=== PATIENT | male | born 1960 | race American Indian/Alaskan Native ===

== ENCOUNTER 2020-11-20 12:23 | Inpatient (IN) | payer MEDICARE ==
[2020-11-20] MEDS ORDERED: SODIUM CHLORIDE 0.9% 1000 ML 1,000 ML IV ONE (12:32)
[2020-11-20] MEDS ORDERED: ALBUTEROL 2.5 MG/3 ML NEBU IH ONE (12:32)
[2020-11-20] MEDS ORDERED: dexAMETHasone 20 MG/5 ML VIAL IV ONE (12:33)
--- NOTE | 2020-11-20 12:37 | Emergency Department Report ---
ED General Adult HPI - General Chief complaint: Dyspnea/Respdistress Stated complaint: DIFFICULTY BREATHING /COVID Time Seen by Provider: 11/20/20 12:31 Source: EMS Mode of arrival: Wheelchair Limitations: No Limitations - History of Present Illness Initial comments: Patient presents by missing her shortness of breath. He states that he was diagnosed with coronavirus approximately 2 weeks ago. He has had ongoing trouble breathing. The dyspnea got worse over the last day or 2. He has had a cough. He describes orthopnea. Patient states that he just cannot catch his breath. He still has a cough. It is not producing any colored phlegm. He is not on oxygen at home. Patient states that he just feels weak all over in addition. He has no chest pain. There has been no diarrhea. He has no dysuria. Patient states that when he was diagnosed with coronavirus, he was not treated with steroids or any other medication. - Related Data Home Medications Medication Instructions Recorded Confirmed Last Taken Ibuprofen [Motrin] 800 mg PO Q8HR PRN 04/13/15 06/14/15 Unknown Loratadine (Nf) [Claritin (Nf)] 10 mg PO DAILY PRN 04/13/15 06/14/15 Unknown Timolol 0.5% [Timoptic] 1 drops OP DAILY PRN 04/13/15 06/14/15 Unknown allopurinoL [Zyloprim] 300 mg PO QDAY PRN 04/13/15 06/14/15 Unknown methylPREDNISolone [Medrol Dose 4 mg PO DAILY PRN 04/13/15 06/14/15 Unknown Sergio] Previous Rx's Medication Instructions Recorded Last Taken Type Famotidine [Pepcid] 20 mg PO BID #60 tablet 04/14/15 Unknown Rx Aspirin [Aspirin BABY CHEW TAB] 81 mg PO QDAY #30 tab.chew 06/16/15 Unknown Rx AtorvaSTATin [Lipitor] 40 mg PO QHS #30 tablet 06/16/15 Unknown Rx Colchicine [Colcrys] 0.6 mg PO DAILY PRN #30 tablet 06/16/15 Unknown Rx Digoxin [Lanoxin] 0.125 mg PO DAILY #30 tablet 06/16/15 Unknown Rx Furosemide [Lasix TAB] 40 mg PO QDAY #30 tablet 06/16/15 Unknown Rx Niacin ER [Niaspan ER] 500 mg PO QHS #30 tablet 06/16/15 Unknown Rx [place]-3 Fatty Acids/Fish Oil [Fish 1,000 mg PO DAILY #30 capsule 06/16/15 Unknown Rx Oil] Potassium Chloride [K-Dur] 10 meq PO DAILY #30 tablet 06/16/15 Unknown Rx Ranolazine ER [Ranexa ER] 1,000 mg PO BID #60 tablet 06/16/15 Unknown Rx Spironolactone [Aldactone] 25 mg PO QDAY #30 tablet 06/16/15 Unknown Rx allopurinoL [Zyloprim] 300 mg PO QDAY PRN #30 tablet 06/16/15 Unknown Rx carvediloL [Coreg] 25 mg PO DAILY #30 tablet 06/16/15 Unknown Rx lisinopriL [Zestril TAB] 40 mg PO QDAY #30 tablet 06/16/15 Unknown Rx oxyCODONE /ACETAMINOPHEN [Percocet 1 tab PO Q6H PRN #30 tablet 06/16/15 Unknown Rx 5/325 mg] predniSONE [Deltasone] 20 mg PO QDAY #30 tablet 06/16/15 Unknown Rx Allergies Allergy/AdvReac Type Severity Reaction Status Date / Time No Known Allergies Allergy Verified 04/13/15 20:17 ED Review of Systems ROS: Stated complaint: DIFFICULTY BREATHING /COVID Other details as noted in HPI Comment: All other systems reviewed and negative Constitutional: see HPI, weakness ( Generalized) Eyes: denies: vision change ENT: denies: ear pain Respiratory: see HPI Cardiovascular: denies: chest pain Endocrine: denies: unexplained weight loss Gastrointestinal: denies: abdominal pain Genitourinary: denies: dysuria Musculoskeletal: denies: back pain Skin: denies: rash Neurological: denies: headache Hematological/Lymphatic: denies: easy bruising ED Past Medical Hx - Past Medical History Previous Medical History?: Yes Hx Hypertension: Yes Hx Congestive Heart Failure: Yes Additional medical history: AICD, Gout - Surgical History Hx Internal Defibrillator: Yes Additional Surgical History: Stent, AIDC - Family History Family history: hypertension - Social History Smoking Status: Never Smoker Substance Use Type: None - Medications Home Medications: Home Medications Medication Instructions Recorded Confirmed Last Taken Type Ibuprofen [Motrin] 800 mg PO Q8HR PRN 04/13/15 06/14/15 Unknown History Loratadine (Nf) [Claritin (Nf)] 10 mg PO DAILY PRN 04/13/15 06/14/15 Unknown History Timolol 0.5% [Timoptic] 1 drops OP DAILY PRN 04/13/15 06/14/15 Unknown History allopurinoL [Zyloprim] 300 mg PO QDAY PRN 04/13/15 06/14/15 Unknown History methylPREDNISolone [Medrol Dose 4 mg PO DAILY PRN 04/13/15 06/14/15 Unknown History Sergio] Famotidine [Pepcid] 20 mg PO BID #60 tablet 04/14/15 06/14/15 Unknown Rx Aspirin [Aspirin BABY CHEW TAB] 81 mg PO QDAY #30 tab.chew 06/16/15 Unknown Rx AtorvaSTATin [Lipitor] 40 mg PO QHS #30 tablet 06/16/15 Unknown Rx Colchicine [Colcrys] 0.6 mg PO DAILY PRN #30 tablet 06/16/15 Unknown Rx Digoxin [Lanoxin] 0.125 mg PO DAILY #30 tablet 06/16/15 Unknown Rx Furosemide [Lasix TAB] 40 mg PO QDAY #30 tablet 06/16/15 Unknown Rx Niacin ER [Niaspan ER] 500 mg PO QHS #30 tablet 06/16/15 Unknown Rx [place]-3 Fatty Acids/Fish Oil [Fish 1,000 mg PO DAILY #30 capsule 06/16/15 Unknown Rx Oil] Potassium Chloride [K-Dur] 10 meq PO DAILY #30 tablet 06/16/15 Unknown Rx Ranolazine ER [Ranexa ER] 1,000 mg PO BID #60 tablet 06/16/15 Unknown Rx Spironolactone [Aldactone] 25 mg PO QDAY #30 tablet 06/16/15 Unknown Rx allopurinoL [Zyloprim] 300 mg PO QDAY PRN #30 tablet 06/16/15 Unknown Rx carvediloL [Coreg] 25 mg PO DAILY #30 tablet 06/16/15 Unknown Rx lisinopriL [Zestril TAB] 40 mg PO QDAY #30 tablet 06/16/15 Unknown Rx oxyCODONE /ACETAMINOPHEN [Percocet 1 tab PO Q6H PRN #30 tablet 06/16/15 Unknown Rx 5/325 mg] predniSONE [Deltasone] 20 mg PO QDAY #30 tablet 06/16/15 Unknown Rx ED Physical Exam - General Limitations: No Limitations, Other ( pulse ox was noted. Patient is not hypoxic on oxygen. EMS reports that he was hypoxic on room air) General appearance: alert, in distress ( moderate), obese - Head Head exam: Present: atraumatic, normocephalic, normal inspection - Eye Eye exam: Present: EOMI. Absent: scleral icterus - ENT ENT exam: Present: normal exam, mucous membranes moist, normal external ear exam - Neck Neck exam: Present: normal inspection. Absent: meningismus - Respiratory Respiratory exam: Present: respiratory distress ( moderate), rales ( bilateral), accessory muscle use - Cardiovascular Cardiovascular Exam: Present: regular rate, normal rhythm - GI/Abdominal GI/Abdominal exam: Present: soft. Absent: tenderness - Extremities Exam Extremities exam: Present: normal capillary refill. Absent: pedal edema - Back Exam Back exam: Absent: CVA tenderness (R), CVA tenderness (L) - Neurological Exam Neurological exam: Present: alert, oriented X3, CN II-XII intact, reflexes normal. Absent: motor sensory deficit - Psychiatric Psychiatric exam: Present: normal affect, normal mood - Skin Skin exam: Present: warm, dry ED Course Vital Signs 11/20/20 12:31 Temperature 98.3 F Respiratory 19 Rate Blood Pressure 76/51 - Reevaluation(s) Reevaluation #1: 11/20/20 12:36 EMS was met upon arrival. Labs were ordered. Blood pressure was noted. We have asked for a manual blood pressure to verify. Reevaluation #2: 11/20/20 14:38 Patient is still hypotensive. Renal function was noted. Sepsis protocol has been started although there is no obvious source of infection. We will have to admit the patient. Reevaluation #3: 11/20/20 15:43 CBC is still pending. Regardless, the patient is hypotensive and will need to be admitted. Lab has been called. At this time, we will continue to resuscitat e with IV hydration. Chest x-ray does not demonstrate overt heart failure or overt pneumonia. Etiology for hypotension is likely secondary to an acute kidney injury. Lactate has been added on. Clinically, the patient does not have severe sepsis or septic shock at this point. However this could be sepsis that we just do not have a source for. We will not start empiric antibiotic therapy at this time without a source. This could be all Covid related. ED Medical Decision Making - Lab Data Result diagrams: 11/20/20 12:39 - Medical Decision Making Patient presented with shortness of breath and was found to ultimately have an acute kidney injury. He was hypotensive. He was being resuscitated with fluids aggressively in the sepsis protocol. There was no overt sign of pneumonia. He did not have dysuria or frequency suggestive of urinary tract infection. There was no rash suggestive of a cellulitis. He did not have clinical evidence to suggest congestive heart failure or cardiogenic shock. Critical Care Time: Yes Critical care attestation.: If time is entered above; I have spent that time in minutes in the direct care of this critically ill patient, excluding procedure time. Critical Care Time: Critical care time of 55 minutes is because of all procedures based on hypotension and acute kidney injury ED Disposition Clinical Impression: Shortness of breath, COVID-19 virus infection, Transient hypotension, CHERYL (acute kidney injury) Disposition: ADMITTED INPATIENT Is pt being admited?: Yes Condition: Stable
[2020-11-20 13:13] LABS: Calcium 8.5 mg/dL (8.4-10.2)
--- NOTE | 2020-11-20 13:26 | XRay Report ---
CHEST 1 VIEW 11/20/2020 12:16 PM INDICATION / CLINICAL INFORMATION: dyspnea. COMPARISON: 04/13/2015. FINDINGS: SUPPORT DEVICES: ICD in satisfactory position. HEART / MEDIASTINUM: No significant abnormality. LUNGS / PLEURA: Mild increased interstitial markings diffusely without localized infiltrate or pleura l fluid No pneumothorax. ADDITIONAL FINDINGS: No significant additional findings. IMPRESSION: Suspect chronic interstitial thickening with possible mild superimposed vascular congesti on. Signer Name: En Nice MD Signed: 11/20/2020 1:22 PM Workstation Name: [id number]
[2020-11-20] MEDS ORDERED: SODIUM CHLORIDE 0.9% 1000 ML IV SOLN IV ONE (14:37)
--- NOTE | 2020-11-20 15:42 | History and Physical Report ---
History of Present Illness Chief complaint: I am short of breath History of present illness: 60 YO Male with CAD S/P Stent Placement, HTN, Systolic CHF(EF 25) S/P AICD Placement, HLD, CO, OA, Coronavirus Infection diagnosed 2 weeks ago presents to ED for evaluation. Patient reports "I am short of breath". Patient states that he has experienced shortness of breath, dry cough, fatigue, malaise, body aches, subjective fever, decreased exercise tolerance over the past 1 week with persistent and worsening symptoms over the past 3 days. EMS was notified and upon arrival the patient was found to be in distress and subsequent transported to [facility] for further care and evaluation of the aforementioned symptoms. The gemini bass was seen and evaluated in the emergency department. All lab and imaging studies reviewed. Patient found to have a pulse oximetry of 86% with exertion which is consistent with acute hypoxemic respiratory failure. The patient is unable to speak in complete sentences due to shortness of breath. Patient placed on submental oxygen with mild improvement in symptoms. Patient admitted to medical floor and initiated on coronavirus protocol due to increased risk of worsening symptoms. VQ scan ordered and is pending at time of admission. Patient denies chest pain, palpitation, unilateral leg swelling, calf pain, prolonged travel/immobility, individual/family history of DVT/PE/bleeding/blood clotting disorders. Prior admission on 06/14/2015 reviewed. All medication listed at time of admission has been reconciled. Advanced care planning conducted in ED. Past History Past Medical History: acute CO, CAD, heart failure, hypertension, hyperlipidemi a, other (See HPI) Past Surgical History: Other (Cardiac stent, AICD) Social history: single. denies: smoking, alcohol abuse Family history: diabetes, hypertension Medications and Allergies Allergies Allergy/AdvReac Type Severity Reaction Status Date / Time No Known Allergies Allergy Verified 04/13/15 20:17 Home Medications Medication Instructions Recorded Confirmed Last Taken Type Ibuprofen [Motrin] 800 mg PO Q8HR PRN 04/13/15 06/14/15 Unknown History Loratadine (Nf) [Claritin (Nf)] 10 mg PO DAILY PRN 04/13/15 06/14/15 Unknown History Timolol 0.5% [Timoptic] 1 drops OP DAILY PRN 04/13/15 06/14/15 Unknown History allopurinoL [Zyloprim] 300 mg PO QDAY PRN 04/13/15 06/14/15 Unknown History methylPREDNISolone [Medrol Dose 4 mg PO DAILY PRN 04/13/15 06/14/15 Unknown History Sergio] Famotidine [Pepcid] 20 mg PO BID #60 tablet 04/14/15 06/14/15 Unknown Rx Aspirin [Aspirin BABY CHEW TAB] 81 mg PO QDAY #30 tab.chew 06/16/15 Unknown Rx AtorvaSTATin [Lipitor] 40 mg PO QHS #30 tablet 06/16/15 Unknown Rx Colchicine [Colcrys] 0.6 mg PO DAILY PRN #30 tablet 06/16/15 Unknown Rx Digoxin [Lanoxin] 0.125 mg PO DAILY #30 tablet 06/16/15 Unknown Rx Furosemide [Lasix TAB] 40 mg PO QDAY #30 tablet 06/16/15 Unknown Rx Niacin ER [Niaspan ER] 500 mg PO QHS #30 tablet 06/16/15 Unknown Rx [place]-3 Fatty Acids/Fish Oil [Fish 1,000 mg PO DAILY #30 capsule 06/16/15 Unknown Rx Oil] Potassium Chloride [K-Dur] 10 meq PO DAILY #30 tablet 06/16/15 Unknown Rx Ranolazine ER [Ranexa ER] 1,000 mg PO BID #60 tablet 06/16/15 Unknown Rx Spironolactone [Aldactone] 25 mg PO QDAY #30 tablet 06/16/15 Unknown Rx allopurinoL [Zyloprim] 300 mg PO QDAY PRN #30 tablet 06/16/15 Unknown Rx carvediloL [Coreg] 25 mg PO DAILY #30 tablet 06/16/15 Unknown Rx lisinopriL [Zestril TAB] 40 mg PO QDAY #30 tablet 06/16/15 Unknown Rx oxyCODONE /ACETAMINOPHEN [Percocet 1 tab PO Q6H PRN #30 tablet 06/16/15 Unknown Rx 5/325 mg] predniSONE [Deltasone] 20 mg PO QDAY #30 tablet 06/16/15 Unknown Rx Review of Systems Constitutional: fever, weakness, malaise, lethargy Ears, nose, mouth and throat: no ear pain, no ear discharge, no tinnitis, no decreased hearing, no nose pain, no nasal congestion Cardiovascular: no chest pain, no palpitations, no rapid/irregular heart beat, no edema, no syncope Respiratory: cough, cough with sputum, shortness of breath, no excessive sputum Gastrointestinal: no abdominal pain, no nausea, no vomiting, no constipation, no hematemesis Genitourinary Male: no hematuria, no flank pain, no urinary frequency, no urinary hesitancy, no nocturia, no incontinence Rectal: no pain, no incontinence Musculoskeletal: no neck stiffness, no neck pain, no arm numbness/tingling, no shooting leg pain Integumentary: no rash, no redness, no sores, no wounds Neurological: no head injury, no weakness, no parathesias, no tingling, no seizures, no syncope Psychiatric: no anxiety, no change in sleep habits, no insomnia, no hypersomnia, no change in libido Endocrine: no cold intolerance, no excessive thirst, no polydipsia, no nocturia, no flushing Hematologic/Lymphatic: no easy bruising, no easy bleeding, no lymphedema Allergic/Immunologic: no allergic rhinitis, no wheezing Exam - Constitutional Vitals: Temp Pulse Resp BP Pulse Ox 98.3 F 19 76/51 11/20/20 12:31 11/20/20 12:31 11/20/20 12:31 General appearance: Present: mild distress, obese - EENT Eyes: Present: PERRL ENT: hearing intact, clear oral mucosa - Neck Neck: Present: supple, normal ROM - Respiratory Respiratory effort: normal Respiratory: bilateral: CTA - Cardiovascular Heart Sounds: Present: S1 & S2. Absent: rub, click - Extremities Extremities: pulses symmetrical, No edema Peripheral Pulses: within normal limits - Abdominal General gastrointestinal: Present: soft, non-tender, non-distended, normal bowel sounds Male genitourinary: Present: normal - Integumentary Integumentary: Present: clear, warm, dry - Musculoskeletal Musculoskeletal: generalized weakness - Psychiatric Psychiatric: appropriate mood/affect, intact judgment & insight - Neurologic Neurologic: CNII-XII intact, moves all extremities HEART Score - HEART Score Troponin: Troponin T 0.019 ng/mL (0.00-0.029) 11/20/20 12:39 Results - Labs CBC & Chem 7: 11/20/20 12:39 11/20/20 12:39 Labs: Abnormal lab results 11/20/20 11/20/20 Range/Units 12:39 12:39 D-Dimer 836.61 H (0-234) ng/mlDDU Sodium 125 L (137-145) mmol/L Chloride 94.3 L (98-107) mmol/L Carbon Dioxide 16 L (22-30) mmol/L BUN 43 H (9-20) mg/dL Creatinine 2.3 H (0.8-1.3) mg/dL Assessment and Plan - Patient Problems (1) Acute hypoxemic respiratory failure Current Visit: Yes Status: Acute Plan to address problem: Chest x-ray, supplemental oxygen, pulse oximetry, nebulizer therapy, VQ scan ordered and is pending at time of admission. (2) Obesity hypoventilation syndrome Current Visit: Yes Status: Acute Plan to address problem: Balanced diet, increase physical activity discharge, outpatient pulmonary follow-up for sleep study. (3) COVID-19 virus infection Current Visit: No Status: Acute Plan to address problem: Coronavirus protocol: Contact precautions, isolation precautions, IV steroid therapy, IV antibiotic therapy, vitamin C therapy, vitamin D therapy, zinc therapy, prophylactic anticoagulation (4) Essential hypertension Current Visit: No Status: Chronic Plan to address problem: Monitor blood pressure every shift, continue medical management (5) Hyperlipidemia Current Visit: No Status: Chronic Plan to address problem: Statin therapy, low-cholesterol diet, supportive care. (6) DVT prophylaxis Current Visit: Yes Status: Acute Plan to address problem: SCD to bilateral lower extremities while in bed, prophylactic anticoagulation (7) Advance care planning Current Visit: Yes Status: Acute Plan to address problem: Disease education conducted, care plan discussed, diagnoses discussed, prognosis discussed, patient is full code, patient knowledges understanding and agreement with care plan. +30 minutes.
[2020-11-20] MEDS ORDERED: allopurinoL 300 MG TAB PO PRN (15:43)
[2020-11-20] MEDS ORDERED: TIMOLOL 0.5% OPHTH SOLN 5 ML OD PRN (15:43)
[2020-11-20] MEDS ORDERED: COLCHICINE 0.6 MG TAB PO PRN (15:43)
[2020-11-20] MEDS ORDERED: NON-FORMULARY EACH (Loratadine (Nf) 10 MG Tablet) PO PRN (15:43)
[2020-11-20 15:54] LABS: Basophils % (Auto) 0.5 % (0.0-1.8); Hemoglobin 16.1 gm/dl (11.8-15.2); Lymphocytes # (Auto) 0.6 K/mm3 (1.2-5.4); Lymphocytes % (Auto) 25.9 % (13.4-35.0); Mean Corpuscular HGB Conc 33 % (32-34); Mean Corpuscular Volume 99 fl (84-94); Monocytes # (Auto) 0.2 K/mm3 (0.0-0.8); Monocytes % (Auto) 8.4 % (0.0-7.3); Platelet Count 100 K/mm3 (140-440); Red Blood Count 4.87 M/mm3 (3.65-5.03); Red Cell Distribution Width 15.2 % (13.2-15.2)
[2020-11-20] MEDS ORDERED: ACETAMINOPHEN 325 MG TAB PO PRN (17:29)
[2020-11-20] MEDS ORDERED: HYDROmorphone 1 MG/1 ML INJ IV PRN (17:29)
[2020-11-20] MEDS ORDERED: ONDANSETRON 4 MG/2 ML INJ IV PRN (17:29)
[2020-11-20 20:38] LABS: Bilirubin,Urine Negative (Negative)
[2020-11-20 20:39] LABS: Blood,Urine 2+ (Negative); Color,Urine Straw (Yellow); Urobilinogen,Urine < 2.0 mg/dL (<2.0)
[2020-11-20] MEDS ORDERED: FAMOTIDINE 20 MG TAB PO SCH (22:00)
[2020-11-21] MEDS: HEPARIN 5,000 UNIT/1 ML VIAL SUB-Q SCH ×2 (00:35→10:21)
[2020-11-21] MEDS: RANOLAZINE ER 500 MG TAB 12HR PO SCH ×2 (00:36→10:22)
[2020-11-21] MEDS: methylPREDNISolone Sod Succinate 40 MG/1 ML INJ IV SCH ×3 (00:37→15:05)
[2020-11-21] MEDS: ZINC SULFATE 220 MG CAP PO SCH ×2 (00:38→10:22)
[2020-11-21] MEDS: ASCORBIC ACID 500 MG TAB PO SCH ×2 (00:38→10:23)
[2020-11-21] MEDS ORDERED: LISINOPRIL 40 MG TAB PO SCH (10:00)
[2020-11-21] MEDS ORDERED: FUROSEMIDE 40 MG TAB PO SCH (10:00)
[2020-11-21] MEDS ORDERED: DIGOXIN 0.125 MG TAB PO SCH (10:00)
[2020-11-21] MEDS ORDERED: SPIRONOLACTONE 25 MG TAB PO SCH (10:00)
[2020-11-21 10:05] LABS: Basophils % (Auto) 0.2 % (0.0-1.8); Hematocrit 49.5 % (35.5-45.6); Hemoglobin 17.1 gm/dl (11.8-15.2); Lymphocytes # (Auto) 0.5 K/mm3 (1.2-5.4); Lymphocytes % (Auto) 18.4 % (13.4-35.0); Mean Corpuscular HGB Conc 35 % (32-34); Mean Corpuscular Volume 98 fl (84-94); Monocytes # (Auto) 0.2 K/mm3 (0.0-0.8); Monocytes % (Auto) 6.1 % (0.0-7.3); Red Blood Count 5.04 M/mm3 (3.65-5.03); Red Cell Distribution Width 15.1 % (13.2-15.2)
[2020-11-21] MEDS: ASPIRIN 81 MG TAB CHEW PO SCH (10:21)
[2020-11-21] MEDS: CETIRIZINE 10 MG TAB PO SCH (10:21)
[2020-11-21] MEDS: FAMOTIDINE 10 MG TAB PO SCH (10:22)
[2020-11-21] MEDS: POTASSIUM CHLORIDE ER 10 MEQ TAB PO SCH (10:22)
[2020-11-21] MEDS: CHOLECALCIFEROL (VIT D3) 400 UNIT TAB PO SCH (10:23)
[2020-11-21 10:29] LABS: Alanine Aminotransferase 189 units/L (7-56); Albumin 3.2 g/dL (3.9-5); BUN/Creatinine Ratio 27; Blood Urea Nitrogen 38 mg/dL (9-20); Calcium 8.2 mg/dL (8.4-10.2); Hemolysis Index 20
[2020-11-21 11:15] LABS: Platelet Count 93 K/mm3 (140-440)
--- NOTE | 2020-11-21 11:21 | Nuclear Medicine Report ---
NUCLEAR MEDICINE PERFUSION SCAN INDICATION: covid 19 positive /sob CORRELATION: AP chest performed 11/20/2020 at 1253 hours RADIOPHARMACEUTICAL: Perfusion: 5.1 mCi Tc-99m MAA given IV FINDINGS: Perfusion images show symmetric and uniform radiotracer distribution throughout bilateral lung zones with no evidence of unmatched segmental perfusion defects. Normal cardiac silhouette. Photopenic defe ct from pacemaker device is noted. IMPRESSION: Low probability perfusion scan for pulmonary embolism. Signer Name: Todd Topete Jr, MD Signed: 11/21/2020 10:28 AM Workstation Name: [id number]
[2020-11-21 11:32] LABS: C-Reactive Protein 4.6 mg/dL (0.00-1.30)
--- NOTE | 2020-11-21 11:51 | Consultation ---
History of Present Illness - Reason for Consult Consult date: 11/21/20 COVID, hypoxia Requesting physician: CLIVE VILLALTA - History of Present Illness The patient is a 60-year-old male with coronary artery disease, CHF, hypertension, cardiomyopathy status post AICD placement who was recently diagnosed with COVID-19 infection 2 weeks prior. Came to the hospital with worsening shortness of breath, cough and fatigue with body aches. Upon evaluation, found to be hypoxic. Labs revealed leukopenia, D-dimer 859, LDH 682, transaminitis, CRP 4.6, NT proBNP 467 Review of Systems: reviewed in the chart, unable to obtain, minimize risk of transmission Past History Past Medical History: acute [place], CAD, heart failure, hypertension, hyperlipidemia, other (See HPI) Past Surgical History: Other (Cardiac stent, AICD) Social history: single. denies: smoking, alcohol abuse Family history: diabetes, hypertension Medications and Allergies Allergies Allergy/AdvReac Type Severity Reaction Status Date / Time No Known Allergies Allergy Verified 04/13/15 20:17 Home Medications Medication Instructions Recorded Confirmed Last Taken Type Ibuprofen [Motrin] 800 mg PO Q8HR PRN 04/13/15 06/14/15 Unknown History Loratadine (Nf) [Claritin (Nf)] 10 mg PO DAILY PRN 04/13/15 06/14/15 Unknown History Timolol 0.5% [Timoptic] 1 drops OP DAILY PRN 04/13/15 06/14/15 Unknown History allopurinoL [Zyloprim] 300 mg PO QDAY PRN 04/13/15 06/14/15 Unknown History methylPREDNISolone [Medrol Dose 4 mg PO DAILY PRN 04/13/15 06/14/15 Unknown History Sergio] Famotidine [Pepcid] 20 mg PO BID #60 tablet 04/14/15 06/14/15 Unknown Rx Aspirin [Aspirin BABY CHEW TAB] 81 mg PO QDAY #30 tab.chew 06/16/15 Unknown Rx AtorvaSTATin [Lipitor] 40 mg PO QHS #30 tablet 06/16/15 Unknown Rx Colchicine [Colcrys] 0.6 mg PO DAILY PRN #30 tablet 06/16/15 Unknown Rx Digoxin [Lanoxin] 0.125 mg PO DAILY #30 tablet 06/16/15 Unknown Rx Furosemide [Lasix TAB] 40 mg PO QDAY #30 tablet 06/16/15 Unknown Rx Niacin ER [Niaspan ER] 500 mg PO QHS #30 tablet 06/16/15 Unknown Rx [place]-3 Fatty Acids/Fish Oil [Fish 1,000 mg PO DAILY #30 capsule 06/16/15 Unknown Rx Oil] Potassium Chloride [K-Dur] 10 meq PO DAILY #30 tablet 06/16/15 Unknown Rx Ranolazine ER [Ranexa ER] 1,000 mg PO BID #60 tablet 06/16/15 Unknown Rx Spironolactone [Aldactone] 25 mg PO QDAY #30 tablet 06/16/15 Unknown Rx allopurinoL [Zyloprim] 300 mg PO QDAY PRN #30 tablet 06/16/15 Unknown Rx carvediloL [Coreg] 25 mg PO DAILY #30 tablet 06/16/15 Unknown Rx lisinopriL [Zestril TAB] 40 mg PO QDAY #30 tablet 06/16/15 Unknown Rx oxyCODONE /ACETAMINOPHEN [Percocet 1 tab PO Q6H PRN #30 tablet 06/16/15 Unknown Rx 5/325 mg] predniSONE [Deltasone] 20 mg PO QDAY #30 tablet 06/16/15 Unknown Rx Active Meds: Active Medications Acetaminophen (Acetaminophen 325 Mg Tab) 650 mg PO Q4H PRN PRN Reason: Pain MILD(1-3)/Fever >100.5/KIDD Allopurinol (Allopurinol 300 Mg Tab) 300 mg PO QDAY PRN PRN 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 Ascorbic Acid (Ascorbic Acid 500 Mg Tab) 500 mg PO BID [facility] Last Admin: 11/21/20 10:23 Dose: 500 mg Documented by: Aspirin (Aspirin 81 Mg Tab Chew) 81 mg PO QDAY [facility] Last Admin: 11/21/20 10:21 Dose: 81 mg Documented by: Cetirizine HCl (Cetirizine 10 Mg Tab) 10 mg PO DAILY [facility] Last Admin: 11/21/20 10:21 Dose: 10 mg Documented by: Cholecalciferol (Cholecalciferol (Vit D3) 400 Unit Tab) 1,000 unit PO QDAY [facility] Last Admin: 11/21/20 10:23 Dose: 1,000 unit Documented by: Colchicine (Colchicine 0.6 Mg Tab) 0.6 mg PO DAILY PRN PRN Reason: Gout Famotidine (Famotidine 10 Mg Tab) 10 mg PO BID [facility] Last Admin: 11/21/20 10:22 Dose: 10 mg Documented by: Furosemide (Furosemide 40 Mg Tab) 40 mg PO QDAY [facility] Last Admin: 11/21/20 10:22 Dose: 40 mg Documented by: Heparin Sodium (Porcine) (Heparin 5,000 Unit/1 Ml Vial) 5,000 unit SUB-Q Q12HR [facility] Last Admin: 11/21/20 10:21 Dose: 5,000 unit Documented by: Hydromorphone HCl (Hydromorphone 1 Mg/1 Ml Inj) 0.5 mg IV Q23H PRN PRN Reason: Pain , Severe (7-10) Methylprednisolone Sodium Succinate (Methylprednisolone Sod Succinate 40 Mg/1 Ml Inj) 40 mg IV Q8HR [facility] Last Admin: 11/21/20 05:52 Dose: 40 mg Documented by: Ondansetron HCl (Ondansetron 4 Mg/2 Ml Inj) 4 mg IV Q8H PRN PRN Reason: Nausea And Vomiting Oxycodone/Acetaminophen (Oxycodone /Acetaminophen 5-325mg Tab) 1 tab PO Q12H PRN PRN Reason: Pain, Moderate (4-6) Potassium Chloride (Potassium Chloride Er 10 Meq Tab) 10 meq PO DAILY [facility] Last Admin: 11/21/20 10:22 Dose: 10 meq Documented by: Ranolazine (Ranolazine Er 500 Mg Tab 12hr) 1,000 mg PO BID [facility] Last Admin: 11/21/20 10:22 Dose: 1,000 mg Documented by: Sodium Chloride (Sodium Chloride 0.9% 10 Ml Flush Syringe) 10 ml IV BID [facility] Last Admin: 11/21/20 10:23 Dose: 10 ml Documented by: Sodium Chloride (Sodium Chloride 0.9% 10 Ml Flush Syringe) 10 ml IV PRN PRN PRN Reason: LINE FLUSH Spironolactone (Spironolactone 25 Mg Tab) 25 mg PO QDAY [facility] Last Admin: 11/21/20 10:24 Dose: 25 mg Documented by: Timolol Maleate (Timolol 0.5% Ophth Soln 5 Ml) 1 drops OD DAILY PRN PRN Reason: Migraine Headache Zinc Sulfate (Zinc Sulfate 220 Mg Cap) 220 mg PO BID [facility] Last Admin: 11/21/20 00:38 Dose: 220 mg Documented by: Physical Examination - Physical Exam Narrative exam: Physical Exam (reviewed in chart to minimize risk of transmission) Constitutional: deferred Head, Ears, Nose: deferred Eyes: deferred Neck: deferred Oral: deferred Cardiovascular: deferred Respiratory: deferred GI: deferred Musculoskeletal: deferred Skin: deferred Hem/Lymphatic: deferred Psych: deferred Neurological: deferred - Constitutional Vitals: Vital Signs Temp Pulse Resp BP Pulse Ox 98.0 F 71 18 117/74 91 11/21/20 06:09 11/21/20 00:21 11/21/20 06:09 11/21/20 06:09 11/21/20 09:03 Temperature -Last 24 Hours Temperature 98.0 F Temperature 97.4 F Temperature 97.7 F Temperature 98.3 F Results - Labs CBC & Chem 7: 11/21/20 09:35 11/21/20 10:45 Labs: Abnormal lab results 11/20/20 11/20/20 11/20/20 Range/Units 12:39 12:39 12:39 WBC 2.4 L (4.5-11.0) K/mm3 RBC (3.65-5.03) M/mm3 Hgb 16.1 H (11.8-15.2) gm/dl Hct 48.0 H (35.5-45.6) % MCV 99 H (84-94) fl MCH 33 H (28-32) pg MCHC (32-34) % Plt Count 100 L (140-440) K/mm3 [place] % (Auto) 8.4 H (0.0-7.3) % Lymph # (Auto) 0.6 L (1.2-5.4) K/mm3 Seg Neutrophils % (40.0-70.0) % Seg Neutrophils # 1.6 L (1.8-7.7) K/mm3 D-Dimer 836.61 H (0-234) ng/mlDDU Sodium 125 L (137-145) mmol/L Chloride 94.3 L (98-107) mmol/L Carbon Dioxide 16 L (22-30) mmol/L BUN 43 H (9-20) mg/dL Creatinine 2.3 H (0.8-1.3) mg/dL Glucose (75-100) mg/dL Calcium (8.4-10.2) mg/dL AST (5-40) units/L ALT (7-56) units/L Lactate Dehydrogenase (91-180) units/L C-Reactive Protein (0.00-1.30) mg/dL Albumin (3.9-5) g/dL 11/21/20 11/21/20 11/21/20 Range/Units 09:35 09:35 10:45 WBC 2.7 L (4.5-11.0) K/mm3 RBC 5.04 H (3.65-5.03) M/mm3 Hgb 17.1 H (11.8-15.2) gm/dl Hct 49.5 H (35.5-45.6) % MCV 98 H (84-94) fl MCH 34 H (28-32) pg MCHC 35 H (32-34) % Plt Count 93 L (140-440) K/mm3 [place] % (Auto) (0.0-7.3) % Lymph # (Auto) 0.5 L (1.2-5.4) K/mm3 Seg Neutrophils % 75.3 H (40.0-70.0) % Seg Neutrophils # (1.8-7.7) K/mm3 D-Dimer 859.78 H (0-234) ng/mlDDU Sodium 134 L D (137-145) mmol/L Chloride (98-107) mmol/L Carbon Dioxide 16 L (22-30) mmol/L BUN 38 H (9-20) mg/dL Creatinine 1.4 H (0.8-1.3) mg/dL Glucose 141 H (75-100) mg/dL Calcium 8.2 L (8.4-10.2) mg/dL AST 202 H (5-40) units/L ALT 189 H (7-56) units/L Lactate Dehydrogenase (91-180) units/L C-Reactive Protein (0.00-1.30) mg/dL Albumin 3.2 L (3.9-5) g/dL 11/21/20 Range/Units 10:45 WBC (4.5-11.0) K/mm3 RBC (3.65-5.03) M/mm3 Hgb (11.8-15.2) gm/dl Hct (35.5-45.6) % MCV (84-94) fl MCH (28-32) pg MCHC (32-34) % Plt Count (140-440) K/mm3 [place] % (Auto) (0.0-7.3) % Lymph # (Auto) (1.2-5.4) K/mm3 Seg Neutrophils % (40.0-70.0) % Seg Neutrophils # (1.8-7.7) K/mm3 D-Dimer (0-234) ng/mlDDU Sodium (137-145) mmol/L Chloride (98-107) mmol/L Carbon Dioxide (22-30) mmol/L BUN (9-20) mg/dL Creatinine (0.8-1.3) mg/dL Glucose 154 H (75-100) mg/dL Calcium (8.4-10.2) mg/dL AST (5-40) units/L ALT (7-56) units/L Lactate Dehydrogenase 682 H (91-180) units/L C-Reactive Protein 4.60 H (0.00-1.30) mg/dL Albumin (3.9-5) g/dL - Imaging and Cardiology Chest x-ray: report reviewed, image reviewed (interstitial thickening) Assessment and Plan Cultures: SARS CoV2 PCR: Positive as outpatient, pending here 11/20/2020 blood culture: In process A/P: 60-year-old male with coronary artery disease, CHF, hypertension, cardiomyopathy status post AICD placement who was recently diagnosed with COVID-19 infection 2 weeks prior: #Bilateral pneumonia secondary to COVID-19: Labs revealed leukopenia, D-dimer 859, LDH 682, transaminitis, CRP 4.6, NT proBNP 467. CXR with interstitial thickening. V/Q with low probability for PE. #Acute hypoxic respiratory failure: Requiring [place] nasal cannula #CHF, cardiomyopathy, s/p AICD #CHERYL: Renally adjust antibiotics #Transaminitis: ?COVID related v/s congestion. #Leukopenia, thrombocytopenia: Likely related to viral illness Recs: -Continue steroids, on methylprednisolone -Out of the window for remdesivir benefit since diagnosis was 2 weeks ago -Not a candidate for Actemra based on CRP and oxygen requirements -prophylactic anticoagulation based on d-dimer per hospital protocol -trend d-dimer, CRP every 2-3 days -CHF management per primary Martine Anglin MD, FACP [facility] O: [phone] F: [phone]
--- NOTE | 2020-11-21 13:15 | Consultation ---
History of Present Illness - Reason for Consult Consult date: 11/21/20 acute renal failure Requesting physician: CLIVE VILLALTA - History of Present Illness Patient presents by missing her shortness of breath. He states that he was diagnosed with coronavirus approximately 2 weeks ago. He has had ongoing trouble breathing. The dyspnea got worse over the last day or 2. He has had a cough. He describes orthopnea. Patient states that he just cannot catch his breath. He still has a cough. It is not producing any colored phlegm. He is not on oxygen at home. Patient states that he just feels weak all over in addition. He has no chest pain. There has been no diarrhea. He has no dysuria. Patient states that when he was diagnosed with coronavirus, he was not treated with steroids or any other medication. ROS: Stated complaint: DIFFICULTY BREATHING /COVID Other details as noted in HPI Comment: All other systems reviewed and negative Constitutional: see HPI, weakness ( Generalized) Eyes: denies: vision change ENT: denies: ear pain Respiratory: see HPI Cardiovascular: denies: chest pain Endocrine: denies: unexplained weight loss Gastrointestinal: denies: abdominal pain Genitourinary: denies: dysuria Musculoskeletal: denies: back pain Skin: denies: rash Neurological: denies: headache Hematological/Lymphatic: denies: easy bruising - Past Medical History Previous Medical History?: Yes Hx Hypertension: Yes Hx Congestive Heart Failure: Yes Additional medical history: AICD, Gout - Surgical History Hx Internal Defibrillator: Yes Additional Surgical History: Stent, AIDC - Family History Family history: hypertension - Social History Smoking Status: Never Smoker Substance Use Type: None Past History Past Medical History: acute [place], CAD, heart failure, hypertension, hyperlipidemia, other (See HPI) Past Surgical History: Other (Cardiac stent, AICD) Social history: single. denies: smoking, alcohol abuse Family history: diabetes, hypertension Medications and Allergies Allergies Allergy/AdvReac Type Severity Reaction Status Date / Time No Known Allergies Allergy Verified 04/13/15 20:17 Home Medications Medication Instructions Recorded Confirmed Last Taken Type Ibuprofen [Motrin] 800 mg PO Q8HR PRN 04/13/15 06/14/15 Unknown History Loratadine (Nf) [Claritin (Nf)] 10 mg PO DAILY PRN 04/13/15 06/14/15 Unknown History Timolol 0.5% [Timoptic] 1 drops OP DAILY PRN 04/13/15 06/14/15 Unknown History allopurinoL [Zyloprim] 300 mg PO QDAY PRN 04/13/15 06/14/15 Unknown History methylPREDNISolone [Medrol Dose 4 mg PO DAILY PRN 04/13/15 06/14/15 Unknown History Sergio] Famotidine [Pepcid] 20 mg PO BID #60 tablet 04/14/15 06/14/15 Unknown Rx Aspirin [Aspirin BABY CHEW TAB] 81 mg PO QDAY #30 tab.chew 06/16/15 Unknown Rx AtorvaSTATin [Lipitor] 40 mg PO QHS #30 tablet 06/16/15 Unknown Rx Colchicine [Colcrys] 0.6 mg PO DAILY PRN #30 tablet 06/16/15 Unknown Rx Digoxin [Lanoxin] 0.125 mg PO DAILY #30 tablet 06/16/15 Unknown Rx Furosemide [Lasix TAB] 40 mg PO QDAY #30 tablet 06/16/15 Unknown Rx Niacin ER [Niaspan ER] 500 mg PO QHS #30 tablet 06/16/15 Unknown Rx [place]-3 Fatty Acids/Fish Oil [Fish 1,000 mg PO DAILY #30 capsule 06/16/15 Unknown Rx Oil] Potassium Chloride [K-Dur] 10 meq PO DAILY #30 tablet 06/16/15 Unknown Rx Ranolazine ER [Ranexa ER] 1,000 mg PO BID #60 tablet 06/16/15 Unknown Rx Spironolactone [Aldactone] 25 mg PO QDAY #30 tablet 06/16/15 Unknown Rx allopurinoL [Zyloprim] 300 mg PO QDAY PRN #30 tablet 06/16/15 Unknown Rx carvediloL [Coreg] 25 mg PO DAILY #30 tablet 06/16/15 Unknown Rx lisinopriL [Zestril TAB] 40 mg PO QDAY #30 tablet 06/16/15 Unknown Rx oxyCODONE /ACETAMINOPHEN [Percocet 1 tab PO Q6H PRN #30 tablet 06/16/15 Unknown Rx 5/325 mg] predniSONE [Deltasone] 20 mg PO QDAY #30 tablet 06/16/15 Unknown Rx Active Meds: Active Medications Acetaminophen (Acetaminophen 325 Mg Tab) 650 mg PO Q4H PRN PRN Reason: Pain MILD(1-3)/Fever >100.5/KIDD Allopurinol (Allopurinol 300 Mg Tab) 300 mg PO QDAY PRN 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 Ascorbic Acid (Ascorbic Acid 500 Mg Tab) 500 mg PO BID [facility] Last Admin: 11/21/20 10:23 Dose: 500 mg Documented by: Aspirin (Aspirin 81 Mg Tab Chew) 81 mg PO QDAY [facility] Last Admin: 11/21/20 10:21 Dose: 81 mg Documented by: Cetirizine HCl (Cetirizine 10 Mg Tab) 10 mg PO DAILY [facility] Last Admin: 11/21/20 10:21 Dose: 10 mg Documented by: Cholecalciferol (Cholecalciferol (Vit D3) 400 Unit Tab) 1,000 unit PO QDAY [facility] Last Admin: 11/21/20 10:23 Dose: 1,000 unit Documented by: Colchicine (Colchicine 0.6 Mg Tab) 0.6 mg PO DAILY PRN PRN Reason: Gout Famotidine (Famotidine 10 Mg Tab) 10 mg PO BID [facility] Last Admin: 11/21/20 10:22 Dose: 10 mg Documented by: Furosemide (Furosemide 40 Mg Tab) 40 mg PO QDAY [facility] Last Admin: 11/21/20 10:22 Dose: 40 mg Documented by: Heparin Sodium (Porcine) (Heparin 5,000 Unit/1 Ml Vial) 5,000 unit SUB-Q Q12HR [facility] Last Admin: 11/21/20 10:21 Dose: 5,000 unit Documented by: Hydromorphone HCl (Hydromorphone 1 Mg/1 Ml Inj) 0.5 mg IV Q23H PRN PRN Reason: Pain , Severe (7-10) Methylprednisolone Sodium Succinate (Methylprednisolone Sod Succinate 40 Mg/1 Ml Inj) 40 mg IV Q8HR [facility] Last Admin: 11/21/20 05:52 Dose: 40 mg Documented by: Ondansetron HCl (Ondansetron 4 Mg/2 Ml Inj) 4 mg IV Q8H PRN PRN Reason: Nausea And Vomiting Oxycodone/Acetaminophen (Oxycodone /Acetaminophen 5-325mg Tab) 1 tab PO Q12H PRN PRN Reason: Pain, Moderate (4-6) Potassium Chloride (Potassium Chloride Er 10 Meq Tab) 10 meq PO DAILY [facility] Last Admin: 11/21/20 10:22 Dose: 10 meq Documented by: Ranolazine (Ranolazine Er 500 Mg Tab 12hr) 1,000 mg PO BID [facility] Last Admin: 11/21/20 10:22 Dose: 1,000 mg Documented by: Sodium Chloride (Sodium Chloride 0.9% 10 Ml Flush Syringe) 10 ml IV BID [facility] Last Admin: 11/21/20 10:23 Dose: 10 ml Documented by: Sodium Chloride (Sodium Chloride 0.9% 10 Ml Flush Syringe) 10 ml IV PRN PRN PRN Reason: LINE FLUSH Spironolactone (Spironolactone 25 Mg Tab) 25 mg PO QDAY [facility] Last Admin: 11/21/20 10:24 Dose: 25 mg Documented by: Timolol Maleate (Timolol 0.5% Ophth Soln 5 Ml) 1 drops OD DAILY PRN PRN Reason: Migraine Headache Zinc Sulfate (Zinc Sulfate 220 Mg Cap) 220 mg PO BID [facility] Last Admin: 11/21/20 00:38 Dose: 220 mg Documented by: Exam - Vital Signs Vital signs: Vital Signs Temp Resp BP 98.3 F 19 76/51 11/20/20 12:31 11/20/20 12:31 11/20/20 12:31 - Physical Exam Narrative exam: - General Limitations: No Limitations, Other ( pulse ox was noted. Patient is not hypoxic on oxygen. EMS reports that he was hypoxic on room air) General appearance: alert, in distress ( moderate), obese - Head Head exam: Present: atraumatic, normocephalic, normal inspection - Eye Eye exam: Present: EOMI. Absent: scleral icterus - ENT ENT exam: Present: normal exam, mucous membranes moist, normal external ear exam - Neck Neck exam: Present: normal inspection. Absent: meningismus - Respiratory Respiratory exam: Present: respiratory distress ( moderate), rales ( bilateral), accessory muscle use - Cardiovascular Cardiovascular Exam: Present: regular rate, normal rhythm - GI/Abdominal GI/Abdominal exam: Present: soft. Absent: tenderness - Extremities Exam Extremities exam: Present: normal capillary refill. Absent: pedal edema - Back Exam Back exam: Absent: CVA tenderness (R), CVA tenderness (L) - Neurological Exam Neurological exam: Present: alert, oriented X3, CN II-XII intact, reflexes normal. Absent: motor sensory deficit - Psychiatric Psychiatric exam: Present: normal affect, normal mood - Skin Skin exam: Present: warm, dry Results - Lab Results 10/01/21 09:35 11/21/20 10:45 Most recent lab results Calcium 8.2 mg/dL (8.4-10.2) L 11/21/20 09:35 Assessment and Plan Impression: * CHERYL * Covid PNA * hyponatremia * metabolic acidosis * acute hypoxic resp failure Plan: * cr is better today * hold diuresis at this time * add bicarb gtt for correction of acidosis and improved volume statua * volume resuscitation as needed * daily lytes and strict i/os * avoid nephrotoxins * renal diet * covid care per primary team
--- NOTE | 2020-11-21 13:34 | Progress Note ---
Assessment and Plan Assessment and plan: 60 YO Male with CAD S/P Stent Placement, HTN, Systolic CHF(EF 25) S/P AICD Placement, HLD, SD, OA, Coronavirus Infection diagnosed 2 weeks ago presents to ED for evaluation. Patient reports "I am short of breath". Patient states that he has experienced shortness of breath, dry cough, fatigue, malaise, body aches, subjective fever, decreased exercise tolerance over the past 1 week with persistent and worsening symptoms over the past 3 days. EMS was notified and upon arrival the patient was found to be in distress and subsequent transported to [facility] for further care and evaluation of the aforementioned symptoms. The patient was seen and evaluated in the emergency department. All lab and imaging studies reviewed. Patient found to have a pulse oximetry of 86% with exertion which is consistent with acute hypoxemic respiratory failure. The patient is unable to speak in complete sentences due to shortness of breath. Patient placed on submental oxygen with mild improvement in symptoms. Patient admitted to medical floor and initiated on coronavirus protocol due to increased risk of worsening symptoms. VQ scan ordered and is pending at time of admission. Patient denies chest pain, palpitation, unilateral leg swelling, calf pain, prolonged travel/immobility, individual/family history of DVT/PE/bleeding/blood clotting disorders. Prior admission on 06/14/2015 reviewed. All medication l isted at time of admission has been reconciled. Advanced care planning conducted in ED. (1) Acute hypoxemic respiratory failure Current Visit: Yes Status: Acute Plan to address problem: Chest x-ray, supplemental oxygen, pulse oximetry, nebulizer therapy, VQ scan ordered and is pending at time of admission. (2) Obesity hypoventilation syndrome Current Visit: Yes Status: Acute Plan to address problem: Balanced diet, increase physical activity discharge, outpatient pulmonary follow-up for sleep study. (3) COVID-19 virus infection Current Visit: No Status: Acute Plan to address problem: Coronavirus protocol: Contact precautions, isolation precautions, IV steroid therapy, IV antibiotic therapy, vitamin C therapy, vitamin D therapy, zinc therapy, prophylactic anticoagulation (4) Essential hypertension Current Visit: No Status: Chronic Plan to address problem: Monitor blood pressure every shift, continue medical management (5) Hyperlipidemia Current Visit: No Status: Chronic Plan to address problem: Statin therapy, low-cholesterol diet, supportive care. (6) Acute kidney injury with vasomotor nephropathy unknown baseline (7) Hyponatremia (8) thrombocytopenia (9) DVT prophylaxis Current Visit: Yes Status: Acute Plan to address problem: SCD to bilateral lower extremities while in bed, prophylactic anticoagulation (10) Advance care planning Current Visit: Yes Status: Acute Plan to address problem: Disease education conducted, care plan discussed, diagnoses discussed, prognosis discussed, patient is full code, patient knowledges understanding and agreement with care plan. +30 minutes. 11/21: Patient seen and examined his on 12 L of oxygen. I have increasing steroids to 80 mg every 8 will defer to ID if he should be changed to Decadron. I have consulted pulmonary and cardiology in the meantime neonatal surgeon ordered an EKG which showed possible anterior wall infarct with some ST elevations very minimal. I reviewed the EKG from 2016 and it was similar. Patient denies any chest pain at this time. Nephrology has been consulted as patient has an acute kidney injury with a baseline of 1.1 Patient 2016 although I do not have any new baseline. I will defer initiation of IV Lasix to nephrology the patient was started on p.o. Lasix nevertheless on admission. Also hyponatremia is noted I will monitor this closely in addition to thrombocytopenia which will affect the use of anticoagulation. I will encourage the patient to prone as much as tolerated. History Interval history: Patient seen and examined this morning he is on 12 L of oxygen. However he is able to speak in complete sentences but does show evidence of shortness of breath. Tells me he was diagnosed about 2 weeks ago at home but did not seek any medical attention. Hospitalist Physical - Physical exam Narrative exam: VITAL SIGNS: Reviewed. GENERAL: The patient appears normally developed, Vital signs as documented. HEAD: No signs of head trauma. EYES: Pupils are equal. Extraocular motions intact. EARS: Hearing grossly intact. MOUTH: Oropharynx is normal. NECK: No adenopathy, no JVD. CHEST: Chest with diminished with mild bibasilar crackles breath sounds bilaterally. No wheezes CARDIAC: Regular rate and rhythm. S1 and S2, without murmurs, gallops, or rubs. VASCULAR: No Edema. Peripheral pulses normal and equal in all extremities. ABDOMEN: Soft, non tender and non distended. No rebound or guarding, and no masses palpated. Bowel Sounds normal. MUSCULOSKELETAL: Good range of motion of all major joints. Extremities without clubbing, cyanosis or edema. NEUROLOGIC EXAM: Alert and oriented x 3 No focal sensory or strength deficits. Speech normal. Follows commands. PSYCHIATRIC: Mood normal. SKIN: detail exam as documented in skin assessment - Constitutional Vitals: Temp Pulse Resp BP Pulse Ox 98.0 F 71 18 117/74 91 11/21/20 06:09 11/21/20 00:21 11/21/20 06:09 11/21/20 06:09 11/21/20 09:03 General appearance: Present: mild distress, obese HEART Score - HEART Score Troponin: Troponin T 0.019 ng/mL (0.00-0.029) 11/20/20 12:39 Results - Labs CBC & Chem 7: 11/21/20 09:35 11/21/20 10:45 Labs: Laboratory Last Values WBC 2.7 K/mm3 (4.5-11.0) L 11/21/20 09:35 RBC 5.04 M/mm3 (3.65-5.03) H 11/21/20 09:35 Hgb 17.1 gm/dl (11.8-15.2) H 11/21/20 09:35 Hct 49.5 % (35.5-45.6) H 11/21/20 09:35 MCV 98 fl (84-94) H 11/21/20 09:35 MCH 34 pg (28-32) H 11/21/20 09:35 MCHC 35 % (32-34) H 11/21/20 09:35 RDW 15.1 % (13.2-15.2) 11/21/20 09:35 Plt Count 93 K/mm3 (140-440) L 11/21/20 09:35 Lymph % (Auto) 18.4 % (13.4-35.0) 11/21/20 09:35 [place] % (Auto) 6.1 % (0.0-7.3) 11/21/20 09:35 Eos % (Auto) 0.0 % (0.0-4.3) 11/21/20 09:35 Baso % (Auto) 0.2 % (0.0-1.8) 11/21/20 09:35 Lymph # (Auto) 0.5 K/mm3 (1.2-5.4) L 11/21/20 09:35 [place] # (Auto) 0.2 K/mm3 (0.0-0.8) 11/21/20 09:35 Eos # (Auto) 0.0 K/mm3 (0.0-0.4) 11/21/20 09:35 Baso # (Auto) 0.0 K/mm3 (0.0-0.1) 11/21/20 09:35 Seg Neutrophils % 75.3 % (40.0-70.0) H 11/21/20 09:35 Seg Neutrophils # 2.0 K/mm3 (1.8-7.7) 11/21/20 09:35 D-Dimer 859.78 ng/mlDDU (0-234) H 11/21/20 10:45 Sodium 134 mmol/L (137-145) L D 11/21/20 09:35 Potassium 4.5 mmol/L (3.6-5.0) D 11/21/20 09:35 Chloride 105.5 mmol/L (98-107) 11/21/20 09:35 Carbon Dioxide 16 mmol/L (22-30) L 11/21/20 09:35 Anion Gap 17 mmol/L 11/21/20 09:35 BUN 38 mg/dL (9-20) H 11/21/20 09:35 Creatinine 1.4 mg/dL (0.8-1.3) H 11/21/20 09:35 Estimated GFR > 60 ml/min 11/21/20 09:35 BUN/Creatinine Ratio 27 % 11/21/20 09:35 Glucose 154 mg/dL (75-100) H 11/21/20 10:45 Lactic Acid 1.10 mmol/L (0.7-2.0) 11/20/20 17:23 Calcium 8.2 mg/dL (8.4-10.2) L 11/21/20 09:35 Ferritin 9449.0 ng/mL (30.0-300.0) H 11/21/20 10:45 Total Bilirubin 0.60 mg/dL (0.1-1.2) 11/21/20 09:35 AST 202 units/L (5-40) H 11/21/20 09:35 ALT 189 units/L (7-56) H 11/21/20 09:35 Alkaline Phosphatase 66 units/L (35-129) 11/21/20 09:35 Lactate Dehydrogenase 682 units/L (91-180) H 11/21/20 10:45 Troponin T 0.019 ng/mL (0.00-0.029) 11/20/20 12:39 C-Reactive Protein 4.60 mg/dL (0.00-1.30) H 11/21/20 10:45 NT-Pro-B Natriuret Pep 467.3 pg/mL (0-900) 11/20/20 12:39 Total Protein 7.1 g/dL (6.3-8.2) 11/21/20 09:35 Albumin 3.2 g/dL (3.9-5) L 11/21/20 09:35 Albumin/Globulin Ratio 0.8 % 11/21/20 09:35 Procalcitonin 0.86 ng/mL (<0.15) 11/21/20 10:45 Urine Color Straw (Yellow) 11/20/20 18:55 Urine Turbidity Slightly cloudy (Clear) 11/20/20 18:55 Urine pH 5.0 (5.0-7.0) 11/20/20 18:55 Ur Specific [place] 1.015 (1.003-1.030) 11/20/20 18:55 Urine Protein 100 mg/dl mg/dL (Negative) 11/20/20 18:55 Urine Glucose (UA) Negative mg/dL (Negative) 11/20/20 18:55 Urine Ketones Negative mg/dL (Negative) 11/20/20 18:55 Urine Blood 2+ (Negative) 11/20/20 18:55 Urine Nitrite Negative (Negative) 11/20/20 18:55 Urine Bilirubin Negative (Negative) 11/20/20 18:55 Urine Urobilinogen < 2.0 mg/dL (<2.0) 11/20/20 18:55 Ur Leukocyte Esterase Negative (Negative) 11/20/20 18:55 Urine WBC (Auto) 2.0 /HPF (0.0-6.0) 11/20/20 18:55 Urine RBC (Auto) 1.0 /HPF (0.0-6.0) 11/20/20 18:55 Microbiology: Microbiology 11/20/20 15:02 Peripheral/Venous Blood Culture - Preliminary Culture in Progress 11/20/20 15:08 Peripheral/Venous Blood Culture - Preliminary Culture in Progress Hall/IV: Voiding Method Urinal Active Medications - Current Medications Current Medications: Generic Name Dose Route Start Last Admin Trade Name Freq PRN Reason Stop Dose Admin Acetaminophen 650 mg 11/20/20 17:29 Acetaminophen 325 Mg Tab PO Q4H PRN Pain MILD(1-3)/Fever >100.5/KIDD Allopurinol 300 mg 11/20/20 15:43 Allopurinol 300 Mg Tab PO QDAY PRN Uric Acid Juvenile Officer Ascorbic Acid 500 mg 11/20/20 22:00 11/21/20 10:23 Ascorbic Acid 500 Mg Tab PO 500 mg BID CARLY Administration Aspirin 81 mg 11/21/20 10:00 11/21/20 10:21 Aspirin 81 Mg Tab Chew PO 81 mg QDAY CARLY Administration Cetirizine HCl 10 mg 11/20/20 16:00 11/21/20 10:21 Cetirizine 10 Mg Tab PO 10 mg DAILY CARLY Administration Cholecalciferol 1,000 unit 11/21/20 10:00 11/21/20 10:23 Cholecalciferol (Vit D3) 400 Unit Tab PO 1,000 unit QDAY CARLY Administration Colchicine 0.6 mg 11/20/20 15:43 Colchicine 0.6 Mg Tab PO DAILY PRN Gout Famotidine 10 mg 11/21/20 10:00 11/21/20 10:22 Famotidine 10 Mg Tab PO 10 mg BID CARLY Administration Heparin Sodium (Porcine) 5,000 unit 11/20/20 22:00 11/21/20 10:21 Heparin 5,000 Unit/1 Ml Vial SUB-Q 5,000 unit Q12HR CARLY Administration Hydromorphone HCl 0.5 mg 11/20/20 17:29 Hydromorphone 1 Mg/1 Ml Inj IV Q23H PRN Pain , Severe (7-10) Sodium Bicarbonate 150 meq/ 1,150 mls @ 75 mls/hr 11/21/20 14:00 Dextrose IV DIRECT CARLY Methylprednisolone Sodium Succinate 40 mg 11/20/20 22:00 11/21/20 05:52 Methylprednisolone Sod Succinate 40 Mg/1 Ml Inj IV 40 mg Q8HR CARLY Administration Ondansetron HCl 4 mg 11/20/20 17:29 Ondansetron 4 Mg/2 Ml Inj IV Q8H PRN Nausea And Vomiting Oxycodone/Acetaminophen 1 tab 11/20/20 17:29 Oxycodone /Acetaminophen 5-325mg Tab PO Q12H PRN Pain, Moderate (4-6) Potassium Chloride 10 meq 11/21/20 10:00 11/21/20 10:22 Potassium Chloride Er 10 Meq Tab PO 10 meq DAILY CARLY Administration Ranolazine 1,000 mg 11/20/20 22:00 11/21/20 10:22 Ranolazine Er 500 Mg Tab 12hr PO 1,000 mg BID CARLY Administration Sodium Chloride 10 ml 11/20/20 22:00 11/21/20 10:23 Sodium Chloride 0.9% 10 Ml Flush Syringe IV 10 ml BID CARLY Administration Sodium Chloride 10 ml 11/20/20 17:29 Sodium Chloride 0.9% 10 Ml Flush Syringe IV PRN PRN LINE FLUSH Timolol Maleate 1 drops 11/20/20 15:43 Timolol 0.5% Ophth Soln 5 Ml OD DAILY PRN Migraine Headache Zinc Sulfate 220 mg 11/20/20 22:00 11/21/20 00:38 Zinc Sulfate 220 Mg Cap PO 220 mg BID CARLY Administration Nutrition/Malnutrition Assess - Dietary Evaluation Nutrition/Malnutrition Findings: Nutrition Notes Start: 11/21/20 10:48 Freq: Status: Active Protocol: Document 11/21/20 10:48 NAVI (Rec: 11/21/20 11:24 NAVI [id number]) Nutrition Notes Need for Assessment generated from: MD Order Initial or Follow up Brief Note Other Pertinent Diagnosis Pt admitted with Shortness of Breath, associated with COVID. Current Diet Cardiac Diet Labs/Tests 11/21: Na 134, CO2 16, BUN 38, Cr 1.4, Glu 141. Pertinent Medications 11/21: Zn, Vit C, Vit D3. At Home: Pt supplements with Niacin, [place]-3. Height 5 ft 7 in Weight 93.894 kg [place] Body Weight (kg) 67.27 BMI 32.4 Intake Prior to Admission Good Weight Status Obese Subjective/Other Information Pt is independent. Burn Absent Trauma Absent GI Symptoms None Food Allergy No Skin Integrity/Comment Integumentary clear, warm, dry . Minimum of two criteria No physical signs of malnutrition #1 Nutrition Diagnosis No nutrition diagnosis at this time Comments: No reports on Food Intake, BBody Weight changes, Chewing/ Swallowing difficulties at the time. Is patient on ventilator? No Is Patient Ambulatory and/or Out of Bed Yes REE-([place]-St. Jeor-ambulatory/OOB) [ 2206.841 [id number]] Kcal/Kg value to use for calculation 25 Approximate Energy Requirements Using 2347 kcal/Kg Calculation Used for Recommendations Kcal/kg Additional Notes Protein: 0.8-1.0 g/Kg/day; 54- 67gr/day; 216-268 Kcal/day ( from IBW) Fluids: 1.0 ml/Kcal, or as per MD. Nutrition Intervention Goal #1 Maintain Body Weight within +/ -3% of actual BW during LOS Follow-Up By: 11/28/20 Additional Comments Observe Pt tolerance of food, BM, total intake, and chewing/ swallowing difficulties.
[2020-11-21] MEDS: SODIUM BICARBONATE 150 MEQ in DEXTROSE 5% IN WATER 1,000 ML IV SCH (15:02)
[2020-11-21 16:16] LABS: Creatine Kinase MB 16.3 ng/mL (0.0-4.0)
--- NOTE | 2020-11-21 16:36 | Consultation ---
History of Present Illness Consult date: 11/21/20 Requesting physician: CLIVE VILLALTA Consult reason: congestive heart failure History of present illness: Patient is 60 YO Male with a PMHx of CAD S/P PCI, HTN, HFrEF( EF <15%) S/P AICD Placement, and Coronavirus Infection diagnosed 2 weeks ago presented to ED with a complaint of progressively worsening dyspnea x1 week. Patient reports SOB, cough, fatigue, malaise, nausea, vomiting, diarrhea, and fevers which have worsened over the last week but worsened specifically in the last 3 days. Patient denies any relieving factors. Patients denies any chest pain, palpitation, orthopnea or BLE edema. In ED patient O2 was found to be 86% with exertion, have elevated d-dimer 836, and [id number]. Patient follows with Dr. Bolton of our group. Cardiology has been consulted for heart failure. Past History Past Medical History: acute AR, CAD, heart failure, hypertension, hyperlipidemia, other (See HPI) Past Surgical History: Other (Cardiac stent, AICD) Social history: single. denies: smoking, alcohol abuse Family history: diabetes, hypertension Medications and Allergies Allergies Allergy/AdvReac Type Severity Reaction Status Date / Time No Known Allergies Allergy Verified 04/13/15 20:17 Home Medications Medication Instructions Recorded Confirmed Last Taken Type Ibuprofen [Motrin] 800 mg PO Q8HR PRN 04/13/15 06/14/15 Unknown History Loratadine (Nf) [Claritin (Nf)] 10 mg PO DAILY PRN 04/13/15 06/14/15 Unknown History Timolol 0.5% [Timoptic] 1 drops OP DAILY PRN 04/13/15 06/14/15 Unknown History allopurinoL [Zyloprim] 300 mg PO QDAY PRN 04/13/15 06/14/15 Unknown History methylPREDNISolone [Medrol Dose 4 mg PO DAILY PRN 04/13/15 06/14/15 Unknown History Sergio] Famotidine [Pepcid] 20 mg PO BID #60 tablet 04/14/15 06/14/15 Unknown Rx Aspirin [Aspirin BABY CHEW TAB] 81 mg PO QDAY #30 tab.chew 06/16/15 Unknown Rx AtorvaSTATin [Lipitor] 40 mg PO QHS #30 tablet 06/16/15 Unknown Rx Colchicine [Colcrys] 0.6 mg PO DAILY PRN #30 tablet 06/16/15 Unknown Rx Digoxin [Lanoxin] 0.125 mg PO DAILY #30 tablet 06/16/15 Unknown Rx Furosemide [Lasix TAB] 40 mg PO QDAY #30 tablet 06/16/15 Unknown Rx Niacin ER [Niaspan ER] 500 mg PO QHS #30 tablet 06/16/15 Unknown Rx [place]-3 Fatty Acids/Fish Oil [Fish 1,000 mg PO DAILY #30 capsule 06/16/15 Unknown Rx Oil] Potassium Chloride [K-Dur] 10 meq PO DAILY #30 tablet 06/16/15 Unknown Rx Ranolazine ER [Ranexa ER] 1,000 mg PO BID #60 tablet 06/16/15 Unknown Rx Spironolactone [Aldactone] 25 mg PO QDAY #30 tablet 06/16/15 Unknown Rx allopurinoL [Zyloprim] 300 mg PO QDAY PRN #30 tablet 06/16/15 Unknown Rx carvediloL [Coreg] 25 mg PO DAILY #30 tablet 06/16/15 Unknown Rx lisinopriL [Zestril TAB] 40 mg PO QDAY #30 tablet 06/16/15 Unknown Rx oxyCODONE /ACETAMINOPHEN [Percocet 1 tab PO Q6H PRN #30 tablet 06/16/15 Unknown Rx 5/325 mg] predniSONE [Deltasone] 20 mg PO QDAY #30 tablet 06/16/15 Unknown Rx Active Meds: Active Medications Acetaminophen (Acetaminophen 325 Mg Tab) 650 mg PO Q4H PRN PRN Reason: Pain MILD(1-3)/Fever >100.5/KIDD Allopurinol (Allopurinol 300 Mg Tab) 300 mg PO QDAY PRN PRN Reason: Uric Acid District Engineer Ascorbic Acid (Ascorbic Acid 500 Mg Tab) 500 mg PO BID [facility] Last Admin: 11/21/20 10:23 Dose: 500 mg Documented by: Aspirin (Aspirin 81 Mg Tab Chew) 81 mg PO QDAY [facility] Last Admin: 11/21/20 10:21 Dose: 81 mg Documented by: Atorvastatin Calcium (Atorvastatin 40 Mg Tab) 80 mg PO QHS [facility] Carvedilol (Carvedilol 25 Mg Tab) 25 mg PO BID [facility] Cetirizine HCl (Cetirizine 10 Mg Tab) 10 mg PO DAILY [facility] Last Admin: 11/21/20 10:21 Dose: 10 mg Documented by: Cholecalciferol (Cholecalciferol (Vit D3) 400 Unit Tab) 1,000 unit PO QDAY [facility] Last Admin: 11/21/20 10:23 Dose: 1,000 unit Documented by: Colchicine (Colchicine 0.6 Mg Tab) 0.6 mg PO DAILY PRN PRN Reason: Gout Digoxin (Digoxin 0.125 Mg Tab) 0.125 mg PO Q48HR [facility] Famotidine (Famotidine 10 Mg Tab) 10 mg PO BID [facility] Last Admin: 11/21/20 10:22 Dose: 10 mg Documented by: Heparin Sodium (Porcine) (Heparin 5,000 Unit/1 Ml Vial) 5,000 unit SUB-Q Q12HR [facility] Last Admin: 11/21/20 10:21 Dose: 5,000 unit Documented by: Hydromorphone HCl (Hydromorphone 1 Mg/1 Ml Inj) 0.5 mg IV Q23H PRN PRN Reason: Pain , Severe (7-10) Sodium Bicarbonate 150 meq/ (Dextrose) 1,150 mls @ 75 mls/hr IV DIRECT [facility] Last Admin: 11/21/20 15:02 Dose: 75 mls/hr Documented by: Isosorbide Mononitrate (Isosorbide Mononitrate Er 30 Mg Tab) 30 mg PO QDAY [facility] Methylprednisolone Sodium Succinate (Methylprednisolone Sod Succinate 40 Mg/1 Ml Inj) 80 mg IV Q8HR [facility] Last Admin: 11/21/20 15:05 Dose: 80 mg Documented by: Ondansetron HCl (Ondansetron 4 Mg/2 Ml Inj) 4 mg IV Q8H PRN PRN Reason: Nausea And Vomiting Oxycodone/Acetaminophen (Oxycodone /Acetaminophen 5-325mg Tab) 1 tab PO Q12H PRN PRN Reason: Pain, Moderate (4-6) Potassium Chloride (Potassium Chloride Er 10 Meq Tab) 10 meq PO DAILY [facility] Last Admin: 11/21/20 10:22 Dose: 10 meq Documented by: Ranolazine (Ranolazine Er 500 Mg Tab 12hr) 1,000 mg PO BID [facility] Last Admin: 11/21/20 10:22 Dose: 1,000 mg Documented by: Sodium Chloride (Sodium Chloride 0.9% 10 Ml Flush Syringe) 10 ml IV BID [facility] Last Admin: 11/21/20 10:23 Dose: 10 ml Documented by: Sodium Chloride (Sodium Chloride 0.9% 10 Ml Flush Syringe) 10 ml IV PRN PRN PRN Reason: LINE FLUSH Timolol Maleate (Timolol 0.5% Ophth Soln 5 Ml) 1 drops OD DAILY PRN PRN Reason: Migraine Headache Zinc Sulfate (Zinc Sulfate 220 Mg Cap) 220 mg PO BID [facility] Last Admin: 11/21/20 10:22 Dose: 220 mg Documented by: Review of Systems All systems: negative Constitutional: fever, chills, fatigue, weakness, malaise, poor appetite, no weight loss, no weight gain Ears, nose, mouth and throat: no decreased hearing, no nose pain, no nasal congestion Cardiovascular: shortness of breath, dyspnea on exertion, no chest pain, no orthopnea, no palpitations, no edema Respiratory: cough, shortness of breath, dyspnea on exertion Gastrointestinal: nausea, vomiting, diarrhea Musculoskeletal: no neck stiffness, no neck pain, no shooting arm pain Integumentary: no rash, no pruritis, no redness Neurological: no head injury, no transient paralysis, no paralysis Psychiatric: no anxiety, no memory loss Endocrine: no cold intolerance, no heat intolerance, no nocturia Hematologic/Lymphatic: no easy bruising, no easy bleeding Physical Examination Vital Signs Temp Resp BP 98.3 F 19 76/51 11/20/20 12:31 11/20/20 12:31 11/20/20 12:31 General appearance: no acute distress HEENT: Positive: PERRL Neck: Positive: trachea midline Cardiac: Positive: Reg Rate and Rhythm Lungs: Positive: Normal Breath Sounds Neuro: Positive: Grossly Intact Abdomen: Positive: Soft Skin: Negative: Rash, Suspicious Lesions, Ulceration Extremities: Present: upper extr. pulses, lower extr. pulses. Absent: edema Results 11/21/20 09:35 11/21/20 10:45 Cardiac Enzymes 11/21/20 11/21/20 11/21/20 Range/Units 09:35 10:45 15:12 AST 202 H (5-40) units/L Lactate Dehydrogenase 682 H (91-180) units/L CK-MB (CK-2) 16.3 H (0.0-4.0) ng/mL CBC 11/21/20 Range/Units 09:35 WBC 2.7 L (4.5-11.0) K/mm3 RBC 5.04 H (3.65-5.03) M/mm3 Hgb 17.1 H (11.8-15.2) gm/dl Hct 49.5 H (35.5-45.6) % Plt Count 93 L (140-440) K/mm3 Lymph # (Auto) 0.5 L (1.2-5.4) K/mm3 [place] # (Auto) 0.2 (0.0-0.8) K/mm3 Eos # (Auto) 0.0 (0.0-0.4) K/mm3 Baso # (Auto) 0.0 (0.0-0.1) K/mm3 Comprehensive Metabolic Panel 11/21/20 11/21/20 Range/Units 09:35 10:45 Sodium 134 L D (137-145) mmol/L Potassium 4.5 D (3.6-5.0) mmol/L Chloride 105.5 (98-107) mmol/L Carbon Dioxide 16 L (22-30) mmol/L BUN 38 H (9-20) mg/dL Creatinine 1.4 H (0.8-1.3) mg/dL Glucose 141 H 154 H (75-100) mg/dL Calcium 8.2 L (8.4-10.2) mg/dL AST 202 H (5-40) units/L ALT 189 H (7-56) units/L Alkaline Phosphatase 66 (35-129) units/L Total Protein 7.1 (6.3-8.2) g/dL Albumin 3.2 L (3.9-5) g/dL - Imaging and Cardiology Echo: report reviewed Cardiac cath: report reviewed EKG: report reviewed, image reviewed EKG interpretations - Telemetry EKG Rhythm: Sinus Rhythm - EKG Sinus rhythms and dysrhythmias: sinus rhythm Assessment and Plan Patient is 60 YO Male with a PMHx of CAD S/P PCI, HTN, HFrEF( EF <15%) S/P AICD Placement, and Coronavirus Infection diagnosed 2 weeks ago HFrEF CAD s/p PCI S/p AICD placment HTN [facility] 03/24/2020- Patent LAD stent, other coronaries normal without significant plaque. Severely depressed LV systolic function. EF<20% * Echo 01/29/2020- LV cavity size is dilated (LVEDVI 98 ml/m2 with contrast) with eccentric hypertrophy. LV systolic function is severely reduced with an estimated LVEF <15%. There is severe global hypokinesis with minimal regional variation. No LV thrombus noted. [place] is fore-shortened. RV cavity size is not well seen but appears normal in Parasternal views. RV systolic function appears mildly reduced. Pacemaker or ICD lead seen in the RV. Normal biatrial size. No significant valvular dysfunction. Unable to assess RVSP due to insufficient TR signal. Small pericardial effusion. * Nuclear MPI 08/07/2019- Abnormal pharmacologic stress nuclear study but negative for ischemia. The left ventricle is moderately dilated. There are mild to moderately reduced perfusion defects of medium size in the inferior wall. The defect in the inferior segment is fixed. No significant ischemia d etected. Stress EKG Test Results Normal. Systolic function is severely reduced. The calculated rest EF is at 24%. Normal myocardial perfusion in anterior, apical, septal and lateral leads and fixed inferior defect * EKG shows sinus 78 with no acute ischemic changes. Trop neg x1. Repeat trop pending Echo pending * Will restart home medications: Coreg 25mg PO BID, Imdur 30mg Po Qd, digoxin .125mg PO Q48hrs, atorvastatin 80mg PO QHS. Will hold Lasix, spironolactone, a nd entresto in setting of CHERYL Acute Hypoxic respiratory failure Elevated D-dimer COVID PUI * Patient on NC * ID following * Pulmonology consulted * COVID PCR pending * VQ scan shows low probability of PE CHERYL * Nephrology consulted Hyponatremia * Na 125 initially. Has improved * Management per primary team Plan: Patient appears euvolemic on exam with clear lungs sounds and no BLE edema, BNP negative, and patient denies HF symptoms. Echo pending. Repeat Troponin pending. Restart home medications. Patient seen in conjunction with Dr. Schneider who agrees with this plan of care. Will continue to follow - Patient Problems (1) COVID-19 Current Visit: Yes Status: Acute (2) CHERYL (acute kidney injury) Current Visit: Yes Status: Acute (3) D-dimer, elevated Current Visit: Yes Status: Acute (4) Hyponatremia Current Visit: Yes Status: Acute (5) Acute hypoxemic respiratory failure Current Visit: Yes Status: Acute (6) Coronary artery disease Current Visit: No Status: Acute Qualifiers: Coronary Disease-Associated Artery/Lesion type: jam[place] artery [place] vs. transplanted heart: jamul heart Associated angina: angina presence unspecified Qualified Code(s): I25.10 - Atherosclerotic heart disease of jamul coronary artery without angina pectoris (7) GERD (gastroesophageal reflux disease) Current Visit: No Status: Acute (8) Chronic systolic heart failure Current Visit: No Status: Chronic (9) Essential hypertension Current Visit: No Status: Chronic (10) Hyperlipidemia Current Visit: No Status: Chronic
[2020-11-21 22:19] LABS: Creatine Kinase MB 13.6 ng/mL (0.0-4.0)
[2020-11-22] MEDS: carvediloL 25 MG TAB PO SCH ×3 (00:25→22:28)
[2020-11-22] MEDS: HEPARIN 5,000 UNIT/1 ML VIAL SUB-Q SCH ×3 (00:26→22:28)
[2020-11-22] MEDS: methylPREDNISolone Sod Succinate 40 MG/1 ML INJ IV SCH ×4 (00:27→22:28)
[2020-11-22] MEDS: RANOLAZINE ER 500 MG TAB 12HR PO SCH ×3 (00:28→22:28)
[2020-11-22] MEDS: ASCORBIC ACID 500 MG TAB PO SCH ×3 (00:29→22:27)
[2020-11-22] MEDS: ZINC SULFATE 220 MG CAP PO SCH ×3 (00:31→22:28)
[2020-11-22] MEDS: FAMOTIDINE 10 MG TAB PO SCH ×3 (01:34→22:27)
[2020-11-22 07:16] LABS: BUN/Creatinine Ratio 27; Blood Urea Nitrogen 38 mg/dL (9-20); Calcium 7.8 mg/dL (8.4-10.2); Hemolysis Index 11
[2020-11-22 07:18] LABS: Creatine Kinase MB 9.3 ng/mL (0.0-4.0)
--- NOTE | 2020-11-22 09:11 | Progress Note ---
Assessment and Plan Assessment and plan: 60 YO Male with CAD S/P Stent Placement, HTN, Systolic CHF(EF 25) S/P AICD Placement, HLD, MS, OA, Coronavirus Infection diagnosed 2 weeks ago presents to ED for evaluation. Patient reports "I am short of breath". Patient states that he has experienced shortness of breath, dry cough, fatigue, malaise, body aches, subjective fever, decreased exercise tolerance over the past 1 week with persistent and worsening symptoms over the past 3 days. EMS was notified and upon arrival the patient was found to be in distress and subsequent transported to [facility] for further care and evaluation of the aforementioned symptoms. The patient was seen and evaluated in the emergency department. All lab and imaging studies reviewed. Patient found to have a pulse oximetry of 86% with exertion which is consistent with acute hypoxemic respiratory failure. The patient is unable to speak in complete sentences due to shortness of breath. Patient placed on submental oxygen with mild improvement in symptoms. Patient admitted to medical floor and initiated on coronavirus protocol due to increased risk of worsening symptoms. VQ scan ordered and is pending at time of admission. Patient denies chest pain, palpitation, unilateral leg swelling, calf pain, prolonged travel/immobility, individual/family history of DVT/PE/bleeding/blood clotting disorders. Prior admission on 06/14/2015 reviewed. All medication l isted at time of admission has been reconciled. Advanced care planning conducted in ED. (1) Acute hypoxemic respiratory failure Current Visit: Yes Status: Acute Plan to address problem: Chest x-ray, supplemental oxygen, pulse oximetry, nebulizer therapy, VQ scan ordered and is pending at time of admission. (2) Obesity hypoventilation syndrome Current Visit: Yes Status: Acute Plan to address problem: Balanced diet, increase physical activity discharge, outpatient pulmonary follow-up for sleep study. (3) COVID-19 virus infection Current Visit: No Status: Acute Plan to address problem: Coronavirus protocol: Contact precautions, isolation precautions, IV steroid therapy, IV antibiotic therapy, vitamin C therapy, vitamin D therapy, zinc therapy, prophylactic anticoagulation (4) Essential hypertension Current Visit: No Status: Chronic Plan to address problem: Monitor blood pressure every shift, continue medical management (5) Hyperlipidemia Current Visit: No Status: Chronic Plan to address problem: Statin therapy, low-cholesterol diet, supportive care. (6) Acute kidney injury with vasomotor nephropathy unknown baseline (7) Hyponatremia (8) thrombocytopenia (9) DVT prophylaxis Current Visit: Yes Status: Acute Plan to address problem: SCD to bilateral lower extremities while in bed, prophylactic anticoagulation (10) HFrEF/CAD s/p PCI-S/p AICD placment/HTN/LHC 03/24/2020 (11) rhabdomyolysis (12) advance care planning Current Visit: Yes Status: Acute Plan to address problem: Disease education conducted, care plan discussed, diagnoses discussed, prognosis discussed, patient is full code, patient knowledges understanding and agreement with care plan. +30 minutes. 11/21: Patient seen and examined his on 12 L of oxygen. I have increasing steroids to 80 mg every 8 will defer to ID if he should be changed to Decadron. I have consulted pulmonary and cardiology in the meantime cook ice cream ordered an EKG which showed possible anterior wall infarct with some ST elevations very minimal. I reviewed the EKG from 2016 and it was similar. Patient denies any chest pain at this time. Nephrology has been consulted as patient has an acute kidney injury with a baseline of 1.1 Patient 2016 although I do not have any new baseline. I will defer initiation of IV Lasix to nephrology the patient was started on p.o. Lasix nevertheless on admission. Also hyponatremia is noted I will monitor this closely in addition to thrombocytopenia which will affect the use of anticoagulation. I will encourage the patient to prone as much as tolerated. 11/22: Patient on Bicarb drip per Insurance Claims Adjuster, will continue to monitor renal function and respiratory status considering clinical status of COVID 19. Lasix appears to have been discontinued, continue steroid therapy, monitor closely e specially thrombocytopenia. Encourage prone positioning if tolerable. History Interval history: Patient seen and examined this morning he is on 12 L of oxygen. Still short of breath. Advised to prone but he did not want to he said he had a lot of Patient is plugged into him. I did tell him that we can always assist once he is ready. Also discussed with nursing staff Hospitalist Physical - Physical exam Narrative exam: VITAL SIGNS: Reviewed. GENERAL: The patient appears normally developed, Vital signs as documented. HEAD: No signs of head trauma. EYES: Pupils are equal. Extraocular motions intact. EARS: Hearing grossly intact. MOUTH: Oropharynx is normal. NECK: No adenopathy, no JVD. CHEST: Chest with diminished with mild bibasilar crackles breath sounds jean carlos aterally. No wheezes CARDIAC: Regular rate and rhythm. S1 and S2, without murmurs, gallops, or r ubs. VASCULAR: No Edema. Peripheral pulses normal and equal in all extremities. ABDOMEN: Soft, non tender and non distended. No rebound or guarding, and no masses palpated. Bowel Sounds normal. MUSCULOSKELETAL: Good range of motion of all major joints. Extremities without clubbing, cyanosis or edema. NEUROLOGIC EXAM: Alert and oriented x 3 No focal sensory or strength deficits. Speech normal. Follows commands. PSYCHIATRIC: Mood normal. SKIN: detail exam as documented in skin assessment - Constitutional Vitals: Temp Pulse Resp BP Pulse Ox 98.2 F 77 20 105/69 92 11/21/20 22:39 11/22/20 00:25 11/21/20 22:39 11/22/20 00:25 11/21/20 22:39 General appearance: Present: no acute distress HEART Score - HEART Score Troponin: Troponin T < 0.010 ng/mL (0.00-0.029) 11/22/20 05:33 Results - Labs CBC & Chem 7: 11/21/20 09:35 11/22/20 05:33 Labs: Laboratory Last Values WBC 2.7 K/mm3 (4.5-11.0) L 11/21/20 09:35 RBC 5.04 M/mm3 (3.65-5.03) H 11/21/20 09:35 Hgb 17.1 gm/dl (11.8-15.2) H 11/21/20 09:35 Hct 49.5 % (35.5-45.6) H 11/21/20 09:35 MCV 98 fl (84-94) H 11/21/20 09:35 MCH 34 pg (28-32) H 11/21/20 09:35 MCHC 35 % (32-34) H 11/21/20 09:35 RDW 15.1 % (13.2-15.2) 11/21/20 09:35 Plt Count 93 K/mm3 (140-440) L 11/21/20 09:35 Lymph % (Auto) 18.4 % (13.4-35.0) 11/21/20 09:35 Hartley % (Auto) 6.1 % (0.0-7.3) 11/21/20 09:35 Eos % (Auto) 0.0 % (0.0-4.3) 11/21/20 09:35 Baso % (Auto) 0.2 % (0.0-1.8) 11/21/20 09:35 Lymph # (Auto) 0.5 K/mm3 (1.2-5.4) L 11/21/20 09:35 Hartley # (Auto) 0.2 K/mm3 (0.0-0.8) 11/21/20 09:35 Eos # (Auto) 0.0 K/mm3 (0.0-0.4) 11/21/20 09:35 Baso # (Auto) 0.0 K/mm3 (0.0-0.1) 11/21/20 09:35 Seg Neutrophils % 75.3 % (40.0-70.0) H 11/21/20 09:35 Seg Neutrophils # 2.0 K/mm3 (1.8-7.7) 11/21/20 09:35 D-Dimer 859.78 ng/mlDDU (0-234) H 11/21/20 10:45 Sodium 132 mmol/L (137-145) L 11/22/20 05:33 Potassium 4.6 mmol/L (3.6-5.0) 11/22/20 05:33 Chloride 102.1 mmol/L (98-107) 11/22/20 05:33 Carbon Dioxide 16 mmol/L (22-30) L 11/22/20 05:33 Anion Gap 19 mmol/L 11/22/20 05:33 BUN 38 mg/dL (9-20) H 11/22/20 05:33 Creatinine 1.4 mg/dL (0.8-1.3) H 11/22/20 05:33 Estimated GFR > 60 ml/min 11/22/20 05:33 BUN/Creatinine Ratio 27 % 11/22/20 05:33 Glucose 223 mg/dL (75-100) H 11/22/20 05:33 Lactic Acid 1.10 mmol/L (0.7-2.0) 11/20/20 17:23 Calcium 7.8 mg/dL (8.4-10.2) L 11/22/20 05:33 Ferritin 9449.0 ng/mL (30.0-300.0) H 11/21/20 10:45 Total Bilirubin 0.60 mg/dL (0.1-1.2) 11/21/20 09:35 AST 202 units/L (5-40) H 11/21/20 09:35 ALT 189 units/L (7-56) H 11/21/20 09:35 Alkaline Phosphatase 66 units/L (35-129) 11/21/20 09:35 Lactate Dehydrogenase 682 units/L (91-180) H 11/21/20 10:45 Total Creatine Kinase 847 units/L (55-170) H 11/22/20 05:33 CK-MB (CK-2) 9.3 ng/mL (0.0-4.0) H 11/22/20 05:33 CK-MB (CK-2) Rel Index 1.0 (0-4) 11/22/20 05:33 Troponin T < 0.010 ng/mL (0.00-0.029) 11/22/20 05:33 C-Reactive Protein 4.60 mg/dL (0.00-1.30) H 11/21/20 10:45 NT-Pro-B Natriuret Pep 467.3 pg/mL (0-900) 11/20/20 12:39 Total Protein 7.1 g/dL (6.3-8.2) 11/21/20 09:35 Albumin 3.2 g/dL (3.9-5) L 11/21/20 09:35 Albumin/Globulin Ratio 0.8 % 11/21/20 09:35 Procalcitonin 0.86 ng/mL (<0.15) 11/21/20 10:45 Urine Color Straw (Yellow) 11/20/20 18:55 Urine Turbidity Slightly cloudy (Clear) 11/20/20 18:55 Urine pH 5.0 (5.0-7.0) 11/20/20 18:55 Ur Specific Stout 1.015 (1.003-1.030) 11/20/20 18:55 Urine Protein 100 mg/dl mg/dL (Negative) 11/20/20 18:55 Urine Glucose (UA) Negative mg/dL (Negative) 11/20/20 18:55 Urine Ketones Negative mg/dL (Negative) 11/20/20 18:55 Urine Blood 2+ (Negative) 11/20/20 18:55 Urine Nitrite Negative (Negative) 11/20/20 18:55 Urine Bilirubin Negative (Negative) 11/20/20 18:55 Urine Urobilinogen < 2.0 mg/dL (<2.0) 11/20/20 18:55 Ur Leukocyte Esterase Negative (Negative) 11/20/20 18:55 Urine WBC (Auto) 2.0 /HPF (0.0-6.0) 11/20/20 18:55 Urine RBC (Auto) 1.0 /HPF (0.0-6.0) 11/20/20 18:55 Digoxin 0.3 ng/mL (0.9-2.0) L 11/21/20 21:08 Microbiology: Microbiology 11/20/20 15:02 Peripheral/Venous Blood Culture - Preliminary NO GROWTH AFTER 24 HOURS 11/20/20 15:08 Peripheral/Venous Blood Culture - Preliminary NO GROWTH AFTER 24 HOURS Hall/IV: Voiding Method Toilet Active Medications - Current Medications Current Medications: Generic Name Dose Route Start Last Admin Trade Name Freq PRN Reason Stop Dose Admin Acetaminophen 650 mg 11/20/20 17:29 Acetaminophen 325 Mg Tab PO Q4H PRN Pain MILD(1-3)/Fever >100.5/KIDD Allopurinol 300 mg 11/20/20 15:43 Allopurinol 300 Mg Tab PO QDAY PRN Uric Acid Customer Relations Specialist Ascorbic Acid 500 mg 11/20/20 22:00 11/22/20 00:29 Ascorbic Acid 500 Mg Tab PO 500 mg BID CARLY Administration Aspirin 81 mg 11/21/20 10:00 11/21/20 10:21 Aspirin 81 Mg Tab Chew PO 81 mg QDAY CARLY Administration Atorvastatin Calcium 80 mg 11/21/20 22:00 11/22/20 00:25 Atorvastatin 40 Mg Tab PO 80 mg QHS CARLY Administration Carvedilol 25 mg 11/21/20 22:00 11/22/20 00:25 Carvedilol 25 Mg Tab PO 25 mg BID CARLY Administration Cetirizine HCl 10 mg 11/20/20 16:00 11/21/20 10:21 Cetirizine 10 Mg Tab PO 10 mg DAILY CARLY Administration Cholecalciferol 1,000 unit 11/21/20 10:00 11/21/20 10:23 Cholecalciferol (Vit D3) 400 Unit Tab PO 1,000 unit QDAY CARLY Administration Colchicine 0.6 mg 11/20/20 15:43 Colchicine 0.6 Mg Tab PO DAILY PRN Gout Digoxin 0.125 mg 11/22/20 10:00 Digoxin 0.125 Mg Tab PO Q48HR CARLY Famotidine 10 mg 11/21/20 10:00 11/22/20 01:34 Famotidine 10 Mg Tab PO 10 mg BID CARLY Administration Heparin Sodium (Porcine) 5,000 unit 11/20/20 22:00 11/22/20 00:26 Heparin 5,000 Unit/1 Ml Vial SUB-Q 5,000 unit Q12HR CARLY Administration Hydromorphone HCl 0.5 mg 11/20/20 17:29 Hydromorphone 1 Mg/1 Ml Inj IV Q23H PRN Pain , Severe (7-10) Sodium Bicarbonate 150 meq/ 1,150 mls @ 75 mls/hr 11/21/20 15:00 11/21/20 15:02 Dextrose IV 75 mls/hr DIRECT CARLY Administration Isosorbide Mononitrate 30 mg 11/21/20 17:00 11/21/20 18:44 Isosorbide Mononitrate Er 30 Mg Tab PO 30 mg QDAY CARLY Administration Methylprednisolone Sodium Succinate 80 mg 11/21/20 14:30 11/22/20 05:29 Methylprednisolone Sod Succinate 40 Mg/1 Ml Inj IV 80 mg Q8HR CARLY Administration Ondansetron HCl 4 mg 11/20/20 17:29 Ondansetron 4 Mg/2 Ml Inj IV Q8H PRN Nausea And Vomiting Oxycodone/Acetaminophen 1 tab 11/20/20 17:29 Oxycodone /Acetaminophen 5-325mg Tab PO Q12H PRN Pain, Moderate (4-6) Potassium Chloride 10 meq 11/21/20 10:00 11/21/20 10:22 Potassium Chloride Er 10 Meq Tab PO 10 meq DAILY CARLY Administration Ranolazine 1,000 mg 11/20/20 22:00 11/22/20 00:28 Ranolazine Er 500 Mg Tab 12hr PO 1,000 mg BID CARLY Administration Sodium Chloride 10 ml 11/20/20 22:00 11/22/20 00:28 Sodium Chloride 0.9% 10 Ml Flush Syringe IV 10 ml BID CARLY Administration Sodium Chloride 10 ml 11/20/20 17:29 Sodium Chloride 0.9% 10 Ml Flush Syringe IV PRN PRN LINE FLUSH Timolol Maleate 1 drops 11/20/20 15:43 Timolol 0.5% Ophth Soln 5 Ml OD DAILY PRN Migraine Headache Zinc Sulfate 220 mg 11/20/20 22:00 11/22/20 00:31 Zinc Sulfate 220 Mg Cap PO 220 mg BID CARLY Administration Nutrition/Malnutrition Assess - Dietary Evaluation Nutrition/Malnutrition Findings: Nutrition Notes Start: 11/21/20 10:48 Freq: Status: Active Protocol: Document 11/21/20 10:48 NAVI (Rec: 11/21/20 11:24 NAVI [email or web address]) Nutrition Notes Need for Assessment generated from: MD Order Initial or Follow up Brief Note Other Pertinent Diagnosis Pt admitted with Shortness of Breath, associated with COVID. Current Diet Cardiac Diet Labs/Tests 11/21: Na 134, CO2 16, BUN 38, Cr 1.4, Glu 141. Pertinent Medications 11/21: Zn, Vit C, Vit D3. At Home: Pt supplements with Niacin, [place]-3. Height 5 ft 7 in Weight 93.894 kg [place] Body Weight (kg) 67.27 BMI 32.4 Intake Prior to Admission Good Weight Status Obese Subjective/Other Information Pt is independent. Burn Absent Trauma Absent GI Symptoms None Food Allergy No Skin Integrity/Comment Integumentary clear, warm, dry . Minimum of two criteria No physical signs of malnutrition #1 Nutrition Diagnosis No nutrition diagnosis at this time Comments: No reports on Food Intake, BBody Weight changes, Chewing/ Swallowing difficulties at the time. Is patient on ventilator? No Is Patient Ambulatory and/or Out of Bed Yes REE-([facility]-ambulatory/OOB) [ 2206.841 NUTR.MSJOOB] Kcal/Kg value to use for calculation 25 Approximate Energy Requirements Using 2347 kcal/Kg Calculation Used for Recommendations Kcal/kg Additional Notes Protein: 0.8-1.0 g/Kg/day; 54- 67gr/day; 216-268 Kcal/day ( from IBW) Fluids: 1.0 ml/Kcal, or as per MD. Nutrition Intervention Goal #1 Maintain Body Weight within +/ -3% of actual BW during LOS Follow-Up By: 11/28/20 Additional Comments Observe Pt tolerance of food, BM, total intake, and chewing/ swallowing difficulties.
[2020-11-22] MEDS: CETIRIZINE 10 MG TAB PO SCH (09:42)
[2020-11-22] MEDS: POTASSIUM CHLORIDE ER 10 MEQ TAB PO SCH (09:42)
[2020-11-22] MEDS: ASPIRIN 81 MG TAB CHEW PO SCH (09:43)
[2020-11-22] MEDS: DIGOXIN 0.125 MG TAB PO SCH (09:43)
[2020-11-22] MEDS: CHOLECALCIFEROL (VIT D3) 400 UNIT TAB PO SCH (09:44)
[2020-11-22] MEDS ORDERED: HYDROmorphone 1 MG/1 ML INJ IV PRN (10:00)
--- NOTE | 2020-11-22 10:56 | Progress Note ---
Assessment and Plan 60-year-old male with hypertension hyperlipidemia chronic ischemic cardiomyopathy chronic stable angina has a functioning AICD diagnosed with Covid 2 weeks ago with worsening shortness of breath was unvaccinated patient was found to have acute renal sufficiency mild improvement holding MAYLIN and ARB. Patient will continue Coreg statin. And Imdur. And Ranexa. Follow BMP and add CHF meds as blood pressure allows - Patient Problems (1) Ischemic cardiomyopathy Current Visit: Yes Status: Chronic (2) CHERYL (acute kidney injury) Current Visit: Yes Status: Acute (3) Acute hypoxemic respiratory failure Current Visit: Yes Status: Acute (4) COVID-19 Current Visit: Yes Status: Acute Plan to address problem: unvaccinated (5) Hyponatremia Current Visit: Yes Status: Acute (6) Coronary artery disease Current Visit: No Status: Chronic Qualifiers: Coronary Disease-Associated Artery/Lesion type: [place] artery [place] vs. transplanted heart: [place] heart Associated angina: with stable angina Qualified Code(s): I25.118 - Atherosclerotic heart disease of [place] coronary artery with other forms of angina pectoris (7) Mixed hyperlipidemia Current Visit: No Status: Acute (8) Chronic systolic heart failure Current Visit: No Status: Chronic (9) Essential hypertension Current Visit: No Status: Chronic Subjective Date of service: 11/22/20 Principal diagnosis: sob Interval history: sob is midly better lying in bed Objective Vital Signs Temp Pulse Resp BP Pulse Ox 11/22/20 10:40 93 11/22/20 09:43 77 11/22/20 09:42 77 11/22/20 09:41 77 11/22/20 00:25 77 105/69 11/21/20 22:39 98.2 F 77 20 105/69 92 11/21/20 20:40 90 11/21/20 16:21 81 95 11/21/20 11:53 76 92 - Physical Examination General: Other HEENT: Positive: PERRL Neck: Positive: trachea midline Cardiac: Positive: Reg Rate and Rhythm Lungs: Positive: Decreased Breath Sounds Neuro: Positive: Grossly Intact Abdomen: Positive: Soft Skin: Negative: Rash, Suspicious Lesions, Ulceration Extremities: Present: upper extr. pulses, lower extr. pulses. Absent: edema - Labs and Meds Cardiac Enzymes 11/21/20 11/21/20 11/21/20 Range/Units 10:45 15:12 21:08 Lactate Dehydrogenase 682 H (91-180) units/L CK-MB (CK-2) 16.3 H 13.6 H (0.0-4.0) ng/mL 11/22/20 Range/Units 05:33 Lactate Dehydrogenase (91-180) units/L CK-MB (CK-2) 9.3 H (0.0-4.0) ng/mL CBC 11/21/20 Range/Units 09:35 Plt Count 93 L (140-440) K/mm3 Comprehensive Metabolic Panel 11/21/20 11/22/20 Range/Units 10:45 05:33 Sodium 132 L (137-145) mmol/L Potassium 4.6 (3.6-5.0) mmol/L Chloride 102.1 (98-107) mmol/L Carbon Dioxide 16 L (22-30) mmol/L BUN 38 H (9-20) mg/dL Creatinine 1.4 H (0.8-1.3) mg/dL Glucose 154 H 223 H (75-100) mg/dL Calcium 7.8 L (8.4-10.2) mg/dL - Imaging and Cardiology EKG: report reviewed, image reviewed Echo: report reviewed Cardiac cath: report reviewed - Telemetry EKG Rhythm: Sinus Rhythm - EKG Sinus rhythms and dysrhythmias: sinus rhythm
--- NOTE | 2020-11-22 14:24 | Progress Note ---
Assessment and Plan Impression: * CHERYL * Covid PNA * hyponatremia * metabolic acidosis * acute hypoxic resp failure Plan: * cr is stable today * hold diuresis at this time * added bicarb gtt for correction of acidosis and improved volume status * volume resuscitation as needed * daily lytes and strict i/os * avoid nephrotoxins * renal diet * covid care per primary team Subjective Date of service: 11/22/20 Principal diagnosis: sob Interval history: labs and chart reviewed events noted Objective - Exam Narrative Exam: primary team exam noted, exam deferred for preservation of PPE - - Vital Signs Vital signs: Vital Signs - 12hr 11/22/20 11/22/20 11/22/20 09:41 09:42 09:43 Temperature Pulse Rate 77 77 77 Respiratory Rate Blood Pressure O2 Sat by Pulse Oximetry 11/22/20 11/22/20 10:40 12:47 Temperature 98.4 F Pulse Rate 70 Respiratory 24 Rate Blood Pressure 88/55 O2 Sat by Pulse 93 89 Oximetry - Lab 11/21/20 09:35 11/22/20 05:33 Most recent lab results Calcium 7.8 mg/dL (8.4-10.2) L 11/22/20 05:33 Medications & Allergies - Medications Allergies/Adverse Reactions: Allergies No Known Allergies Allergy (Verified 04/13/15 20:17) Home Medications: Home Medications Medication Instructions Recorded Confirmed Last Taken Type Ibuprofen [Motrin] 800 mg PO Q8HR PRN 04/13/15 06/14/15 Unknown History Loratadine (Nf) [Claritin (Nf)] 10 mg PO DAILY PRN 04/13/15 06/14/15 Unknown History Timolol 0.5% [Timoptic] 1 drops OP DAILY PRN 04/13/15 06/14/15 Unknown History allopurinoL [Zyloprim] 300 mg PO QDAY PRN 04/13/15 06/14/15 Unknown History methylPREDNISolone [Medrol Dose 4 mg PO DAILY PRN 04/13/15 06/14/15 Unknown History Sergio] Famotidine [Pepcid] 20 mg PO BID #60 tablet 04/14/15 06/14/15 Unknown Rx Aspirin [Aspirin BABY CHEW TAB] 81 mg PO QDAY #30 tab.chew 06/16/15 Unknown Rx AtorvaSTATin [Lipitor] 40 mg PO QHS #30 tablet 06/16/15 Unknown Rx Colchicine [Colcrys] 0.6 mg PO DAILY PRN #30 tablet 06/16/15 Unknown Rx Digoxin [Lanoxin] 0.125 mg PO DAILY #30 tablet 06/16/15 Unknown Rx Furosemide [Lasix TAB] 40 mg PO QDAY #30 tablet 06/16/15 Unknown Rx Niacin ER [Niaspan ER] 500 mg PO QHS #30 tablet 06/16/15 Unknown Rx [place]-3 Fatty Acids/Fish Oil [Fish 1,000 mg PO DAILY #30 capsule 06/16/15 Unknown Rx Oil] Potassium Chloride [K-Dur] 10 meq PO DAILY #30 tablet 06/16/15 Unknown Rx Ranolazine ER [Ranexa ER] 1,000 mg PO BID #60 tablet 06/16/15 Unknown Rx Spironolactone [Aldactone] 25 mg PO QDAY #30 tablet 06/16/15 Unknown Rx allopurinoL [Zyloprim] 300 mg PO QDAY PRN #30 tablet 06/16/15 Unknown Rx carvediloL [Coreg] 25 mg PO DAILY #30 tablet 06/16/15 Unknown Rx lisinopriL [Zestril TAB] 40 mg PO QDAY #30 tablet 06/16/15 Unknown Rx oxyCODONE /ACETAMINOPHEN [Percocet 1 tab PO Q6H PRN #30 tablet 06/16/15 Unknown Rx 5/325 mg] predniSONE [Deltasone] 20 mg PO QDAY #30 tablet 06/16/15 Unknown Rx Active Medications: Generic Name Dose Route Start Last Admin Trade Name Freq PRN Reason Stop Dose Admin Acetaminophen 650 mg 11/20/20 17:29 Acetaminophen 325 Mg Tab PO Q4H PRN Pain MILD(1-3)/Fever >100.5/KIDD Allopurinol 300 mg 11/20/20 15:43 Allopurinol 300 Mg Tab PO QDAY PRN Uric Acid Pecan Gatherer Ascorbic Acid 500 mg 11/20/20 22:00 11/22/20 09:42 Ascorbic Acid 500 Mg Tab PO 500 mg BID CARLY Administration Aspirin 81 mg 11/21/20 10:00 11/22/20 09:43 Aspirin 81 Mg Tab Chew PO 81 mg QDAY CARLY Administration Atorvastatin Calcium 80 mg 11/21/20 22:00 11/22/20 00:25 Atorvastatin 40 Mg Tab PO 80 mg QHS CARLY Administration Carvedilol 25 mg 11/21/20 22:00 11/22/20 09:41 Carvedilol 25 Mg Tab PO 25 mg BID CARLY Administration Cetirizine HCl 10 mg 11/20/20 16:00 11/22/20 09:42 Cetirizine 10 Mg Tab PO 10 mg DAILY CARLY Administration Cholecalciferol 1,000 unit 11/21/20 10:00 11/22/20 09:44 Cholecalciferol (Vit D3) 400 Unit Tab PO 1,000 unit QDAY CARLY Administration Colchicine 0.6 mg 11/20/20 15:43 Colchicine 0.6 Mg Tab PO DAILY PRN Gout Digoxin 0.125 mg 11/22/20 10:00 11/22/20 09:43 Digoxin 0.125 Mg Tab PO 0.125 mg Q48HR CARLY Administration Famotidine 10 mg 11/21/20 10:00 11/22/20 01:34 Famotidine 10 Mg Tab PO 10 mg BID CARLY Administration Heparin Sodium (Porcine) 5,000 unit 11/20/20 22:00 11/22/20 09:42 Heparin 5,000 Unit/1 Ml Vial SUB-Q 5,000 unit Q12HR CARLY Administration Hydromorphone HCl 0.5 mg 11/22/20 10:00 Hydromorphone 1 Mg/1 Ml Inj IV Q6H PRN Pain , Severe (7-10) Sodium Bicarbonate 150 meq/ 1,150 mls @ 75 mls/hr 11/21/20 15:00 11/21/20 15:02 Dextrose IV 75 mls/hr DIRECT CARLY Administration Isosorbide Mononitrate 30 mg 11/21/20 17:00 11/22/20 09:42 Isosorbide Mononitrate Er 30 Mg Tab PO 30 mg QDAY CARLY Administration Methylprednisolone Sodium Succinate 80 mg 11/21/20 14:30 11/22/20 05:29 Methylprednisolone Sod Succinate 40 Mg/1 Ml Inj IV 80 mg Q8HR CARLY Administration Ondansetron HCl 4 mg 11/20/20 17:29 Ondansetron 4 Mg/2 Ml Inj IV Q8H PRN Nausea And Vomiting Oxycodone/Acetaminophen 1 tab 11/20/20 17:29 Oxycodone /Acetaminophen 5-325mg Tab PO Q12H PRN Pain, Moderate (4-6) Potassium Chloride 10 meq 11/21/20 10:00 11/22/20 09:42 Potassium Chloride Er 10 Meq Tab PO 10 meq DAILY CARLY Administration Ranolazine 1,000 mg 11/20/20 22:00 11/22/20 00:28 Ranolazine Er 500 Mg Tab 12hr PO 1,000 mg BID CARLY Administration Sodium Chloride 10 ml 11/20/20 22:00 11/22/20 09:45 Sodium Chloride 0.9% 10 Ml Flush Syringe IV 10 ml BID CARLY Administration Sodium Chloride 10 ml 11/20/20 17:29 Sodium Chloride 0.9% 10 Ml Flush Syringe IV PRN PRN LINE FLUSH Timolol Maleate 1 drops 11/20/20 15:43 Timolol 0.5% Ophth Soln 5 Ml OD DAILY PRN Migraine Headache Zinc Sulfate 220 mg 11/20/20 22:00 11/22/20 09:43 Zinc Sulfate 220 Mg Cap PO 220 mg BID CARLY Administration
--- NOTE | 2020-11-22 17:51 | Consultation ---
History of Present Illness Consult date: 11/22/20 Requesting physician: CLIVE VILLALTA Reason for consult: dyspnea History of present illness: 60 yo with increased SOB, cough, hypoxia, fevers, and positive Covid-19 testing. Currently on 15L salter cannula. Active Medications Acetaminophen (Acetaminophen 325 Mg Tab) 650 mg PO Q4H PRN PRN Reason: Pain MILD(1-3)/Fever >100.5/KIDD Allopurinol (Allopurinol 300 Mg Tab) 300 mg PO QDAY PRN PRN Reason: Uric Acid [employer] Ascorbic Acid (Ascorbic Acid 500 Mg Tab) 500 mg PO BID [facility] Last Admin: 11/22/20 09:42 Dose: 500 mg Documented by: Aspirin (Aspirin 81 Mg Tab Chew) 81 mg PO QDAY [facility] Last Admin: 11/22/20 09:43 Dose: 81 mg Documented by: Atorvastatin Calcium (Atorvastatin 40 Mg Tab) 80 mg PO QHS [facility] Last Admin: 11/22/20 00:25 Dose: 80 mg Documented by: Carvedilol (Carvedilol 25 Mg Tab) 25 mg PO BID [facility] Last Admin: 11/22/20 09:41 Dose: 25 mg Documented by: Cetirizine HCl (Cetirizine 10 Mg Tab) 10 mg PO DAILY [facility] Last Admin: 11/22/20 09:42 Dose: 10 mg Documented by: Cholecalciferol (Cholecalciferol (Vit D3) 400 Unit Tab) 1,000 unit PO QDAY [facility] Last Admin: 11/22/20 09:44 Dose: 1,000 unit Documented by: Colchicine (Colchicine 0.6 Mg Tab) 0.6 mg PO DAILY PRN PRN Reason: Gout Digoxin (Digoxin 0.125 Mg Tab) 0.125 mg PO Q48HR [facility] Last Admin: 11/22/20 09:43 Dose: 0.125 mg Documented by: Famotidine (Famotidine 10 Mg Tab) 10 mg PO BID [facility] Last Admin: 11/22/20 17:23 Dose: 10 mg Documented by: Heparin Sodium (Porcine) (Heparin 5,000 Unit/1 Ml Vial) 5,000 unit SUB-Q Q12HR [facility] Last Admin: 11/22/20 09:42 Dose: 5,000 unit Documented by: Hydromorphone HCl (Hydromorphone 1 Mg/1 Ml Inj) 0.5 mg IV Q6H PRN PRN Reason: Pain , Severe (7-10) Sodium Bicarbonate 150 meq/ (Dextrose) 1,150 mls @ 75 mls/hr IV DIRECT [facility] Last Admin: 11/21/20 15:02 Dose: 75 mls/hr Documented by: Isosorbide Mononitrate (Isosorbide Mononitrate Er 30 Mg Tab) 30 mg PO QDAY [facility] Last Admin: 11/22/20 09:42 Dose: 30 mg Documented by: Methylprednisolone Sodium Succinate (Methylprednisolone Sod Succinate 40 Mg/1 Ml Inj) 80 mg IV Q8HR [facility] Last Admin: 11/22/20 14:37 Dose: 40 mg Documented by: Ondansetron HCl (Ondansetron 4 Mg/2 Ml Inj) 4 mg IV Q8H PRN PRN Reason: Nausea And Vomiting Oxycodone/Acetaminophen (Oxycodone /Acetaminophen 5-325mg Tab) 1 tab PO Q12H PRN PRN Reason: Pain, Moderate (4-6) Potassium Chloride (Potassium Chloride Er 10 Meq Tab) 10 meq PO DAILY [facility] Last Admin: 11/22/20 09:42 Dose: 10 meq Documented by: Ranolazine (Ranolazine Er 500 Mg Tab 12hr) 1,000 mg PO BID [facility] Last Admin: 11/22/20 17:23 Dose: 1,000 mg Documented by: Sodium Chloride (Sodium Chloride 0.9% 10 Ml Flush Syringe) 10 ml IV BID [facility] Last Admin: 11/22/20 09:45 Dose: 10 ml Documented by: Sodium Chloride (Sodium Chloride 0.9% 10 Ml Flush Syringe) 10 ml IV PRN PRN PRN Reason: LINE FLUSH Timolol Maleate (Timolol 0.5% Ophth Soln 5 Ml) 1 drops OD DAILY PRN PRN Reason: Migraine Headache Zinc Sulfate (Zinc Sulfate 220 Mg Cap) 220 mg PO BID [facility] Last Admin: 11/22/20 09:43 Dose: 220 mg Documented by: Past History Past Medical History: acute ME, CAD, heart failure, hypertension, hyperlipidemia, other (See HPI) Past Surgical History: Other (Cardiac stent, AICD) Social history: single. denies: smoking, alcohol abuse, prescription drug abuse, IV drug use Family history: diabetes, hypertension Medications and Allergies Allergies Allergy/AdvReac Type Severity Reaction Status Date / Time No Known Allergies Allergy Verified 04/13/15 20:17 Home Medications Medication Instructions Recorded Confirmed Last Taken Type Ibuprofen [Motrin] 800 mg PO Q8HR PRN 04/13/15 06/14/15 Unknown History Loratadine (Nf) [Claritin (Nf)] 10 mg PO DAILY PRN 04/13/15 06/14/15 Unknown History Timolol 0.5% [Timoptic] 1 drops OP DAILY PRN 04/13/15 06/14/15 Unknown History allopurinoL [Zyloprim] 300 mg PO QDAY PRN 04/13/15 06/14/15 Unknown History methylPREDNISolone [Medrol Dose 4 mg PO DAILY PRN 04/13/15 06/14/15 Unknown History Sergio] Famotidine [Pepcid] 20 mg PO BID #60 tablet 04/14/15 06/14/15 Unknown Rx Aspirin [Aspirin BABY CHEW TAB] 81 mg PO QDAY #30 tab.chew 06/16/15 Unknown Rx AtorvaSTATin [Lipitor] 40 mg PO QHS #30 tablet 06/16/15 Unknown Rx Colchicine [Colcrys] 0.6 mg PO DAILY PRN #30 tablet 06/16/15 Unknown Rx Digoxin [Lanoxin] 0.125 mg PO DAILY #30 tablet 06/16/15 Unknown Rx Furosemide [Lasix TAB] 40 mg PO QDAY #30 tablet 06/16/15 Unknown Rx Niacin ER [Niaspan ER] 500 mg PO QHS #30 tablet 06/16/15 Unknown Rx [place]-3 Fatty Acids/Fish Oil [Fish 1,000 mg PO DAILY #30 capsule 06/16/15 Unknown Rx Oil] Potassium Chloride [K-Dur] 10 meq PO DAILY #30 tablet 06/16/15 Unknown Rx Ranolazine ER [Ranexa ER] 1,000 mg PO BID #60 tablet 06/16/15 Unknown Rx Spironolactone [Aldactone] 25 mg PO QDAY #30 tablet 06/16/15 Unknown Rx allopurinoL [Zyloprim] 300 mg PO QDAY PRN #30 tablet 06/16/15 Unknown Rx carvediloL [Coreg] 25 mg PO DAILY #30 tablet 06/16/15 Unknown Rx lisinopriL [Zestril TAB] 40 mg PO QDAY #30 tablet 06/16/15 Unknown Rx oxyCODONE /ACETAMINOPHEN [Percocet 1 tab PO Q6H PRN #30 tablet 04/25/16 Unknown Rx 5/325 mg] predniSONE [Deltasone] 20 mg PO QDAY #30 tablet 06/16/15 Unknown Rx Active Meds: Active Medications Acetaminophen (Acetaminophen 325 Mg Tab) 650 mg PO Q4H PRN PRN Reason: Pain MILD(1-3)/Fever >100.5/KIDD Allopurinol (Allopurinol 300 Mg Tab) 300 mg PO QDAY PRN PRN Reason: Uric Acid [employer] Ascorbic Acid (Ascorbic Acid 500 Mg Tab) 500 mg PO BID [facility] Last Admin: 11/22/20 09:42 Dose: 500 mg Documented by: Aspirin (Aspirin 81 Mg Tab Chew) 81 mg PO QDAY [facility] Last Admin: 11/22/20 09:43 Dose: 81 mg Documented by: Atorvastatin Calcium (Atorvastatin 40 Mg Tab) 80 mg PO QHS [facility] Last Admin: 11/22/20 00:25 Dose: 80 mg Documented by: Carvedilol (Carvedilol 25 Mg Tab) 25 mg PO BID [facility] Last Admin: 11/22/20 09:41 Dose: 25 mg Documented by: Cetirizine HCl (Cetirizine 10 Mg Tab) 10 mg PO DAILY [facility] Last Admin: 11/22/20 09:42 Dose: 10 mg Documented by: Cholecalciferol (Cholecalciferol (Vit D3) 400 Unit Tab) 1,000 unit PO QDAY [facility] Last Admin: 11/22/20 09:44 Dose: 1,000 unit Documented by: Colchicine (Colchicine 0.6 Mg Tab) 0.6 mg PO DAILY PRN PRN Reason: Gout Digoxin (Digoxin 0.125 Mg Tab) 0.125 mg PO Q48HR [facility] Last Admin: 11/22/20 09:43 Dose: 0.125 mg Documented by: Famotidine (Famotidine 10 Mg Tab) 10 mg PO BID [facility] Last Admin: 11/22/20 17:23 Dose: 10 mg Documented by: Heparin Sodium (Porcine) (Heparin 5,000 Unit/1 Ml Vial) 5,000 unit SUB-Q Q12HR [facility] Last Admin: 11/22/20 09:42 Dose: 5,000 unit Documented by: Hydromorphone HCl (Hydromorphone 1 Mg/1 Ml Inj) 0.5 mg IV Q6H PRN PRN Reason: Pain , Severe (7-10) Sodium Bicarbonate 150 meq/ (Dextrose) 1,150 mls @ 75 mls/hr IV DIRECT [facility] Last Admin: 11/21/20 15:02 Dose: 75 mls/hr Documented by: Isosorbide Mononitrate (Isosorbide Mononitrate Er 30 Mg Tab) 30 mg PO QDAY [facility] Last Admin: 11/22/20 09:42 Dose: 30 mg Documented by: Methylprednisolone Sodium Succinate (Methylprednisolone Sod Succinate 40 Mg/1 Ml Inj) 80 mg IV Q8HR [facility] Last Admin: 11/22/20 14:37 Dose: 40 mg Documented by: Ondansetron HCl (Ondansetron 4 Mg/2 Ml Inj) 4 mg IV Q8H PRN PRN Reason: Nausea And Vomiting Oxycodone/Acetaminophen (Oxycodone /Acetaminophen 5-325mg Tab) 1 tab PO Q12H PRN PRN Reason: Pain, Moderate (4-6) Potassium Chloride (Potassium Chloride Er 10 Meq Tab) 10 meq PO DAILY [facility] Last Admin: 11/22/20 09:42 Dose: 10 meq Documented by: Ranolazine (Ranolazine Er 500 Mg Tab 12hr) 1,000 mg PO BID [facility] Last Admin: 11/22/20 17:23 Dose: 1,000 mg Documented by: Sodium Chloride (Sodium Chloride 0.9% 10 Ml Flush Syringe) 10 ml IV BID [facility] Last Admin: 11/22/20 09:45 Dose: 10 ml Documented by: Sodium Chloride (Sodium Chloride 0.9% 10 Ml Flush Syringe) 10 ml IV PRN PRN PRN Reason: LINE FLUSH Timolol Maleate (Timolol 0.5% Ophth Soln 5 Ml) 1 drops OD DAILY PRN PRN Reason: Migraine Headache Zinc Sulfate (Zinc Sulfate 220 Mg Cap) 220 mg PO BID [facility] Last Admin: 11/22/20 09:43 Dose: 220 mg Documented by: Review of Systems All systems: negative Physical Examination Vital signs: Vital Signs Temp Resp BP 98.3 F 19 76/51 11/20/20 12:31 11/20/20 12:31 11/20/20 12:31 Vital Signs - 24 hr 11/21/20 11/21/20 11/22/20 20:40 22:39 00:25 Temperature 98.2 F Pulse Rate 77 77 Respiratory 20 Rate Blood Pressure 105/69 105/69 O2 Sat by Pulse 90 92 Oximetry 11/22/20 11/22/20 11/22/20 09:41 09:42 09:43 Temperature Pulse Rate 77 77 77 Respiratory Rate Blood Pressure O2 Sat by Pulse Oximetry 11/22/20 11/22/20 11/22/20 10:40 12:47 14:48 Temperature 98.4 F Pulse Rate 70 Respiratory 24 Rate Blood Pressure 88/55 O2 Sat by Pulse 93 89 93 Oximetry Exam deferred to preserve PPE and reduce viral transmission. Results - Laboratory Findings CBC and BMP: 11/21/20 09:35 11/22/20 05:33 PT/INR, D-dimer D-Dimer 859.78 ng/mlDDU (0-234) H 11/21/20 10:45 Abnormal lab findings: Abnormal Labs 11/20/20 11/20/20 11/20/20 12:39 12:39 12:39 WBC 2.4 L RBC Hgb 16.1 H Hct 48.0 H MCV 99 H MCH 33 H MCHC Plt Count 100 L Dolores % (Auto) 8.4 H Lymph # (Auto) 0.6 L Seg Neutrophils % Seg Neutrophils # 1.6 L D-Dimer 836.61 H Sodium 125 L Chloride 94.3 L Carbon Dioxide 16 L BUN 43 H Creatinine 2.3 H Glucose Calcium Ferritin AST ALT Lactate Dehydrogenase Total Creatine Kinase CK-MB (CK-2) C-Reactive Protein Albumin Digoxin Coronavirus (PCR) 11/21/20 11/21/20 11/21/20 09:35 09:35 10:45 WBC 2.7 L RBC 5.04 H Hgb 17.1 H Hct 49.5 H MCV 98 H MCH 34 H MCHC 35 H Plt Count 93 L Dolores % (Auto) Lymph # (Auto) 0.5 L Seg Neutrophils % 75.3 H Seg Neutrophils # D-Dimer 859.78 H Sodium 134 L D Chloride Carbon Dioxide 16 L BUN 38 H Creatinine 1.4 H Glucose 141 H Calcium 8.2 L Ferritin AST 202 H ALT 189 H Lactate Dehydrogenase Total Creatine Kinase CK-MB (CK-2) C-Reactive Protein Albumin 3.2 L Digoxin Coronavirus (PCR) 11/21/20 11/21/20 11/21/20 10:45 10:45 15:12 WBC RBC Hgb Hct MCV MCH MCHC Plt Count Dolores % (Auto) Lymph # (Auto) Seg Neutrophils % Seg Neutrophils # D-Dimer Sodium Chloride Carbon Dioxide BUN Creatinine Glucose 154 H Calcium Ferritin 9449.0 H AST ALT Lactate Dehydrogenase 682 H Total Creatine Kinase 1372 H CK-MB (CK-2) 16.3 H C-Reactive Protein 4.60 H Albumin Digoxin Coronavirus (PCR) 11/21/20 11/21/20 11/22/20 21:08 21:08 05:33 WBC RBC Hgb Hct MCV MCH MCHC Plt Count Dolores % (Auto) Lymph # (Auto) Seg Neutrophils % Seg Neutrophils # D-Dimer Sodium 132 L Chloride Carbon Dioxide 16 L BUN 38 H Creatinine 1.4 H Glucose 223 H Calcium 7.8 L Ferritin AST ALT Lactate Dehydrogenase Total Creatine Kinase 1198 H CK-MB (CK-2) 13.6 H C-Reactive Protein Albumin Digoxin 0.3 L Coronavirus (PCR) 11/22/20 11/22/20 05:33 Unknown WBC RBC Hgb Hct MCV MCH MCHC Plt Count Dolores % (Auto) Lymph # (Auto) Seg Neutrophils % Seg Neutrophils # D-Dimer Sodium Chloride Carbon Dioxide BUN Creatinine Glucose Calcium Ferritin AST ALT Lactate Dehydrogenase Total Creatine Kinase 847 H CK-MB (CK-2) 9.3 H C-Reactive Protein Albumin Digoxin Coronavirus (PCR) Positive A - Diagnostic Findings Chest x-ray: report reviewed, image reviewed Assessment and Plan Imp: 1. Covid-19 viral pneumonia 2. Acute respiratory failure, hypoxia 3. Dilated CMP 4. Obesity 5. CHERYL, better Rec: 1. IV steroids x 10 days 2. Avoid volume overload 3. On DVT PPx; trend inflammatory markers 4. Wean O2 to keep sats 88% or > 5. Further plans pending clinical course
[2020-11-22] MEDS: SODIUM BICARBONATE 150 MEQ in DEXTROSE 5% IN WATER 1,000 ML IV SCH (22:27)
[2020-11-23] MEDS: methylPREDNISolone Sod Succinate 40 MG/1 ML INJ IV SCH ×2 (06:22→15:00)
[2020-11-23] MEDS: oxyCODONE /ACETAMINOPHEN 5-325MG TAB PO PRN (06:25)
[2020-11-23 08:06] LABS: Hematocrit 44.3 % (35.5-45.6); Hemoglobin 15.4 gm/dl (11.8-15.2); Mean Corpuscular HGB Conc 35 % (32-34); Mean Corpuscular Volume 97 fl (84-94); Platelet Count 106 K/mm3 (140-440); Red Blood Count 4.57 M/mm3 (3.65-5.03)
[2020-11-23 08:50] LABS: BUN/Creatinine Ratio 26; Blood Urea Nitrogen 34 mg/dL (9-20); Calcium 7.7 mg/dL (8.4-10.2); Hemolysis Index 30
--- NOTE | 2020-11-23 10:17 | Progress Note ---
Assessment and Plan Impression: * CHERYL * Covid PNA * hyponatremia * metabolic acidosis * acute hypoxic resp failure Plan: * cr is better today * cheryl due to hypopperfusion wiith COVID PNA and volume depletion, high risk for progression to ATN * hold diuresis at this time * added bicarb gtt for correction of acidosis and improved volume status, co2 is better, change to ns today * add sodium bicarb tabs * volume resuscitation as needed * daily lytes and strict i/os * avoid nephrotoxins * renal diet * covid care per primary team Subjective Date of service: 11/23/20 Principal diagnosis: sob Interval history: labs and chart reviewed events noted Objective - Exam Narrative Exam: primary team exam noted, exam deferred for preservation of PPE - - Vital Signs Vital signs: Vital Signs - 12hr 11/22/20 11/23/20 11/23/20 23:41 02:24 06:35 Temperature 97.7 F 97.6 F Pulse Rate 72 70 Respiratory 22 20 Rate Blood Pressure 96/60 115/75 O2 Sat by Pulse 87 93 87 Oximetry 11/23/20 09:31 Temperature Pulse Rate Respiratory Rate Blood Pressure O2 Sat by Pulse 93 Oximetry - Lab 11/23/20 07:30 11/23/20 07:30 Most recent lab results Calcium 7.7 mg/dL (8.4-10.2) L 11/23/20 07:30 Medications & Allergies - Medications Allergies/Adverse Reactions: Allergies No Known Allergies Allergy (Verified 04/13/15 20:17) Home Medications: Home Medications Medication Instructions Recorded Confirmed Last Taken Type Ibuprofen [Motrin] 800 mg PO Q8HR PRN 04/13/15 06/14/15 Unknown History Loratadine (Nf) [Claritin (Nf)] 10 mg PO DAILY PRN 04/13/15 06/14/15 Unknown History Timolol 0.5% [Timoptic] 1 drops OP DAILY PRN 04/13/15 06/14/15 Unknown History allopurinoL [Zyloprim] 300 mg PO QDAY PRN 04/13/15 06/14/15 Unknown History methylPREDNISolone [Medrol Dose 4 mg PO DAILY PRN 04/13/15 06/14/15 Unknown History Sergio] Famotidine [Pepcid] 20 mg PO BID #60 tablet 04/14/15 06/14/15 Unknown Rx Aspirin [Aspirin BABY CHEW TAB] 81 mg PO QDAY #30 tab.chew 06/16/15 Unknown Rx AtorvaSTATin [Lipitor] 40 mg PO QHS #30 tablet 06/16/15 Unknown Rx Colchicine [Colcrys] 0.6 mg PO DAILY PRN #30 tablet 06/16/15 Unknown Rx Digoxin [Lanoxin] 0.125 mg PO DAILY #30 tablet 06/16/15 Unknown Rx Furosemide [Lasix TAB] 40 mg PO QDAY #30 tablet 06/16/15 Unknown Rx Niacin ER [Niaspan ER] 500 mg PO QHS #30 tablet 06/16/15 Unknown Rx [place]-3 Fatty Acids/Fish Oil [Fish 1,000 mg PO DAILY #30 capsule 06/16/15 Unknown Rx Oil] Potassium Chloride [K-Dur] 10 meq PO DAILY #30 tablet 06/16/15 Unknown Rx Ranolazine ER [Ranexa ER] 1,000 mg PO BID #60 tablet 06/16/15 Unknown Rx Spironolactone [Aldactone] 25 mg PO QDAY #30 tablet 06/16/15 Unknown Rx allopurinoL [Zyloprim] 300 mg PO QDAY PRN #30 tablet 06/16/15 Unknown Rx carvediloL [Coreg] 25 mg PO DAILY #30 tablet 06/16/15 Unknown Rx lisinopriL [Zestril TAB] 40 mg PO QDAY #30 tablet 06/16/15 Unknown Rx oxyCODONE /ACETAMINOPHEN [Percocet 1 tab PO Q6H PRN #30 tablet 06/16/15 Unknown Rx 5/325 mg] predniSONE [Deltasone] 20 mg PO QDAY #30 tablet 06/16/15 Unknown Rx Active Medications: Generic Name Dose Route Start Last Admin Trade Name Freq PRN Reason Stop Dose Admin Acetaminophen 650 mg 11/20/20 17:29 Acetaminophen 325 Mg Tab PO Q4H PRN Pain MILD(1-3)/Fever >100.5/KIDD Allopurinol 300 mg 11/20/20 15:43 Allopurinol 300 Mg Tab PO QDAY PRN Uric Acid [employer] Ascorbic Acid 500 mg 11/20/20 22:00 11/22/20 22:27 Ascorbic Acid 500 Mg Tab PO 500 mg BID CARLY Administration Aspirin 81 mg 11/21/20 10:00 11/22/20 09:43 Aspirin 81 Mg Tab Chew PO 81 mg QDAY CARLY Administration Atorvastatin Calcium 80 mg 11/21/20 22:00 11/22/20 22:27 Atorvastatin 40 Mg Tab PO 80 mg QHS CARLY Administration Carvedilol 25 mg 11/21/20 22:00 11/22/20 22:28 Carvedilol 25 Mg Tab PO 25 mg BID CARLY Administration Cetirizine HCl 10 mg 11/20/20 16:00 11/22/20 09:42 Cetirizine 10 Mg Tab PO 10 mg DAILY CARLY Administration Cholecalciferol 1,000 unit 11/21/20 10:00 11/22/20 09:44 Cholecalciferol (Vit D3) 400 Unit Tab PO 1,000 unit QDAY CAR[facility] Administration Colchicine 0.6 mg 11/20/20 15:43 Colchicine 0.6 Mg Tab PO DAILY PRN Gout Digoxin 0.125 mg 11/22/20 10:00 11/22/20 09:43 Digoxin 0.125 Mg Tab PO 0.125 mg Q48HR CARLY Administration Famotidine 10 mg 11/21/20 10:00 11/22/20 22:27 Famotidine 10 Mg Tab PO 10 mg BID CAR[facility] Administration Heparin Sodium (Porcine) 5,000 unit 11/20/20 22:00 11/22/20 22:28 Heparin 5,000 Unit/1 Ml Vial SUB-Q 5,000 unit Q12HR [facility] Administration Hydromorphone HCl 0.5 mg 11/22/20 10:00 Hydromorphone 1 Mg/1 Ml Inj IV Q6H PRN Pain , Severe (7-10) Sodium Bicarbonate 150 meq/ 1,150 mls @ 75 mls/hr 11/21/20 15:00 11/22/20 22:27 Dextrose IV 75 mls/hr DIRECT [facility] Administration Isosorbide Mononitrate 30 mg 11/21/20 17:00 11/22/20 09:42 Isosorbide Mononitrate Er 30 Mg Tab PO 30 mg QDAY [facility] Administration Methylprednisolone Sodium Succinate 80 mg 11/21/20 14:30 11/23/20 06:22 Methylprednisolone Sod Succinate 40 Mg/1 Ml Inj IV 80 mg Q8HR [facility] Administration Ondansetron HCl 4 mg 11/20/20 17:29 Ondansetron 4 Mg/2 Ml Inj IV Q8H PRN Nausea And Vomiting Oxycodone/Acetaminophen 1 tab 11/20/20 17:29 11/23/20 06:25 Oxycodone /Acetaminophen 5-325mg Tab PO 1 tab Q12H PRN Administration Pain, Moderate (4-6) Potassium Chloride 10 meq 11/21/20 10:00 11/22/20 09:42 Potassium Chloride Er 10 Meq Tab PO 10 meq DAILY CAR[facility] Administration Ranolazine 1,000 mg 11/20/20 22:00 11/22/20 22:28 Ranolazine Er 500 Mg Tab 12hr PO 1,000 mg BID CAR[facility] Administration Sodium Chloride 10 ml 11/20/20 22:00 11/22/20 22:30 Sodium Chloride 0.9% 10 Ml Flush Syringe IV 10 ml BID CAR[facility] Administration Sodium Chloride 10 ml 11/20/20 17:29 Sodium Chloride 0.9% 10 Ml Flush Syringe IV PRN PRN LINE FLUSH Timolol Maleate 1 drops 11/20/20 15:43 Timolol 0.5% Ophth Soln 5 Ml OD DAILY PRN Migraine Headache Zinc Sulfate 220 mg 11/20/20 22:00 11/22/20 22:28 Zinc Sulfate 220 Mg Cap PO 220 mg BID [facility] Administration
--- NOTE | 2020-11-23 10:56 | Progress Note ---
Assessment and Plan Assessment and plan: 60 YO Male with CAD S/P Stent Placement, HTN, Systolic CHF(EF 25) S/P AICD Placement, HLD, ME, OA, Coronavirus Infection diagnosed 2 weeks ago presents to ED for evaluation. Patient reports "I am short of breath". Patient states that he has experienced shortness of breath, dry cough, fatigue, malaise, body aches, subjective fever, decreased exercise tolerance over the past 1 week with persistent and worsening symptoms over the past 3 days. EMS was notified and upon arrival the patient was found to be in distress and subsequent transported to [facility] for further care and evaluation of the aforementioned symptoms. The patient was seen and evaluated in the emergency department. All lab and imaging studies reviewed. Patient found to have a pulse oximetry of 86% with exertion which is consistent with acute hypoxemic respiratory failure. The patient is unable to speak in complete sentences due to shortness of breath. Patient placed on submental oxygen with mild improvement in symptoms. Patient admitted to medical floor and initiated on coronavirus protocol due to increased risk of worsening symptoms. VQ scan ordered and is pending at time of admission. Patient denies chest pain, palpitation, unilateral leg swelling, calf pain, prolonged travel/immobility, individual/family history of DVT/PE/bleeding/blood clotting disorders. Prior admission on 06/14/2015 reviewed. All medication l isted at time of admission has been reconciled. Advanced care planning conducted in ED. (1) Acute hypoxemic respiratory failure Current Visit: Yes Status: Acute Plan to address problem: Chest x-ray, supplemental oxygen, pulse oximetry, nebulizer therapy, VQ scan ordered and is pending at time of admission. (2) Obesity hypoventilation syndrome Current Visit: Yes Status: Acute Plan to address problem: Balanced diet, increase physical activity discharge, outpatient pulmonary follow-up for sleep study. (3) COVID-19 virus infection Current Visit: No Status: Acute Plan to address problem: Coronavirus protocol: Contact precautions, isolation precautions, IV steroid therapy, IV antibiotic therapy, vitamin C therapy, vitamin D therapy, zinc therapy, prophylactic anticoagulation (4) Essential hypertension Current Visit: No Status: Chronic Plan to address problem: Monitor blood pressure every shift, continue medical management (5) Hyperlipidemia Current Visit: No Status: Chronic Plan to address problem: Statin therapy, low-cholesterol diet, supportive care. (6) Acute kidney injury with vasomotor nephropathy unknown baseline (7) Hyponatremia (8) thrombocytopenia (9) DVT prophylaxis Current Visit: Yes Status: Acute Plan to address problem: SCD to bilateral lower extremities while in bed, prophylactic anticoagulation (10) HFrEF/CAD s/p PCI-S/p AICD placment/HTN/LHC 03/24/2020 (11) Rhabdomyolysis (12) advance care planning Current Visit: Yes Status: Acute Plan to address problem: Disease education conducted, care plan discussed, diagnoses discussed, prognosis discussed, patient is full code, patient knowledges understanding and agreement with care plan. +30 minutes. 11/21: Patient seen and examined his on 12 L of oxygen. I have increasing steroids to 80 mg every 8 will defer to ID if he should be changed to Decadron. I have consulted pulmonary and cardiology in the meantime crime data specialist ordered an EKG which showed possible anterior wall infarct with some ST elevations very minimal. I reviewed the EKG from 2016 and it was similar. Patient denies any chest pain at this time. Nephrology has been consulted as patient has an acute kidney injury with a baseline of 1.1 Patient 2016 although I do not have any new baseline. I will defer initiation of IV Lasix to nephrology the patient was started on p.o. Lasix nevertheless on admission. Also hyponatremia is noted I will monitor this closely in addition to thrombocytopenia which will affect the use of anticoagulation. I will encourage the patient to prone as much as tolerated. 11/22: Patient on Bicarb drip per [employer], will continue to monitor renal function and respiratory status considering clinical status of COVID 19. Lasix appears to have been discontinued, continue steroid therapy, monitor closely especially thrombocytopenia. Encourage prone positioning if tolerable. 11/23: Patient seen and examined, Discussed with crime data specialist, will discontinued Fluids at this time. Hold Isosorbide due to the low BP. Continue to wean oxygen. History Interval history: Patient seen and examined this morning showing some improvement but still with severe hypoxia. Blood pressure trending towards the low side Hospitalist Physical - Physical exam Narrative exam: VITAL SIGNS: Reviewed. GENERAL: The patient appears normally developed, Vital signs as documented. HEAD: No signs of head trauma. EYES: Pupils are equal. Extraocular motions intact. EARS: Hearing grossly intact. MOUTH: Oropharynx is normal. NECK: No adenopathy, no JVD. CHEST: Chest with diminished with mild bibasilar crackles breath sounds bilaterally. No wheezes CARDIAC: Regular rate and rhythm. S1 and S2, without murmurs, gallops, or rubs. VASCULAR: No Edema. Peripheral pulses normal and equal in all extremities. ABDOMEN: Soft, non tender and non distended. No rebound or guarding, and no masses palpated. Bowel Sounds normal. MUSCULOSKELETAL: Good range of motion of all major joints. Extremities without clubbing, cyanosis or edema. NEUROLOGIC EXAM: Alert and oriented x 3 No focal sensory or strength deficits. Speech normal. Follows commands. PSYCHIATRIC: Mood normal. SKIN: detail exam as documented in skin assessment - Constitutional Vitals: Temp Pulse Resp BP Pulse Ox 97.6 F 70 20 115/75 93 11/23/20 06:35 11/23/20 06:35 11/23/20 06:35 11/23/20 06:35 11/23/20 09:31 General appearance: Present: no acute distress HEART Score - HEART Score Troponin: Troponin T < 0.010 ng/mL (0.00-0.029) 11/22/20 05:33 Results - Labs CBC & Chem 7: 11/23/20 07:30 11/24/20 07:25 Labs: Laboratory Last Values WBC 4.3 K/mm3 (4.5-11.0) L 11/23/20 07:30 RBC 4.57 M/mm3 (3.65-5.03) 11/23/20 07:30 Hgb 15.4 gm/dl (11.8-15.2) H 11/23/20 07:30 Hct 44.3 % (35.5-45.6) 11/23/20 07:30 MCV 97 fl (84-94) H 11/23/20 07:30 MCH 34 pg (28-32) H 11/23/20 07:30 MCHC 35 % (32-34) H 11/23/20 07:30 RDW 15.0 % (13.2-15.2) 11/23/20 07:30 Plt Count 106 K/mm3 (140-440) L 11/23/20 07:30 Lymph % (Auto) 18.4 % (13.4-35.0) 11/21/20 09:35 [place] % (Auto) 6.1 % (0.0-7.3) 11/21/20 09:35 Eos % (Auto) 0.0 % (0.0-4.3) 11/21/20 09:35 Baso % (Auto) 0.2 % (0.0-1.8) 11/21/20 09:35 Lymph # (Auto) 0.5 K/mm3 (1.2-5.4) L 11/21/20 09:35 [place] # (Auto) 0.2 K/mm3 (0.0-0.8) 11/21/20 09:35 Eos # (Auto) 0.0 K/mm3 (0.0-0.4) 11/21/20 09:35 Baso # (Auto) 0.0 K/mm3 (0.0-0.1) 11/21/20 09:35 Seg Neutrophils % 75.3 % (40.0-70.0) H 11/21/20 09:35 Seg Neutrophils # 2.0 K/mm3 (1.8-7.7) 11/21/20 09:35 D-Dimer 859.78 ng/mlDDU (0-234) H 11/21/20 10:45 Sodium 134 mmol/L (137-145) L 11/23/20 07:30 Potassium 4.7 mmol/L (3.6-5.0) 11/23/20 07:30 Chloride 101.6 mmol/L (98-107) 11/23/20 07:30 Carbon Dioxide 21 mmol/L (22-30) L 11/23/20 07:30 Anion Gap 16 mmol/L 11/23/20 07:30 BUN 34 mg/dL (9-20) H 11/23/20 07:30 Creatinine 1.3 mg/dL (0.8-1.3) 11/23/20 07:30 Estimated GFR > 60 ml/min 11/23/20 07:30 BUN/Creatinine Ratio 26 % 11/23/20 07:30 Glucose 217 mg/dL (75-100) H 11/23/20 07:30 Lactic Acid 1.10 mmol/L (0.7-2.0) 11/20/20 17:23 Calcium 7.7 mg/dL (8.4-10.2) L 11/23/20 07:30 Ferritin 9449.0 ng/mL (30.0-300.0) H 11/21/20 10:45 Total Bilirubin 0.60 mg/dL (0.1-1.2) 11/21/20 09:35 AST 202 units/L (5-40) H 11/21/20 09:35 ALT 189 units/L (7-56) H 11/21/20 09:35 Alkaline Phosphatase 66 units/L (35-129) 11/21/20 09:35 Lactate Dehydrogenase 682 units/L (91-180) H 11/21/20 10:45 Total Creatine Kinase 848 units/L (55-170) H 11/23/20 07:30 CK-MB (CK-2) 9.3 ng/mL (0.0-4.0) H 11/22/20 05:33 CK-MB (CK-2) Rel Index 1.0 (0-4) 11/22/20 05:33 Troponin T < 0.010 ng/mL (0.00-0.029) 11/22/20 05:33 C-Reactive Protein 4.60 mg/dL (0.00-1.30) H 11/21/20 10:45 NT-Pro-B Natriuret Pep 467.3 pg/mL (0-900) 11/20/20 12:39 Total Protein 7.1 g/dL (6.3-8.2) 11/21/20 09:35 Albumin 3.2 g/dL (3.9-5) L 11/21/20 09:35 Albumin/Globulin Ratio 0.8 % 11/21/20 09:35 Procalcitonin 0.86 ng/mL (<0.15) 11/21/20 10:45 Urine Color Straw (Yellow) 11/20/20 18:55 Urine Turbidity Slightly cloudy (Clear) 11/20/20 18:55 Urine pH 5.0 (5.0-7.0) 11/20/20 18:55 Ur Specific [place] 1.015 (1.003-1.030) 11/20/20 18:55 Urine Protein 100 mg/dl mg/dL (Negative) 11/20/20 18:55 Urine Glucose (UA) Negative mg/dL (Negative) 11/20/20 18:55 Urine Ketones Negative mg/dL (Negative) 11/20/20 18:55 Urine Blood 2+ (Negative) 11/20/20 18:55 Urine Nitrite Negative (Negative) 11/20/20 18:55 Urine Bilirubin Negative (Negative) 11/20/20 18:55 Urine Urobilinogen < 2.0 mg/dL (<2.0) 11/20/20 18:55 Ur Leukocyte Esterase Negative (Negative) 11/20/20 18:55 Urine WBC (Auto) 2.0 /HPF (0.0-6.0) 11/20/20 18:55 Urine RBC (Auto) 1.0 /HPF (0.0-6.0) 11/20/20 18:55 Digoxin 0.3 ng/mL (0.9-2.0) L 11/21/20 21:08 Coronavirus (PCR) Positive (Negative) A 11/22/20 Unknown Microbiology: Microbiology 11/20/20 15:02 Peripheral/Venous Blood Culture - Preliminary NO GROWTH AFTER 48 HOURS 11/20/20 15:08 Peripheral/Venous Blood Culture - Preliminary NO GROWTH AFTER 48 HOURS Hall/IV: Voiding Method Toilet Active Medications - Current Medications Current Medications: Generic Name Dose Route Start Last Admin Trade Name Freq PRN Reason Stop Dose Admin Acetaminophen 650 mg 11/20/20 17:29 Acetaminophen 325 Mg Tab PO Q4H PRN Pain MILD(1-3)/Fever >100.5/KIDD Allopurinol 300 mg 11/20/20 15:43 Allopurinol 300 Mg Tab PO QDAY PRN Uric Acid Sapphire [employer] Grinder Ascorbic Acid 500 mg 11/20/20 22:00 11/22/20 22:27 Ascorbic Acid 500 Mg Tab PO 500 mg BID CARLY Administration Aspirin 81 mg 11/21/20 10:00 11/22/20 09:43 Aspirin 81 Mg Tab Chew PO 81 mg QDAY CARLY Administration Atorvastatin Calcium 80 mg 11/21/20 22:00 11/22/20 22:27 Atorvastatin 40 Mg Tab PO 80 mg QHS CARLY Administration Carvedilol 25 mg 11/21/20 22:00 11/22/20 22:28 Carvedilol 25 Mg Tab PO 25 mg BID CARLY Administration Cetirizine HCl 10 mg 11/20/20 16:00 11/22/20 09:42 Cetirizine 10 Mg Tab PO 10 mg DAILY CARLY Administration Cholecalciferol 1,000 unit 10/01/21 10:00 11/22/20 09:44 Cholecalciferol (Vit D3) 400 Unit Tab PO 1,000 unit QDAY CARLY Administration Colchicine 0.6 mg 11/20/20 15:43 Colchicine 0.6 Mg Tab PO DAILY PRN Gout Digoxin 0.125 mg 11/22/20 10:00 11/22/20 09:43 Digoxin 0.125 Mg Tab PO 0.125 mg Q48HR CARLY Administration Famotidine 10 mg 11/21/20 10:00 11/22/20 22:27 Famotidine 10 Mg Tab PO 10 mg BID CARLY Administration Heparin Sodium (Porcine) 5,000 unit 11/20/20 22:00 11/22/20 22:28 Heparin 5,000 Unit/1 Ml Vial SUB-Q 5,000 unit Q12HR CARLY Administration Hydromorphone HCl 0.5 mg 11/22/20 10:00 Hydromorphone 1 Mg/1 Ml Inj IV Q6H PRN Pain , Severe (7-10) Sodium Chloride 1,000 mls @ 125 mls/hr 11/23/20 11:00 Nacl 0.9% 1000 Ml IV DIRECT CARLY Isosorbide Mononitrate 30 mg 11/21/20 17:00 11/22/20 09:42 Isosorbide Mononitrate Er 30 Mg Tab PO 30 mg QDAY CARLY Administration Methylprednisolone Sodium Succinate 80 mg 11/21/20 14:30 11/23/20 06:22 Methylprednisolone Sod Succinate 40 Mg/1 Ml Inj IV 80 mg Q8HR CARLY Administration Ondansetron HCl 4 mg 11/20/20 17:29 Ondansetron 4 Mg/2 Ml Inj IV Q8H PRN Nausea And Vomiting Oxycodone/Acetaminophen 1 tab 11/20/20 17:29 11/23/20 06:25 Oxycodone /Acetaminophen 5-325mg Tab PO 1 tab Q12H PRN Administration Pain, Moderate (4-6) Potassium Chloride 10 meq 11/21/20 10:00 11/22/20 09:42 Potassium Chloride Er 10 Meq Tab PO 10 meq DAILY CARLY Administration Ranolazine 1,000 mg 11/20/20 22:00 11/22/20 22:28 Ranolazine Er 500 Mg Tab 12hr PO 1,000 mg BID CARLY Administration Sodium Bicarbonate 1,300 mg 11/23/20 11:00 Sodium Bicarbonate 650 Mg Tab PO BID CARLY Sodium Chloride 10 ml 11/20/20 22:00 11/22/20 22:30 Sodium Chloride 0.9% 10 Ml Flush Syringe IV 10 ml BID CARLY Administration Sodium Chloride 10 ml 11/20/20 17:29 Sodium Chloride 0.9% 10 Ml Flush Syringe IV PRN PRN LINE FLUSH Timolol Maleate 1 drops 11/20/20 15:43 Timolol 0.5% Ophth Soln 5 Ml OD DAILY PRN Migraine Headache Zinc Sulfate 220 mg 11/20/20 22:00 11/22/20 22:28 Zinc Sulfate 220 Mg Cap PO 220 mg BID CARLY Administration Nutrition/Malnutrition Assess - Dietary Evaluation Nutrition/Malnutrition Findings: Nutrition Notes Start: 11/21/20 10:48 Freq: Status: Active Protocol: Document 11/21/20 10:48 NAVI (Rec: 11/21/20 11:24 NAVI [email or web address]) Nutrition Notes Need for Assessment generated from: MD Order Initial or Follow up Brief Note Other Pertinent Diagnosis Pt admitted with Shortness of Breath, associated with COVID. Current Diet Cardiac Diet Labs/Tests 11/21: Na 134, CO2 16, BUN 38, Cr 1.4, Glu 141. Pertinent Medications 11/21: Zn, Vit C, Vit D3. At Home: Pt supplements with Niacin, Pinon-3. Height 5 ft 7 in Weight 93.894 kg [place] Body Weight (kg) 67.27 BMI 32.4 Intake Prior to Admission Good Weight Status Obese Subjective/Other Information Pt is independent. Burn Absent Trauma Absent GI Symptoms None Food Allergy No Skin Integrity/Comment Integumentary clear, warm, dry . Minimum of two criteria No physical signs of malnutrition #1 Nutrition Diagnosis No nutrition diagnosis at this time Comments: No reports on Food Intake, BBody Weight changes, Chewing/ Swallowing difficulties at the time. Is patient on ventilator? No Is Patient Ambulatory and/or Out of Bed Yes REE-([facility]-ambulatory/OOB) [ 0416.841 [id number]] Kcal/Kg value to use for calculation 25 Approximate Energy Requirements Using 2347 kcal/Kg Calculation Used for Recommendations Kcal/kg Additional Notes Protein: 0.8-1.0 g/Kg/day; 54- 67gr/day; 216-268 Kcal/day ( from IBW) Fluids: 1.0 ml/Kcal, or as per MD. Nutrition Intervention Goal #1 Maintain Body Weight within +/ -3% of actual BW during LOS Follow-Up By: 11/28/20 Additional Comments Observe Pt tolerance of food, BM, total intake, and chewing/ swallowing difficulties.
[2020-11-23] MEDS ORDERED: SODIUM CHLORIDE 0.9% 1000 ML 1,000 ML IV SCH (11:00)
--- NOTE | 2020-11-23 11:18 | Progress Note ---
Assessment and Plan 60-year-old male with hypertension hyperlipidemia chronic ischemic cardiomyopathy chronic stable angina has a functioning AICD diagnosed with Covid 2 weeks ago with worsening shortness of breath was unvaccinated patient was found to have acute renal sufficiency mild improvement holding MAYLIN and ARB. Patient will continue Coreg statin. And Imdur. And Ranexa. in view of improvement in renal function stop iv fluids discuss with renal and primary. add entresto once bp is better and cont current covid treatment - Patient Problems (1) Ischemic cardiomyopathy Current Visit: Yes Status: Chronic (2) CHERYL (acute kidney injury) Current Visit: Yes Status: Acute (3) Acute hypoxemic respiratory failure Current Visit: Yes Status: Acute (4) COVID-19 Current Visit: Yes Status: Acute (5) Hyponatremia Current Visit: Yes Status: Acute (6) Coronary artery disease Current Visit: No Status: Chronic Qualifiers: Coronary Disease-Associated Artery/Lesion type: [place] artery [place] vs. transplanted heart: [place] heart Associated angina: with stable angina Qualified Code(s): I25.118 - Atherosclerotic heart disease of [place] coronary artery with other forms of angina pectoris (7) Mixed hyperlipidemia Current Visit: No Status: Acute (8) Chronic systolic heart failure Current Visit: No Status: Chronic (9) Essential hypertension Current Visit: No Status: Chronic Subjective Date of service: 11/23/20 Principal diagnosis: sob Interval history: sob has improved Objective Vital Signs Temp Pulse Resp BP Pulse Ox 11/23/20 09:31 93 11/23/20 06:35 97.6 F 70 20 115/75 87 11/23/20 02:24 93 11/22/20 23:41 97.7 F 72 22 96/60 87 11/22/20 20:40 95 11/22/20 17:17 98.2 F 76 24 104/62 89 11/22/20 14:48 93 11/22/20 12:47 98.4 F 70 24 88/55 89 - Physical Examination General: Other HEENT: Positive: PERRL Neck: Positive: trachea midline Cardiac: Positive: Reg Rate and Rhythm Lungs: Positive: clear to auscultation Neuro: Positive: Grossly Intact Abdomen: Positive: Soft Skin: Negative: Rash, Suspicious Lesions, Ulceration Extremities: Present: upper extr. pulses, lower extr. pulses. Absent: edema - Labs and Meds CBC 11/23/20 Range/Units 07:30 WBC 4.3 L (4.5-11.0) K/mm3 RBC 4.57 (3.65-5.03) M/mm3 Hgb 15.4 H (11.8-15.2) gm/dl Hct 44.3 (35.5-45.6) % Plt Count 106 L (140-440) K/mm3 Comprehensive Metabolic Panel 11/23/20 Range/Units 07:30 Sodium 134 L (137-145) mmol/L Potassium 4.7 (3.6-5.0) mmol/L Chloride 101.6 (98-107) mmol/L Carbon Dioxide 21 L (22-30) mmol/L BUN 34 H (9-20) mg/dL Creatinine 1.3 (0.8-1.3) mg/dL Glucose 217 H (75-100) mg/dL Calcium 7.7 L (8.4-10.2) mg/dL - Imaging and Cardiology EKG: report reviewed, image reviewed Echo: report reviewed Cardiac cath: report reviewed - Telemetry EKG Rhythm: Sinus Rhythm - EKG Sinus rhythms and dysrhythmias: sinus rhythm
[2020-11-23] MEDS: carvediloL 25 MG TAB PO SCH ×2 (11:32→21:30)
[2020-11-23] MEDS: ASPIRIN 81 MG TAB CHEW PO SCH (11:33)
[2020-11-23] MEDS: POTASSIUM CHLORIDE ER 10 MEQ TAB PO SCH (11:33)
[2020-11-23] MEDS: HEPARIN 5,000 UNIT/1 ML VIAL SUB-Q SCH ×2 (11:33→21:33)
[2020-11-23] MEDS: ZINC SULFATE 220 MG CAP PO SCH (11:33)
[2020-11-23] MEDS: ASCORBIC ACID 500 MG TAB PO SCH ×2 (11:34→21:30)
[2020-11-23] MEDS: FAMOTIDINE 10 MG TAB PO SCH ×2 (11:34→21:30)
[2020-11-23] MEDS: CETIRIZINE 10 MG TAB PO SCH ×2 (11:34→11:35)
[2020-11-23] MEDS: CHOLECALCIFEROL (VIT D3) 400 UNIT TAB PO SCH (11:35)
[2020-11-23] MEDS ORDERED: DEXTROSE 50% IN WATER (25GM) 50 ML SYRINGE IV PRN (11:40)
[2020-11-23] MEDS: SODIUM BICARBONATE 650 MG TAB PO SCH ×2 (11:52→22:59)
[2020-11-23] MEDS: RANOLAZINE ER 500 MG TAB 12HR PO SCH ×2 (11:52→21:32)
--- NOTE | 2020-11-23 12:06 | Progress Note ---
Assessment and Plan Cultures: SARS CoV2 PCR: Positive as outpatient, positive inpatient 11/20/2020 blood culture: no growth today A/P: 60-year-old male with coronary artery disease, CHF, hypertension, cardiomyopathy status post AICD placement who was recently diagnosed with COVID-19 infection 2 weeks prior: #Bilateral pneumonia secondary to COVID-19: Labs revealed leukopenia, D-dimer 859, LDH 682, transaminitis, CRP 4.6, NT proBNP 467. CXR with interstitial thickening. V/Q with low probability for PE. #Acute hypoxic respiratory failure: Remains on 15 L salter. #CHF, cardiomyopathy, s/p AICD #CHERYL: Renally adjust antibiotics #Transaminitis: ?COVID related v/s congestion. #Leukopenia, thrombocytopenia: Likely related to viral illness Recs: -Continue steroids, on methylprednisolone -Out of the window for remdesivir benefit since diagnosis was 2 weeks ago -Not a candidate for Actemra based on CRP and oxygen requirements -prophylactic anticoagulation based on d-dimer per hospital protocol -trend d-dimer, CRP every 2-3 days, ordered -CHF management per primary Soco Cardozo MD [facility] ([facility]) Office [phone] Subjective Date of service: 11/23/20 Principal diagnosis: sob Interval history: Patient is on 15 L salter. No fever overnight. Sats down to 80s. Objective - Exam Narrative Exam: Physical exam deferred to minimize COVID-19 transmission during pandemic. - Constitutional Vitals: Vital Signs Temp Pulse Resp BP Pulse Ox 97.6 F 67 16 113/75 92 11/23/20 11:38 11/23/20 11:38 11/23/20 10:46 11/23/20 11:38 11/23/20 10:46 Temperature -Last 24 Hours Temperature 97.6 F Temperature 97.6 F Temperature 97.6 F Temperature 97.7 F Temperature 98.2 F Temperature 98.4 F - Labs CBC & Chem 7: 11/23/20 07:30 11/23/20 07:30 Labs: Abnormal lab results 11/22/20 11/23/20 11/23/20 Range/Units Unknown 07:30 07:30 WBC (4.5-11.0) K/mm3 Hgb (11.8-15.2) gm/dl MCV (84-94) fl MCH (28-32) pg MCHC (32-34) % Plt Count (140-440) K/mm3 Sodium 134 L (137-145) mmol/L Carbon Dioxide 21 L (22-30) mmol/L BUN 34 H (9-20) mg/dL Glucose 217 H (75-100) mg/dL Calcium 7.7 L (8.4-10.2) mg/dL Total Creatine Kinase 848 H (55-170) units/L Coronavirus (PCR) Positive A (Negative) 11/23/20 Range/Units 07:30 WBC 4.3 L (4.5-11.0) K/mm3 Hgb 15.4 H (11.8-15.2) gm/dl MCV 97 H (84-94) fl MCH 34 H (28-32) pg MCHC 35 H (32-34) % Plt Count 106 L (140-440) K/mm3 Sodium (137-145) mmol/L Carbon Dioxide (22-30) mmol/L BUN (9-20) mg/dL Glucose (75-100) mg/dL Calcium (8.4-10.2) mg/dL Total Creatine Kinase (55-170) units/L Coronavirus (PCR) (Negative)
[2020-11-23] MEDS: INSULIN LISPRO 100 UNIT/ML SUB-Q SCH ×2 (13:54→16:30)
[2020-11-23] MEDS: INSULIN GLARGINE 100 UNITS/ML SUB-Q SCH (21:32)
[2020-11-23] MEDS ORDERED: guaiFENesin 100 MG/5 ML ORAL LIQD PO PRN (21:57)
--- NOTE | 2020-11-23 22:44 | Progress Note ---
Assessment and Plan Imp: 1. Covid-19 viral pneumonia 2. Acute respiratory failure, hypoxia 3. Dilated CMP 4. Obesity 5. CHERYL, better Rec: 1. IV steroids x 10 days 2. Avoid volume overload 3. On DVT PPx; trend inflammatory markers 4. Wean O2 to keep sats 88% or > 5. Further plans pending clinical course Subjective Date of service: 11/23/20 Principal diagnosis: sob Interval history: No events. On 15L O2. + SOB. 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 Ascorbic Acid (Ascorbic Acid 500 Mg Tab) 500 mg PO BID [facility] Last Admin: 11/23/20 21:30 Dose: 500 mg Documented by: Aspirin (Aspirin 81 Mg Tab Chew) 81 mg PO QDAY [facility] Last Admin: 11/23/20 11:33 Dose: 81 mg Documented by: Atorvastatin Calcium (Atorvastatin 40 Mg Tab) 80 mg PO QHS [facility] Last Admin: 11/23/20 21:31 Dose: 80 mg Documented by: Carvedilol (Carvedilol 25 Mg Tab) 25 mg PO BID [facility] Last Admin: 11/23/20 21:30 Dose: 25 mg Documented by: Cetirizine HCl (Cetirizine 10 Mg Tab) 10 mg PO DAILY [facility] Last Admin: 11/23/20 11:35 Dose: 10 mg Documented by: Cholecalciferol (Cholecalciferol (Vit D3) 400 Unit Tab) 1,000 unit PO QDAY [facility] Last Admin: 11/23/20 11:35 Dose: 1,000 unit Documented by: Colchicine (Colchicine 0.6 Mg Tab) 0.6 mg PO DAILY PRN PRN Reason: Gout Dextrose (Dextrose 50% In Water (25gm) 50 Ml Syringe) 50 ml IV Q30MIN PRN; Protocol PRN Reason: Hypoglycemia Digoxin (Digoxin 0.125 Mg Tab) 0.125 mg PO Q48HR [facility] Last Admin: 11/22/20 09:43 Dose: 0.125 mg Documented by: Famotidine (Famotidine 10 Mg Tab) 10 mg PO BID [facility] Last Admin: 11/23/20 21:30 Dose: 10 mg Documented by: Guaifenesin (Guaifenesin 100 Mg/5 Ml Oral Liqd) 200 mg PO Q4H PRN PRN Reason: Cough Last Admin: 11/23/20 22:42 Dose: 200 mg Documented by: Heparin Sodium (Porcine) (Heparin 5,000 Unit/1 Ml Vial) 5,000 unit SUB-Q Q12HR [facility] Last Admin: 11/23/20 21:33 Dose: 5,000 unit Documented by: Hydromorphone HCl (Hydromorphone 1 Mg/1 Ml Inj) 0.5 mg IV Q6H PRN PRN Reason: Pain , Severe (7-10) Insulin Glargine (Insulin Glargine 100 Units/Ml) 15 units SUB-Q QHS [facility] Last Admin: 11/23/20 21:32 Dose: 15 units Documented by: Insulin Human Lispro (Insulin Lispro 100 Unit/Ml) 0 unit SUB-Q ACHS [facility]; Protocol Last Admin: 11/23/20 16:30 Dose: 3 unit Documented by: Methylprednisolone Sodium Succinate (Methylprednisolone Sod Succinate 40 Mg/1 Ml Inj) 80 mg IV Q8HR [facility] Last Admin: 11/23/20 15:00 Dose: 80 mg Documented by: Ondansetron HCl (Ondansetron 4 Mg/2 Ml Inj) 4 mg IV Q8H PRN PRN Reason: Nausea And Vomiting Oxycodone/Acetaminophen (Oxycodone /Acetaminophen 5-325mg Tab) 1 tab PO Q12H PRN PRN Reason: Pain, Moderate (4-6) Last Admin: 11/23/20 06:25 Dose: 1 tab Documented by: Potassium Chloride (Potassium Chloride Er 10 Meq Tab) 10 meq PO DAILY [facility] Last Admin: 11/23/20 11:33 Dose: 10 meq Documented by: Ranolazine (Ranolazine Er 500 Mg Tab 12hr) 1,000 mg PO BID [facility] Last Admin: 11/23/20 21:32 Dose: 1,000 mg Documented by: Sodium Bicarbonate (Sodium Bicarbonate 650 Mg Tab) 1,300 mg PO BID [facility] Last Admin: 11/23/20 11:52 Dose: 1,300 mg Documented by: Sodium Chloride (Sodium Chloride 0.9% 10 Ml Flush Syringe) 10 ml IV BID [facility] Last Admin: 11/23/20 11:36 Dose: 10 ml Documented by: Sodium Chloride (Sodium Chloride 0.9% 10 Ml Flush Syringe) 10 ml IV PRN PRN PRN Reason: LINE FLUSH Timolol Maleate (Timolol 0.5% Ophth Soln 5 Ml) 1 drops OD DAILY PRN PRN Reason: Migraine Headache Zinc Sulfate (Zinc Sulfate 220 Mg Cap) 220 mg PO BID [facility] Last Admin: 11/23/20 11:33 Dose: 220 mg Documented by: Objective - Exam Narrative Exam: Physical exam deferred to minimize COVID-19 transmission during pandemic. Vital Signs - 12hr 11/23/20 11/23/20 11/23/20 10:46 11:32 11:38 Temperature 97.6 F 97.6 F Pulse Rate 67 67 67 Respiratory 16 Rate Blood Pressure 113/75 Blood Pressure 113/75 113/75 [Left] O2 Sat by Pulse 92 Oximetry 11/23/20 11/23/20 11/23/20 13:30 16:50 20:41 Temperature 97.6 F Pulse Rate 71 Respiratory 24 Rate Blood Pressure 118/79 Blood Pressure [Left] O2 Sat by Pulse 93 90 93 Oximetry CBC and BMP: 11/23/20 07:30 11/23/20 07:30 ABG, PT/INR, D-dimer: PT/INR, D-dimer D-Dimer 435.87 ng/mlDDU (0-234) H 11/23/20 14:13 Abnormal lab findings: Abnormal Labs 11/20/20 11/20/20 11/20/20 12:39 12:39 12:39 WBC 2.4 L RBC Hgb 16.1 H Hct 48.0 H MCV 99 H MCH 33 H MCHC Plt Count 100 L [place] % (Auto) 8.4 H Lymph # (Auto) 0.6 L Seg Neutrophils % Seg Neutrophils # 1.6 L D-Dimer 836.61 H Sodium 125 L Chloride 94.3 L Carbon Dioxide 16 L BUN 43 H Creatinine 2.3 H Glucose POC Glucose Calcium Ferritin AST ALT Lactate Dehydrogenase Total Creatine Kinase CK-MB (CK-2) C-Reactive Protein Albumin Digoxin Coronavirus (PCR) 11/21/20 11/21/20 11/21/20 09:35 09:35 10:45 WBC 2.7 L RBC 5.04 H Hgb 17.1 H Hct 49.5 H MCV 98 H MCH 34 H MCHC 35 H Plt Count 93 L [place] % (Auto) Lymph # (Auto) 0.5 L Seg Neutrophils % 75.3 H Seg Neutrophils # D-Dimer 859.78 H Sodium 134 L D Chloride Carbon Dioxide 16 L BUN 38 H Creatinine 1.4 H Glucose 141 H POC Glucose Calcium 8.2 L Ferritin AST 202 H ALT 189 H Lactate Dehydrogenase Total Creatine Kinase CK-MB (CK-2) C-Reactive Protein Albumin 3.2 L Digoxin Coronavirus (PCR) 11/21/20 11/21/20 11/21/20 10:45 10:45 15:12 WBC RBC Hgb Hct MCV MCH MCHC Plt Count [place] % (Auto) Lymph # (Auto) Seg Neutrophils % Seg Neutrophils # D-Dimer Sodium Chloride Carbon Dioxide BUN Creatinine Glucose 154 H POC Glucose Calcium Ferritin 9449.0 H AST ALT Lactate Dehydrogenase 682 H Total Creatine Kinase 1372 H CK-MB (CK-2) 16.3 H C-Reactive Protein 4.60 H Albumin Digoxin Coronavirus (PCR) 11/21/20 11/21/20 11/22/20 21:08 21:08 05:33 WBC RBC Hgb Hct MCV MCH MCHC Plt Count [place] % (Auto) Lymph # (Auto) Seg Neutrophils % Seg Neutrophils # D-Dimer Sodium 132 L Chloride Carbon Dioxide 16 L BUN 38 H Creatinine 1.4 H Glucose 223 H POC Glucose Calcium 7.8 L Ferritin AST ALT Lactate Dehydrogenase Total Creatine Kinase 1198 H CK-MB (CK-2) 13.6 H C-Reactive Protein Albumin Digoxin 0.3 L Coronavirus (PCR) 11/22/20 11/22/20 11/23/20 05:33 Unknown 07:30 WBC RBC Hgb Hct MCV MCH MCHC Plt Count [place] % (Auto) Lymph # (Auto) Seg Neutrophils % Seg Neutrophils # D-Dimer Sodium 134 L Chloride Carbon Dioxide 21 L BUN 34 H Creatinine Glucose 217 H POC Glucose Calcium 7.7 L Ferritin AST ALT Lactate Dehydrogenase Total Creatine Kinase 847 H CK-MB (CK-2) 9.3 H C-Reactive Protein Albumin Digoxin Coronavirus (PCR) Positive A 11/23/20 11/23/20 11/23/20 07:30 07:30 14:13 WBC 4.3 L RBC Hgb 15.4 H Hct MCV 97 H MCH 34 H MCHC 35 H Plt Count 106 L [place] % (Auto) Lymph # (Auto) Seg Neutrophils % Seg Neutrophils # D-Dimer 435.87 H Sodium Chloride Carbon Dioxide BUN Creatinine Glucose POC Glucose Calcium Ferritin AST ALT Lactate Dehydrogenase Total Creatine Kinase 848 H CK-MB (CK-2) C-Reactive Protein Albumin Digoxin Coronavirus (PCR) 11/23/20 11/23/20 14:13 16:49 WBC RBC Hgb Hct MCV MCH MCHC Plt Count [place] % (Auto) Lymph # (Auto) Seg Neutrophils % Seg Neutrophils # D-Dimer Sodium Chloride Carbon Dioxide BUN Creatinine Glucose POC Glucose 228 H Calcium Ferritin 6510.0 H AST ALT Lactate Dehydrogenase Total Creatine Kinase CK-MB (CK-2) C-Reactive Protein Albumin Digoxin Coronavirus (PCR) Chest x-ray: report reviewed, image reviewed
[2020-11-24] MEDS: methylPREDNISolone Sod Succinate 40 MG/1 ML INJ IV SCH ×4 (00:01→22:38)
[2020-11-24] MEDS: oxyCODONE /ACETAMINOPHEN 5-325MG TAB PO PRN (06:03)
[2020-11-24] MEDS: INSULIN LISPRO 100 UNIT/ML SUB-Q SCH ×5 (07:13→22:54)
[2020-11-24 08:12] LABS: BUN/Creatinine Ratio 26; Blood Urea Nitrogen 31 mg/dL (9-20); Calcium 7.7 mg/dL (8.4-10.2); Hemolysis Index 6
--- NOTE | 2020-11-24 09:19 | Progress Note ---
Assessment and Plan Impression: * CHERYL * Covid PNA * hyponatremia * metabolic acidosis * acute hypoxic resp failure Plan: * cr is better today at 1.2 * cheryl due to hypopperfusion wiith COVID PNA and volume depletion, high risk for progression to ATN * hold diuresis at this time as able * continue NaHCO3 for acidosis * volume resuscitation as needed, po intake as able * daily lytes and strict i/os * avoid nephrotoxins * renal diet * covid care per primary team Subjective Date of service: 11/24/20 Principal diagnosis: sob Interval history: 24 hour events reviewed, labs and chart reviewed. Interdisciplinary and nursing notes reviewed Objective - Exam Narrative Exam: primary team exam noted, exam deferred for preservation of PPE - Vital Signs Vital signs: Vital Signs - 12hr 11/23/20 11/23/20 11/24/20 22:49 23:02 06:24 Temperature 97.7 F 97.8 F Pulse Rate 62 62 Respiratory 20 20 Rate Blood Pressure 116/80 110/57 O2 Sat by Pulse 91 93 90 Oximetry - Lab 11/23/20 07:30 11/24/20 07:25 Most recent lab results Calcium 7.7 mg/dL (8.4-10.2) L 11/24/20 07:25 Medications & Allergies - Medications Allergies/Adverse Reactions: Allergies No Known Allergies Allergy (Verified 04/13/15 20:17) Home Medications: Home Medications Medication Instructions Recorded Confirmed Last Taken Type Ibuprofen [Motrin] 800 mg PO Q8HR PRN 04/13/15 06/14/15 Unknown History Loratadine (Nf) [Claritin (Nf)] 10 mg PO DAILY PRN 04/13/15 06/14/15 Unknown History Timolol 0.5% [Timoptic] 1 drops OP DAILY PRN 04/13/15 06/14/15 Unknown History allopurinoL [Zyloprim] 300 mg PO QDAY PRN 04/13/15 06/14/15 Unknown History methylPREDNISolone [Medrol Dose 4 mg PO DAILY PRN 04/13/15 06/14/15 Unknown H istory Sergio] Famotidine [Pepcid] 20 mg PO BID #60 tablet 04/14/15 06/14/15 Unknown Rx Aspirin [Aspirin BABY CHEW TAB] 81 mg PO QDAY #30 tab.chew 06/16/15 Unknown Rx AtorvaSTATin [Lipitor] 40 mg PO QHS #30 tablet 06/16/15 Unknown Rx Colchicine [Colcrys] 0.6 mg PO DAILY PRN #30 tablet 06/16/15 Unknown Rx Digoxin [Lanoxin] 0.125 mg PO DAILY #30 tablet 06/16/15 Unknown Rx Furosemide [Lasix TAB] 40 mg PO QDAY #30 tablet 06/16/15 Unknown Rx Niacin ER [Niaspan ER] 500 mg PO QHS #30 tablet 06/16/15 Unknown Rx [place]-3 Fatty Acids/Fish Oil [Fish 1,000 mg PO DAILY #30 capsule 06/16/15 Unknown Rx Oil] Potassium Chloride [K-Dur] 10 meq PO DAILY #30 tablet 06/16/15 Unknown Rx Ranolazine ER [Ranexa ER] 1,000 mg PO BID #60 tablet 06/16/15 Unknown Rx Spironolactone [Aldactone] 25 mg PO QDAY #30 tablet 06/16/15 Unknown Rx allopurinoL [Zyloprim] 300 mg PO QDAY PRN #30 tablet 06/16/15 Unknown Rx carvediloL [Coreg] 25 mg PO DAILY #30 tablet 06/16/15 Unknown Rx lisinopriL [Zestril TAB] 40 mg PO QDAY #30 tablet 06/16/15 Unknown Rx oxyCODONE /ACETAMINOPHEN [Percocet 1 tab PO Q6H PRN #30 tablet 06/16/15 Unknown Rx 5/325 mg] predniSONE [Deltasone] 20 mg PO QDAY #30 tablet 06/16/15 Unknown Rx Active Medications: Generic Name Dose Route Start Last Admin Trade Name Freq PRN Reason Stop Dose Admin Acetaminophen 650 mg 11/20/20 17:29 Acetaminophen 325 Mg Tab PO Q4H PRN Pain MILD(1-3)/Fever >100.5/KIDD Allopurinol 300 mg 11/20/20 15:43 Allopurinol 300 Mg Tab PO QDAY PRN Uric Acid Cigar Packer And Picker Ascorbic Acid 500 mg 11/20/20 22:00 11/23/20 21:30 Ascorbic Acid 500 Mg Tab PO 500 mg BID [facility] Administration Aspirin 81 mg 11/21/20 10:00 11/23/20 11:33 Aspirin 81 Mg Tab Chew PO 81 mg QDAY [facility] Administration Atorvastatin Calcium 80 mg 11/21/20 22:00 11/23/20 21:31 Atorvastatin 40 Mg Tab PO 80 mg QHS [facility] Administration Carvedilol 25 mg 11/21/20 22:00 11/23/20 21:30 Carvedilol 25 Mg Tab PO 25 mg BID [facility] Administration Cetirizine HCl 10 mg 11/20/20 16:00 11/23/20 11:35 Cetirizine 10 Mg Tab PO 10 mg DAILY [facility] Administration Cholecalciferol 1,000 unit 11/21/20 10:00 11/23/20 11:35 Cholecalciferol (Vit D3) 400 Unit Tab PO 1,000 unit QDAY [facility] Administration Colchicine 0.6 mg 11/20/20 15:43 Colchicine 0.6 Mg Tab PO DAILY PRN Gout Dextrose 50 ml 11/23/20 11:40 Dextrose 50% In Water (25gm) 50 Ml Syringe IV Q30MIN PRN Hypoglycemia Protocol Digoxin 0.125 mg 11/22/20 10:00 11/22/20 09:43 Digoxin 0.125 Mg Tab PO 0.125 mg Q48HR [facility] Administration Famotidine 10 mg 11/21/20 10:00 11/23/20 21:30 Famotidine 10 Mg Tab PO 10 mg BID [facility] Administration Guaifenesin 200 mg 11/23/20 21:57 11/23/20 22:42 Guaifenesin 100 Mg/5 Ml Oral Liqd PO 200 mg Q4H PRN Administration Cough Heparin Sodium (Porcine) 5,000 unit 11/20/20 22:00 11/23/20 21:33 Heparin 5,000 Unit/1 Ml Vial SUB-Q 5,000 unit Q12HR [facility] Administration Hydromorphone HCl 0.5 mg 11/22/20 10:00 Hydromorphone 1 Mg/1 Ml Inj IV Q6H PRN Pain , Severe (7-10) Insulin Glargine 15 units 11/23/20 22:00 11/23/20 21:32 Insulin Glargine 100 Units/Ml SUB-Q 15 units QHS [facility] Administration Insulin Human Lispro 0 unit 11/23/20 11:30 11/24/20 00:00 Insulin Lispro 100 Unit/Ml SUB-Q 2 unit ACHS [facility] Administration Protocol Methylprednisolone Sodium Succinate 80 mg 11/21/20 14:30 11/24/20 05:56 Methylprednisolone Sod Succinate 40 Mg/1 Ml Inj IV 80 mg Q8HR [facility] Administration Ondansetron HCl 4 mg 11/20/20 17:29 Ondansetron 4 Mg/2 Ml Inj IV Q8H PRN Nausea And Vomiting Oxycodone/Acetaminophen 1 tab 11/20/20 17:29 11/23/20 06:25 Oxycodone /Acetaminophen 5-325mg Tab PO 1 tab Q12H PRN Administration Pain, Moderate (4-6) Potassium Chloride 10 meq 11/21/20 10:00 11/23/20 11:33 Potassium Chloride Er 10 Meq Tab PO 10 meq DAILY [facility] Administration Ranolazine 1,000 mg 11/20/20 22:00 11/23/20 21:32 Ranolazine Er 500 Mg Tab 12hr PO 1,000 mg BID [facility] Administration Sodium Bicarbonate 1,300 mg 11/23/20 11:00 11/23/20 22:59 Sodium Bicarbonate 650 Mg Tab PO 1,300 mg BID [facility] Administration Sodium Chloride 10 ml 11/20/20 22:00 11/23/20 23:59 Sodium Chloride 0.9% 10 Ml Flush Syringe IV 10 ml BID [facility] Administration Sodium Chloride 10 ml 11/20/20 17:29 Sodium Chloride 0.9% 10 Ml Flush Syringe IV PRN PRN LINE FLUSH Timolol Maleate 1 drops 11/20/20 15:43 Timolol 0.5% Ophth Soln 5 Ml OD DAILY PRN Migraine Headache Zinc Sulfate 220 mg 11/20/20 22:00 11/24/20 00:00 Zinc Sulfate 220 Mg Cap PO 220 mg BID [facility] Administration
[2020-11-24] MEDS: RANOLAZINE ER 500 MG TAB 12HR PO SCH ×2 (10:53→22:38)
[2020-11-24] MEDS: DIGOXIN 0.125 MG TAB PO SCH (11:07)
[2020-11-24] MEDS: SODIUM BICARBONATE 650 MG TAB PO SCH ×2 (11:07→22:37)
[2020-11-24] MEDS: carvediloL 25 MG TAB PO SCH ×2 (11:08→22:37)
[2020-11-24] MEDS: FAMOTIDINE 10 MG TAB PO SCH ×2 (11:09→22:37)
[2020-11-24] MEDS: HEPARIN 5,000 UNIT/1 ML VIAL SUB-Q SCH ×2 (11:09→22:54)
[2020-11-24] MEDS: ASCORBIC ACID 500 MG TAB PO SCH ×2 (11:10→22:37)
[2020-11-24] MEDS: CETIRIZINE 10 MG TAB PO SCH (11:10)
[2020-11-24] MEDS: ASPIRIN 81 MG TAB CHEW PO SCH (11:10)
[2020-11-24] MEDS: ZINC SULFATE 220 MG CAP PO SCH ×3 (11:10→22:39)
[2020-11-24] MEDS: CHOLECALCIFEROL (VIT D3) 400 UNIT TAB PO SCH (11:11)
[2020-11-24] MEDS: POTASSIUM CHLORIDE ER 10 MEQ TAB PO SCH (11:11)
--- NOTE | 2020-11-24 11:23 | Progress Note ---
Assessment and Plan Cultures: SARS CoV2 PCR: Positive as outpatient, positive inpatient 11/20/2020 blood culture: no growth today A/P: 60-year-old male with coronary artery disease, CHF, hypertension, cardiomyopathy status post AICD placement who was recently diagnosed with COVID-19 infection 2 weeks prior: #Bilateral pneumonia secondary to COVID-19: Labs revealed leukopenia, D-dimer 859, LDH 682, transaminitis, CRP 4.6, NT proBNP 467. CXR with interstitial thickening. V/Q with low probability for PE. #Acute hypoxic respiratory failure: Remains on 15 L salter. #CHF, cardiomyopathy, s/p AICD #CHERYL: Renally adjust antibiotics #Transaminitis: ?COVID related v/s congestion. #Leukopenia, thrombocytopenia: Likely related to viral illness Recs: -Continue steroids, on methylprednisolone. Complete 10 days of steroids. -Out of the window for remdesivir benefit since diagnosis was 2 weeks ago -Not a candidate for Actemra based on CRP and oxygen requirements -prophylactic anticoagulation based on d-dimer per hospital protocol -trend d-dimer, CRP every 2-3 days, ordered -CHF management per primary GChristine Mirza MD [facility] O: [phone] F: [phone] Subjective Date of service: 11/24/20 Principal diagnosis: sob Interval history: Afebrile, white count 4.3. Currently on 14 L [place]. Objective - Exam Narrative Exam: Physical exam deferred to reduce risk of transmission of COVID-19. Please refer to primary team's note. - Constitutional Vitals: Vital Signs Temp Pulse Resp BP Pulse Ox 97.8 F 62 20 110/57 97 11/24/20 06:24 11/24/20 06:24 11/24/20 06:24 11/24/20 06:24 11/24/20 10:23 Temperature -Last 24 Hours Temperature 97.8 F Temperature 97.7 F Temperature 97.6 F Temperature 97.6 F - Labs CBC & Chem 7: 11/23/20 07:30 11/24/20 07:25 Labs: Abnormal lab results 11/23/20 11/23/20 11/23/20 Range/Units 14:13 14:13 16:49 D-Dimer 435.87 H (0-234) ng/mlDDU Carbon Dioxide (22-30) mmol/L BUN (9-20) mg/dL Glucose (75-100) mg/dL POC Glucose 228 H (70-105) mg/dL Calcium (8.4-10.2) mg/dL Ferritin 6510.0 H (30.0-300.0) ng/mL 11/23/20 11/24/20 11/24/20 Range/Units 23:00 07:25 07:51 D-Dimer (0-234) ng/mlDDU Carbon Dioxide 21 L (22-30) mmol/L BUN 31 H (9-20) mg/dL Glucose 178 H (75-100) mg/dL POC Glucose 167 H 178 H (70-105) mg/dL Calcium 7.7 L (8.4-10.2) mg/dL Ferritin (30.0-300.0) ng/mL
--- NOTE | 2020-11-24 11:26 | Progress Note ---
Assessment and Plan 60 y/o male with acute respiratory failure secondary to COVID pneumonia. Steroids Proning Subjective Date of service: 11/24/20 Principal diagnosis: sob Interval history: Remains on HFNC Objective Vital Signs - 12hr 11/24/20 11/24/20 06:24 10:23 Temperature 97.8 F Pulse Rate 62 Respiratory 20 Rate Blood Pressure 110/57 O2 Sat by Pulse 90 97 Oximetry CBC and BMP: 11/23/20 07:30 11/25/20 06:54 ABG, PT/INR, D-dimer: PT/INR, D-dimer D-Dimer 435.87 ng/mlDDU (0-234) H 11/23/20 14:13 Abnormal lab findings: Abnormal Labs 11/20/20 11/20/20 11/20/20 12:39 12:39 12:39 WBC 2.4 L RBC Hgb 16.1 H Hct 48.0 H MCV 99 H MCH 33 H MCHC Plt Count 100 L [place] % (Auto) 8.4 H Lymph # (Auto) 0.6 L Seg Neutrophils % Seg Neutrophils # 1.6 L D-Dimer 836.61 H Sodium 125 L Chloride 94.3 L Carbon Dioxide 16 L BUN 43 H Creatinine 2.3 H Glucose POC Glucose Calcium Ferritin AST ALT Lactate Dehydrogenase Total Creatine Kinase CK-MB (CK-2) C-Reactive Protein Albumin Digoxin Coronavirus (PCR) 11/21/20 11/21/20 11/21/20 09:35 09:35 10:45 WBC 2.7 L RBC 5.04 H Hgb 17.1 H Hct 49.5 H MCV 98 H MCH 34 H MCHC 35 H Plt Count 93 L [place] % (Auto) Lymph # (Auto) 0.5 L Seg Neutrophils % 75.3 H Seg Neutrophils # D-Dimer 859.78 H Sodium 134 L D Chloride Carbon Dioxide 16 L BUN 38 H Creatinine 1.4 H Glucose 141 H POC Glucose Calcium 8.2 L Ferritin AST 202 H ALT 189 H Lactate Dehydrogenase Total Creatine Kinase CK-MB (CK-2) C-Reactive Protein Albumin 3.2 L Digoxin Coronavirus (PCR) 11/21/20 11/21/20 11/21/20 10:45 10:45 15:12 WBC RBC Hgb Hct MCV MCH MCHC Plt Count [place] % (Auto) Lymph # (Auto) Seg Neutrophils % Seg Neutrophils # D-Dimer Sodium Chloride Carbon Dioxide BUN Creatinine Glucose 154 H POC Glucose Calcium Ferritin 9449.0 H AST ALT Lactate Dehydrogenase 682 H Total Creatine Kinase 1372 H CK-MB (CK-2) 16.3 H C-Reactive Protein 4.60 H Albumin Digoxin Coronavirus (PCR) 11/21/20 11/21/20 11/22/20 21:08 21:08 05:33 WBC RBC Hgb Hct MCV MCH MCHC Plt Count [place] % (Auto) Lymph # (Auto) Seg Neutrophils % Seg Neutrophils # D-Dimer Sodium 132 L Chloride Carbon Dioxide 16 L BUN 38 H Creatinine 1.4 H Glucose 223 H POC Glucose Calcium 7.8 L Ferritin AST ALT Lactate Dehydrogenase Total Creatine Kinase 1198 H CK-MB (CK-2) 13.6 H C-Reactive Protein Albumin Digoxin 0.3 L Coronavirus (PCR) 11/22/20 11/22/20 11/23/20 05:33 Unknown 07:30 WBC RBC Hgb Hct MCV MCH MCHC Plt Count [place] % (Auto) Lymph # (Auto) Seg Neutrophils % Seg Neutrophils # D-Dimer Sodium 134 L Chloride Carbon Dioxide 21 L BUN 34 H Creatinine Glucose 217 H POC Glucose Calcium 7.7 L Ferritin AST ALT Lactate Dehydrogenase Total Creatine Kinase 847 H CK-MB (CK-2) 9.3 H C-Reactive Protein Albumin Digoxin Coronavirus (PCR) Positive A 11/23/20 11/23/20 11/23/20 07:30 07:30 14:13 WBC 4.3 L RBC Hgb 15.4 H Hct MCV 97 H MCH 34 H MCHC 35 H Plt Count 106 L [place] % (Auto) Lymph # (Auto) Seg Neutrophils % Seg Neutrophils # D-Dimer 435.87 H Sodium Chloride Carbon Dioxide BUN Creatinine Glucose POC Glucose Calcium Ferritin AST ALT Lactate Dehydrogenase Total Creatine Kinase 848 H CK-MB (CK-2) C-Reactive Protein Albumin Digoxin Coronavirus (PCR) 11/23/20 11/23/20 11/23/20 14:13 16:49 23:00 WBC RBC Hgb Hct MCV MCH MCHC Plt Count [place] % (Auto) Lymph # (Auto) Seg Neutrophils % Seg Neutrophils # D-Dimer Sodium Chloride Carbon Dioxide BUN Creatinine Glucose POC Glucose 228 H 167 H Calcium Ferritin 6510.0 H AST ALT Lactate Dehydrogenase Total Creatine Kinase CK-MB (CK-2) C-Reactive Protein Albumin Digoxin Coronavirus (PCR) 11/24/20 11/24/20 07:25 07:51 WBC RBC Hgb Hct MCV MCH MCHC Plt Count [place] % (Auto) Lymph # (Auto) Seg Neutrophils % Seg Neutrophils # D-Dimer Sodium Chloride Carbon Dioxide 21 L BUN 31 H Creatinine Glucose 178 H POC Glucose 178 H Calcium 7.7 L Ferritin AST ALT Lactate Dehydrogenase Total Creatine Kinase CK-MB (CK-2) C-Reactive Protein Albumin Digoxin Coronavirus (PCR)
[2020-11-24] MEDS ORDERED: BUTALB/ACETAMINOPHEN/CAFFEINE TAB PO PRN (12:04)
--- NOTE | 2020-11-24 12:05 | Progress Note ---
Assessment and Plan Assessment and plan: 60 YO Male with CAD S/P Stent Placement, HTN, Systolic CHF(EF 25) S/P AICD Placement, HLD, DC, OA, Coronavirus Infection diagnosed 2 weeks ago presents to ED for evaluation. Patient reports "I am short of breath". Patient states that he has experienced shortness of breath, dry cough, fatigue, malaise, body aches, subjective fever, decreased exercise tolerance over the past 1 week with persistent and worsening symptoms over the past 3 days. EMS was notified and upon arrival the patient was found to be in distress and subsequent transported to [facility] for further care and evaluation of the aforementioned symptoms. The patient was seen and evaluated in the emergency department. All lab and imaging studies reviewed. Patient found to have a pulse oximetry of 86% with exertion which is consistent with acute hypoxemic respiratory failure. The patient is unable to speak in complete sentences due to shortness of breath. Patient placed on submental oxygen with mild improvement in symptoms. Patient admitted to medical floor and initiated on coronavirus protocol due to increased risk of worsening symptoms. VQ scan ordered and is pending at time of admission. Patient denies chest pain, palpitation, unilateral leg swelling, calf pain, prolonged travel/immobility, individual/family history of DVT/PE/bleeding/blood clotting disorders. Prior admission on 06/14/2015 reviewed. All medication l isted at time of admission has been reconciled. Advanced care planning conducted in ED. (1) Acute hypoxemic respiratory failure Current Visit: Yes Status: Acute Plan to address problem: Chest x-ray, supplemental oxygen, pulse oximetry, nebulizer therapy, VQ scan ordered and is pending at time of admission. (2) Obesity hypoventilation syndrome Current Visit: Yes Status: Acute Plan to address problem: Balanced diet, increase physical activity discharge, outpatient pulmonary follow-up for sleep study. (3) COVID-19 virus infection Current Visit: No Status: Acute Plan to address problem: Coronavirus protocol: Contact precautions, isolation precautions, IV steroid therapy, IV antibiotic therapy, vitamin C therapy, vitamin D therapy, zinc therapy, prophylactic anticoagulation (4) Essential hypertension Current Visit: No Status: Chronic Plan to address problem: Monitor blood pressure every shift, continue medical management (5) Hyperlipidemia Current Visit: No Status: Chronic Plan to address problem: Statin therapy, low-cholesterol diet, supportive care. (6) Acute kidney injury with vasomotor nephropathy unknown baseline (7) Hyponatremia (8) thrombocytopenia (9) DVT prophylaxis Current Visit: Yes Status: Acute Plan to address problem: SCD to bilateral lower extremities while in bed, prophylactic anticoagulation (10) HFrEF/CAD s/p PCI-S/p AICD placment/HTN/LHC 03/24/2020 (11) Rhabdomyolysis (12) migraine (13)advance care planning Current Visit: Yes Status: Acute Plan to address problem: Disease education conducted, care plan discussed, diagnoses discussed, prognosis discussed, patient is full code, patient knowledges understanding and agreement with care plan. +30 minutes. 11/21: Patient seen and examined his on 12 L of oxygen. I have increasing steroids to 80 mg every 8 will defer to ID if he should be changed to Decadron. I have consulted pulmonary and cardiology in the meantime bull chain operator ordered an EKG which showed possible anterior wall infarct with some ST elevations very minimal. I reviewed the EKG from 2016 and it was similar. Patient denies any chest pain at this time. Nephrology has been consulted as patient has an acute kidney injury with a baseline of 1.1 Patient 2016 although I do not have any new baseline. I will defer initiation of IV Lasix to nephrology the patient was started on p.o. Lasix nevertheless on admission. Also hyponatremia is noted I will monitor this closely in addition to thrombocytopenia which will affect the use of anticoagulation. I will encourage the patient to prone as much as tolerated. 11/22: Patient on Bicarb drip per Manual Tester, will continue to monitor renal function and respiratory status considering clinical status of COVID 19. Lasix appears to have been discontinued, continue steroid therapy, monitor closely especially thrombocytopenia. Encourage prone positioning if tolerable. 11/23: Patient seen and examined, Discussed with bull chain operator, will discontinued Fluids at this time. Hold Isosorbide due to the low BP. Continue to wean oxygen. 11/24: Continue steroid therapy at this time. Continue to wean oxygen as tolerated. Patient is now off the fluids. We will try some Fioricet considering report of migraine headache. Still severely sick continue hospital stay. Renal function is improving. History Interval history: Patient seen and examined this resting comfortably was still on 12 L of oxygen. Reports headache with photophobia. Tells me he has a history of migraine Hospitalist Physical - Physical exam Narrative exam: VITAL SIGNS: Reviewed. GENERAL: The patient appears normally developed, laying on his side, vital signs as documented. HEAD: No signs of head trauma. EYES: Pupils are equal. Extraocular motions intact. EARS: Hearing grossly intact. MOUTH: Oropharynx is normal. NECK: No adenopathy, no JVD. CHEST: Chest with diminished with mild bibasilar crackles breath sounds bilaterally. No wheezes CARDIAC: Regular rate and rhythm. S1 and S2, without murmurs, gallops, or rubs. VASCULAR: No Edema. Peripheral pulses normal and equal in all extremities. ABDOMEN: Soft, non tender and non distended. No rebound or guarding, and no masses palpated. Bowel Sounds normal. MUSCULOSKELETAL: Good range of motion of all major joints. Extremities without clubbing, cyanosis or edema. NEUROLOGIC EXAM: Alert and oriented x 3 No focal sensory or strength deficits. Speech normal. Follows commands. PSYCHIATRIC: Mood normal. SKIN: detail exam as documented in skin assessment - Constitutional Vitals: Temp Pulse Resp BP Pulse Ox 97.8 F 62 20 110/57 97 11/24/20 06:24 11/24/20 06:24 11/24/20 06:24 11/24/20 06:24 11/24/20 10:23 General appearance: Present: no acute distress HEART Score - HEART Score Troponin: Troponin T < 0.010 ng/mL (0.00-0.029) 11/22/20 05:33 Results - Labs CBC & Chem 7: 11/23/20 07:30 11/24/20 07:25 Labs: Laboratory Last Values WBC 4.3 K/mm3 (4.5-11.0) L 11/23/20 07:30 RBC 4.57 M/mm3 (3.65-5.03) 11/23/20 07:30 Hgb 15.4 gm/dl (11.8-15.2) H 11/23/20 07:30 Hct 44.3 % (35.5-45.6) 11/23/20 07:30 MCV 97 fl (84-94) H 11/23/20 07:30 MCH 34 pg (28-32) H 11/23/20 07:30 MCHC 35 % (32-34) H 11/23/20 07:30 RDW 15.0 % (13.2-15.2) 11/23/20 07:30 Plt Count 106 K/mm3 (140-440) L 11/23/20 07:30 Lymph % (Auto) 18.4 % (13.4-35.0) 11/21/20 09:35 [place] % (Auto) 6.1 % (0.0-7.3) 11/21/20 09:35 Eos % (Auto) 0.0 % (0.0-4.3) 11/21/20 09:35 Baso % (Auto) 0.2 % (0.0-1.8) 11/21/20 09:35 Lymph # (Auto) 0.5 K/mm3 (1.2-5.4) L 11/21/20 09:35 [place] # (Auto) 0.2 K/mm3 (0.0-0.8) 11/21/20 09:35 Eos # (Auto) 0.0 K/mm3 (0.0-0.4) 11/21/20 09:35 Baso # (Auto) 0.0 K/mm3 (0.0-0.1) 11/21/20 09:35 Seg Neutrophils % 75.3 % (40.0-70.0) H 11/21/20 09:35 Seg Neutrophils # 2.0 K/mm3 (1.8-7.7) 11/21/20 09:35 D-Dimer 435.87 ng/mlDDU (0-234) H 11/23/20 14:13 Sodium 137 mmol/L (137-145) 11/24/20 07:25 Potassium 4.6 mmol/L (3.6-5.0) 11/24/20 07:25 Chloride 101.6 mmol/L (98-107) 11/24/20 07:25 Carbon Dioxide 21 mmol/L (22-30) L 11/24/20 07:25 Anion Gap 19 mmol/L 11/24/20 07:25 BUN 31 mg/dL (9-20) H 11/24/20 07:25 Creatinine 1.2 mg/dL (0.8-1.3) 11/24/20 07:25 Estimated GFR > 60 ml/min 11/24/20 07:25 BUN/Creatinine Ratio 26 % 11/24/20 07:25 Glucose 178 mg/dL (75-100) H 11/24/20 07:25 POC Glucose 206 mg/dL (70-105) H 11/24/20 11:29 Lactic Acid 1.10 mmol/L (0.7-2.0) 11/20/20 17:23 Calcium 7.7 mg/dL (8.4-10.2) L 11/24/20 07:25 Ferritin 6510.0 ng/mL (30.0-300.0) H 11/23/20 14:13 Total Bilirubin 0.60 mg/dL (0.1-1.2) 11/21/20 09:35 AST 202 units/L (5-40) H 11/21/20 09:35 ALT 189 units/L (7-56) H 11/21/20 09:35 Alkaline Phosphatase 66 units/L (35-129) 11/21/20 09:35 Lactate Dehydrogenase 682 units/L (91-180) H 11/21/20 10:45 Total Creatine Kinase 848 units/L (55-170) H 11/23/20 07:30 CK-MB (CK-2) 9.3 ng/mL (0.0-4.0) H 11/22/20 05:33 CK-MB (CK-2) Rel Index 1.0 (0-4) 11/22/20 05:33 Troponin T < 0.010 ng/mL (0.00-0.029) 11/22/20 05:33 C-Reactive Protein 0.80 mg/dL (0.00-1.30) 11/23/20 14:13 NT-Pro-B Natriuret Pep 467.3 pg/mL (0-900) 11/20/20 12:39 Total Protein 7.1 g/dL (6.3-8.2) 11/21/20 09:35 Albumin 3.2 g/dL (3.9-5) L 11/21/20 09:35 Albumin/Globulin Ratio 0.8 % 11/21/20 09:35 Procalcitonin 0.86 ng/mL (<0.15) 11/21/20 10:45 Urine Color Straw (Yellow) 11/20/20 18:55 Urine Turbidity Slightly cloudy (Clear) 11/20/20 18:55 Urine pH 5.0 (5.0-7.0) 11/20/20 18:55 Ur Specific [place] 1.015 (1.003-1.030) 11/20/20 18:55 Urine Protein 100 mg/dl mg/dL (Negative) 11/20/20 18:55 Urine Glucose (UA) Negative mg/dL (Negative) 11/20/20 18:55 Urine Ketones Negative mg/dL (Negative) 11/20/20 18:55 Urine Blood 2+ (Negative) 11/20/20 18:55 Urine Nitrite Negative (Negative) 11/20/20 18:55 Urine Bilirubin Negative (Negative) 11/20/20 18:55 Urine Urobilinogen < 2.0 mg/dL (<2.0) 11/20/20 18:55 Ur Leukocyte Esterase Negative (Negative) 11/20/20 18:55 Urine WBC (Auto) 2.0 /HPF (0.0-6.0) 11/20/20 18:55 Urine RBC (Auto) 1.0 /HPF (0.0-6.0) 11/20/20 18:55 Digoxin 0.3 ng/mL (0.9-2.0) L 11/21/20 21:08 Coronavirus (PCR) Positive (Negative) A 11/22/20 Unknown Microbiology: Microbiology 11/20/20 15:02 Peripheral/Venous Blood Culture - Preliminary NO GROWTH AFTER 72 HOURS 11/20/20 15:08 Peripheral/Venous Blood Culture - Preliminary NO GROWTH AFTER 72 HOURS Hall/IV: Voiding Method Urinal Active Medications - Current Medications Current Medications: Generic Name Dose Route Start Last Admin Trade Name Freq PRN Reason Stop Dose Admin Acetaminophen 650 mg 11/20/20 17:29 Acetaminophen 325 Mg Tab PO Q4H PRN Pain MILD(1-3)/Fever >100.5/KIDD Allopurinol 300 mg 11/20/20 15:43 Allopurinol 300 Mg Tab PO QDAY PRN Uric Acid Box Press Operator Ascorbic Acid 500 mg 11/20/20 22:00 11/24/20 11:10 Ascorbic Acid 500 Mg Tab PO 500 mg BID CARLY Administration Aspirin 81 mg 11/21/20 10:00 11/24/20 11:10 Aspirin 81 Mg Tab Chew PO 81 mg QDAY CARLY Administration Atorvastatin Calcium 80 mg 11/21/20 22:00 11/23/20 21:31 Atorvastatin 40 Mg Tab PO 80 mg QHS CARLY Administration Carvedilol 25 mg 11/21/20 22:00 11/24/20 11:08 Carvedilol 25 Mg Tab PO 25 mg BID CARLY Administration Cetirizine HCl 10 mg 11/20/20 16:00 11/24/20 11:10 Cetirizine 10 Mg Tab PO 10 mg DAILY CARLY Administration Cholecalciferol 1,000 unit 11/21/20 10:00 11/24/20 11:11 Cholecalciferol (Vit D3) 400 Unit Tab PO 1,000 unit QDAY CARLY Administration Colchicine 0.6 mg 11/20/20 15:43 Colchicine 0.6 Mg Tab PO DAILY PRN Gout Dextrose 50 ml 11/23/20 11:40 Dextrose 50% In Water (25gm) 50 Ml Syringe IV Q30MIN PRN Hypoglycemia Protocol Digoxin 0.125 mg 11/22/20 10:00 11/24/20 11:07 Digoxin 0.125 Mg Tab PO 0.125 mg Q48HR CARLY Administration Famotidine 10 mg 11/21/20 10:00 11/24/20 11:09 Famotidine 10 Mg Tab PO 10 mg BID CARLY Administration Guaifenesin 200 mg 11/23/20 21:57 11/23/20 22:42 Guaifenesin 100 Mg/5 Ml Oral Liqd PO 200 mg Q4H PRN Administration Cough Heparin Sodium (Porcine) 5,000 unit 11/20/20 22:00 11/24/20 11:09 Heparin 5,000 Unit/1 Ml Vial SUB-Q 5,000 unit Q12HR CARLY Administration Hydromorphone HCl 0.5 mg 11/22/20 10:00 Hydromorphone 1 Mg/1 Ml Inj IV Q6H PRN Pain , Severe (7-10) Insulin Glargine 15 units 11/23/20 22:00 11/23/20 21:32 Insulin Glargine 100 Units/Ml SUB-Q 15 units QHS CARLY Administration Insulin Human Lispro 0 unit 11/23/20 11:30 11/24/20 07:13 Insulin Lispro 100 Unit/Ml SUB-Q 3 unit ACHS CARLY Administration Protocol Methylprednisolone Sodium Succinate 80 mg 11/21/20 14:30 11/24/20 05:56 Methylprednisolone Sod Succinate 40 Mg/1 Ml Inj IV 80 mg Q8HR CARLY Administration Ondansetron HCl 4 mg 11/20/20 17:29 Ondansetron 4 Mg/2 Ml Inj IV Q8H PRN Nausea And Vomiting Oxycodone/Acetaminophen 1 tab 11/20/20 17:29 11/23/20 06:25 Oxycodone /Acetaminophen 5-325mg Tab PO 1 tab Q12H PRN Administration Pain, Moderate (4-6) Potassium Chloride 10 meq 11/21/20 10:00 11/24/20 11:11 Potassium Chloride Er 10 Meq Tab PO 10 meq DAILY CARLY Administration Ranolazine 1,000 mg 11/20/20 22:00 11/23/20 21:32 Ranolazine Er 500 Mg Tab 12hr PO 1,000 mg BID CARLY Administration Sodium Bicarbonate 1,300 mg 11/23/20 11:00 11/24/20 11:07 Sodium Bicarbonate 650 Mg Tab PO 1,300 mg BID CARLY Administration Sodium Chloride 10 ml 11/20/20 22:00 11/24/20 11:12 Sodium Chloride 0.9% 10 Ml Flush Syringe IV 10 ml BID CARLY Administration Sodium Chloride 10 ml 11/20/20 17:29 Sodium Chloride 0.9% 10 Ml Flush Syringe IV PRN PRN LINE FLUSH Timolol Maleate 1 drops 11/20/20 15:43 Timolol 0.5% Ophth Soln 5 Ml OD DAILY PRN Migraine Headache Zinc Sulfate 220 mg 11/20/20 22:00 11/24/20 11:10 Zinc Sulfate 220 Mg Cap PO 220 mg BID CARLY Administration Nutrition/Malnutrition Assess - Dietary Evaluation Nutrition/Malnutrition Findings: Nutrition Notes Start: 11/21/20 10:48 Freq: Status: Active Protocol: Document 11/21/20 10:48 NAVI (Rec: 11/21/20 11:24 NAVI [id number]) Nutrition Notes Need for Assessment generated from: MD Order Initial or Follow up Brief Note Other Pertinent Diagnosis Pt admitted with Shortness of Breath, associated with COVID. Current Diet Cardiac Diet Labs/Tests 11/21: Na 134, CO2 16, BUN 38, Cr 1.4, Glu 141. Pertinent Medications 11/21: Zn, Vit C, Vit D3. At Home: Pt supplements with Niacin, [place]-3. Height 5 ft 7 in Weight 93.894 kg [place] Body Weight (kg) 67.27 BMI 32.4 Intake Prior to Admission Good Weight Status Obese Subjective/Other Information Pt is independent. Burn Absent Trauma Absent GI Symptoms None Food Allergy No Skin Integrity/Comment Integumentary clear, warm, dry . Minimum of two criteria No physical signs of malnutrition #1 Nutrition Diagnosis No nutrition diagnosis at this time Comments: No reports on Food Intake, BBody Weight changes, Chewing/ Swallowing difficulties at the time. Is patient on ventilator? No Is Patient Ambulatory and/or Out of Bed Yes [facility] [ 2206.841 NUTR.[id number]] Kcal/Kg value to use for calculation 25 Approximate Energy Requirements Using 2347 kcal/Kg Calculation Used for Recommendations Kcal/kg Additional Notes Protein: 0.8-1.0 g/Kg/day; 54- 67gr/day; 216-268 Kcal/day ( from IBW) Fluids: 1.0 ml/Kcal, or as per MD. Nutrition Intervention Goal #1 Maintain Body Weight within +/ -3% of actual BW during LOS Follow-Up By: 11/28/20 Additional Comments Observe Pt tolerance of food, BM, total intake, and chewing/ swallowing difficulties.
--- NOTE | 2020-11-24 14:16 | Progress Note ---
Assessment and Plan Patient is 60 YO Male with a PMHx of CAD S/P PCI, HTN, HFrEF( EF <15%) S/P AICD Placement, and Coronavirus Infection diagnosed 2 weeks ago HFrEF CAD s/p PCI S/p AICD placment HTN * [facility] 03/24/2020- Patent LAD stent, other coronaries normal without significant plaque. Severely depressed LV systolic function. EF<20% * Echo 01/29/2020- LV cavity size is dilated (LVEDVI 98 ml/m2 with contrast) with eccentric hypertrophy. LV systolic function is severely reduced with an estimated LVEF <15%. There is severe global hypokinesis with minimal regional variation. No LV thrombus noted. [place] is fore-shortened. RV cavity size is not well seen but appears normal in Parasternal views. RV systolic function appears mildly reduced. Pacemaker or ICD lead seen in the RV. Normal biatrial size. No significant valvular dysfunction. Unable to assess RVSP due to insufficient TR signal. Small pericardial effusion. * Nuclear MPI 08/07/2019- Abnormal pharmacologic stress nuclear study but negative for ischemia. The left ventricle is moderately dilated. There are mild to moderately reduced perfusion defects of medium size in the inferior wall. The defect in the inferior segment is fixed. No significant ischemia detected. Stress EKG Test Results Normal. Systolic function is severely reduced. The calculated rest EF is at 24%. Normal myocardial perfusion in anterior, apical, septal and lateral leads and fixed inferior defect * EKG shows sinus 78 with no acute ischemic changes. * Currently on: Coreg 25mg PO BID, Renax 1000mg PO BID, digoxin .125mg PO Q48hrs, atorvastatin 80mg PO QHS. * Echo-11/21/2020-EF 10 to 15%, LV is severely dilated, global hypokinesis of left ventricle, mild diastolic dysfunction is present impaired relaxation pattern, right ventricle is normal size, pacemaker lead present in right ventricle Acute Hypoxic respiratory failure Elevated D-dimer COVID PUI * Patient on NC * ID following * Pulmonology following * COVID PCR pending * VQ scan shows low probability of PE CHERYL * Nephrology following Hyponatremia * Na 125 initially. Has improved * Management per primary team Plan: Will continue to hold Lasix and entresto in setting of CHERYL and low BP. Patient seen in conjunction with Dr. Bolton who agrees with this plan of care. Will continue to follow - Patient Problems (1) COVID-19 Current Visit: Yes Status: Acute (2) CHERYL (acute kidney injury) Current Visit: Yes Status: Acute (3) D-dimer, elevated Current Visit: Yes Status: Acute (4) Hyponatremia Current Visit: Yes Status: Acute (5) Acute hypoxemic respiratory failure Current Visit: Yes Status: Acute (6) Coronary artery disease Current Visit: No Status: Chronic Qualifiers: Coronary Disease-Associated Artery/Lesion type: [place] artery [place] vs. transplanted heart: [place] heart Associated angina: with stable angina Qualified Code(s): I25.118 - Atherosclerotic heart disease of [place] coronary artery with other forms of angina pectoris (7) GERD (gastroesophageal reflux disease) Current Visit: No Status: Acute (8) Chronic systolic heart failure Current Visit: No Status: Chronic (9) Essential hypertension Current Visit: No Status: Chronic (10) Hyperlipidemia Current Visit: No Status: Chronic Subjective Date of service: 11/24/20 Principal diagnosis: sob Interval history: Patient lying in bed reports feeling the same patient was not on monitor Objective Vital Signs Temp Pulse Resp BP Pulse Ox 11/24/20 10:23 97 11/24/20 06:24 97.8 F 62 20 110/57 90 11/23/20 23:02 97.7 F 62 20 116/80 93 11/23/20 22:49 91 11/23/20 20:41 93 11/23/20 16:50 97.6 F 71 24 118/79 90 - Physical Examination General: No Apparent Distress HEENT: Positive: PERRL Neck: Positive: trachea midline Cardiac: Positive: Reg Rate and Rhythm Lungs: Positive: Decreased Breath Sounds Neuro: Positive: Grossly Intact Abdomen: Positive: Soft Skin: Negative: Rash, Suspicious Lesions, Ulceration Extremities: Present: upper extr. pulses, lower extr. pulses. Absent: edema - Labs and Meds Comprehensive Metabolic Panel 11/24/20 Range/Units 07:25 Sodium 137 (137-145) mmol/L Potassium 4.6 (3.6-5.0) mmol/L Chloride 101.6 (98-107) mmol/L Carbon Dioxide 21 L (22-30) mmol/L BUN 31 H (9-20) mg/dL Creatinine 1.2 (0.8-1.3) mg/dL Glucose 178 H (75-100) mg/dL Calcium 7.7 L (8.4-10.2) mg/dL - Imaging and Cardiology EKG: report reviewed, image reviewed Echo: report reviewed Cardiac cath: report reviewed
[2020-11-24] MEDS: INSULIN GLARGINE 100 UNITS/ML SUB-Q SCH (22:39)
[2020-11-25] MEDS: methylPREDNISolone Sod Succinate 40 MG/1 ML INJ IV SCH ×3 (05:57→22:17)
[2020-11-25 08:21] LABS: BUN/Creatinine Ratio 26; Blood Urea Nitrogen 29 mg/dL (9-20); Calcium 7.9 mg/dL (8.4-10.2); Hemolysis Index 6
[2020-11-25] MEDS: INSULIN LISPRO 100 UNIT/ML SUB-Q SCH ×4 (08:47→22:24)
--- NOTE | 2020-11-25 10:39 | Progress Note ---
Assessment and Plan 60 y/o male with acute respiratory failure secondary to COVID pneumonia. 11/25/20: Wean FiO2 for sats >88%, proning, steroids. Steroids Proning Subjective Date of service: 11/25/20 Principal diagnosis: sob Interval history: no acute events. Objective Vital Signs - 12hr 11/24/20 11/24/20 11/25/20 22:39 23:38 06:08 Temperature 97.6 F 97.6 F Pulse Rate 59 L 67 Respiratory 20 20 Rate Blood Pressure 143/86 124/77 O2 Sat by Pulse 94 99 94 Oximetry CBC and BMP: 11/23/20 07:30 11/25/20 06:54 ABG, PT/INR, D-dimer: PT/INR, D-dimer D-Dimer 435.87 ng/mlDDU (0-234) H 11/23/20 14:13 Abnormal lab findings: Abnormal Labs 11/20/20 11/20/20 11/20/20 12:39 12:39 12:39 WBC 2.4 L RBC Hgb 16.1 H Hct 48.0 H MCV 99 H MCH 33 H MCHC Plt Count 100 L [place] % (Auto) 8.4 H Lymph # (Auto) 0.6 L Seg Neutrophils % Seg Neutrophils # 1.6 L D-Dimer 836.61 H Sodium 125 L Chloride 94.3 L Carbon Dioxide 16 L BUN 43 H Creatinine 2.3 H Glucose POC Glucose Calcium Ferritin AST ALT Lactate Dehydrogenase Total Creatine Kinase CK-MB (CK-2) C-Reactive Protein Albumin Digoxin Coronavirus (PCR) 11/21/20 11/21/20 11/21/20 09:35 09:35 10:45 WBC 2.7 L RBC 5.04 H Hgb 17.1 H Hct 49.5 H MCV 98 H MCH 34 H MCHC 35 H Plt Count 93 L [place] % (Auto) Lymph # (Auto) 0.5 L Seg Neutrophils % 75.3 H Seg Neutrophils # D-Dimer 859.78 H Sodium 134 L D Chloride Carbon Dioxide 16 L BUN 38 H Creatinine 1.4 H Glucose 141 H POC Glucose Calcium 8.2 L Ferritin AST 202 H ALT 189 H Lactate Dehydrogenase Total Creatine Kinase CK-MB (CK-2) C-Reactive Protein Albumin 3.2 L Digoxin Coronavirus (PCR) 11/21/20 11/21/20 11/21/20 10:45 10:45 15:12 WBC RBC Hgb Hct MCV MCH MCHC Plt Count [place] % (Auto) Lymph # (Auto) Seg Neutrophils % Seg Neutrophils # D-Dimer Sodium Chloride Carbon Dioxide BUN Creatinine Glucose 154 H POC Glucose Calcium Ferritin 9449.0 H AST ALT Lactate Dehydrogenase 682 H Total Creatine Kinase 1372 H CK-MB (CK-2) 16.3 H C-Reactive Protein 4.60 H Albumin Digoxin Coronavirus (PCR) 11/21/20 11/21/20 11/22/20 21:08 21:08 05:33 WBC RBC Hgb Hct MCV MCH MCHC Plt Count [place] % (Auto) Lymph # (Auto) Seg Neutrophils % Seg Neutrophils # D-Dimer Sodium 132 L Chloride Carbon Dioxide 16 L BUN 38 H Creatinine 1.4 H Glucose 223 H POC Glucose Calcium 7.8 L Ferritin AST ALT Lactate Dehydrogenase Total Creatine Kinase 1198 H CK-MB (CK-2) 13.6 H C-Reactive Protein Albumin Digoxin 0.3 L Coronavirus (PCR) 11/22/20 11/22/20 11/23/20 05:33 Unknown 07:30 WBC RBC Hgb Hct MCV MCH MCHC Plt Count [place] % (Auto) Lymph # (Auto) Seg Neutrophils % Seg Neutrophils # D-Dimer Sodium 134 L Chloride Carbon Dioxide 21 L BUN 34 H Creatinine Glucose 217 H POC Glucose Calcium 7.7 L Ferritin AST ALT Lactate Dehydrogenase Total Creatine Kinase 847 H CK-MB (CK-2) 9.3 H C-Reactive Protein Albumin Digoxin Coronavirus (PCR) Positive A 11/23/20 11/23/20 11/23/20 07:30 07:30 14:13 WBC 4.3 L RBC Hgb 15.4 H Hct MCV 97 H MCH 34 H MCHC 35 H Plt Count 106 L [place] % (Auto) Lymph # (Auto) Seg Neutrophils % Seg Neutrophils # D-Dimer 435.87 H Sodium Chloride Carbon Dioxide BUN Creatinine Glucose POC Glucose Calcium Ferritin AST ALT Lactate Dehydrogenase Total Creatine Kinase 848 H CK-MB (CK-2) C-Reactive Protein Albumin Digoxin Coronavirus (PCR) 11/23/20 11/23/20 11/23/20 14:13 16:49 23:00 WBC RBC Hgb Hct MCV MCH MCHC Plt Count [place] % (Auto) Lymph # (Auto) Seg Neutrophils % Seg Neutrophils # D-Dimer Sodium Chloride Carbon Dioxide BUN Creatinine Glucose POC Glucose 228 H 167 H Calcium Ferritin 6510.0 H AST ALT Lactate Dehydrogenase Total Creatine Kinase CK-MB (CK-2) C-Reactive Protein Albumin Digoxin Coronavirus (PCR) 11/24/20 11/24/20 11/24/20 07:25 07:51 11:29 WBC RBC Hgb Hct MCV MCH MCHC Plt Count [place] % (Auto) Lymph # (Auto) Seg Neutrophils % Seg Neutrophils # D-Dimer Sodium Chloride Carbon Dioxide 21 L BUN 31 H Creatinine Glucose 178 H POC Glucose 178 H 206 H Calcium 7.7 L Ferritin AST ALT Lactate Dehydrogenase Total Creatine Kinase CK-MB (CK-2) C-Reactive Protein Albumin Digoxin Coronavirus (PCR) 11/24/20 11/25/20 11/25/20 22:45 06:54 07:53 WBC RBC Hgb Hct MCV MCH MCHC Plt Count [place] % (Auto) Lymph # (Auto) Seg Neutrophils % Seg Neutrophils # D-Dimer Sodium 135 L Chloride Carbon Dioxide BUN 29 H Creatinine Glucose 191 H POC Glucose 209 H 194 H Calcium 7.9 L Ferritin AST ALT Lactate Dehydrogenase Total Creatine Kinase CK-MB (CK-2) C-Reactive Protein Albumin Digoxin Coronavirus (PCR)
--- NOTE | 2020-11-25 10:55 | Electrocardiograph Report ---
[facility] Test Date: 2020-11-21 Test Time: 13:10:23 Pat Name: CHAY COHEN Department: Room: A364 1 Gender: M Roll Tester: OSCAR : 1960 Requested By: SYDNEE MCPHERSON Order Number: [id number] Reading MD: Jaleel Obregon Measurements Intervals [place] Rate: 78 P: 53 ID: [id number] QRS: 0 QRSD: 127 T: 99 QT: 396 QTc: 452 Interpretive Statements Sinus rhythm Left bundle branch block No previous ECG available for comparison Electronically Signed On 11-25-2020 10:55:05 EDT by Jaleel Obregon
[2020-11-25] MEDS: CHOLECALCIFEROL (VIT D3) 400 UNIT TAB PO SCH (11:20)
[2020-11-25] MEDS: HEPARIN 5,000 UNIT/1 ML VIAL SUB-Q SCH ×2 (11:21→22:23)
[2020-11-25] MEDS: ZINC SULFATE 220 MG CAP PO SCH ×2 (11:21→22:22)
[2020-11-25] MEDS: FAMOTIDINE 10 MG TAB PO SCH ×2 (11:21→22:23)
[2020-11-25] MEDS: ASPIRIN 81 MG TAB CHEW PO SCH (11:22)
[2020-11-25] MEDS: ASCORBIC ACID 500 MG TAB PO SCH ×2 (11:22→22:23)
[2020-11-25] MEDS: CETIRIZINE 10 MG TAB PO SCH (11:22)
[2020-11-25] MEDS: RANOLAZINE ER 500 MG TAB 12HR PO SCH ×2 (11:23→22:23)
[2020-11-25] MEDS: carvediloL 25 MG TAB PO SCH ×2 (11:23→22:23)
[2020-11-25] MEDS: POTASSIUM CHLORIDE ER 10 MEQ TAB PO SCH (11:24)
[2020-11-25] MEDS: SODIUM BICARBONATE 650 MG TAB PO SCH ×2 (11:34→22:21)
--- NOTE | 2020-11-25 12:30 | Progress Note ---
Assessment and Plan Impression: * CHERYL * Covid PNA * hyponatremia * metabolic acidosis * acute hypoxic resp failure Plan: * cr is better today at 1.2->1.1 * cheryl due to hypopperfusion wiith COVID PNA and volume depletion, high risk for progression to ATN * hold diuresis at this time as able * continue NaHCO3 for acidosis, HCO3 at goal at 23 * volume resuscitation as needed, po intake as able * daily lytes and strict i/os * avoid nephrotoxins * renal diet * covid care per primary team Subjective Date of service: 11/25/20 Principal diagnosis: sob Interval history: 24 hour events reviewed, labs and chart reviewed. Interdisciplinary and nursing notes reviewed Objective - Exam Narrative Exam: primary team exam noted, exam deferred for preservation of PPE - Vital Signs Vital signs: Vital Signs - 12hr 11/25/20 11/25/20 06:08 11:39 Temperature 97.6 F 97.5 F L Pulse Rate 67 71 Respiratory 20 20 Rate Blood Pressure 124/77 134/82 O2 Sat by Pulse 94 91 Oximetry - Lab 11/23/20 07:30 11/25/20 06:54 Most recent lab results Calcium 7.9 mg/dL (8.4-10.2) L 11/25/20 06:54 Medications & Allergies - Medications Allergies/Adverse Reactions: Allergies No Known Allergies Allergy (Verified 04/13/15 20:17) Home Medications: Home Medications Medication Instructions Recorded Confirmed Last Taken Type Ibuprofen [Motrin] 800 mg PO Q8HR PRN 04/13/15 11/25/20 Unknown History Loratadine (Nf) [Claritin (Nf)] 10 mg PO DAILY PRN 04/13/15 11/25/20 Unknown History Timolol 0.5% [Timoptic] 1 drops OP DAILY PRN 04/13/15 11/25/20 Unknown History allopurinoL [Zyloprim] 300 mg PO QDAY PRN 04/13/15 11/25/20 Unknown History methylPREDNISolone [Medrol Dose 4 mg PO DAILY PRN 04/13/15 11/25/20 Unknown History Sergio] Famotidine [Pepcid] 20 mg PO BID #60 tablet 04/14/15 11/25/20 Unknown Rx Aspirin [Aspirin BABY CHEW TAB] 81 mg PO QDAY #30 tab.chew 06/16/15 11/25/20 Unknown Rx AtorvaSTATin [Lipitor] 40 mg PO QHS #30 tablet 06/16/15 11/25/20 Unknown Rx Colchicine [Colcrys] 0.6 mg PO DAILY PRN #30 tablet 06/16/15 11/25/20 Unknown Rx Digoxin [Lanoxin] 0.125 mg PO DAILY #30 tablet 06/16/15 11/25/20 Unknown Rx Furosemide [Lasix TAB] 40 mg PO QDAY #30 tablet 06/16/15 11/25/20 Unknown Rx Niacin ER [Niaspan ER] 500 mg PO QHS #30 tablet 06/16/15 11/25/20 Unknown Rx [place]-3 Fatty Acids/Fish Oil [Fish 1,000 mg PO DAILY #30 capsule 06/16/15 11/25/20 Unknown Rx Oil] Potassium Chloride [K-Dur] 10 meq PO DAILY #30 tablet 06/16/15 11/25/20 Unknown Rx Ranolazine ER [Ranexa ER] 1,000 mg PO BID #60 tablet 06/16/15 11/25/20 Unknown Rx Spironolactone [Aldactone] 25 mg PO QDAY #30 tablet 06/16/15 11/25/20 Unknown Rx allopurinoL [Zyloprim] 300 mg PO QDAY PRN #30 tablet 06/16/15 11/25/20 Unknown Rx carvediloL [Coreg] 25 mg PO DAILY #30 tablet 06/16/15 11/25/20 Unknown Rx lisinopriL [Zestril TAB] 40 mg PO QDAY #30 tablet 06/16/15 11/25/20 Unknown Rx oxyCODONE /ACETAMINOPHEN [Percocet 1 tab PO Q6H PRN #30 tablet 06/16/15 11/25/20 Unknown Rx 5/325 mg] predniSONE [Deltasone] 20 mg PO QDAY #30 tablet 06/16/15 11/25/20 Unknown Rx Active Medications: Generic Name Dose Route Start Last Admin Trade Name Freq PRN Reason Stop Dose Admin Acetaminophen 650 mg 11/20/20 17:29 Acetaminophen 325 Mg Tab PO Q4H PRN Pain MILD(1-3)/Fever >100.5/KIDD Acetaminophen/Butalbital/Caffeine 1 tab 11/24/20 12:04 Butalb/Acetaminophen/Caffeine Tab PO 11/26/20 12:03 Q4H PRN Headache Allopurinol 300 mg 11/20/20 15:43 Allopurinol 300 Mg Tab PO QDAY PRN 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 Ascorbic Acid 500 mg 11/20/20 22:00 11/25/20 11:22 Ascorbic Acid 500 Mg Tab PO 500 mg BID CARLY Administration Aspirin 81 mg 11/21/20 10:00 11/25/20 11:22 Aspirin 81 Mg Tab Chew PO 81 mg QDAY CARLY Administration Atorvastatin Calcium 80 mg 11/21/20 22:00 11/24/20 22:38 Atorvastatin 40 Mg Tab PO 80 mg QHS CARLY Administration Carvedilol 25 mg 11/21/20 22:00 11/25/20 11:23 Carvedilol 25 Mg Tab PO 25 mg BID CARLY Administration Cetirizine HCl 10 mg 11/20/20 16:00 11/25/20 11:22 Cetirizine 10 Mg Tab PO 10 mg DAILY CARLY Administration Cholecalciferol 1,000 unit 11/21/20 10:00 11/25/20 11:20 Cholecalciferol (Vit D3) 400 Unit Tab PO 1,000 unit QDAY CARLY Administration Colchicine 0.6 mg 11/20/20 15:43 Colchicine 0.6 Mg Tab PO DAILY PRN Gout Dextrose 50 ml 11/23/20 11:40 Dextrose 50% In Water (25gm) 50 Ml Syringe IV Q30MIN PRN Hypoglycemia Protocol Digoxin 0.125 mg 11/22/20 10:00 11/24/20 11:07 Digoxin 0.125 Mg Tab PO 0.125 mg Q48HR CARLY Administration Famotidine 10 mg 11/21/20 10:00 11/25/20 11:21 Famotidine 10 Mg Tab PO 10 mg BID CARLY Administration Guaifenesin 200 mg 11/23/20 21:57 11/23/20 22:42 Guaifenesin 100 Mg/5 Ml Oral Liqd PO 200 mg Q4H PRN Administration Cough Heparin Sodium (Porcine) 5,000 unit 11/20/20 22:00 11/25/20 11:21 Heparin 5,000 Unit/1 Ml Vial SUB-Q 5,000 unit Q12HR CARLY Administration Hydromorphone HCl 0.5 mg 11/22/20 10:00 Hydromorphone 1 Mg/1 Ml Inj IV Q6H PRN Pain , Severe (7-10) Insulin Glargine 15 units 11/23/20 22:00 11/24/20 22:39 Insulin Glargine 100 Units/Ml SUB-Q 15 units QHS CARLY Administration Insulin Human Lispro 0 unit 11/23/20 11:30 11/24/20 22:54 Insulin Lispro 100 Unit/Ml SUB-Q 3 unit ACHS CARLY Administration Protocol Methylprednisolone Sodium Succinate 80 mg 11/21/20 14:30 11/25/20 05:57 Methylprednisolone Sod Succinate 40 Mg/1 Ml Inj IV 80 mg Q8HR CARLY Administration Ondansetron HCl 4 mg 11/20/20 17:29 Ondansetron 4 Mg/2 Ml Inj IV Q8H PRN Nausea And Vomiting Oxycodone/Acetaminophen 1 tab 11/20/20 17:29 11/23/20 06:25 Oxycodone /Acetaminophen 5-325mg Tab PO 1 tab Q12H PRN Administration Pain, Moderate (4-6) Potassium Chloride 10 meq 11/21/20 10:00 11/25/20 11:24 Potassium Chloride Er 10 Meq Tab PO 10 meq DAILY CARLY Administration Ranolazine 1,000 mg 11/20/20 22:00 11/25/20 11:23 Ranolazine Er 500 Mg Tab 12hr PO 1,000 mg BID CARLY Administration Sodium Bicarbonate 1,300 mg 11/23/20 11:00 11/25/20 11:34 Sodium Bicarbonate 650 Mg Tab PO 1,300 mg BID CARLY Administration Sodium Chloride 10 ml 11/20/20 22:00 11/25/20 11:35 Sodium Chloride 0.9% 10 Ml Flush Syringe IV 10 ml BID CARLY Administration Sodium Chloride 10 ml 11/20/20 17:29 Sodium Chloride 0.9% 10 Ml Flush Syringe IV PRN PRN LINE FLUSH Timolol Maleate 1 drops 11/20/20 15:43 Timolol 0.5% Ophth Soln 5 Ml OD DAILY PRN Migraine Headache Zinc Sulfate 220 mg 11/20/20 22:00 11/25/20 11:21 Zinc Sulfate 220 Mg Cap PO 220 mg BID CARLY Administration
--- NOTE | 2020-11-25 12:46 | Progress Note ---
Assessment and Plan Cultures: SARS CoV2 PCR: Positive as outpatient, positive inpatient 11/20/2020 blood culture: no growth today A/P: 60-year-old male with coronary artery disease, CHF, hypertension, cardiomyopathy status post AICD placement who was recently diagnosed with COVID-19 infection 2 weeks prior: #Bilateral pneumonia secondary to COVID-19: Labs revealed leukopenia, D-dimer 859, LDH 682, transaminitis, CRP 4.6, NT proBNP 467. CXR with interstitial thickening. V/Q with low probability for PE. #Acute hypoxic respiratory failure: Remains on 11 L salter. #CHF, cardiomyopathy, s/p AICD #CHERYL: Renally adjust antibiotics #Transaminitis: ?COVID related v/s congestion. #Leukopenia, thrombocytopenia: Likely related to viral illness Recs: -Continue steroids, on methylprednisolone. Complete 10 days of steroids. -Out of the window for remdesivir benefit since diagnosis was 2 weeks ago -Not a candidate for Actemra based on CRP and oxygen requirements -prophylactic anticoagulation based on d-dimer per hospital protocol -trend d-dimer, CRP every 2-3 days, ordered -CHF management per primary G. Ai Mirza MD [facility] ([facility] O: [phone] F: [phone] Subjective Date of service: 11/25/20 Principal diagnosis: sob Interval history: Afebrile, no acute change. Objective - Exam Narrative Exam: Physical exam deferred to reduce risk of transmission of COVID-19. Please refer to primary team's note. - Constitutional Vitals: Vital Signs Temp Pulse Resp BP Pulse Ox 97.5 F L 71 20 134/82 91 11/25/20 11:39 11/25/20 11:39 11/25/20 11:39 11/25/20 11:39 11/25/20 11:39 Temperature -Last 24 Hours Temperature 97.5 F Temperature 97.6 F Temperature 97.6 F Temperature 97.6 F - Labs CBC & Chem 7: 11/23/20 07:30 11/25/20 06:54 Labs: Abnormal lab results 11/24/20 11/25/20 11/25/20 Range/Units 22:45 06:54 07:53 Sodium 135 L (137-145) mmol/L BUN 29 H (9-20) mg/dL Glucose 191 H (75-100) mg/dL POC Glucose 209 H 194 H (70-105) mg/dL Calcium 7.9 L (8.4-10.2) mg/dL 11/25/20 Range/Units 11:34 Sodium (137-145) mmol/L BUN (9-20) mg/dL Glucose (75-100) mg/dL POC Glucose 255 H (70-105) mg/dL Calcium (8.4-10.2) mg/dL
--- NOTE | 2020-11-25 13:47 | Progress Note ---
Assessment and Plan Patient is 60 YO Male with a PMHx of CAD S/P PCI, HTN, HFrEF( EF <15%) S/P AICD Placement, and Coronavirus Infection diagnosed 2 weeks ago HFrEF CAD s/p PCI S/p AICD placment HTN * Echo-11/21/2020-EF 10 to 15%, LV is severely dilated, global hypokinesis of left ventricle, mild diastolic dysfunction is present impaired relaxation pattern, right ventricle is normal size, pacemaker lead present in right ventricle * C 03/24/2020- Patent LAD stent, other coronaries normal without significant plaque. Severely depressed LV systolic function. EF<20% * Nuclear MPI 08/07/2019- Abnormal pharmacologic stress nuclear study but negative for ischemia. The left ventricle is moderately dilated. There are mild to moderately reduced perfusion defects of medium size in the inferior wall. The defect in the inferior segment is fixed. No significant ischemia detected. Stress EKG Test Results Normal. Systolic function is severely reduced. The calculated rest EF is at 24%. Normal myocardial perfusion in anterior, apical, septal and lateral leads and fixed inferior defect * Currently on: Coreg 25mg PO BID, Renax 1000mg PO BID, digoxin .125mg PO Q48hrs, atorvastatin 80mg PO QHS. Acute Hypoxic respiratory failure Elevated D-dimer COVID-19 * Patient on NC * ID following * Pulmonology following * COVID PCR positive * VQ scan shows low probability of PE CHERYL * Nephrology following Hyponatremia * Na 125 initially. Has improved * Management per primary team Plan: Will restart home Entresto. BMP in AM. Will continue to hold Lasix Patient seen in conjunction with Dr. Salinas who agrees with this plan of care. Will continue to follow - Patient Problems (1) COVID-19 Current Visit: Yes Status: Acute (2) CHERYL (acute kidney injury) Current Visit: Yes Status: Acute (3) D-dimer, elevated Current Visit: Yes Status: Acute (4) Hyponatremia Current Visit: Yes Status: Acute (5) Acute hypoxemic respiratory failure Current Visit: Yes Status: Acute (6) Coronary artery disease Current Visit: No Status: Chronic Qualifiers: Coronary Disease-Associated Artery/Lesion type: [place] artery [place] vs. transplanted heart: [place] heart Associated angina: with stable angina Qualified Code(s): I25.118 - Atherosclerotic heart disease of [place] coronary artery with other forms of angina pectoris (7) GERD (gastroesophageal reflux disease) Current Visit: No Status: Acute (8) Chronic systolic heart failure Current Visit: No Status: Chronic (9) Essential hypertension Current Visit: No Status: Chronic (10) Hyperlipidemia Current Visit: No Status: Chronic Subjective Date of service: 11/25/20 Principal diagnosis: sob Interval history: Patient lying in bed reports no cardiac complaints patient sinus 64 on monitor Objective Vital Signs Temp Pulse Resp BP Pulse Ox 11/25/20 11:39 97.5 F L 71 20 134/82 91 11/25/20 06:08 97.6 F 67 20 124/77 94 11/24/20 23:38 99 11/24/20 22:39 97.6 F 59 L 20 143/86 94 11/24/20 22:00 93 11/24/20 17:23 69 93 11/24/20 17:22 97.6 F 72 18 131/89 91 11/24/20 16:19 93 - Physical Examination General: No Apparent Distress HEENT: Positive: PERRL Neck: Positive: trachea midline Cardiac: Positive: Reg Rate and Rhythm Lungs: Positive: Decreased Breath Sounds Neuro: Positive: Grossly Intact Abdomen: Positive: Soft Skin: Negative: Rash, Suspicious Lesions, Ulceration Extremities: Present: upper extr. pulses, lower extr. pulses. Absent: edema - Labs and Meds Comprehensive Metabolic Panel 11/25/20 Range/Units 06:54 Sodium 135 L (137-145) mmol/L Potassium 4.8 (3.6-5.0) mmol/L Chloride 100.9 (98-107) mmol/L Carbon Dioxide 23 (22-30) mmol/L BUN 29 H (9-20) mg/dL Creatinine 1.1 (0.8-1.3) mg/dL Glucose 191 H (75-100) mg/dL Calcium 7.9 L (8.4-10.2) mg/dL - Imaging and Cardiology EKG: report reviewed, image reviewed Echo: report reviewed Cardiac cath: report reviewed - Telemetry EKG Rhythm: Sinus Rhythm - EKG Sinus rhythms and dysrhythmias: sinus rhythm
--- NOTE | 2020-11-25 18:28 | Progress Note ---
Assessment and Plan Assessment and plan: 60 YO Male with CAD S/P Stent Placement, HTN, Systolic CHF(EF 25) S/P AICD Placement, HLD, OK, OA, Coronavirus Infection diagnosed 2 weeks ago presents to ED for evaluation. Patient reports "I am short of breath". Patient states that he has experienced shortness of breath, dry cough, fatigue, malaise, body aches, subjective fever, decreased exercise tolerance over the past 1 week with persistent and worsening symptoms over the past 3 days. EMS was notified and upon arrival the patient was found to be in distress and subsequent transported to [facility] for further care and evaluation of the aforementioned symptoms. The patient was seen and evaluated in the emergency department. All lab and imaging studies reviewed. Patient found to have a pulse oximetry of 86% with exertion which is consistent with acute hypoxemic respiratory failure. The patient is unable to speak in complete sentences due to shortness of breath. Patient placed on submental oxygen with mild improvement in symptoms. Patient admitted to medical floor and initiated on coronavirus protocol due to increased risk of worsening symptoms. VQ scan ordered and is pending at time of admission. Patient denies chest pain, palpitation, unilateral leg swelling, calf pain, prolonged travel/immobility, individual/family history of DVT/PE/bleeding/blood clotting disorders. Prior admission on 06/14/2015 reviewed. All medication l isted at time of admission has been reconciled. Advanced care planning conducted in ED. --Acute hypoxemic respiratory failure Current Visit: Yes Status: Acute Chest x-ray, supplemental oxygen, pulse oximetry, nebulizer therapy, VQ scan ordered and is pending at time of admission. --Obesity hypoventilation syndrome Current Visit: Yes Status: Acute Balanced diet, increase physical activity discharge, outpatient pulmonary follow-up for sleep study. -- COVID-19 virus infection Current Visit: No Status: Acute Coronavirus protocol: Contact precautions, isolation precautions, IV steroid th erapy, IV antibiotic therapy, vitamin C therapy, vitamin D therapy, zinc therapy, prophylactic anticoagulation --Essential hypertension Current Visit: No Status: Chronic Monitor blood pressure every shift, continue medical management -- Hyperlipidemia Current Visit: No Status: Chronic Statin therapy, low-cholesterol diet, supportive care. --Acute kidney injury with vasomotor nephropathy. Present on admission, now resolved.. -- Hyponatremia Sodium levels, improving trending up --thrombocytopenia ; viral etiology --DVT prophylaxis Current Visit: Yes Status: Acute SCD to bilateral lower extremities while in bed, prophylactic anticoagulation --HFrEF EF 10 to 15% Current Visit: Yes Status: Acute Continue antifailure medications Low-sodium diet, fluid restriction, --h/o CAD s/p PCI: continue current cardiac medications Cardiology following Severe ischemic cardiomyopathy -S/p AICD placment/HTN/LHC 03/24/2020 -- Rhabdomyolysis ; trending down Closely monitor, input output monitoring Gentle hydration, monitor renal function -- migraine ; resume home medications --obesity; BMI 31.7 Disease education conducted, care plan discussed, diagnoses discussed, prognosis discussed, patient is full code, patient knowledges understanding and agreement with care plan. +30 minutes. Brief history and hospital course 11/21: Patient seen and examined his on 12 L of oxygen. I have increasing steroids to 80 mg every 8 will defer to ID if he should be changed to Decadron. I have consulted pulmonary and cardiology in the meantime grant writer ordered an EKG which showed possible anterior wall infarct with some ST elevations very minimal. I reviewed the EKG from 2016 and it was similar. Patient denies any chest pain at this time. Nephrology has been consulted as patient has an acute kidney injury with a baseline of 1.1 Patient 2016 although I do not have any new baseline. I will defer initiation of IV Lasix to nephrology the patient was started on p.o. Lasix nevertheless on admission. Also hyponatremia is noted I will monitor this closely in addition to thrombocytopenia which will affect the use of anticoagulation. I will encourage the patient to prone as much as tolerated. 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 Lasix appears to have been discontinued, continue steroid therapy, monitor closely especially thrombocytopenia. Encourage prone positioning if tolerable. 11/23: Patient seen and examined, Discussed with grant writer, will discontinued Fluids at this time. Hold Isosorbide due to the low BP. Continue to wean oxygen. 11/24: Continue steroid therapy at this time. Continue to wean oxygen as tole rated. Patient is now off the fluids. We will try some Fioricet considering report of migraine headache. Still severely sick continue hospital stay. Renal function is improving. 11/25; consults and recommendations noted and appreciated Closely monitor the patient and adjust management as needed History Interval history: I have seen and examined the patient at the bedside Patient's chart and medications reviewed Patient feels slightly better Remains on 11 L of nasal cannula oxygen Mild distress Hospitalist Physical - Constitutional Vitals: Temp Pulse Resp BP Pulse Ox 97.5 F L 67 20 131/88 93 11/25/20 16:09 11/25/20 16:09 11/25/20 16:09 11/25/20 16:09 11/25/20 16:09 General appearance: Present: mild distress, well-nourished - EENT Eyes: Present: PERRL, EOM intact - Neck Neck: Present: supple, normal ROM - Respiratory Respiratory effort: normal Respiratory: bilateral: diminished, rhonchi, negative: rales, wheezing - Cardiovascular Rhythm: regular Heart Sounds: Present: S1 & S2 - Extremities Extremities: no ischemia Extremity abnormal: edema - Abdominal General gastrointestinal: soft, non-tender, non-distended, normal bowel sounds - Integumentary Integumentary: Present: clear, warm - Psychiatric Psychiatric: appropriate mood/affect, cooperative - Neurologic Neurologic: CNII-XII intact, moves all extremities HEART Score - HEART Score Troponin: Troponin T < 0.010 ng/mL (0.00-0.029) 11/22/20 05:33 Results - Labs CBC & Chem 7: 11/23/20 07:30 11/25/20 06:54 Labs: Laboratory Last Values WBC 4.3 K/mm3 (4.5-11.0) L 11/23/20 07:30 RBC 4.57 M/mm3 (3.65-5.03) 11/23/20 07:30 Hgb 15.4 gm/dl (11.8-15.2) H 11/23/20 07:30 Hct 44.3 % (35.5-45.6) 11/23/20 07:30 MCV 97 fl (84-94) H 11/23/20 07:30 MCH 34 pg (28-32) H 11/23/20 07:30 MCHC 35 % (32-34) H 11/23/20 07:30 RDW 15.0 % (13.2-15.2) 11/23/20 07:30 Plt Count 106 K/mm3 (140-440) L 11/23/20 07:30 Lymph % (Auto) 18.4 % (13.4-35.0) 11/21/20 09:35 Gregg % (Auto) 6.1 % (0.0-7.3) 11/21/20 09:35 Eos % (Auto) 0.0 % (0.0-4.3) 11/21/20 09:35 Baso % (Auto) 0.2 % (0.0-1.8) 11/21/20 09:35 Lymph # (Auto) 0.5 K/mm3 (1.2-5.4) L 11/21/20 09:35 Gregg # (Auto) 0.2 K/mm3 (0.0-0.8) 11/21/20 09:35 Eos # (Auto) 0.0 K/mm3 (0.0-0.4) 11/21/20 09:35 Baso # (Auto) 0.0 K/mm3 (0.0-0.1) 11/21/20 09:35 Seg Neutrophils % 75.3 % (40.0-70.0) H 11/21/20 09:35 Seg Neutrophils # 2.0 K/mm3 (1.8-7.7) 11/21/20 09:35 D-Dimer 435.87 ng/mlDDU (0-234) H 11/23/20 14:13 Sodium 135 mmol/L (137-145) L 11/25/20 06:54 Potassium 4.8 mmol/L (3.6-5.0) 11/25/20 06:54 Chloride 100.9 mmol/L (98-107) 11/25/20 06:54 Carbon Dioxide 23 mmol/L (22-30) 11/25/20 06:54 Anion Gap 16 mmol/L 11/25/20 06:54 BUN 29 mg/dL (9-20) H 11/25/20 06:54 Creatinine 1.1 mg/dL (0.8-1.3) 11/25/20 06:54 Estimated GFR > 60 ml/min 11/25/20 06:54 BUN/Creatinine Ratio 26 % 11/25/20 06:54 Glucose 191 mg/dL (75-100) H 11/25/20 06:54 POC Glucose 275 mg/dL (70-105) H 11/25/20 16:08 Lactic Acid 1.10 mmol/L (0.7-2.0) 11/20/20 17:23 Calcium 7.9 mg/dL (8.4-10.2) L 11/25/20 06:54 Ferritin 6510.0 ng/mL (30.0-300.0) H 11/23/20 14:13 Total Bilirubin 0.60 mg/dL (0.1-1.2) 11/21/20 09:35 AST 202 units/L (5-40) H 11/21/20 09:35 ALT 189 units/L (7-56) H 11/21/20 09:35 Alkaline Phosphatase 66 units/L (35-129) 11/21/20 09:35 Lactate Dehydrogenase 682 units/L (91-180) H 11/21/20 10:45 Total Creatine Kinase 848 units/L (55-170) H 11/23/20 07:30 CK-MB (CK-2) 9.3 ng/mL (0.0-4.0) H 11/22/20 05:33 CK-MB (CK-2) Rel Index 1.0 (0-4) 11/22/20 05:33 Troponin T < 0.010 ng/mL (0.00-0.029) 11/22/20 05:33 C-Reactive Protein 0.80 mg/dL (0.00-1.30) 11/23/20 14:13 NT-Pro-B Natriuret Pep 467.3 pg/mL (0-900) 11/20/20 12:39 Total Protein 7.1 g/dL (6.3-8.2) 11/21/20 09:35 Albumin 3.2 g/dL (3.9-5) L 11/21/20 09:35 Albumin/Globulin Ratio 0.8 % 11/21/20 09:35 Procalcitonin 0.86 ng/mL (<0.15) 11/21/20 10:45 Urine Color Straw (Yellow) 11/20/20 18:55 Urine Turbidity Slightly cloudy (Clear) 11/20/20 18:55 Urine pH 5.0 (5.0-7.0) 11/20/20 18:55 Ur Specific [place] 1.015 (1.003-1.030) 11/20/20 18:55 Urine Protein 100 mg/dl mg/dL (Negative) 11/20/20 18:55 Urine Glucose (UA) Negative mg/dL (Negative) 11/20/20 18:55 Urine Ketones Negative mg/dL (Negative) 11/20/20 18:55 Urine Blood 2+ (Negative) 11/20/20 18:55 Urine Nitrite Negative (Negative) 11/20/20 18:55 Urine Bilirubin Negative (Negative) 11/20/20 18:55 Urine Urobilinogen < 2.0 mg/dL (<2.0) 11/20/20 18:55 Ur Leukocyte Esterase Negative (Negative) 11/20/20 18:55 Urine WBC (Auto) 2.0 /HPF (0.0-6.0) 11/20/20 18:55 Urine RBC (Auto) 1.0 /HPF (0.0-6.0) 11/20/20 18:55 Digoxin 0.3 ng/mL (0.9-2.0) L 11/21/20 21:08 Coronavirus (PCR) Positive (Negative) A 11/22/20 Unknown Microbiology: Microbiology 11/20/20 15:02 Peripheral/Venous Blood Culture - Final NO GROWTH AFTER 5 DAYS 11/20/20 15:08 Peripheral/Venous Blood Culture - Final NO GROWTH AFTER 5 DAYS Hall/IV: Voiding Method Urinal Active Medications - Current Medications Current Medications: Generic Name Dose Route Start Last Admin Trade Name Freq PRN Reason Stop Dose Admin Acetaminophen 650 mg 11/20/20 17:29 Acetaminophen 325 Mg Tab PO Q4H PRN Pain MILD(1-3)/Fever >100.5/KIDD Acetaminophen/Butalbital/Caffeine 1 tab 11/24/20 12:04 11/25/20 12:39 Butalb/Acetaminophen/Caffeine Tab PO 11/26/20 12:03 1 tab Q4H PRN Administration Headache Allopurinol 300 mg 11/20/20 15:43 Allopurinol 300 Mg Tab PO QDAY PRN Uric Acid Yarder Boss Ascorbic Acid 500 mg 11/20/20 22:00 11/25/20 11:22 Ascorbic Acid 500 Mg Tab PO 500 mg BID CARLY Administration Aspirin 81 mg 11/21/20 10:00 11/25/20 11:22 Aspirin 81 Mg Tab Chew PO 81 mg QDAY CARLY Administration Atorvastatin Calcium 80 mg 11/21/20 22:00 11/24/20 22:38 Atorvastatin 40 Mg Tab PO 80 mg QHS CARLY Administration Carvedilol 25 mg 11/21/20 22:00 11/25/20 11:23 Carvedilol 25 Mg Tab PO 25 mg BID CARLY Administration Cetirizine HCl 10 mg 11/20/20 16:00 11/25/20 11:22 Cetirizine 10 Mg Tab PO 10 mg DAILY CARLY Administration Cholecalciferol 1,000 unit 11/21/20 10:00 11/25/20 11:20 Cholecalciferol (Vit D3) 400 Unit Tab PO 1,000 unit QDAY CARLY Administration Colchicine 0.6 mg 11/20/20 15:43 Colchicine 0.6 Mg Tab PO DAILY PRN Gout Dextrose 50 ml 11/23/20 11:40 Dextrose 50% In Water (25gm) 50 Ml Syringe IV Q30MIN PRN Hypoglycemia Protocol Digoxin 0.125 mg 11/22/20 10:00 11/24/20 11:07 Digoxin 0.125 Mg Tab PO 0.125 mg Q48HR CARLY Administration Famotidine 10 mg 11/21/20 10:00 11/25/20 11:21 Famotidine 10 Mg Tab PO 10 mg BID CARLY Administration Guaifenesin 200 mg 11/23/20 21:57 11/23/20 22:42 Guaifenesin 100 Mg/5 Ml Oral Liqd PO 200 mg Q4H PRN Administration Cough Heparin Sodium (Porcine) 5,000 unit 11/20/20 22:00 11/25/20 11:21 Heparin 5,000 Unit/1 Ml Vial SUB-Q 5,000 unit Q12HR CARLY Administration Hydromorphone HCl 0.5 mg 11/22/20 10:00 Hydromorphone 1 Mg/1 Ml Inj IV Q6H PRN Pain , Severe (7-10) Insulin Glargine 15 units 11/23/20 22:00 11/24/20 22:39 Insulin Glargine 100 Units/Ml SUB-Q 15 units QHS CARLY Administration Insulin Human Lispro 0 unit 11/23/20 11:30 11/24/20 22:54 Insulin Lispro 100 Unit/Ml SUB-Q 3 unit ACHS CARLY Administration Protocol Methylprednisolone Sodium Succinate 80 mg 11/21/20 14:30 11/25/20 05:57 Methylprednisolone Sod Succinate 40 Mg/1 Ml Inj IV 80 mg Q8HR CARLY Administration Ondansetron HCl 4 mg 11/20/20 17:29 Ondansetron 4 Mg/2 Ml Inj IV Q8H PRN Nausea And Vomiting Oxycodone/Acetaminophen 1 tab 11/20/20 17:29 11/23/20 06:25 Oxycodone /Acetaminophen 5-325mg Tab PO 1 tab Q12H PRN Administration Pain, Moderate (4-6) Potassium Chloride 10 meq 11/21/20 10:00 11/25/20 11:24 Potassium Chloride Er 10 Meq Tab PO 10 meq DAILY CARLY Administration Ranolazine 1,000 mg 11/20/20 22:00 11/25/20 11:23 Ranolazine Er 500 Mg Tab 12hr PO 1,000 mg BID CARLY Administration Sodium Bicarbonate 1,300 mg 11/23/20 11:00 11/25/20 11:34 Sodium Bicarbonate 650 Mg Tab PO 1,300 mg BID CARLY Administration Sodium Chloride 10 ml 11/20/20 22:00 11/25/20 11:35 Sodium Chloride 0.9% 10 Ml Flush Syringe IV 10 ml BID CARLY Administration Sodium Chloride 10 ml 11/20/20 17:29 Sodium Chloride 0.9% 10 Ml Flush Syringe IV PRN PRN LINE FLUSH Timolol Maleate 1 drops 11/20/20 15:43 Timolol 0.5% Ophth Soln 5 Ml OD DAILY PRN Migraine Headache Zinc Sulfate 220 mg 11/20/20 22:00 11/25/20 11:21 Zinc Sulfate 220 Mg Cap PO 220 mg BID CARLY Administration Nutrition/Malnutrition Assess - Dietary Evaluation Nutrition/Malnutrition Findings: Nutrition Notes Start: 11/21/20 10:48 Freq: Status: Active Protocol: Document 11/21/20 10:48 NAVI (Rec: 11/21/20 11:24 NAVI [id number]) Nutrition Notes Need for Assessment generated from: MD Order Initial or Follow up Brief Note Other Pertinent Diagnosis Pt admitted with Shortness of Breath, associated with COVID. Current Diet Cardiac Diet Labs/Tests 11/21: Na 134, CO2 16, BUN 38, Cr 1.4, Glu 141. Pertinent Medications 11/21: Zn, Vit C, Vit D3. At Home: Pt supplements with Niacin, [place]-3. Height 5 ft 7 in Weight 93.894 kg [place] Body Weight (kg) 67.27 BMI 32.4 Intake Prior to Admission Good Weight Status Obese Subjective/Other Information Pt is independent. Burn Absent Trauma Absent GI Symptoms None Food Allergy No Skin Integrity/Comment Integumentary clear, warm, dry . Minimum of two criteria No physical signs of malnutrition #1 Nutrition Diagnosis No nutrition diagnosis at this time Comments: No reports on Food Intake, BBody Weight changes, Chewing/ Swallowing difficulties at the time. Is patient on ventilator? No Is Patient Ambulatory and/or Out of Bed Yes REE-([facility]-ambulatory/OOB) [ 2206.841 NUTR.MSJOOB] Kcal/Kg value to use for calculation 25 Approximate Energy Requirements Using 2347 kcal/Kg Calculation Used for Recommendations Kcal/kg Additional Notes Protein: 0.8-1.0 g/Kg/day; 54- 67gr/day; 216-268 Kcal/day ( from IBW) Fluids: 1.0 ml/Kcal, or as per MD. Nutrition Intervention Goal #1 Maintain Body Weight within +/ -3% of actual BW during LOS Follow-Up By: 11/28/20 Additional Comments Observe Pt tolerance of food, BM, total intake, and chewing/ swallowing difficulties.
[2020-11-25] MEDS: INSULIN GLARGINE 100 UNITS/ML SUB-Q SCH (22:22)
[2020-11-25] MEDS: SACUBITRIL/VALSARTAN 49-51 MG TAB PO SCH (22:26)
[2020-11-26] MEDS: methylPREDNISolone Sod Succinate 40 MG/1 ML INJ IV SCH ×3 (05:49→22:05)
[2020-11-26 06:49] LABS: BUN/Creatinine Ratio 24; Blood Urea Nitrogen 29 mg/dL (9-20); Hemolysis Index 17
[2020-11-26] MEDS: ZINC SULFATE 220 MG CAP PO SCH ×2 (09:19→22:04)
[2020-11-26] MEDS: HEPARIN 5,000 UNIT/1 ML VIAL SUB-Q SCH ×2 (09:19→22:04)
[2020-11-26] MEDS: FAMOTIDINE 10 MG TAB PO SCH ×2 (09:19→22:04)
[2020-11-26] MEDS: ASCORBIC ACID 500 MG TAB PO SCH ×2 (09:19→22:04)
[2020-11-26] MEDS: ASPIRIN 81 MG TAB CHEW PO SCH (09:19)
[2020-11-26] MEDS: SODIUM BICARBONATE 650 MG TAB PO SCH ×2 (09:19→22:04)
[2020-11-26] MEDS: SACUBITRIL/VALSARTAN 49-51 MG TAB PO SCH ×2 (09:20→22:04)
[2020-11-26] MEDS: DIGOXIN 0.125 MG TAB PO SCH (09:20)
[2020-11-26] MEDS: RANOLAZINE ER 500 MG TAB 12HR PO SCH ×2 (09:20→22:04)
[2020-11-26] MEDS: CETIRIZINE 10 MG TAB PO SCH (09:20)
[2020-11-26] MEDS: carvediloL 25 MG TAB PO SCH ×2 (09:20→22:04)
[2020-11-26] MEDS: INSULIN LISPRO 100 UNIT/ML SUB-Q SCH ×4 (09:21→22:05)
[2020-11-26] MEDS: POTASSIUM CHLORIDE ER 10 MEQ TAB PO SCH (09:23)
[2020-11-26] MEDS: CHOLECALCIFEROL (VIT D3) 400 UNIT TAB PO SCH (09:25)
--- NOTE | 2020-11-26 11:14 | Progress Note ---
Assessment and Plan Impression: * CHERYL * Covid PNA * hyponatremia * metabolic acidosis * acute hypoxic resp failure Plan: * cr is stable today at 1.2->1.1->1.2 * cheryl due to hypopperfusion with COVID PNA and volume depletion, high risk for progression to ATN * hold diuresis at this time as able * continue NaHCO3 for acidosis, HCO3 reasonable * stop KCl given borderline K now * volume resuscitation as needed, po intake as able * daily lytes and strict i/os * avoid nephrotoxins * renal diet * covid care per primary team Subjective Date of service: 11/26/20 Principal diagnosis: sob Interval history: 24 hour events reviewed, labs and chart reviewed. Interdisciplinary and nursing notes reviewed Objective - Exam Narrative Exam: primary team exam noted, exam deferred for preservation of PPE - Vital Signs Vital signs: Vital Signs - 12hr 11/26/20 11/26/20 03:13 04:49 Temperature 97.4 F L Pulse Rate 75 Respiratory 18 Rate Blood Pressure 117/78 O2 Sat by Pulse 95 86 Oximetry - Lab 11/23/20 07:30 11/26/20 05:38 Most recent lab results Calcium 8.0 mg/dL (8.4-10.2) L 11/26/20 05:38 Medications & Allergies - Medications Allergies/Adverse Reactions: Allergies No Known Allergies Allergy (Verified 04/13/15 20:17) Home Medications: Home Medications Medication Instructions Recorded Confirmed Last Taken Type Ibuprofen [Motrin] 800 mg PO Q8HR PRN 04/13/15 11/25/20 Unknown History Loratadine (Nf) [Claritin (Nf)] 10 mg PO DAILY PRN 04/13/15 11/25/20 Unknown History Timolol 0.5% [Timoptic] 1 drops OP DAILY PRN 04/13/15 11/25/20 Unknown History allopurinoL [Zyloprim] 300 mg PO QDAY PRN 04/13/15 11/25/20 Unknown History methylPREDNISolone [Medrol Dose 4 mg PO DAILY PRN 04/13/15 11/25/20 Unknown History Sergio] Famotidine [Pepcid] 20 mg PO BID #60 tablet 04/14/15 11/25/20 Unknown Rx Aspirin [Aspirin BABY CHEW TAB] 81 mg PO QDAY #30 tab.chew 06/16/15 11/25/20 Unknown Rx AtorvaSTATin [Lipitor] 40 mg PO QHS #30 tablet 06/16/15 11/25/20 Unknown Rx Colchicine [Colcrys] 0.6 mg PO DAILY PRN #30 tablet 06/16/15 11/25/20 Unknown Rx Digoxin [Lanoxin] 0.125 mg PO DAILY #30 tablet 06/16/15 11/25/20 Unknown Rx Furosemide [Lasix TAB] 40 mg PO QDAY #30 tablet 06/16/15 11/25/20 Unknown Rx Niacin ER [Niaspan ER] 500 mg PO QHS #30 tablet 06/16/15 11/25/20 Unknown Rx [place]-3 Fatty Acids/Fish Oil [Fish 1,000 mg PO DAILY #30 capsule 06/16/15 11/25/20 Unknown Rx Oil] Potassium Chloride [K-Dur] 10 meq PO DAILY #30 tablet 06/16/15 11/25/20 Unknown Rx Ranolazine ER [Ranexa ER] 1,000 mg PO BID #60 tablet 06/16/15 11/25/20 Unknown Rx Spironolactone [Aldactone] 25 mg PO QDAY #30 tablet 06/16/15 11/25/20 Unknown Rx allopurinoL [Zyloprim] 300 mg PO QDAY PRN #30 tablet 06/16/15 11/25/20 Unknown Rx carvediloL [Coreg] 25 mg PO DAILY #30 tablet 06/16/15 11/25/20 Unknown Rx lisinopriL [Zestril TAB] 40 mg PO QDAY #30 tablet 06/16/15 11/25/20 Unknown Rx oxyCODONE /ACETAMINOPHEN [Percocet 1 tab PO Q6H PRN #30 tablet 06/16/15 11/25/20 Unknown Rx 5/325 mg] predniSONE [Deltasone] 20 mg PO QDAY #30 tablet 06/16/15 11/25/20 Unknown Rx Active Medications: Generic Name Dose Route Start Last Admin Trade Name Freq PRN Reason Stop Dose Admin Acetaminophen 650 mg 11/20/20 17:29 Acetaminophen 325 Mg Tab PO Q4H PRN Pain MILD(1-3)/Fever >100.5/KIDD Acetaminophen/Butalbital/Caffeine 1 tab 11/24/20 12:04 11/25/20 12:39 Butalb/Acetaminophen/Caffeine Tab PO 11/26/20 12:03 1 tab Q4H PRN Administration Headache Allopurinol 300 mg 11/20/20 15:43 Allopurinol 300 Mg Tab PO QDAY PRN Uric Acid Service Porter Ascorbic Acid 500 mg 11/20/20 22:00 11/26/20 09:19 Ascorbic Acid 500 Mg Tab PO 500 mg BID CARLY Administration Aspirin 81 mg 11/21/20 10:00 11/26/20 09:19 Aspirin 81 Mg Tab Chew PO 81 mg QDAY CARLY Administration Atorvastatin Calcium 80 mg 11/21/20 22:00 11/25/20 22:22 Atorvastatin 40 Mg Tab PO 80 mg QHS CARLY Administration Carvedilol 25 mg 11/21/20 22:00 11/26/20 09:20 Carvedilol 25 Mg Tab PO 25 mg BID CARLY Administration Cetirizine HCl 10 mg 11/20/20 16:00 11/26/20 09:20 Cetirizine 10 Mg Tab PO 10 mg DAILY CARLY Administration Cholecalciferol 1,000 unit 11/21/20 10:00 11/26/20 09:25 Cholecalciferol (Vit D3) 400 Unit Tab PO 1,000 unit QDAY CARLY Administration Colchicine 0.6 mg 11/20/20 15:43 Colchicine 0.6 Mg Tab PO DAILY PRN Gout Dextrose 50 ml 11/23/20 11:40 Dextrose 50% In Water (25gm) 50 Ml Syringe IV Q30MIN PRN Hypoglycemia Protocol Digoxin 0.125 mg 11/22/20 10:00 11/26/20 09:20 Digoxin 0.125 Mg Tab PO 0.125 mg Q48HR CARLY Administration Famotidine 10 mg 11/21/20 10:00 11/26/20 09:19 Famotidine 10 Mg Tab PO 10 mg BID CARLY Administration Guaifenesin 200 mg 11/23/20 21:57 11/23/20 22:42 Guaifenesin 100 Mg/5 Ml Oral Liqd PO 200 mg Q4H PRN Administration Cough Heparin Sodium (Porcine) 5,000 unit 11/20/20 22:00 11/26/20 09:19 Heparin 5,000 Unit/1 Ml Vial SUB-Q 5,000 unit Q12HR CARLY Administration Hydromorphone HCl 0.5 mg 11/22/20 10:00 Hydromorphone 1 Mg/1 Ml Inj IV Q6H PRN Pain , Severe (7-10) Insulin Glargine 15 units 11/23/20 22:00 11/25/20 22:22 Insulin Glargine 100 Units/Ml SUB-Q 15 units QHS CARLY Administration Insulin Human Lispro 0 unit 11/23/20 11:30 11/26/20 09:21 Insulin Lispro 100 Unit/Ml SUB-Q 4 unit ACHS CARLY Administration Protocol Methylprednisolone Sodium Succinate 80 mg 11/21/20 14:30 11/26/20 05:49 Methylprednisolone Sod Succinate 40 Mg/1 Ml Inj IV 80 mg Q8HR CARLY Administration Ondansetron HCl 4 mg 11/20/20 17:29 Ondansetron 4 Mg/2 Ml Inj IV Q8H PRN Nausea And Vomiting Oxycodone/Acetaminophen 1 tab 11/20/20 17:29 11/23/20 06:25 Oxycodone /Acetaminophen 5-325mg Tab PO 1 tab Q12H PRN Administration Pain, Moderate (4-6) Potassium Chloride 10 meq 11/21/20 10:00 11/26/20 09:23 Potassium Chloride Er 10 Meq Tab PO 10 meq DAILY CARLY Administration Ranolazine 1,000 mg 11/20/20 22:00 11/26/20 09:20 Ranolazine Er 500 Mg Tab 12hr PO 1,000 mg BID CARLY Administration Sodium Bicarbonate 1,300 mg 11/23/20 11:00 11/26/20 09:19 Sodium Bicarbonate 650 Mg Tab PO 1,300 mg BID CARLY Administration Sodium Chloride 10 ml 11/20/20 22:00 11/25/20 22:25 Sodium Chloride 0.9% 10 Ml Flush Syringe IV 10 ml BID CARLY Administration Sodium Chloride 10 ml 11/20/20 17:29 Sodium Chloride 0.9% 10 Ml Flush Syringe IV PRN PRN LINE FLUSH Timolol Maleate 1 drops 11/20/20 15:43 Timolol 0.5% Ophth Soln 5 Ml OD DAILY PRN Migraine Headache Zinc Sulfate 220 mg 11/20/20 22:00 11/26/20 09:19 Zinc Sulfate 220 Mg Cap PO 220 mg BID CARLY Administration
--- NOTE | 2020-11-26 12:39 | Progress Note ---
Assessment and Plan Patient is 60 YO Male with a PMHx of CAD S/P PCI, HTN, HFrEF( EF <15%) S/P AICD Placement, and Coronavirus Infection diagnosed HFrEF CAD s/p PCI S/p AICD placment HTN * Echo-11/21/2020-EF 10 to 15%, LV is severely dilated, global hypokinesis of left ventricle, mild diastolic dysfunction is present impaired relaxation pattern, right ventricle is normal size, pacemaker lead present in right ventricle * LHC 03/24/2020- Patent LAD stent, other coronaries normal without significant plaque. Severely depressed LV systolic function. EF<20% * Nuclear MPI 08/07/2019- Abnormal pharmacologic stress nuclear study but negative for ischemia. The left ventricle is moderately dilated. There are mild to moderately reduced perfusion defects of medium size in the inferior wall. The defect in the inferior segment is fixed. No significant ischemia detected. Stress EKG Test Results Normal. Systolic function is severely reduced. The calculated rest EF is at 24%. Normal myocardial perfusion in anterior, apical, septal and lateral leads and fixed inferior defect * Currently on: Coreg 25mg PO BID, Renaxa 1000mg PO BID, digoxin .125mg PO Q48hrs, atorvastatin 80mg PO QHS. Acute Hypoxic respiratory failure Elevated D-dimer COVID-19 * Patient on NC * ID following * Pulmonology following * COVID PCR positive * VQ scan shows low probability of PE CHERYL * Nephrology following Hyponatremia * Na 125 initially. Has improved * Management per primary team Plan: BMP in AM. Will continue to hold diueretics as per nephrology recs Patient seen in conjunction with Dr. Salinas who agrees with this plan of care. Will continue to follow - Patient Problems (1) COVID-19 Current Visit: Yes Status: Acute (2) CHERYL (acute kidney injury) Current Visit: Yes Status: Acute (3) D-dimer, elevated Current Visit: Yes Status: Acute (4) Hyponatremia Current Visit: Yes Status: Acute (5) Acute hypoxemic respiratory failure Current Visit: Yes Status: Acute (6) Coronary artery disease Current Visit: No Status: Chronic Qualifiers: Coronary Disease-Associated Artery/Lesion type: [place] artery [place] vs. transplanted heart: [place] heart Associated angina: with stable angina Qualified Code(s): I25.118 - Atherosclerotic heart disease of [place] coronary artery with other forms of angina pectoris (7) GERD (gastroesophageal reflux disease) Current Visit: No Status: Acute (8) Chronic systolic heart failure Current Visit: No Status: Chronic (9) Essential hypertension Current Visit: No Status: Chronic (10) Hyperlipidemia Current Visit: No Status: Chronic Subjective Date of service: 11/26/20 Principal diagnosis: sob Interval history: Patient lying in bed. patient sinus 70s on monitor with no events Objective Vital Signs Temp Pulse Resp BP Pulse Ox 11/26/20 10:00 100 11/26/20 04:49 97.4 F L 75 18 117/78 86 11/26/20 03:13 95 11/25/20 22:00 95 11/25/20 21:48 97.3 F L 59 L 18 117/66 87 11/25/20 20:53 96 11/25/20 16:09 97.5 F L 67 20 131/88 93 11/25/20 14:00 92 - Physical Examination General: No Apparent Distress HEENT: Positive: PERRL Neck: Positive: trachea midline Cardiac: Positive: Reg Rate and Rhythm Lungs: Positive: Normal Breath Sounds Neuro: Positive: Grossly Intact Abdomen: Positive: Soft Skin: Negative: Rash, Suspicious Lesions, Ulceration Extremities: Present: upper extr. pulses, lower extr. pulses. Absent: edema - Labs and Meds Comprehensive Metabolic Panel 11/26/20 Range/Units 05:38 Sodium 136 L (137-145) mmol/L Potassium 5.1 H (3.6-5.0) mmol/L Chloride 102.2 (98-107) mmol/L Carbon Dioxide 19 L (22-30) mmol/L BUN 29 H (9-20) mg/dL Creatinine 1.2 (0.8-1.3) mg/dL Glucose 258 H (75-100) mg/dL Calcium 8.0 L (8.4-10.2) mg/dL - Imaging and Cardiology EKG: report reviewed, image reviewed Echo: report reviewed Cardiac cath: report reviewed - Telemetry EKG Rhythm: Sinus Rhythm - EKG Sinus rhythms and dysrhythmias: sinus rhythm
--- NOTE | 2020-11-26 14:22 | Progress Note ---
Assessment and Plan 60 y/o male with acute respiratory failure secondary to COVID pneumonia. 11/26/20: Wean FiO2 For sats >88%. Prone if able and continue steroids. 11/25/20: Wean FiO2 for sats >88%, proning, steroids. Steroids Proning Subjective Date of service: 11/26/20 Principal diagnosis: sob Interval history: No acute events. Down to 8 liters. Objective Vital Signs - 12hr 11/26/20 11/26/20 11/26/20 03:13 04:49 09:00 Temperature 97.4 F L Pulse Rate 75 Respiratory 18 Rate Blood Pressure 117/78 O2 Sat by Pulse 95 86 91 Oximetry 11/26/20 11/26/20 10:00 12:36 Temperature 97.7 F Pulse Rate 53 L Respiratory 22 Rate Blood Pressure 114/72 O2 Sat by Pulse 100 89 Oximetry CBC and BMP: 11/23/20 07:30 11/27/20 05:50 ABG, PT/INR, D-dimer: PT/INR, D-dimer D-Dimer 435.87 ng/mlDDU (0-234) H 11/23/20 14:13 Abnormal lab findings: Abnormal Labs 11/20/20 11/20/20 11/20/20 12:39 12:39 12:39 WBC 2.4 L RBC Hgb 16.1 H Hct 48.0 H MCV 99 H MCH 33 H MCHC Plt Count 100 L [place] % (Auto) 8.4 H Lymph # (Auto) 0.6 L Seg Neutrophils % Seg Neutrophils # 1.6 L D-Dimer 836.61 H Sodium 125 L Potassium Chloride 94.3 L Carbon Dioxide 16 L BUN 43 H Creatinine 2.3 H Glucose POC Glucose Calcium Ferritin AST ALT Lactate Dehydrogenase Total Creatine Kinase CK-MB (CK-2) C-Reactive Protein Albumin Digoxin Coronavirus (PCR) 11/21/20 11/21/20 11/21/20 09:35 09:35 10:45 WBC 2.7 L RBC 5.04 H Hgb 17.1 H Hct 49.5 H MCV 98 H MCH 34 H MCHC 35 H Plt Count 93 L [place] % (Auto) Lymph # (Auto) 0.5 L Seg Neutrophils % 75.3 H Seg Neutrophils # D-Dimer 859.78 H Sodium 134 L D Potassium Chloride Carbon Dioxide 16 L BUN 38 H Creatinine 1.4 H Glucose 141 H POC Glucose Calcium 8.2 L Ferritin AST 202 H ALT 189 H Lactate Dehydrogenase Total Creatine Kinase CK-MB (CK-2) C-Reactive Protein Albumin 3.2 L Digoxin Coronavirus (PCR) 11/21/20 11/21/20 11/21/20 10:45 10:45 15:12 WBC RBC Hgb Hct MCV MCH MCHC Plt Count [place] % (Auto) Lymph # (Auto) Seg Neutrophils % Seg Neutrophils # D-Dimer Sodium Potassium Chloride Carbon Dioxide BUN Creatinine Glucose 154 H POC Glucose Calcium Ferritin 9449.0 H AST ALT Lactate Dehydrogenase 682 H Total Creatine Kinase 1372 H CK-MB (CK-2) 16.3 H C-Reactive Protein 4.60 H Albumin Digoxin Coronavirus (PCR) 11/21/20 11/21/20 11/22/20 21:08 21:08 05:33 WBC RBC Hgb Hct MCV MCH MCHC Plt Count [place] % (Auto) Lymph # (Auto) Seg Neutrophils % Seg Neutrophils # D-Dimer Sodium 132 L Potassium Chloride Carbon Dioxide 16 L BUN 38 H Creatinine 1.4 H Glucose 223 H POC Glucose Calcium 7.8 L Ferritin AST ALT Lactate Dehydrogenase Total Creatine Kinase 1198 H CK-MB (CK-2) 13.6 H C-Reactive Protein Albumin Digoxin 0.3 L Coronavirus (PCR) 11/22/20 11/22/20 11/23/20 05:33 Unknown 07:30 WBC RBC Hgb Hct MCV MCH MCHC Plt Count [place] % (Auto) Lymph # (Auto) Seg Neutrophils % Seg Neutrophils # D-Dimer Sodium 134 L Potassium Chloride Carbon Dioxide 21 L BUN 34 H Creatinine Glucose 217 H POC Glucose Calcium 7.7 L Ferritin AST ALT Lactate Dehydrogenase Total Creatine Kinase 847 H CK-MB (CK-2) 9.3 H C-Reactive Protein Albumin Digoxin Coronavirus (PCR) Positive A 11/23/20 11/23/20 11/23/20 07:30 07:30 14:13 WBC 4.3 L RBC Hgb 15.4 H Hct MCV 97 H MCH 34 H MCHC 35 H Plt Count 106 L [place] % (Auto) Lymph # (Auto) Seg Neutrophils % Seg Neutrophils # D-Dimer 435.87 H Sodium Potassium Chloride Carbon Dioxide BUN Creatinine Glucose POC Glucose Calcium Ferritin AST ALT Lactate Dehydrogenase Total Creatine Kinase 848 H CK-MB (CK-2) C-Reactive Protein Albumin Digoxin Coronavirus (PCR) 11/23/20 11/23/20 11/23/20 14:13 16:49 23:00 WBC RBC Hgb Hct MCV MCH MCHC Plt Count [place] % (Auto) Lymph # (Auto) Seg Neutrophils % Seg Neutrophils # D-Dimer Sodium Potassium Chloride Carbon Dioxide BUN Creatinine Glucose POC Glucose 228 H 167 H Calcium Ferritin 6510.0 H AST ALT Lactate Dehydrogenase Total Creatine Kinase CK-MB (CK-2) C-Reactive Protein Albumin Digoxin Coronavirus (PCR) 11/24/20 11/24/20 11/24/20 07:25 07:51 11:29 WBC RBC Hgb Hct MCV MCH MCHC Plt Count [place] % (Auto) Lymph # (Auto) Seg Neutrophils % Seg Neutrophils # D-Dimer Sodium Potassium Chloride Carbon Dioxide 21 L BUN 31 H Creatinine Glucose 178 H POC Glucose 178 H 206 H Calcium 7.7 L Ferritin AST ALT Lactate Dehydrogenase Total Creatine Kinase CK-MB (CK-2) C-Reactive Protein Albumin Digoxin Coronavirus (PCR) 11/24/20 11/25/20 11/25/20 22:45 06:54 07:53 WBC RBC Hgb Hct MCV MCH MCHC Plt Count [place] % (Auto) Lymph # (Auto) Seg Neutrophils % Seg Neutrophils # D-Dimer Sodium 135 L Potassium Chloride Carbon Dioxide BUN 29 H Creatinine Glucose 191 H POC Glucose 209 H 194 H Calcium 7.9 L Ferritin AST ALT Lactate Dehydrogenase Total Creatine Kinase CK-MB (CK-2) C-Reactive Protein Albumin Digoxin Coronavirus (PCR) 11/25/20 11/25/20 11/25/20 11:34 16:08 21:50 WBC RBC Hgb Hct MCV MCH MCHC Plt Count [place] % (Auto) Lymph # (Auto) Seg Neutrophils % Seg Neutrophils # D-Dimer Sodium Potassium Chloride Carbon Dioxide BUN Creatinine Glucose POC Glucose 255 H 275 H 218 H Calcium Ferritin AST ALT Lactate Dehydrogenase Total Creatine Kinase CK-MB (CK-2) C-Reactive Protein Albumin Digoxin Coronavirus (PCR) 11/26/20 11/26/20 11/26/20 05:38 07:20 12:34 WBC RBC Hgb Hct MCV MCH MCHC Plt Count [place] % (Auto) Lymph # (Auto) Seg Neutrophils % Seg Neutrophils # D-Dimer Sodium 136 L Potassium 5.1 H Chloride Carbon Dioxide 19 L BUN 29 H Creatinine Glucose 258 H POC Glucose 255 H 326 H Calcium 8.0 L Ferritin AST ALT Lactate Dehydrogenase Total Creatine Kinase CK-MB (CK-2) C-Reactive Protein Albumin Digoxin Coronavirus (PCR)
--- NOTE | 2020-11-26 14:28 | Progress Note ---
Assessment and Plan Cultures: SARS CoV2 PCR: Positive as outpatient, positive inpatient 11/20/2020 blood culture: no growth today A/P: 60-year-old male with coronary artery disease, CHF, hypertension, cardiomyopathy status post AICD placement who was recently diagnosed with COVID-19 infection 2 weeks prior: #Bilateral pneumonia secondary to COVID-19: Labs revealed leukopenia, D-dimer 859, LDH 682, transaminitis, CRP 4.6, NT proBNP 467. CXR with interstitial thickening. V/Q with low probability for PE. #Acute hypoxic respiratory failure: Remains on 8 L salter. #CHF, cardiomyopathy, s/p AICD #CHERYL: Renally adjust antibiotics #Transaminitis: ?COVID related v/s congestion. #Leukopenia, thrombocytopenia: Likely related to viral illness Recs: -Continue steroids, on methylprednisolone. Complete 10 days of steroids. -Out of the window for remdesivir benefit since diagnosis was 2 weeks ago -Not a candidate for Actemra based on CRP and oxygen requirements -prophylactic anticoagulation based on d-dimer per hospital protocol -trend d-dimer, CRP every 2-3 days, ordered -CHF management per primary GChristine Mirza MD [facility] O: [phone] F: [phone] Subjective Date of service: 11/26/20 Principal diagnosis: sob Interval history: Afebrile, no acute change. Currently on 8 L salter nasal cannula. Objective - Exam Narrative Exam: Physical exam deferred to reduce risk of transmission of COVID-19. Please refer to primary team's note. - Constitutional Vitals: Vital Signs Temp Pulse Resp BP Pulse Ox 97.7 F 53 L 22 114/72 89 11/26/20 12:36 11/26/20 12:36 11/26/20 12:36 11/26/20 12:36 11/26/20 12:36 Temperature -Last 24 Hours Temperature 97.7 F Temperature 97.4 F Temperature 97.3 F Temperature 97.5 F - Labs CBC & Chem 7: 11/23/20 07:30 11/26/20 05:38 Labs: Abnormal lab results 11/25/20 11/25/20 11/26/20 Range/Units 16:08 21:50 05:38 Sodium 136 L (137-145) mmol/L Potassium 5.1 H (3.6-5.0) mmol/L Carbon Dioxide 19 L (22-30) mmol/L BUN 29 H (9-20) mg/dL Glucose 258 H (75-100) mg/dL POC Glucose 275 H 218 H (70-105) mg/dL Calcium 8.0 L (8.4-10.2) mg/dL 11/26/20 11/26/20 Range/Units 07:20 12:34 Sodium (137-145) mmol/L Potassium (3.6-5.0) mmol/L Carbon Dioxide (22-30) mmol/L BUN (9-20) mg/dL Glucose (75-100) mg/dL POC Glucose 255 H 326 H (70-105) mg/dL Calcium (8.4-10.2) mg/dL
--- NOTE | 2020-11-26 15:26 | Progress Note ---
Assessment and Plan Assessment and plan: 60 YO Male with CAD S/P Stent Placement, HTN, Systolic CHF(EF 25) S/P AICD Placement, HLD, MT, OA, Coronavirus Infection diagnosed 2 weeks ago presents to ED for evaluation. Patient reports "I am short of breath". Patient states that he has experienced shortness of breath, dry cough, fatigue, malaise, body aches, subjective fever, decreased exercise tolerance over the past 1 week with persistent and worsening symptoms over the past 3 days. EMS was notified and upon arrival the patient was found to be in distress and subsequent transported to [facility] for further care and evaluation of the aforementioned symptoms. The patient was seen and evaluated in the emergency department. All lab and imaging studies reviewed. Patient found to have a pulse oximetry of 86% with exertion which is consistent with acute hypoxemic respiratory failure. The patient is unable to speak in complete sentences due to shortness of breath. Patient placed on submental oxygen with mild improvement in symptoms. Patient admitted to medical floor and initiated on coronavirus protocol due to increased risk of worsening symptoms. VQ scan ordered and is pending at time of admission. Patient denies chest pain, palpitation, unilateral leg swelling, calf pain, prolonged travel/immobility, individual/family history of DVT/PE/bleeding/blood clotting disorders. Prior admission on 06/14/2015 reviewed. All medication l isted at time of admission has been reconciled. Advanced care planning conducted in ED. --Acute hypoxemic respiratory failure Current Visit: Yes Status: Acute Chest x-ray, supplemental oxygen, pulse oximetry, nebulizer therapy, VQ scan ordered and is pending at time of admission. --Obesity hypoventilation syndrome Current Visit: Yes Status: Acute Balanced diet, increase physical activity discharge, outpatient pulmonary follow-up for sleep study. -- COVID-19 virus infection Current Visit: No Status: Acute Coronavirus protocol: Contact precautions, isolation precautions, IV steroid th erapy, IV antibiotic therapy, vitamin C therapy, vitamin D therapy, zinc therapy, prophylactic anticoagulation --Essential hypertension Current Visit: No Status: Chronic Monitor blood pressure every shift, continue medical management -- Hyperlipidemia Current Visit: No Status: Chronic Statin therapy, low-cholesterol diet, supportive care. --Acute kidney injury with vasomotor nephropathy. Present on admission, now resolved.. -- Hyponatremia Sodium levels, improving trending up --thrombocytopenia ; viral etiology --DVT prophylaxis Current Visit: Yes Status: Acute SCD to bilateral lower extremities while in bed, prophylactic anticoagulation --HFrEF EF 10 to 15% Current Visit: Yes Status: Acute Continue antifailure medications Low-sodium diet, fluid restriction, --h/o CAD s/p PCI: continue current cardiac medications Cardiology following --Severe ischemic cardiomyopathy -S/p AICD placment/HTN/LHC 03/24/2020 -- Rhabdomyolysis ; trending down Closely monitor, input output monitoring Gentle hydration, monitor renal function -- migraine ; resume home medications --obesity; BMI 31.7 Disease education conducted, care plan discussed, diagnoses discussed, prognosis discussed, patient is full code, patient knowledges understanding and agreement with care plan. +30 minutes. Brief history and hospital course 11/21: Patient seen and examined his on 12 L of oxygen. I have increasing steroids to 80 mg every 8 will defer to ID if he should be changed to Decadron. I have consulted pulmonary and cardiology in the meantime manager property ordered an EKG which showed possible anterior wall infarct with some ST elevations very minimal. I reviewed the EKG from 2016 and it was similar. Patient denies any chest pain at this time. Nephrology has been consulted as patient has an acute kidney injury with a baseline of 1.1 Patient 2016 although I do not have any new baseline. I will defer initiation of IV Lasix to nephrology the patient was started on p.o. Lasix nevertheless on admission. Also hyponatremia is noted I will monitor this closely in addition to thrombocytopenia which will affect the use of anticoagulation. I will encourage the patient to prone as much as tolerated. 11/22: Patient on Bicarb drip per Hardware Test Engineer, will continue to monitor renal function and respiratory status considering clinical status of COVID 19. Lasix appears to have been discontinued, continue steroid therapy, monitor closely especially thrombocytopenia. Encourage prone positioning if tolerable. 11/23: Patient seen and examined, Discussed with manager property, will discontinued Fluids at this time. Hold Isosorbide due to the low BP. Continue to wean oxygen. 11/24: Continue steroid therapy at this time. Continue to wean oxygen as to lerated. Patient is now off the fluids. We will try some Fioricet considering report of migraine headache. Still severely sick continue hospital stay. Renal function is improving. 11/25; consults and recommendations noted and appreciated Closely monitor the patient and adjust management as needed 11/26: Patient on 8 L of nasal cannula oxygen. I called patient's daughter Ms. Santamaria at [phone] and discussed in detail patient's condition, tests and reports, consultants recommendations and demetrius tment plan, I also informed that he is requiring supplemental oxygen 8 L. She has many questions and I answered all of them. And encouraged her To call back if she has any new concerns. History Interval history: Have seen and examined the patient at bedside Isolation precautions and protocols followed patient complains of some headache off and on Denies nausea vomiting or dizziness COVID-19 infection with hypoxia, currently on 8 L of nasal cannula oxygen Vital signs reviewed Hospitalist Physical - Constitutional Vitals: Temp Pulse Resp BP Pulse Ox 97.7 F 53 L 22 114/72 89 11/26/20 12:36 11/26/20 12:36 11/26/20 12:36 11/26/20 12:36 11/26/20 12:36 General appearance: Present: no acute distress, well-nourished, obese - EENT Eyes: Present: PERRL, EOM intact - Neck Neck: Present: supple, normal ROM - Respiratory Respiratory effort: normal Respiratory: bilateral: diminished, rhonchi, negative: rales, wheezing - Cardiovascular Rhythm: regular Heart Sounds: Present: S1 & S2 - Extremities Extremities: no ischemia, No edema - Abdominal General gastrointestinal: soft, non-tender, non-distended, normal bowel sounds - Integumentary Integumentary: Present: clear, warm - Psychiatric Psychiatric: appropriate mood/affect, cooperative - Neurologic Neurologic: CNII-XII intact, moves all extremities HEART Score - HEART Score Troponin: Troponin T < 0.010 ng/mL (0.00-0.029) 11/22/20 05:33 Results - Labs CBC & Chem 7: 11/23/20 07:30 11/26/20 05:38 Labs: Laboratory Last Values WBC 4.3 K/mm3 (4.5-11.0) L 11/23/20 07:30 RBC 4.57 M/mm3 (3.65-5.03) 11/23/20 07:30 Hgb 15.4 gm/dl (11.8-15.2) H 11/23/20 07:30 Hct 44.3 % (35.5-45.6) 11/23/20 07:30 MCV 97 fl (84-94) H 11/23/20 07:30 MCH 34 pg (28-32) H 11/23/20 07:30 MCHC 35 % (32-34) H 11/23/20 07:30 RDW 15.0 % (13.2-15.2) 11/23/20 07:30 Plt Count 106 K/mm3 (140-440) L 11/23/20 07:30 Lymph % (Auto) 18.4 % (13.4-35.0) 11/21/20 09:35 [place] % (Auto) 6.1 % (0.0-7.3) 11/21/20 09:35 Eos % (Auto) 0.0 % (0.0-4.3) 11/21/20 09:35 Baso % (Auto) 0.2 % (0.0-1.8) 11/21/20 09:35 Lymph # (Auto) 0.5 K/mm3 (1.2-5.4) L 11/21/20 09:35 [place] # (Auto) 0.2 K/mm3 (0.0-0.8) 11/21/20 09:35 Eos # (Auto) 0.0 K/mm3 (0.0-0.4) 11/21/20 09:35 Baso # (Auto) 0.0 K/mm3 (0.0-0.1) 11/21/20 09:35 Seg Neutrophils % 75.3 % (40.0-70.0) H 11/21/20 09:35 Seg Neutrophils # 2.0 K/mm3 (1.8-7.7) 11/21/20 09:35 D-Dimer 435.87 ng/mlDDU (0-234) H 11/23/20 14:13 Sodium 136 mmol/L (137-145) L 11/26/20 05:38 Potassium 5.1 mmol/L (3.6-5.0) H 11/26/20 05:38 Chloride 102.2 mmol/L (98-107) 11/26/20 05:38 Carbon Dioxide 19 mmol/L (22-30) L 11/26/20 05:38 Anion Gap 20 mmol/L 11/26/20 05:38 BUN 29 mg/dL (9-20) H 11/26/20 05:38 Creatinine 1.2 mg/dL (0.8-1.3) 11/26/20 05:38 Estimated GFR > 60 ml/min 11/26/20 05:38 BUN/Creatinine Ratio 24 % 11/26/20 05:38 Glucose 258 mg/dL (75-100) H 11/26/20 05:38 POC Glucose 326 mg/dL (70-105) H 11/26/20 12:34 Lactic Acid 1.10 mmol/L (0.7-2.0) 11/20/20 17:23 Calcium 8.0 mg/dL (8.4-10.2) L 11/26/20 05:38 Ferritin 6510.0 ng/mL (30.0-300.0) H 11/23/20 14:13 Total Bilirubin 0.60 mg/dL (0.1-1.2) 11/21/20 09:35 AST 202 units/L (5-40) H 11/21/20 09:35 ALT 189 units/L (7-56) H 11/21/20 09:35 Alkaline Phosphatase 66 units/L (35-129) 11/21/20 09:35 Lactate Dehydrogenase 682 units/L (91-180) H 11/21/20 10:45 Total Creatine Kinase 848 units/L (55-170) H 11/23/20 07:30 CK-MB (CK-2) 9.3 ng/mL (0.0-4.0) H 11/22/20 05:33 CK-MB (CK-2) Rel Index 1.0 (0-4) 11/22/20 05:33 Troponin T < 0.010 ng/mL (0.00-0.029) 11/22/20 05:33 C-Reactive Protein 0.80 mg/dL (0.00-1.30) 11/23/20 14:13 NT-Pro-B Natriuret Pep 467.3 pg/mL (0-900) 11/20/20 12:39 Total Protein 7.1 g/dL (6.3-8.2) 11/21/20 09:35 Albumin 3.2 g/dL (3.9-5) L 11/21/20 09:35 Albumin/Globulin Ratio 0.8 % 11/21/20 09:35 Procalcitonin 0.86 ng/mL (<0.15) 11/21/20 10:45 Urine Color Straw (Yellow) 11/20/20 18:55 Urine Turbidity Slightly cloudy (Clear) 11/20/20 18:55 Urine pH 5.0 (5.0-7.0) 11/20/20 18:55 Ur Specific [place] 1.015 (1.003-1.030) 11/20/20 18:55 Urine Protein 100 mg/dl mg/dL (Negative) 11/20/20 18:55 Urine Glucose (UA) Negative mg/dL (Negative) 11/20/20 18:55 Urine Ketones Negative mg/dL (Negative) 11/20/20 18:55 Urine Blood 2+ (Negative) 11/20/20 18:55 Urine Nitrite Negative (Negative) 11/20/20 18:55 Urine Bilirubin Negative (Negative) 11/20/20 18:55 Urine Urobilinogen < 2.0 mg/dL (<2.0) 11/20/20 18:55 Ur Leukocyte Esterase Negative (Negative) 11/20/20 18:55 Urine WBC (Auto) 2.0 /HPF (0.0-6.0) 11/20/20 18:55 Urine RBC (Auto) 1.0 /HPF (0.0-6.0) 11/20/20 18:55 Digoxin 0.3 ng/mL (0.9-2.0) L 11/21/20 21:08 Coronavirus (PCR) Positive (Negative) A 11/22/20 Unknown Microbiology: Microbiology 11/20/20 15:02 Peripheral/Venous Blood Culture - Final NO GROWTH AFTER 5 DAYS 11/20/20 15:08 Peripheral/Venous Blood Culture - Final NO GROWTH AFTER 5 DAYS Hall/IV: Voiding Method Toilet Active Medications - Current Medications Current Medications: Generic Name Dose Route Start Last Admin Trade Name Freq PRN Reason Stop Dose Admin Acetaminophen 650 mg 11/20/20 17:29 Acetaminophen 325 Mg Tab PO Q4H PRN Pain MILD(1-3)/Fever >100.5/KIDD Allopurinol 300 mg 11/20/20 15:43 Allopurinol 300 Mg Tab PO QDAY PRN Uric Acid Attendant [employer] [facility] Ascorbic Acid 500 mg 11/20/20 22:00 11/26/20 09:19 Ascorbic Acid 500 Mg Tab PO 500 mg BID CARLY Administration Aspirin 81 mg 11/21/20 10:00 11/26/20 09:19 Aspirin 81 Mg Tab Chew PO 81 mg QDAY CARLY Administration Atorvastatin Calcium 80 mg 11/21/20 22:00 11/25/20 22:22 Atorvastatin 40 Mg Tab PO 80 mg QHS CARLY Administration Carvedilol 25 mg 11/21/20 22:00 11/26/20 09:20 Carvedilol 25 Mg Tab PO 25 mg BID CARLY Administration Cetirizine HCl 10 mg 11/20/20 16:00 11/26/20 09:20 Cetirizine 10 Mg Tab PO 10 mg DAILY CARLY Administration Cholecalciferol 1,000 unit 11/21/20 10:00 11/26/20 09:25 Cholecalciferol (Vit D3) 400 Unit Tab PO 1,000 unit QDAY CARLY Administration Colchicine 0.6 mg 11/20/20 15:43 Colchicine 0.6 Mg Tab PO DAILY PRN Gout Dextrose 50 ml 11/23/20 11:40 Dextrose 50% In Water (25gm) 50 Ml Syringe IV Q30MIN PRN Hypoglycemia Protocol Digoxin 0.125 mg 11/22/20 10:00 11/26/20 09:20 Digoxin 0.125 Mg Tab PO 0.125 mg Q48HR CARLY Administration Famotidine 10 mg 11/21/20 10:00 11/26/20 09:19 Famotidine 10 Mg Tab PO 10 mg BID CARLY Administration Guaifenesin 200 mg 11/23/20 21:57 11/23/20 22:42 Guaifenesin 100 Mg/5 Ml Oral Liqd PO 200 mg Q4H PRN Administration Cough Heparin Sodium (Porcine) 5,000 unit 11/20/20 22:00 11/26/20 09:19 Heparin 5,000 Unit/1 Ml Vial SUB-Q 5,000 unit Q12HR CARLY Administration Hydromorphone HCl 0.5 mg 11/22/20 10:00 Hydromorphone 1 Mg/1 Ml Inj IV Q6H PRN Pain , Severe (7-10) Insulin Glargine 15 units 11/23/20 22:00 11/25/20 22:22 Insulin Glargine 100 Units/Ml SUB-Q 15 units QHS CARLY Administration Insulin Human Lispro 0 unit 11/23/20 11:30 11/26/20 13:02 Insulin Lispro 100 Unit/Ml SUB-Q 6 unit ACHS CARLY Administration Protocol Methylprednisolone Sodium Succinate 80 mg 11/21/20 14:30 11/26/20 13:01 Methylprednisolone Sod Succinate 40 Mg/1 Ml Inj IV 80 mg Q8HR CARLY Administration Ondansetron HCl 4 mg 11/20/20 17:29 Ondansetron 4 Mg/2 Ml Inj IV Q8H PRN Nausea And Vomiting Oxycodone/Acetaminophen 1 tab 11/20/20 17:29 11/23/20 06:25 Oxycodone /Acetaminophen 5-325mg Tab PO 1 tab Q12H PRN Administration Pain, Moderate (4-6) Ranolazine 1,000 mg 11/20/20 22:00 11/26/20 09:20 Ranolazine Er 500 Mg Tab 12hr PO 1,000 mg BID CARLY Administration Sodium Bicarbonate 1,300 mg 11/23/20 11:00 11/26/20 09:19 Sodium Bicarbonate 650 Mg Tab PO 1,300 mg BID CARLY Administration Sodium Chloride 10 ml 11/20/20 22:00 11/26/20 13:03 Sodium Chloride 0.9% 10 Ml Flush Syringe IV 10 ml BID CARLY Administration Sodium Chloride 10 ml 11/20/20 17:29 Sodium Chloride 0.9% 10 Ml Flush Syringe IV PRN PRN LINE FLUSH Timolol Maleate 1 drops 11/20/20 15:43 Timolol 0.5% Ophth Soln 5 Ml OD DAILY PRN Migraine Headache Zinc Sulfate 220 mg 11/20/20 22:00 11/26/20 09:19 Zinc Sulfate 220 Mg Cap PO 220 mg BID CARLY Administration Nutrition/Malnutrition Assess - Dietary Evaluation Nutrition/Malnutrition Findings: Nutrition Notes Start: 11/21/20 10:48 Freq: Status: Active Protocol: Document 11/21/20 10:48 NAVI (Rec: 11/21/20 11:24 NAVI [email or web address]) Nutrition Notes Need for Assessment generated from: MD Order Initial or Follow up Brief Note Other Pertinent Diagnosis Pt admitted with Shortness of Breath, associated with COVID. Current Diet Cardiac Diet Labs/Tests 11/21: Na 134, CO2 16, BUN 38, Cr 1.4, Glu 141. Pertinent Medications 11/21: Zn, Vit C, Vit D3. At Home: Pt supplements with Niacin, [place]-3. Height 5 ft 7 in Weight 93.894 kg [place] Body Weight (kg) 67.27 BMI 32.4 Intake Prior to Admission Good Weight Status Obese Subjective/Other Information Pt is independent. Burn Absent Trauma Absent GI Symptoms None Food Allergy No Skin Integrity/Comment Integumentary clear, warm, dry . Minimum of two criteria No physical signs of malnutrition #1 Nutrition Diagnosis No nutrition diagnosis at this time Comments: No reports on Food Intake, BBody Weight changes, Chewing/ Swallowing difficulties at the time. Is patient on ventilator? No Is Patient Ambulatory and/or Out of Bed Yes REE-([facility]-ambulatory/OOB) [ 2206.841 [id number]] Kcal/Kg value to use for calculation 25 Approximate Energy Requirements Using 2347 kcal/Kg Calculation Used for Recommendations Kcal/kg Additional Notes Protein: 0.8-1.0 g/Kg/day; 54- 67gr/day; 216-268 Kcal/day ( from IBW) Fluids: 1.0 ml/Kcal, or as per MD. Nutrition Intervention Goal #1 Maintain Body Weight within +/ -3% of actual BW during LOS Follow-Up By: 11/28/20 Additional Comments Observe Pt tolerance of food, BM, total intake, and chewing/ swallowing difficulties.
--- NOTE | 2020-11-26 15:35 | Event Note ---
Date: 11/26/20 I called patient's daughter Ms. Santamaria at [phone] and discussed in detail patient's condition, tests and reports, consultants recommendations and treatment plan, I also informed that he is requiring supplemental oxygen 8 L. She has many questions and I answered all of them. And encouraged her To call back if she has any new concerns.
[2020-11-26] MEDS: INSULIN GLARGINE 100 UNITS/ML SUB-Q SCH (22:05)
[2020-11-27] MEDS: methylPREDNISolone Sod Succinate 40 MG/1 ML INJ IV SCH ×3 (06:05→23:10)
[2020-11-27 06:57] LABS: BUN/Creatinine Ratio 24; Blood Urea Nitrogen 24 mg/dL (9-20); Calcium 7.9 mg/dL (8.4-10.2); Hemolysis Index 9
[2020-11-27] MEDS: INSULIN LISPRO 100 UNIT/ML SUB-Q SCH ×4 (09:41→23:05)
--- NOTE | 2020-11-27 09:51 | Progress Note ---
Assessment and Plan Assessment and plan: 60 YO Male with CAD S/P Stent Placement, HTN, Systolic CHF(EF 25) S/P AICD Placement, HLD, CA, OA, Coronavirus Infection diagnosed 2 weeks ago presents to ED for evaluation. Patient reports "I am short of breath". Patient states that he has experienced shortness of breath, dry cough, fatigue, malaise, body aches, subjective fever, decreased exercise tolerance over the past 1 week with persistent and worsening symptoms over the past 3 days. EMS was notified and upon arrival the patient was found to be in distress and subsequent transported to [facility] for further care and evaluation of the aforementioned symptoms. The patient was seen and evaluated in the emergency department. All lab and imaging studies reviewed. Patient found to have a pulse oximetry of 86% with exertion which is consistent with acute hypoxemic respiratory failure. The patient is unable to speak in complete sentences due to shortness of breath. Patient placed on submental oxygen with mild improvement in symptoms. Patient admitted to medical floor and initiated on coronavirus protocol due to increased risk of worsening symptoms. VQ scan ordered and is pending at time of admission. Patient denies chest pain, palpitation, unilateral leg swelling, calf pain, prolonged travel/immobility, individual/family history of DVT/PE/bleeding/blood clotting disorders. Prior admission on 06/14/2015 reviewed. All medication l isted at time of admission has been reconciled. Advanced care planning conducted in ED. --Acute hypoxemic respiratory failure Current Visit: Yes Status: Acute On 11 L of nasal cannula oxygen continuous pulse oximetry, nebulizer therapy, VQ scan low probability for PE --Obesity hypoventilation syndrome Current Visit: Yes Status: Acute Weight reduction, diet modification advised increase physical activity when stable outpatient pulmonary follow-up for sleep study. -- COVID-19 virus infection Current Visit: No Status: Acute Coronavirus protocol: Contact precautions, isolation precautions, Steroids for 10 days. Continue Solu-Medrol Not a candidate for remdesivir as symptoms more than 2 weeks ago Not a candidate for Actemra based on CRP and oxygen requirements Follow inflammatory markers Prone positioning, home O2 evaluation prior to discharge ID following --Essential hypertension Current Visit: No Status: Chronic Monitor blood pressure every shift, continue medical management -- Hyperlipidemia Current Visit: No Status: Chronic Statin therapy, low-cholesterol diet, supportive care. --Acute kidney injury with vasomotor nephropathy. Present on admission, now resolved.. -- Hyponatremia Sodium levels, improving trending up. --thrombocytopenia ; viral etiology Closely monitor --DVT prophylaxis Current Visit: Yes Status: Acute SCD to bilateral lower extremities /subcu heparin --HFrEF EF 10 to 15% Current Visit: Yes Status: Acute Continue antifailure medications Low-sodium diet, fluid restriction, --h/o CAD s/p PCI: continue current cardiac medications Cardiology following --Severe ischemic cardiomyopathy -S/p AICD placment/HTN/LHC 03/24/2020 -- Rhabdomyolysis ; trending down Closely monitor, input output monitoring Gentle hydration, monitor renal function -- migraine ; resume home medications --obesity; BMI 31.7 We will closely monitor the patient and adjust management as needed Patient is requiring 11 L of nasal cannula oxygen, wean as tolerated Plan of care reviewed with the patient and his nurse Airport Driver recommendations noted and appreciated Brief history and hospital course 11/21: Patient seen and examined his on 12 L of oxygen. I have increasing steroids to 80 mg every 8 will defer to ID if he should be changed to Decadron. I have consulted pulmonary and cardiology in the meantime electronic masking system operator ordered an EKG which showed possible anterior wall infarct with some ST elevations very minimal. I reviewed the EKG from 2016 and it was similar. Patient denies any chest pain at this time. Nephrology has been consulted as patient has an acute kidney injury with a baseline of 1.1 Patient 2016 although I do not have any new baseline. I will defer initiation of IV Lasix to nephrology the patient was started on p.o. Lasix nevertheless on admission. Also hyponatremia is noted I will monitor this closely in addition to thrombocytopenia which will affect the use of anticoagulation. I will encourage the patient to prone as much as tolerated. 102: Patient on Bicarb drip per [employer], will continue to monitor renal function and respiratory status considering clinical status of COVID 19. Lasix appears to have been discontinued, continue steroid therapy, monitor closely especially thrombocytopenia. Encourage prone positioning if tolerable. 103: Patient seen and examined, Discussed with electronic masking system operator, will discontinued Fluids at this time. Hold Isosorbide due to the low BP. Continue to wean oxygen. 104: Continue steroid therapy at this time. Continue to wean oxygen as tolerated. Patient is now off the fluids. We will try some Fioricet considering report of migraine headache. Still severely sick continue hospital stay. Renal function is improving. 11/25; consults and recommendations noted and appreciated Closely monitor the patient and adjust management as needed 11/26: Patient on 8 L of nasal cannula oxygen. I called patient's daughter Ms. Santamaria at [phone] and discussed in detail patient's condition, tests and reports, consultants recommendations and treatment plan, I also informed that he is requiring supplemental oxygen 8 L. She has many questions and I answered all of them. And encouraged her To call back if she has any new concerns. 11/27; today this morning patient is requiring 11 L of nasal cannula oxygen Wean as tolerated, set of inflammatory markers requested follow-up History Interval history: I seen and examined the patient at the bedside Patient remains on 11 L of nasal cannula oxygen Complains of mild shortness of breath and generalized weakness Hospitalist Physical - Constitutional Vitals: Temp Pulse Resp BP Pulse Ox 97.6 F 72 18 119/74 92 11/27/20 06:04 11/27/20 06:04 11/27/20 06:04 11/27/20 06:04 11/27/20 06:04 General appearance: Present: no acute distress, well-nourished, obese - EENT Eyes: Present: PERRL, EOM intact - Neck Neck: Present: supple, normal ROM - Respiratory Respiratory effort: normal Respiratory: bilateral: diminished, rhonchi, negative: rales, wheezing - Cardiovascular Rhythm: regular Heart Sounds: Present: S1 & S2 - Extremities Extremities: no ischemia, No edema - Abdominal General gastrointestinal: soft, non-tender, non-distended, normal bowel sounds - Integumentary Integumentary: Present: clear, warm - Psychiatric Psychiatric: appropriate mood/affect, cooperative - Neurologic Neurologic: CNII-XII intact, moves all extremities HEART Score - HEART Score Troponin: Troponin T < 0.010 ng/mL (0.00-0.029) 11/22/20 05:33 Results - Labs CBC & Chem 7: 11/23/20 07:30 11/27/20 05:50 Labs: Laboratory Last Values WBC 4.3 K/mm3 (4.5-11.0) L 11/23/20 07:30 RBC 4.57 M/mm3 (3.65-5.03) 11/23/20 07:30 Hgb 15.4 gm/dl (11.8-15.2) H 11/23/20 07:30 Hct 44.3 % (35.5-45.6) 11/23/20 07:30 MCV 97 fl (84-94) H 11/23/20 07:30 MCH 34 pg (28-32) H 11/23/20 07:30 MCHC 35 % (32-34) H 11/23/20 07:30 RDW 15.0 % (13.2-15.2) 11/23/20 07:30 Plt Count 106 K/mm3 (140-440) L 11/23/20 07:30 Lymph % (Auto) 18.4 % (13.4-35.0) 11/21/20 09:35 [place] % (Auto) 6.1 % (0.0-7.3) 11/21/20 09:35 Eos % (Auto) 0.0 % (0.0-4.3) 11/21/20 09:35 Baso % (Auto) 0.2 % (0.0-1.8) 11/21/20 09:35 Lymph # (Auto) 0.5 K/mm3 (1.2-5.4) L 11/21/20 09:35 [place] # (Auto) 0.2 K/mm3 (0.0-0.8) 11/21/20 09:35 Eos # (Auto) 0.0 K/mm3 (0.0-0.4) 11/21/20 09:35 Baso # (Auto) 0.0 K/mm3 (0.0-0.1) 11/21/20 09:35 Seg Neutrophils % 75.3 % (40.0-70.0) H 11/21/20 09:35 Seg Neutrophils # 2.0 K/mm3 (1.8-7.7) 11/21/20 09:35 D-Dimer 435.87 ng/mlDDU (0-234) H 11/23/20 14:13 Sodium 134 mmol/L (137-145) L 11/27/20 05:50 Potassium 5.0 mmol/L (3.6-5.0) 11/27/20 05:50 Chloride 100.8 mmol/L (98-107) 11/27/20 05:50 Carbon Dioxide 22 mmol/L (22-30) 11/27/20 05:50 Anion Gap 16 mmol/L 11/27/20 05:50 BUN 24 mg/dL (9-20) H 11/27/20 05:50 Creatinine 1.0 mg/dL (0.8-1.3) 11/27/20 05:50 Estimated GFR > 60 ml/min 11/27/20 05:50 BUN/Creatinine Ratio 24 % 11/27/20 05:50 Glucose 237 mg/dL (75-100) H 11/27/20 05:50 POC Glucose 278 mg/dL (70-105) H 11/26/20 21:22 Lactic Acid 1.10 mmol/L (0.7-2.0) 11/20/20 17:23 Calcium 7.9 mg/dL (8.4-10.2) L 11/27/20 05:50 Ferritin 6510.0 ng/mL (30.0-300.0) H 11/23/20 14:13 Total Bilirubin 0.60 mg/dL (0.1-1.2) 11/21/20 09:35 AST 202 units/L (5-40) H 11/21/20 09:35 ALT 189 units/L (7-56) H 11/21/20 09:35 Alkaline Phosphatase 66 units/L (35-129) 11/21/20 09:35 Lactate Dehydrogenase 682 units/L (91-180) H 11/21/20 10:45 Total Creatine Kinase 848 units/L (55-170) H 11/23/20 07:30 CK-MB (CK-2) 9.3 ng/mL (0.0-4.0) H 11/22/20 05:33 CK-MB (CK-2) Rel Index 1.0 (0-4) 11/22/20 05:33 Troponin T < 0.010 ng/mL (0.00-0.029) 11/22/20 05:33 C-Reactive Protein 0.80 mg/dL (0.00-1.30) 11/23/20 14:13 NT-Pro-B Natriuret Pep 467.3 pg/mL (0-900) 11/20/20 12:39 Total Protein 7.1 g/dL (6.3-8.2) 11/21/20 09:35 Albumin 3.2 g/dL (3.9-5) L 11/21/20 09:35 Albumin/Globulin Ratio 0.8 % 11/21/20 09:35 Procalcitonin 0.86 ng/mL (<0.15) 11/21/20 10:45 Urine Color Straw (Yellow) 11/20/20 18:55 Urine Turbidity Slightly cloudy (Clear) 11/20/20 18:55 Urine pH 5.0 (5.0-7.0) 11/20/20 18:55 Ur Specific [place] 1.015 (1.003-1.030) 11/20/20 18:55 Urine Protein 100 mg/dl mg/dL (Negative) 11/20/20 18:55 Urine Glucose (UA) Negative mg/dL (Negative) 11/20/20 18:55 Urine Ketones Negative mg/dL (Negative) 11/20/20 18:55 Urine Blood 2+ (Negative) 11/20/20 18:55 Urine Nitrite Negative (Negative) 11/20/20 18:55 Urine Bilirubin Negative (Negative) 11/20/20 18:55 Urine Urobilinogen < 2.0 mg/dL (<2.0) 11/20/20 18:55 Ur Leukocyte Esterase Negative (Negative) 11/20/20 18:55 Urine WBC (Auto) 2.0 /HPF (0.0-6.0) 11/20/20 18:55 Urine RBC (Auto) 1.0 /HPF (0.0-6.0) 11/20/20 18:55 Digoxin 0.3 ng/mL (0.9-2.0) L 11/21/20 21:08 Coronavirus (PCR) Positive (Negative) A 11/22/20 Unknown Hall/IV: Voiding Method Urinal Active Medications - Current Medications Current Medications: Generic Name Dose Route Start Last Admin Trade Name Freq PRN Reason Stop Dose Admin Acetaminophen 650 mg 11/20/20 17:29 Acetaminophen 325 Mg Tab PO Q4H PRN Pain MILD(1-3)/Fever >100.5/KIDD Allopurinol 300 mg 11/20/20 15:43 Allopurinol 300 Mg Tab PO QDAY PRN Uric Acid Real Estate Assistant Ascorbic Acid 500 mg 11/20/20 22:00 11/26/20 22:04 Ascorbic Acid 500 Mg Tab PO 500 mg BID CARLY Administration Aspirin 81 mg 11/21/20 10:00 11/26/20 09:19 Aspirin 81 Mg Tab Chew PO 81 mg QDAY CARLY Administration Atorvastatin Calcium 80 mg 11/21/20 22:00 11/26/20 22:04 Atorvastatin 40 Mg Tab PO 80 mg QHS CARLY Administration Carvedilol 25 mg 11/21/20 22:00 11/26/20 22:04 Carvedilol 25 Mg Tab PO 25 mg BID CARLY Administration Cetirizine HCl 10 mg 11/20/20 16:00 11/26/20 09:20 Cetirizine 10 Mg Tab PO 10 mg DAILY CARLY Administration Cholecalciferol 1,000 unit 11/21/20 10:00 11/26/20 09:25 Cholecalciferol (Vit D3) 400 Unit Tab PO 1,000 unit QDAY CARLY Administration Colchicine 0.6 mg 11/20/20 15:43 Colchicine 0.6 Mg Tab PO DAILY PRN Gout Dextrose 50 ml 11/23/20 11:40 Dextrose 50% In Water (25gm) 50 Ml Syringe IV Q30MIN PRN Hypoglycemia Protocol Digoxin 0.125 mg 11/22/20 10:00 11/26/20 09:20 Digoxin 0.125 Mg Tab PO 0.125 mg Q48HR CARLY Administration Famotidine 10 mg 11/21/20 10:00 11/26/20 22:04 Famotidine 10 Mg Tab PO 10 mg BID CARLY Administration Guaifenesin 200 mg 11/23/20 21:57 11/23/20 22:42 Guaifenesin 100 Mg/5 Ml Oral Liqd PO 200 mg Q4H PRN Administration Cough Heparin Sodium (Porcine) 5,000 unit 11/20/20 22:00 11/26/20 22:04 Heparin 5,000 Unit/1 Ml Vial SUB-Q 5,000 unit Q12HR CARLY Administration Hydromorphone HCl 0.5 mg 11/22/20 10:00 Hydromorphone 1 Mg/1 Ml Inj IV Q6H PRN Pain , Severe (7-10) Insulin Glargine 15 units 11/23/20 22:00 11/26/20 22:05 Insulin Glargine 100 Units/Ml SUB-Q 15 units QHS CARLY Administration Insulin Human Lispro 0 unit 11/23/20 11:30 11/27/20 09:41 Insulin Lispro 100 Unit/Ml SUB-Q 4 unit ACHS CARLY Administration Protocol Methylprednisolone Sodium Succinate 80 mg 11/21/20 14:30 11/27/20 06:05 Methylprednisolone Sod Succinate 40 Mg/1 Ml Inj IV 80 mg Q8HR CARLY Administration Ondansetron HCl 4 mg 11/20/20 17:29 Ondansetron 4 Mg/2 Ml Inj IV Q8H PRN Nausea And Vomiting Oxycodone/Acetaminophen 1 tab 11/20/20 17:29 11/23/20 06:25 Oxycodone /Acetaminophen 5-325mg Tab PO 1 tab Q12H PRN Administration Pain, Moderate (4-6) Ranolazine 1,000 mg 11/20/20 22:00 11/26/20 22:04 Ranolazine Er 500 Mg Tab 12hr PO 1,000 mg BID CARLY Administration Sodium Bicarbonate 1,300 mg 11/23/20 11:00 11/26/20 22:04 Sodium Bicarbonate 650 Mg Tab PO 1,300 mg BID CARLY Administration Sodium Chloride 10 ml 11/20/20 22:00 11/26/20 22:05 Sodium Chloride 0.9% 10 Ml Flush Syringe IV 10 ml BID CARLY Administration Sodium Chloride 10 ml 11/20/20 17:29 Sodium Chloride 0.9% 10 Ml Flush Syringe IV PRN PRN LINE FLUSH Timolol Maleate 1 drops 11/20/20 15:43 Timolol 0.5% Ophth Soln 5 Ml OD DAILY PRN Migraine Headache Zinc Sulfate 220 mg 11/20/20 22:00 11/26/20 22:04 Zinc Sulfate 220 Mg Cap PO 220 mg BID CARLY Administration Nutrition/Malnutrition Assess - Dietary Evaluation Nutrition/Malnutrition Findings: Nutrition Notes Start: 11/21/20 10:48 Freq: Status: Active Protocol: Document 11/21/20 10:48 NAVI (Rec: 11/21/20 11:24 NAVI [email or web address]) Nutrition Notes Need for Assessment generated from: MD Order Initial or Follow up Brief Note Other Pertinent Diagnosis Pt admitted with Shortness of Breath, associated with COVID. Current Diet Cardiac Diet Labs/Tests 11/21: Na 134, CO2 16, BUN 38, Cr 1.4, Glu 141. Pertinent Medications 11/21: Zn, Vit C, Vit D3. At Home: Pt supplements with Niacin, [place]-3. Height 5 ft 7 in Weight 93.894 kg [place] Body Weight (kg) 67.27 BMI 32.4 Intake Prior to Admission Good Weight Status Obese Subjective/Other Information Pt is independent. Burn Absent Trauma Absent GI Symptoms None Food Allergy No Skin Integrity/Comment Integumentary clear, warm, dry . Minimum of two criteria No physical signs of malnutrition #1 Nutrition Diagnosis No nutrition diagnosis at this time Comments: No reports on Food Intake, BBody Weight changes, Chewing/ Swallowing difficulties at the time. Is patient on ventilator? No Is Patient Ambulatory and/or Out of Bed Yes REE-(Obion-. [facility]-ambulatory/OOB) [ 2206.841 [id number]] Kcal/Kg value to use for calculation 25 Approximate Energy Requirements Using 2347 kcal/Kg Calculation Used for Recommendations Kcal/kg Additional Notes Protein: 0.8-1.0 g/Kg/day; 54- 67gr/day; 216-268 Kcal/day ( from IBW) Fluids: 1.0 ml/Kcal, or as per MD. Nutrition Intervention Goal #1 Maintain Body Weight within +/ -3% of actual BW during LOS Follow-Up By: 11/28/20 Additional Comments Observe Pt tolerance of food, BM, total intake, and chewing/ swallowing difficulties.
[2020-11-27] MEDS: ASCORBIC ACID 500 MG TAB PO SCH ×2 (10:05→23:09)
[2020-11-27] MEDS: SODIUM BICARBONATE 650 MG TAB PO SCH ×2 (10:05→23:08)
[2020-11-27] MEDS: FAMOTIDINE 10 MG TAB PO SCH ×2 (10:06→23:07)
[2020-11-27] MEDS: ASPIRIN 81 MG TAB CHEW PO SCH (10:06)
[2020-11-27] MEDS: carvediloL 25 MG TAB PO SCH ×3 (10:06→23:11)
[2020-11-27] MEDS: CETIRIZINE 10 MG TAB PO SCH (10:06)
[2020-11-27] MEDS: ZINC SULFATE 220 MG CAP PO SCH ×2 (10:06→23:09)
[2020-11-27] MEDS: RANOLAZINE ER 500 MG TAB 12HR PO SCH ×2 (10:09→23:09)
[2020-11-27] MEDS: SACUBITRIL/VALSARTAN 49-51 MG TAB PO SCH ×2 (10:09→23:08)
[2020-11-27] MEDS: CHOLECALCIFEROL (VIT D3) 400 UNIT TAB PO SCH (10:09)
[2020-11-27 11:30] LABS: C-Reactive Protein 0.2 mg/dL (0.00-1.30)
--- NOTE | 2020-11-27 12:00 | Progress Note ---
Assessment and Plan 60 y/o male with acute respiratory failure secondary to COVID pneumonia. 11/27/20: Prone if possible. Continue steroids. 11/26/20: Wean FiO2 For sats >88%. Prone if able and continue steroids. 11/25/20: Wean FiO2 for sats >88%, proning, steroids. Steroids Proning Subjective Date of service: 11/27/20 Principal diagnosis: sob Interval history: Up to 11 liters now on salter. Objective Vital Signs - 12hr 11/27/20 11/27/20 11/27/20 02:00 06:04 10:07 Temperature 97.6 F Pulse Rate 72 72 Respiratory 18 Rate Blood Pressure 119/74 119/74 O2 Sat by Pulse 92 92 Oximetry CBC and BMP: 11/23/20 07:30 11/27/20 05:50 ABG, PT/INR, D-dimer: PT/INR, D-dimer D-Dimer 435.87 ng/mlDDU (0-234) H 11/23/20 14:13 Abnormal lab findings: Abnormal Labs 11/20/20 11/20/20 11/20/20 12:39 12:39 12:39 WBC 2.4 L RBC Hgb 16.1 H Hct 48.0 H MCV 99 H MCH 33 H MCHC Plt Count 100 L [place] % (Auto) 8.4 H Lymph # (Auto) 0.6 L Seg Neutrophils % Seg Neutrophils # 1.6 L D-Dimer 836.61 H Sodium 125 L Potassium Chloride 94.3 L Carbon Dioxide 16 L BUN 43 H Creatinine 2.3 H Glucose POC Glucose Calcium Ferritin AST ALT Lactate Dehydrogenase Total Creatine Kinase CK-MB (CK-2) C-Reactive Protein Albumin Digoxin Coronavirus (PCR) 11/21/20 11/21/20 11/21/20 09:35 09:35 10:45 WBC 2.7 L RBC 5.04 H Hgb 17.1 H Hct 49.5 H MCV 98 H MCH 34 H MCHC 35 H Plt Count 93 L [place] % (Auto) Lymph # (Auto) 0.5 L Seg Neutrophils % 75.3 H Seg Neutrophils # D-Dimer 859.78 H Sodium 134 L D Potassium Chloride Carbon Dioxide 16 L BUN 38 H Creatinine 1.4 H Glucose 141 H POC Glucose Calcium 8.2 L Ferritin AST 202 H ALT 189 H Lactate Dehydrogenase Total Creatine Kinase CK-MB (CK-2) C-Reactive Protein Albumin 3.2 L Digoxin Coronavirus (PCR) 11/21/20 11/21/20 11/21/20 10:45 10:45 15:12 WBC RBC Hgb Hct MCV MCH MCHC Plt Count [place] % (Auto) Lymph # (Auto) Seg Neutrophils % Seg Neutrophils # D-Dimer Sodium Potassium Chloride Carbon Dioxide BUN Creatinine Glucose 154 H POC Glucose Calcium Ferritin 9449.0 H AST ALT Lactate Dehydrogenase 682 H Total Creatine Kinase 1372 H CK-MB (CK-2) 16.3 H C-Reactive Protein 4.60 H Albumin Digoxin Coronavirus (PCR) 11/21/20 11/21/20 11/22/20 21:08 21:08 05:33 WBC RBC Hgb Hct MCV MCH MCHC Plt Count [place] % (Auto) Lymph # (Auto) Seg Neutrophils % Seg Neutrophils # D-Dimer Sodium 132 L Potassium Chloride Carbon Dioxide 16 L BUN 38 H Creatinine 1.4 H Glucose 223 H POC Glucose Calcium 7.8 L Ferritin AST ALT Lactate Dehydrogenase Total Creatine Kinase 1198 H CK-MB (CK-2) 13.6 H C-Reactive Protein Albumin Digoxin 0.3 L Coronavirus (PCR) 11/22/20 11/22/20 11/23/20 05:33 Unknown 07:30 WBC RBC Hgb Hct MCV MCH MCHC Plt Count [place] % (Auto) Lymph # (Auto) Seg Neutrophils % Seg Neutrophils # D-Dimer Sodium 134 L Potassium Chloride Carbon Dioxide 21 L BUN 34 H Creatinine Glucose 217 H POC Glucose Calcium 7.7 L Ferritin AST ALT Lactate Dehydrogenase Total Creatine Kinase 847 H CK-MB (CK-2) 9.3 H C-Reactive Protein Albumin Digoxin Coronavirus (PCR) Positive A 11/23/20 11/23/20 11/23/20 07:30 07:30 14:13 WBC 4.3 L RBC Hgb 15.4 H Hct MCV 97 H MCH 34 H MCHC 35 H Plt Count 106 L [place] % (Auto) Lymph # (Auto) Seg Neutrophils % Seg Neutrophils # D-Dimer 435.87 H Sodium Potassium Chloride Carbon Dioxide BUN Creatinine Glucose POC Glucose Calcium Ferritin AST ALT Lactate Dehydrogenase Total Creatine Kinase 848 H CK-MB (CK-2) C-Reactive Protein Albumin Digoxin Coronavirus (PCR) 11/23/20 11/23/20 11/23/20 14:13 16:49 23:00 WBC RBC Hgb Hct MCV MCH MCHC Plt Count [place] % (Auto) Lymph # (Auto) Seg Neutrophils % Seg Neutrophils # D-Dimer Sodium Potassium Chloride Carbon Dioxide BUN Creatinine Glucose POC Glucose 228 H 167 H Calcium Ferritin 6510.0 H AST ALT Lactate Dehydrogenase Total Creatine Kinase CK-MB (CK-2) C-Reactive Protein Albumin Digoxin Coronavirus (PCR) 11/24/20 11/24/20 11/24/20 07:25 07:51 11:29 WBC RBC Hgb Hct MCV MCH MCHC Plt Count [place] % (Auto) Lymph # (Auto) Seg Neutrophils % Seg Neutrophils # D-Dimer Sodium Potassium Chloride Carbon Dioxide 21 L BUN 31 H Creatinine Glucose 178 H POC Glucose 178 H 206 H Calcium 7.7 L Ferritin AST ALT Lactate Dehydrogenase Total Creatine Kinase CK-MB (CK-2) C-Reactive Protein Albumin Digoxin Coronavirus (PCR) 11/24/20 11/25/20 11/25/20 22:45 06:54 07:53 WBC RBC Hgb Hct MCV MCH MCHC Plt Count [place] % (Auto) Lymph # (Auto) Seg Neutrophils % Seg Neutrophils # D-Dimer Sodium 135 L Potassium Chloride Carbon Dioxide BUN 29 H Creatinine Glucose 191 H POC Glucose 209 H 194 H Calcium 7.9 L Ferritin AST ALT Lactate Dehydrogenase Total Creatine Kinase CK-MB (CK-2) C-Reactive Protein Albumin Digoxin Coronavirus (PCR) 11/25/20 11/25/20 11/25/20 11:34 16:08 21:50 WBC RBC Hgb Hct MCV MCH MCHC Plt Count [place] % (Auto) Lymph # (Auto) Seg Neutrophils % Seg Neutrophils # D-Dimer Sodium Potassium Chloride Carbon Dioxide BUN Creatinine Glucose POC Glucose 255 H 275 H 218 H Calcium Ferritin AST ALT Lactate Dehydrogenase Total Creatine Kinase CK-MB (CK-2) C-Reactive Protein Albumin Digoxin Coronavirus (PCR) 11/26/20 11/26/20 11/26/20 05:38 07:20 12:34 WBC RBC Hgb Hct MCV MCH MCHC Plt Count [place] % (Auto) Lymph # (Auto) Seg Neutrophils % Seg Neutrophils # D-Dimer Sodium 136 L Potassium 5.1 H Chloride Carbon Dioxide 19 L BUN 29 H Creatinine Glucose 258 H POC Glucose 255 H 326 H Calcium 8.0 L Ferritin AST ALT Lactate Dehydrogenase Total Creatine Kinase CK-MB (CK-2) C-Reactive Protein Albumin Digoxin Coronavirus (PCR) 11/26/20 11/26/20 11/27/20 16:27 21:22 05:50 WBC RBC Hgb Hct MCV MCH MCHC Plt Count [place] % (Auto) Lymph # (Auto) Seg Neutrophils % Seg Neutrophils # D-Dimer Sodium 134 L Potassium Chloride Carbon Dioxide BUN 24 H Creatinine Glucose 237 H POC Glucose 286 H 278 H Calcium 7.9 L Ferritin AST ALT Lactate Dehydrogenase Total Creatine Kinase CK-MB (CK-2) C-Reactive Protein Albumin Digoxin Coronavirus (PCR) 11/27/20 11/27/20 10:43 11:27 WBC RBC Hgb Hct MCV MCH MCHC Plt Count [place] % (Auto) Lymph # (Auto) Seg Neutrophils % Seg Neutrophils # D-Dimer Sodium Potassium Chloride Carbon Dioxide BUN Creatinine Glucose POC Glucose 409 H Calcium Ferritin AST ALT Lactate Dehydrogenase 533 H Total Creatine Kinase CK-MB (CK-2) C-Reactive Protein Albumin Digoxin Coronavirus (PCR)
[2020-11-27] MEDS: HEPARIN 5,000 UNIT/1 ML VIAL SUB-Q SCH ×2 (12:03→23:03)
--- NOTE | 2020-11-27 12:55 | Progress Note ---
Assessment and Plan Cultures: SARS CoV2 PCR: Positive as outpatient, positive inpatient 11/20/2020 blood culture: no growth today A/P: 60-year-old male with coronary artery disease, CHF, hypertension, cardiomyopathy status post AICD placement who was recently diagnosed with COVID-19 infection 2 weeks prior: #Bilateral pneumonia secondary to COVID-19: Labs revealed leukopenia, D-dimer 859, LDH 682, transaminitis, CRP 4.6, NT proBNP 467. CXR with interstitial thickening. V/Q with low probability for PE. #Acute hypoxic respiratory failure: Remains on 11 L salter. #CHF, cardiomyopathy, s/p AICD #CHERYL: Renally adjust antibiotics #Transaminitis: ?COVID related v/s congestion. #Leukopenia, thrombocytopenia: Likely related to viral illness Recs: -Continue steroids, on methylprednisolone. Complete 10 days of steroids. -Out of the window for remdesivir benefit since diagnosis was 2 weeks ago -Not a candidate for Actemra based on CRP and oxygen requirements -prophylactic anticoagulation based on d-dimer per hospital protocol -trend d-dimer, CRP every 2-3 days, ordered -CHF management per primary G. Ai Mirza MD [facility] O: [phone] F: [phone] Subjective Date of service: 11/27/20 Principal diagnosis: sob Interval history: Afebrile, no acute change. Currently on 11 L nasal cannula. Objective - Exam Narrative Exam: Physical exam deferred to reduce risk of transmission of COVID-19. Please refer to primary team's note. - Constitutional Vitals: Vital Signs Temp Pulse Resp BP Pulse Ox 97.6 F 72 18 119/74 92 11/27/20 06:04 11/27/20 10:07 11/27/20 06:04 11/27/20 10:07 11/27/20 06:04 Temperature -Last 24 Hours Temperature 97.6 F Temperature 98.6 F Temperature 97.6 F - Labs CBC & Chem 7: 11/23/20 07:30 11/27/20 05:50 Labs: Abnormal lab results 11/26/20 11/26/20 11/27/20 Range/Units 16:27 21:22 05:50 Sodium 134 L (137-145) mmol/L BUN 24 H (9-20) mg/dL Glucose 237 H (75-100) mg/dL POC Glucose 286 H 278 H (70-105) mg/dL Calcium 7.9 L (8.4-10.2) mg/dL Lactate Dehydrogenase (91-180) units/L 11/27/20 11/27/20 Range/Units 10:43 11:27 Sodium (137-145) mmol/L BUN (9-20) mg/dL Glucose (75-100) mg/dL POC Glucose 409 H (70-105) mg/dL Calcium (8.4-10.2) mg/dL Lactate Dehydrogenase 533 H (91-180) units/L
--- NOTE | 2020-11-27 13:18 | Progress Note ---
Assessment and Plan Impression: * CHERYL * Covid PNA * hyponatremia * metabolic acidosis * acute hypoxic resp failure Plan: * cr is stable today at 1.2->1.1->1.2->1.0 * cheryl due to hypopperfusion with COVID PNA and volume depletion, high risk for progression to ATN * hold diuresis at this time as able * continue NaHCO3 for acidosis, HCO3 reasonable * stopped KCl given borderline K * volume resuscitation as needed, po intake as able * daily lytes and strict i/os * avoid nephrotoxins * renal diet * covid care per primary team Subjective Date of service: 11/27/20 Principal diagnosis: sob Interval history: 24 hour events reviewed, labs and chart reviewed. Interdisciplinary and nursing notes reviewed Objective - Exam Narrative Exam: primary team exam noted, exam deferred for preservation of PPE - Vital Signs Vital signs: Vital Signs - 12hr 11/27/20 11/27/20 11/27/20 02:00 06:04 10:07 Temperature 97.6 F Pulse Rate 72 72 Respiratory 18 Rate Blood Pressure 119/74 119/74 O2 Sat by Pulse 92 92 Oximetry - Lab 11/23/20 07:30 11/27/20 05:50 Most recent lab results Calcium 7.9 mg/dL (8.4-10.2) L 11/27/20 05:50 Medications & Allergies - Medications Allergies/Adverse Reactions: Allergies No Known Allergies Allergy (Verified 04/13/15 20:17) Home Medications: Home Medications Medication Instructions Recorded Confirmed Last Taken Type Ibuprofen [Motrin] 800 mg PO Q8HR PRN 04/13/15 11/25/20 Unknown History Loratadine (Nf) [Claritin (Nf)] 10 mg PO DAILY PRN 04/13/15 11/25/20 Unknown History Timolol 0.5% [Timoptic] 1 drops OP DAILY PRN 04/13/15 11/25/20 Unknown History allopurinoL [Zyloprim] 300 mg PO QDAY PRN 04/13/15 11/25/20 Unknown History methylPREDNISolone [Medrol Dose 4 mg PO DAILY PRN 04/13/15 11/25/20 Unknown History Sergio] Famotidine [Pepcid] 20 mg PO BID #60 tablet 04/14/15 11/25/20 Unknown Rx Aspirin [Aspirin BABY CHEW TAB] 81 mg PO QDAY #30 tab.chew 06/16/15 11/25/20 Unknown Rx AtorvaSTATin [Lipitor] 40 mg PO QHS #30 tablet 06/16/15 11/25/20 Unknown Rx Colchicine [Colcrys] 0.6 mg PO DAILY PRN #30 tablet 06/16/15 11/25/20 Unknown Rx Digoxin [Lanoxin] 0.125 mg PO DAILY #30 tablet 06/16/15 11/25/20 Unknown Rx Furosemide [Lasix TAB] 40 mg PO QDAY #30 tablet 06/16/15 11/25/20 Unknown Rx Niacin ER [Niaspan ER] 500 mg PO QHS #30 tablet 06/16/15 11/25/20 Unknown Rx Dell-3 Fatty Acids/Fish Oil [Fish 1,000 mg PO DAILY #30 capsule 06/16/15 11/25/20 Unknown Rx Oil] Potassium Chloride [K-Dur] 10 meq PO DAILY #30 tablet 06/16/15 11/25/20 Unknown Rx Ranolazine ER [Ranexa ER] 1,000 mg PO BID #60 tablet 06/16/15 11/25/20 Unknown Rx Spironolactone [Aldactone] 25 mg PO QDAY #30 tablet 06/16/15 11/25/20 Unknown Rx allopurinoL [Zyloprim] 300 mg PO QDAY PRN #30 tablet 06/16/15 11/25/20 Unknown Rx carvediloL [Coreg] 25 mg PO DAILY #30 tablet 06/16/15 11/25/20 Unknown Rx lisinopriL [Zestril TAB] 40 mg PO QDAY #30 tablet 06/16/15 11/25/20 Unknown Rx oxyCODONE /ACETAMINOPHEN [Percocet 1 tab PO Q6H PRN #30 tablet 06/16/15 11/25/20 Unknown Rx 5/325 mg] predniSONE [Deltasone] 20 mg PO QDAY #30 tablet 06/16/15 11/25/20 Unknown Rx Active Medications: Generic Name Dose Route Start Last Admin Trade Name Freq PRN Reason Stop Dose Admin Acetaminophen 650 mg 11/20/20 17:29 Acetaminophen 325 Mg Tab PO Q4H PRN Pain MILD(1-3)/Fever >100.5/KIDD Allopurinol 300 mg 11/20/20 15:43 Allopurinol 300 Mg Tab PO QDAY PRN Uric Acid [employer] Ascorbic Acid 500 mg 11/20/20 22:00 11/27/20 10:05 Ascorbic Acid 500 Mg Tab PO 500 mg BID CARLY Administration Aspirin 81 mg 11/21/20 10:00 11/27/20 10:06 Aspirin 81 Mg Tab Chew PO 81 mg QDAY CARLY Administration Atorvastatin Calcium 80 mg 11/21/20 22:00 11/26/20 22:04 Atorvastatin 40 Mg Tab PO 80 mg QHS CARLY Administration Carvedilol 25 mg 11/21/20 22:00 11/27/20 10:07 Carvedilol 25 Mg Tab PO Not Given BID CARLY Cetirizine HCl 10 mg 11/20/20 16:00 11/27/20 10:06 Cetirizine 10 Mg Tab PO 10 mg DAILY CARLY Administration Cholecalciferol 1,000 unit 11/28/20 10:00 Cholecalciferol (Vit D3) 1000 Unit (25 Mcg) Tab PO DAILY CARLY Colchicine 0.6 mg 11/20/20 15:43 Colchicine 0.6 Mg Tab PO DAILY PRN Gout Dextrose 50 ml 11/23/20 11:40 Dextrose 50% In Water (25gm) 50 Ml Syringe IV Q30MIN PRN Hypoglycemia Protocol Digoxin 0.125 mg 11/22/20 10:00 11/26/20 09:20 Digoxin 0.125 Mg Tab PO 0.125 mg Q48HR CARLY Administration Famotidine 10 mg 11/21/20 10:00 11/27/20 10:06 Famotidine 10 Mg Tab PO 10 mg BID CARLY Administration Guaifenesin 200 mg 11/23/20 21:57 11/23/20 22:42 Guaifenesin 100 Mg/5 Ml Oral Liqd PO 200 mg Q4H PRN Administration Cough Heparin Sodium (Porcine) 5,000 unit 11/20/20 22:00 11/27/20 12:03 Heparin 5,000 Unit/1 Ml Vial SUB-Q 5,000 unit Q12HR CARLY Administration Hydromorphone HCl 0.5 mg 11/22/20 10:00 Hydromorphone 1 Mg/1 Ml Inj IV Q6H PRN Pain , Severe (7-10) Insulin Glargine 15 units 11/23/20 22:00 11/26/20 22:05 Insulin Glargine 100 Units/Ml SUB-Q 15 units QHS CARLY Administration Insulin Human Lispro 0 unit 10/03/21 11:30 11/27/20 11:54 Insulin Lispro 100 Unit/Ml SUB-Q 8 unit ACHS CARLY Administration Protocol Methylprednisolone Sodium Succinate 80 mg 11/21/20 14:30 11/27/20 06:05 Methylprednisolone Sod Succinate 40 Mg/1 Ml Inj IV 80 mg Q8HR CARLY Administration Ondansetron HCl 4 mg 11/20/20 17:29 Ondansetron 4 Mg/2 Ml Inj IV Q8H PRN Nausea And Vomiting Oxycodone/Acetaminophen 1 tab 11/20/20 17:29 11/23/20 06:25 Oxycodone /Acetaminophen 5-325mg Tab PO 1 tab Q12H PRN Administration Pain, Moderate (4-6) Ranolazine 1,000 mg 11/20/20 22:00 11/27/20 10:09 Ranolazine Er 500 Mg Tab 12hr PO 1,000 mg BID CARLY Administration Sodium Bicarbonate 1,300 mg 11/23/20 11:00 11/27/20 10:05 Sodium Bicarbonate 650 Mg Tab PO 1,300 mg BID CARLY Administration Sodium Chloride 10 ml 11/20/20 22:00 11/27/20 10:06 Sodium Chloride 0.9% 10 Ml Flush Syringe IV 10 ml BID CARLY Administration Sodium Chloride 10 ml 11/20/20 17:29 Sodium Chloride 0.9% 10 Ml Flush Syringe IV PRN PRN LINE FLUSH Timolol Maleate 1 drops 11/20/20 15:43 Timolol 0.5% Ophth Soln 5 Ml OD DAILY PRN Migraine Headache Zinc Sulfate 220 mg 11/20/20 22:00 11/27/20 10:06 Zinc Sulfate 220 Mg Cap PO 220 mg BID CARLY Administration
--- NOTE | 2020-11-27 15:55 | Progress Note ---
Assessment and Plan Diuretics and ACEI remain on hold as per Nephro recs. Continue to monitor renal indices. Cr has improved to 1.0mg/dL. Continue other present GDMT for HF and mgmt of COVID-19 PNA as per Primary teams. Pt seen in conjunction with Dr. Elier Salinas, who agrees with the assessment and plan of care. - Patient Problems (1) Acute respiratory failure Current Visit: Yes Status: Acute (2) Pneumonia due to COVID-19 virus Current Visit: Yes Status: Acute (3) CHERYL (acute kidney injury) Current Visit: Yes Status: Acute (4) Elevated LFTs Current Visit: Yes Status: Acute (5) Thrombocytopenia Current Visit: Yes Status: Acute (6) Chronic HFrEF (heart failure with reduced ejection fraction) Current Visit: Yes Status: Chronic (7) Ischemic cardiomyopathy Current Visit: Yes Status: Chronic (8) Automatic implantable cardioverter-defibrillator in situ Current Visit: Yes Status: Chronic (9) Coronary artery disease Current Visit: Yes Status: Chronic Qualifiers: Coronary Disease-Associated Artery/Lesion type: [place] artery [place] vs. transplanted heart: [place] heart Associated angina: with stable angina Qualified Code(s): I25.118 - Atherosclerotic heart disease of [place] coronary artery with other forms of angina pectoris (10) Stented coronary artery Current Visit: Yes Status: Chronic (11) Essential hypertension Current Visit: Yes Status: Chronic (12) Hyperlipidemia Current Visit: Yes Status: Chronic Qualifiers: Hyperlipidemia type: mixed hyperlipidemia Qualified Code(s): E78.2 - Mixed hyperlipidemia Subjective Date of service: 11/27/20 Principal diagnosis: COVID-19 Interval history: No acute events overnight. On 11L NC. Tele reviewed - SR 70s w/intermittent pacing, no events. Objective Last Vital Signs Temp 97.6 F 11/27/20 06:04 Pulse 72 11/27/20 10:07 Resp 18 11/27/20 06:04 BP 119/74 11/27/20 10:07 Pulse Ox 94 11/27/20 14:40 - Physical Examination General: No Apparent Distress Cardiac: Positive: Reg Rate and Rhythm - Labs and Meds Cardiac Enzymes 11/27/20 Range/Units 10:43 Lactate Dehydrogenase 533 H (91-180) units/L Comprehensive Metabolic Panel 11/27/20 Range/Units 05:50 Sodium 134 L (137-145) mmol/L Potassium 5.0 (3.6-5.0) mmol/L Chloride 100.8 (98-107) mmol/L Carbon Dioxide 22 (22-30) mmol/L BUN 24 H (9-20) mg/dL Creatinine 1.0 (0.8-1.3) mg/dL Glucose 237 H (75-100) mg/dL Calcium 7.9 L (8.4-10.2) mg/dL - Imaging and Cardiology EKG: report reviewed, image reviewed Pharmacologic stress test: report reviewed (08/07/2019 - negative for ischemia) Echo: report reviewed (11/21/2020 - EF 10-15%, LV severely dilated, mild diastolic dysfxn) Cardiac cath: report reviewed (03/24/2020 patent LAD stent, other coronaries normal without significant plaque, severely depressed LV systolic function (EF<20%)) - Telemetry EKG Rhythm: Sinus Rhythm - EKG Sinus rhythms and dysrhythmias: sinus rhythm AV and intraventricular conduction: left bundle branch block - Allied health notes Allied health notes reviewed: nursing
[2020-11-27] MEDS: INSULIN GLARGINE 100 UNITS/ML SUB-Q SCH (23:04)
[2020-11-28] MEDS: methylPREDNISolone Sod Succinate 40 MG/1 ML INJ IV SCH ×3 (05:17→22:14)
[2020-11-28 06:38] LABS: BUN/Creatinine Ratio 23; Blood Urea Nitrogen 28 mg/dL (9-20); Calcium 7.9 mg/dL (8.4-10.2); Hemolysis Index 38
[2020-11-28] MEDS: INSULIN LISPRO 100 UNIT/ML SUB-Q SCH ×4 (09:03→22:47)
--- NOTE | 2020-11-28 10:03 | Progress Note ---
Assessment and Plan Assessment and plan: 60 YO Male with CAD S/P Stent Placement, HTN, Systolic CHF(EF 25) S/P AICD Placement, HLD, OR, OA, Coronavirus Infection diagnosed 2 weeks ago presents to ED for evaluation. Patient reports "I am short of breath". Patient states that he has experienced shortness of breath, dry cough, fatigue, malaise, body aches, subjective fever, decreased exercise tolerance over the past 1 week with persistent and worsening symptoms over the past 3 days. EMS was notified and upon arrival the patient was found to be in distress and subsequent transported to [facility] for further care and evaluation of the aforementioned symptoms. The patient was seen and evaluated in the emergency department. All lab and imaging studies reviewed. Patient found to have a pulse oximetry of 86% with exertion which is consistent with acute hypoxemic respiratory failure. The patient is unable to speak in complete sentences due to shortness of breath. Patient placed on submental oxygen with mild improvement in symptoms. Patient admitted to medical floor and initiated on coronavirus protocol due to increased risk of worsening symptoms. VQ scan ordered and is pending at time of admission. Patient denies chest pain, palpitation, unilateral leg swelling, calf pain, prolonged travel/immobility, individual/family history of DVT/PE/bleeding/blood clotting disorders. Prior admission on 06/14/2015 reviewed. All medication l isted at time of admission has been reconciled. Advanced care planning conducted in ED. --Acute hypoxemic respiratory failure Current Visit: Yes Status: Acute On 11 L of nasal cannula oxygen continuous pulse oximetry, nebulizer therapy, VQ scan low probability for PE --Obesity hypoventilation syndrome Current Visit: Yes Status: Acute Weight reduction, diet modification advised increase physical activity when stable outpatient pulmonary follow-up for sleep study. -- COVID-19 virus infection Current Visit: No Status: Acute Coronavirus protocol: Contact precautions, isolation precautions, Steroids for 10 days. Continue Solu-Medrol Not a candidate for remdesivir as symptoms more than 2 weeks ago Not a candidate for Actemra based on CRP and oxygen requirements Follow inflammatory markers Prone positioning, home O2 evaluation prior to discharge ID following --Essential hypertension Current Visit: No Status: Chronic Monitor blood pressure every shift, continue medical management -- Hyperlipidemia Current Visit: No Status: Chronic Statin therapy, low-cholesterol diet, supportive care. --Acute kidney injury with vasomotor nephropathy. Present on admission, now resolved.. -- Hyponatremia Sodium levels, improving trending up. --thrombocytopenia ; viral etiology Closely monitor --DVT prophylaxis Current Visit: Yes Status: Acute SCD to bilateral lower extremities /subcu heparin --HFrEF EF 10 to 15% Current Visit: Yes Status: Acute Continue antifailure medications Low-sodium diet, fluid restriction, --h/o CAD s/p PCI: continue current cardiac medications Cardiology following --Severe ischemic cardiomyopathy -S/p AICD placment/HTN/LHC 03/24/2020 -- Rhabdomyolysis ; trending down Closely monitor, input output monitoring Gentle hydration, monitor renal function -- migraine ; resume home medications --obesity; BMI 31.7 We will closely monitor the patient and adjust management as needed Patient is requiring 11 L of nasal cannula oxygen, wean as tolerated Plan of care reviewed with the patient and his nurse Smeller recommendations noted and appreciated Brief history and hospital course 11/21: Patient seen and examined his on 12 L of oxygen. I have increasing steroids to 80 mg every 8 will defer to ID if he should be changed to Decadron. I have consulted pulmonary and cardiology in the meantime tuckpointer cleaner caulker ordered an EKG which showed possible anterior wall infarct with some ST elevations very minimal. I reviewed the EKG from 2016 and it was similar. Patient denies any chest pain at this time. Nephrology has been consulted as patient has an acute kidney injury with a baseline of 1.1 Patient 2016 although I do not have any new baseline. I will defer initiation of IV Lasix to nephrology the patient was started on p.o. Lasix nevertheless on admission. Also hyponatremia is noted I will monitor this closely in addition to thrombocytopenia which will affect the use of anticoagulation. I will encourage the patient to prone as much as tolerated. 102: Patient on Bicarb drip per Cracker Sprayer, will continue to monitor renal function and respiratory status considering clinical status of COVID 19. Lasix appears to have been discontinued, continue steroid therapy, monitor closely especially thrombocytopenia. Encourage prone positioning if tolerable. 103: Patient seen and examined, Discussed with tuckpointer cleaner caulker, will discontinued Fluids at this time. Hold Isosorbide due to the low BP. Continue to wean oxygen. 104: Continue steroid therapy at this time. Continue to wean oxygen as tolerated. Patient is now off the fluids. We will try some Fioricet considering report of migraine headache. Still severely sick continue hospital stay. Renal function is improving. 11/25; consults and recommendations noted and appreciated Closely monitor the patient and adjust management as needed 11/26: Patient on 8 L of nasal cannula oxygen. I called patient's daughter Ms. Santamaria at [phone] and discussed in detail patient's condition, tests and reports, consultants recommendations and treatment plan, I also informed that he is requiring supplemental oxygen 8 L. She has many questions and I answered all of them. And encouraged her To call back if she has any new concerns. 11/27; today this morning patient is requiring 11 L of nasal cannula oxygen Wean as tolerated, set of inflammatory markers requested follow-up 11/28 today patient is on 7 L of nasal cannula O2 Wean as tolerated History Interval history: I have seen and examined the patient at the bedside Patient's chart and medications reviewed Uncontrolled blood sugars Patient complains of mild shortness of breath Hospitalist Physical - Constitutional Vitals: Temp Pulse Resp BP Pulse Ox 97.8 F 65 18 116/71 91 11/28/20 04:38 11/28/20 04:38 11/28/20 04:38 11/28/20 04:38 11/28/20 04:38 General appearance: Present: mild distress, well-nourished - EENT Eyes: Present: PERRL, EOM intact - Neck Neck: Present: supple, normal ROM - Respiratory Respiratory effort: normal Respiratory: bilateral: diminished, rhonchi, negative: rales, wheezing - Cardiovascular Rhythm: regular Heart Sounds: Present: S1 & S2 - Extremities Extremities: no ischemia, No edema - Abdominal General gastrointestinal: soft, non-tender, non-distended, normal bowel sounds - Integumentary Integumentary: Present: clear, warm - Psychiatric Psychiatric: appropriate mood/affect, cooperative - Neurologic Neurologic: moves all extremities (In the in the hospital) HEART Score - HEART Score Troponin: Troponin T < 0.010 ng/mL (0.00-0.029) 11/22/20 05:33 Results - Labs CBC & Chem 7: 11/23/20 07:30 11/28/20 05:47 Labs: Laboratory Last Values WBC 4.3 K/mm3 (4.5-11.0) L 11/23/20 07:30 RBC 4.57 M/mm3 (3.65-5.03) 11/23/20 07:30 Hgb 15.4 gm/dl (11.8-15.2) H 11/23/20 07:30 Hct 44.3 % (35.5-45.6) 11/23/20 07:30 MCV 97 fl (84-94) H 11/23/20 07:30 MCH 34 pg (28-32) H 11/23/20 07:30 MCHC 35 % (32-34) H 11/23/20 07:30 RDW 15.0 % (13.2-15.2) 11/23/20 07:30 Plt Count 106 K/mm3 (140-440) L 11/23/20 07:30 Lymph % (Auto) 18.4 % (13.4-35.0) 11/21/20 09:35 Hinds % (Auto) 6.1 % (0.0-7.3) 11/21/20 09:35 Eos % (Auto) 0.0 % (0.0-4.3) 11/21/20 09:35 Baso % (Auto) 0.2 % (0.0-1.8) 11/21/20 09:35 Lymph # (Auto) 0.5 K/mm3 (1.2-5.4) L 11/21/20 09:35 Hinds # (Auto) 0.2 K/mm3 (0.0-0.8) 11/21/20 09:35 Eos # (Auto) 0.0 K/mm3 (0.0-0.4) 11/21/20 09:35 Baso # (Auto) 0.0 K/mm3 (0.0-0.1) 11/21/20 09:35 Seg Neutrophils % 75.3 % (40.0-70.0) H 11/21/20 09:35 Seg Neutrophils # 2.0 K/mm3 (1.8-7.7) 11/21/20 09:35 D-Dimer 720.02 ng/mlDDU (0-234) H 11/27/20 10:43 Sodium 133 mmol/L (137-145) L 11/28/20 05:47 Potassium 5.4 mmol/L (3.6-5.0) H 11/28/20 05:47 Chloride 99.7 mmol/L (98-107) 11/28/20 05:47 Carbon Dioxide 22 mmol/L (22-30) 11/28/20 05:47 Anion Gap 17 mmol/L 11/28/20 05:47 BUN 28 mg/dL (9-20) H 11/28/20 05:47 Creatinine 1.2 mg/dL (0.8-1.3) 11/28/20 05:47 Estimated GFR > 60 ml/min 11/28/20 05:47 BUN/Creatinine Ratio 23 % 11/28/20 05:47 Glucose 318 mg/dL (75-100) H 11/28/20 05:47 POC Glucose 287 mg/dL (70-105) H 11/28/20 08:09 Lactic Acid 1.10 mmol/L (0.7-2.0) 11/20/20 17:23 Calcium 7.9 mg/dL (8.4-10.2) L 11/28/20 05:47 Ferritin 4372.0 ng/mL (30.0-300.0) H 11/27/20 10:43 Total Bilirubin 0.60 mg/dL (0.1-1.2) 11/21/20 09:35 AST 202 units/L (5-40) H 11/21/20 09:35 ALT 189 units/L (7-56) H 11/21/20 09:35 Alkaline Phosphatase 66 units/L (35-129) 11/21/20 09:35 Lactate Dehydrogenase 533 units/L (91-180) H 11/27/20 10:43 Total Creatine Kinase 848 units/L (55-170) H 11/23/20 07:30 CK-MB (CK-2) 9.3 ng/mL (0.0-4.0) H 11/22/20 05:33 CK-MB (CK-2) Rel Index 1.0 (0-4) 11/22/20 05:33 Troponin T < 0.010 ng/mL (0.00-0.029) 11/22/20 05:33 C-Reactive Protein 0.20 mg/dL (0.00-1.30) 11/27/20 10:43 NT-Pro-B Natriuret Pep 467.3 pg/mL (0-900) 11/20/20 12:39 Total Protein 7.1 g/dL (6.3-8.2) 11/21/20 09:35 Albumin 3.2 g/dL (3.9-5) L 11/21/20 09:35 Albumin/Globulin Ratio 0.8 % 11/21/20 09:35 Procalcitonin 0.86 ng/mL (<0.15) 11/21/20 10:45 Urine Color Straw (Yellow) 11/20/20 18:55 Urine Turbidity Slightly cloudy (Clear) 11/20/20 18:55 Urine pH 5.0 (5.0-7.0) 11/20/20 18:55 Ur Specific Burt 1.015 (1.003-1.030) 11/20/20 18:55 Urine Protein 100 mg/dl mg/dL (Negative) 11/20/20 18:55 Urine Glucose (UA) Negative mg/dL (Negative) 11/20/20 18:55 Urine Ketones Negative mg/dL (Negative) 11/20/20 18:55 Urine Blood 2+ (Negative) 11/20/20 18:55 Urine Nitrite Negative (Negative) 11/20/20 18:55 Urine Bilirubin Negative (Negative) 11/20/20 18:55 Urine Urobilinogen < 2.0 mg/dL (<2.0) 11/20/20 18:55 Ur Leukocyte Esterase Negative (Negative) 11/20/20 18:55 Urine WBC (Auto) 2.0 /HPF (0.0-6.0) 11/20/20 18:55 Urine RBC (Auto) 1.0 /HPF (0.0-6.0) 11/20/20 18:55 Digoxin 0.3 ng/mL (0.9-2.0) L 11/21/20 21:08 Coronavirus (PCR) Positive (Negative) A 11/22/20 Unknown Hall/IV: Voiding Method Toilet Active Medications - Current Medications Current Medications: Generic Name Dose Route Start Last Admin Trade Name Freq PRN Reason Stop Dose Admin Acetaminophen 650 mg 11/20/20 17:29 11/28/20 05:21 Acetaminophen 325 Mg Tab PO 650 mg Q4H PRN Administration Pain MILD(1-3)/Fever >100.5/KIDD Allopurinol 300 mg 11/20/20 15:43 Allopurinol 300 Mg Tab PO QDAY PRN Uric Acid Hooker Operator Ascorbic Acid 500 mg 11/20/20 22:00 11/27/20 23:09 Ascorbic Acid 500 Mg Tab PO 500 mg BID CARLY Administration Aspirin 81 mg 11/21/20 10:00 11/27/20 10:06 Aspirin 81 Mg Tab Chew PO 81 mg QDAY CARLY Administration Atorvastatin Calcium 80 mg 11/21/20 22:00 11/27/20 23:08 Atorvastatin 40 Mg Tab PO 80 mg QHS CARLY Administration Carvedilol 25 mg 11/21/20 22:00 11/27/20 23:11 Carvedilol 25 Mg Tab PO 25 mg BID CARLY Administration Cetirizine HCl 10 mg 11/20/20 16:00 11/27/20 10:06 Cetirizine 10 Mg Tab PO 10 mg DAILY CARLY Administration Cholecalciferol 1,000 unit 11/28/20 10:00 Cholecalciferol (Vit D3) 1000 Unit (25 Mcg) Tab PO DAILY CARLY Colchicine 0.6 mg 11/20/20 15:43 Colchicine 0.6 Mg Tab PO DAILY PRN Gout Dextrose 50 ml 11/23/20 11:40 Dextrose 50% In Water (25gm) 50 Ml Syringe IV Q30MIN PRN Hypoglycemia Protocol Digoxin 0.125 mg 11/22/20 10:00 11/26/20 09:20 Digoxin 0.125 Mg Tab PO 0.125 mg Q48HR CARLY Administration Famotidine 10 mg 11/21/20 10:00 11/27/20 23:07 Famotidine 10 Mg Tab PO 10 mg BID CARLY Administration Guaifenesin 200 mg 11/23/20 21:57 11/23/20 22:42 Guaifenesin 100 Mg/5 Ml Oral Liqd PO 200 mg Q4H PRN Administration Cough Heparin Sodium (Porcine) 5,000 unit 11/20/20 22:00 11/27/20 23:03 Heparin 5,000 Unit/1 Ml Vial SUB-Q 5,000 unit Q12HR CARLY Administration Hydromorphone HCl 0.5 mg 11/22/20 10:00 Hydromorphone 1 Mg/1 Ml Inj IV Q6H PRN Pain , Severe (7-10) Insulin Glargine 15 units 11/28/20 10:01 Insulin Glargine 100 Units/Ml SUB-Q BID CARLY Insulin Human Lispro 0 unit 11/23/20 11:30 11/28/20 09:03 Insulin Lispro 100 Unit/Ml SUB-Q 4 unit ACHS CARLY Administration Protocol Methylprednisolone Sodium Succinate 80 mg 11/21/20 14:30 11/28/20 05:17 Methylprednisolone Sod Succinate 40 Mg/1 Ml Inj IV 80 mg Q8HR CARLY Administration Ondansetron HCl 4 mg 11/20/20 17:29 Ondansetron 4 Mg/2 Ml Inj IV Q8H PRN Nausea And Vomiting Oxycodone/Acetaminophen 1 tab 11/20/20 17:29 11/23/20 06:25 Oxycodone /Acetaminophen 5-325mg Tab PO 1 tab Q12H PRN Administration Pain, Moderate (4-6) Ranolazine 1,000 mg 11/20/20 22:00 11/27/20 23:09 Ranolazine Er 500 Mg Tab 12hr PO 1,000 mg BID CARLY Administration Sodium Bicarbonate 1,300 mg 11/23/20 11:00 11/27/20 23:08 Sodium Bicarbonate 650 Mg Tab PO 1,300 mg BID CARLY Administration Sodium Chloride 10 ml 11/20/20 22:00 11/27/20 23:10 Sodium Chloride 0.9% 10 Ml Flush Syringe IV 10 ml BID CARLY Administration Sodium Chloride 10 ml 11/20/20 17:29 Sodium Chloride 0.9% 10 Ml Flush Syringe IV PRN PRN LINE FLUSH Timolol Maleate 1 drops 11/20/20 15:43 Timolol 0.5% Ophth Soln 5 Ml OD DAILY PRN Migraine Headache Zinc Sulfate 220 mg 11/20/20 22:00 11/27/20 23:09 Zinc Sulfate 220 Mg Cap PO 220 mg BID CARLY Administration Nutrition/Malnutrition Assess - Dietary Evaluation Nutrition/Malnutrition Findings: Nutrition Notes Start: 11/21/20 10:48 Freq: Status: Active Protocol: Document 11/21/20 10:48 NAVI (Rec: 11/21/20 11:24 NAVI [id number]) Nutrition Notes Need for Assessment generated from: MD Order Initial or Follow up Brief Note Other Pertinent Diagnosis Pt admitted with Shortness of Breath, associated with COVID. Current Diet Cardiac Diet Labs/Tests 11/21: Na 134, CO2 16, BUN 38, Cr 1.4, Glu 141. Pertinent Medications 11/21: Zn, Vit C, Vit D3. At Home: Pt supplements with Niacin, [place]-3. Height 5 ft 7 in Weight 93.894 kg [place] Body Weight (kg) 67.27 BMI 32.4 Intake Prior to Admission Good Weight Status Obese Subjective/Other Information Pt is independent. Burn Absent Trauma Absent GI Symptoms None Food Allergy No Skin Integrity/Comment Integumentary clear, warm, dry . Minimum of two criteria No physical signs of malnutrition #1 Nutrition Diagnosis No nutrition diagnosis at this time Comments: No reports on Food Intake, BBody Weight changes, Chewing/ Swallowing difficulties at the time. Is patient on ventilator? No Is Patient Ambulatory and/or Out of Bed Yes REE-([facility]-ambulatory/OOB) [ 2206.841 [id number]] Kcal/Kg value to use for calculation 25 Approximate Energy Requirements Using 2347 kcal/Kg Calculation Used for Recommendations Kcal/kg Additional Notes Protein: 0.8-1.0 g/Kg/day; 54- 67gr/day; 216-268 Kcal/day ( from IBW) Fluids: 1.0 ml/Kcal, or as per MD. Nutrition Intervention Goal #1 Maintain Body Weight within +/ -3% of actual BW during LOS Follow-Up By: 11/28/20 Additional Comments Observe Pt tolerance of food, BM, total intake, and chewing/ swallowing difficulties.
[2020-11-28] MEDS: DIGOXIN 0.125 MG TAB PO SCH (10:40)
[2020-11-28] MEDS: SODIUM BICARBONATE 650 MG TAB PO SCH ×2 (10:40→22:13)
--- NOTE | 2020-11-28 10:41 | Progress Note ---
Assessment and Plan Cultures: SARS CoV2 PCR: Positive as outpatient, positive inpatient 11/20/2020 blood culture: no growth today A/P: 60-year-old male with coronary artery disease, CHF, hypertension, cardiomyopathy status post AICD placement who was recently diagnosed with COVID-19 infection 2 weeks prior: #Bilateral pneumonia secondary to COVID-19: Labs revealed leukopenia, D-dimer 859, LDH 682, transaminitis, CRP 4.6, NT proBNP 467. CXR with interstitial thickening. V/Q with low probability for PE. #Acute hypoxic respiratory failure: Remains on 7 L salter. #CHF, cardiomyopathy, s/p AICD #CHERYL: Renally adjust antibiotics #Transaminitis: ?COVID related v/s congestion. #Leukopenia, thrombocytopenia: Likely related to viral illness Recs: -Continue steroids, on methylprednisolone. Complete 10 days of steroids. -Out of the window for remdesivir benefit since diagnosis was 2 weeks ago -Not a candidate for Actemra based on CRP and oxygen requirements -prophylactic anticoagulation based on d-dimer per hospital protocol -trend d-dimer, CRP every 2-3 days, ordered -CHF management per primary Infectious disease will sign off. Please call with questions. Wander Mirza MD [facility] ([facility] O: [phone] F: [phone] Subjective Date of service: 11/28/20 Principal diagnosis: COVID-19 Interval history: Afebrile, no acute change. On 7 L nasal cannula. Objective - Exam Narrative Exam: Physical exam deferred to reduce risk of transmission of COVID-19. Please refer to primary team's note. - Constitutional Vitals: Vital Signs Temp Pulse Resp BP Pulse Ox 97.8 F 65 18 116/71 91 11/28/20 04:38 11/28/20 04:38 11/28/20 04:38 11/28/20 04:38 11/28/20 04:38 Temperature -Last 24 Hours Temperature 97.8 F Temperature 97.9 F - Labs CBC & Chem 7: 11/23/20 07:30 11/28/20 05:47 Labs: Abnormal lab results 11/27/20 11/27/20 11/27/20 Range/Units 10:43 10:43 10:43 D-Dimer 720.02 H (0-234) ng/mlDDU Sodium (137-145) mmol/L Potassium (3.6-5.0) mmol/L BUN (9-20) mg/dL Glucose (75-100) mg/dL POC Glucose (70-105) mg/dL Calcium (8.4-10.2) mg/dL Ferritin 4372.0 H (30.0-300.0) ng/mL Lactate Dehydrogenase 533 H (91-180) units/L 11/27/20 11/27/20 11/27/20 Range/Units 11:27 16:59 21:30 D-Dimer (0-234) ng/mlDDU Sodium (137-145) mmol/L Potassium (3.6-5.0) mmol/L BUN (9-20) mg/dL Glucose (75-100) mg/dL POC Glucose 409 H 380 H 330 H (70-105) mg/dL Calcium (8.4-10.2) mg/dL Ferritin (30.0-300.0) ng/mL Lactate Dehydrogenase (91-180) units/L 11/28/20 11/28/20 Range/Units 05:47 08:09 D-Dimer (0-234) ng/mlDDU Sodium 133 L (137-145) mmol/L Potassium 5.4 H (3.6-5.0) mmol/L BUN 28 H (9-20) mg/dL Glucose 318 H (75-100) mg/dL POC Glucose 287 H (70-105) mg/dL Calcium 7.9 L (8.4-10.2) mg/dL Ferritin (30.0-300.0) ng/mL Lactate Dehydrogenase (91-180) units/L
[2020-11-28] MEDS: HEPARIN 5,000 UNIT/1 ML VIAL SUB-Q SCH ×2 (10:48→22:13)
[2020-11-28] MEDS: FAMOTIDINE 10 MG TAB PO SCH ×2 (10:48→22:13)
[2020-11-28] MEDS: CHOLECALCIFEROL (VIT D3) 1000 UNIT (25 mcg) TAB PO SCH (10:49)
[2020-11-28] MEDS: carvediloL 25 MG TAB PO SCH ×2 (10:49→22:13)
[2020-11-28] MEDS: ASPIRIN 81 MG TAB CHEW PO SCH (10:50)
[2020-11-28] MEDS: CETIRIZINE 10 MG TAB PO SCH (10:50)
[2020-11-28] MEDS: ASCORBIC ACID 500 MG TAB PO SCH ×2 (10:50→22:14)
[2020-11-28] MEDS: ZINC SULFATE 220 MG CAP PO SCH ×2 (11:00→22:14)
--- NOTE | 2020-11-28 12:24 | Progress Note ---
Assessment and Plan 60 y/o male with acute respiratory failure secondary to COVID pneumonia. 11/28/20: Continue to wean for sats >88%. PRone. monitor fluid status. Guarded prognosis. 11/27/20: Prone if possible. Continue steroids. 11/26/20: Wean FiO2 For sats >88%. Prone if able and continue steroids. 11/25/20: Wean FiO2 for sats >88%, proning, steroids. Steroids Proning Subjective Date of service: 11/28/20 Principal diagnosis: COVID-19 Interval history: Down to 7 liters now. Good sats. Objective Vital Signs - 12hr 11/28/20 11/28/20 11/28/20 02:20 04:38 10:49 Temperature 97.8 F Pulse Rate 65 70 Respiratory 18 Rate Blood Pressure 116/71 128/80 O2 Sat by Pulse 94 91 Oximetry CBC and BMP: 11/23/20 07:30 11/28/20 05:47 ABG, PT/INR, D-dimer: PT/INR, D-dimer D-Dimer 720.02 ng/mlDDU (0-234) H 11/27/20 10:43 Abnormal lab findings: Abnormal Labs 11/20/20 11/20/20 11/20/20 12:39 12:39 12:39 WBC 2.4 L RBC Hgb 16.1 H Hct 48.0 H MCV 99 H MCH 33 H MCHC Plt Count 100 L [place] % (Auto) 8.4 H Lymph # (Auto) 0.6 L Seg Neutrophils % Seg Neutrophils # 1.6 L D-Dimer 836.61 H Sodium 125 L Potassium Chloride 94.3 L Carbon Dioxide 16 L BUN 43 H Creatinine 2.3 H Glucose POC Glucose Calcium Ferritin AST ALT Lactate Dehydrogenase Total Creatine Kinase CK-MB (CK-2) C-Reactive Protein Albumin Digoxin Coronavirus (PCR) 11/21/20 11/21/20 11/21/20 09:35 09:35 10:45 WBC 2.7 L RBC 5.04 H Hgb 17.1 H Hct 49.5 H MCV 98 H MCH 34 H MCHC 35 H Plt Count 93 L [place] % (Auto) Lymph # (Auto) 0.5 L Seg Neutrophils % 75.3 H Seg Neutrophils # D-Dimer 859.78 H Sodium 134 L D Potassium Chloride Carbon Dioxide 16 L BUN 38 H Creatinine 1.4 H Glucose 141 H POC Glucose Calcium 8.2 L Ferritin AST 202 H ALT 189 H Lactate Dehydrogenase Total Creatine Kinase CK-MB (CK-2) C-Reactive Protein Albumin 3.2 L Digoxin Coronavirus (PCR) 11/21/20 11/21/20 11/21/20 10:45 10:45 15:12 WBC RBC Hgb Hct MCV MCH MCHC Plt Count [place] % (Auto) Lymph # (Auto) Seg Neutrophils % Seg Neutrophils # D-Dimer Sodium Potassium Chloride Carbon Dioxide BUN Creatinine Glucose 154 H POC Glucose Calcium Ferritin 9449.0 H AST ALT Lactate Dehydrogenase 682 H Total Creatine Kinase 1372 H CK-MB (CK-2) 16.3 H C-Reactive Protein 4.60 H Albumin Digoxin Coronavirus (PCR) 11/21/20 11/21/20 11/22/20 21:08 21:08 05:33 WBC RBC Hgb Hct MCV MCH MCHC Plt Count [place] % (Auto) Lymph # (Auto) Seg Neutrophils % Seg Neutrophils # D-Dimer Sodium 132 L Potassium Chloride Carbon Dioxide 16 L BUN 38 H Creatinine 1.4 H Glucose 223 H POC Glucose Calcium 7.8 L Ferritin AST ALT Lactate Dehydrogenase Total Creatine Kinase 1198 H CK-MB (CK-2) 13.6 H C-Reactive Protein Albumin Digoxin 0.3 L Coronavirus (PCR) 11/22/20 11/22/20 11/23/20 05:33 Unknown 07:30 WBC RBC Hgb Hct MCV MCH MCHC Plt Count [place] % (Auto) Lymph # (Auto) Seg Neutrophils % Seg Neutrophils # D-Dimer Sodium 134 L Potassium Chloride Carbon Dioxide 21 L BUN 34 H Creatinine Glucose 217 H POC Glucose Calcium 7.7 L Ferritin AST ALT Lactate Dehydrogenase Total Creatine Kinase 847 H CK-MB (CK-2) 9.3 H C-Reactive Protein Albumin Digoxin Coronavirus (PCR) Positive A 11/23/20 11/23/20 11/23/20 07:30 07:30 14:13 WBC 4.3 L RBC Hgb 15.4 H Hct MCV 97 H MCH 34 H MCHC 35 H Plt Count 106 L [place] % (Auto) Lymph # (Auto) Seg Neutrophils % Seg Neutrophils # D-Dimer 435.87 H Sodium Potassium Chloride Carbon Dioxide BUN Creatinine Glucose POC Glucose Calcium Ferritin AST ALT Lactate Dehydrogenase Total Creatine Kinase 848 H CK-MB (CK-2) C-Reactive Protein Albumin Digoxin Coronavirus (PCR) 11/23/20 11/23/20 11/23/20 14:13 16:49 23:00 WBC RBC Hgb Hct MCV MCH MCHC Plt Count [place] % (Auto) Lymph # (Auto) Seg Neutrophils % Seg Neutrophils # D-Dimer Sodium Potassium Chloride Carbon Dioxide BUN Creatinine Glucose POC Glucose 228 H 167 H Calcium Ferritin 6510.0 H AST ALT Lactate Dehydrogenase Total Creatine Kinase CK-MB (CK-2) C-Reactive Protein Albumin Digoxin Coronavirus (PCR) 11/24/20 11/24/20 11/24/20 07:25 07:51 11:29 WBC RBC Hgb Hct MCV MCH MCHC Plt Count [place] % (Auto) Lymph # (Auto) Seg Neutrophils % Seg Neutrophils # D-Dimer Sodium Potassium Chloride Carbon Dioxide 21 L BUN 31 H Creatinine Glucose 178 H POC Glucose 178 H 206 H Calcium 7.7 L Ferritin AST ALT Lactate Dehydrogenase Total Creatine Kinase CK-MB (CK-2) C-Reactive Protein Albumin Digoxin Coronavirus (PCR) 11/24/20 11/25/20 11/25/20 22:45 06:54 07:53 WBC RBC Hgb Hct MCV MCH MCHC Plt Count [place] % (Auto) Lymph # (Auto) Seg Neutrophils % Seg Neutrophils # D-Dimer Sodium 135 L Potassium Chloride Carbon Dioxide BUN 29 H Creatinine Glucose 191 H POC Glucose 209 H 194 H Calcium 7.9 L Ferritin AST ALT Lactate Dehydrogenase Total Creatine Kinase CK-MB (CK-2) C-Reactive Protein Albumin Digoxin Coronavirus (PCR) 11/25/20 11/25/20 11/25/20 11:34 16:08 21:50 WBC RBC Hgb Hct MCV MCH MCHC Plt Count [place] % (Auto) Lymph # (Auto) Seg Neutrophils % Seg Neutrophils # D-Dimer Sodium Potassium Chloride Carbon Dioxide BUN Creatinine Glucose POC Glucose 255 H 275 H 218 H Calcium Ferritin AST ALT Lactate Dehydrogenase Total Creatine Kinase CK-MB (CK-2) C-Reactive Protein Albumin Digoxin Coronavirus (PCR) 11/26/20 11/26/20 11/26/20 05:38 07:20 12:34 WBC RBC Hgb Hct MCV MCH MCHC Plt Count [place] % (Auto) Lymph # (Auto) Seg Neutrophils % Seg Neutrophils # D-Dimer Sodium 136 L Potassium 5.1 H Chloride Carbon Dioxide 19 L BUN 29 H Creatinine Glucose 258 H POC Glucose 255 H 326 H Calcium 8.0 L Ferritin AST ALT Lactate Dehydrogenase Total Creatine Kinase CK-MB (CK-2) C-Reactive Protein Albumin Digoxin Coronavirus (PCR) 11/26/20 11/26/20 11/27/20 16:27 21:22 05:50 WBC RBC Hgb Hct MCV MCH MCHC Plt Count [place] % (Auto) Lymph # (Auto) Seg Neutrophils % Seg Neutrophils # D-Dimer Sodium 134 L Potassium Chloride Carbon Dioxide BUN 24 H Creatinine Glucose 237 H POC Glucose 286 H 278 H Calcium 7.9 L Ferritin AST ALT Lactate Dehydrogenase Total Creatine Kinase CK-MB (CK-2) C-Reactive Protein Albumin Digoxin Coronavirus (PCR) 11/27/20 11/27/20 11/27/20 10:43 10:43 10:43 WBC RBC Hgb Hct MCV MCH MCHC Plt Count [place] % (Auto) Lymph # (Auto) Seg Neutrophils % Seg Neutrophils # D-Dimer 720.02 H Sodium Potassium Chloride Carbon Dioxide BUN Creatinine Glucose POC Glucose Calcium Ferritin 4372.0 H AST ALT Lactate Dehydrogenase 533 H Total Creatine Kinase CK-MB (CK-2) C-Reactive Protein Albumin Digoxin Coronavirus (PCR) 11/27/20 11/27/20 11/27/20 11:27 16:59 21:30 WBC RBC Hgb Hct MCV MCH MCHC Plt Count [place] % (Auto) Lymph # (Auto) Seg Neutrophils % Seg Neutrophils # D-Dimer Sodium Potassium Chloride Carbon Dioxide BUN Creatinine Glucose POC Glucose 409 H 380 H 330 H Calcium Ferritin AST ALT Lactate Dehydrogenase Total Creatine Kinase CK-MB (CK-2) C-Reactive Protein Albumin Digoxin Coronavirus (PCR) 11/28/20 11/28/20 11/28/20 05:47 08:09 11:25 WBC RBC Hgb Hct MCV MCH MCHC Plt Count [place] % (Auto) Lymph # (Auto) Seg Neutrophils % Seg Neutrophils # D-Dimer Sodium 133 L Potassium 5.4 H Chloride Carbon Dioxide BUN 28 H Creatinine Glucose 318 H POC Glucose 287 H 353 H Calcium 7.9 L Ferritin AST ALT Lactate Dehydrogenase Total Creatine Kinase CK-MB (CK-2) C-Reactive Protein Albumin Digoxin Coronavirus (PCR) Allied health notes reviewed: nursing
--- NOTE | 2020-11-28 13:11 | Progress Note ---
Assessment and Plan Patient is 60 YO Male with a PMHx of CAD S/P PCI, HTN, HFrEF( EF <15%) S/P AICD Placement, and Coronavirus Infection diagnosed HFrEF CAD s/p PCI S/p AICD placment HTN * Echo-11/21/2020-EF 10 to 15%, LV is severely dilated, global hypokinesis of left ventricle, mild diastolic dysfunction is present impaired relaxation pattern, right ventricle is normal size, pacemaker lead present in right ventricle * LHC 03/24/2020- Patent LAD stent, other coronaries normal without significant plaque. Severely depressed LV systolic function. EF<20% * Nuclear MPI 08/07/2019- Abnormal pharmacologic stress nuclear study but negative for ischemia. The left ventricle is moderately dilated. There are mild to moderately reduced perfusion defects of medium size in the inferior wall. The defect in the inferior segment is fixed. No significant ischemia detected. Stress EKG Test Results Normal. Systolic function is severely reduced. The calculated rest EF is at 24%. Normal myocardial perfusion in anterior, apical, septal and lateral leads and fixed inferior defect * Currently on: Coreg 25mg PO BID, Renaxa 1000mg PO BID, digoxin .125mg PO Q48hrs, atorvastatin 80mg PO QHS. Acute Hypoxic respiratory failure COVID-19 * Patient on NC * ID signed off * Pulmonology following CHERYL * Nephrology following Plan: Will continue to hold diuretics and ARB as per nephrology recs. Continue Covid- 19 management pe primary team. Patient seen in conjunction with Dr. Salinas who agrees with this plan of care. Will see as needed over the weekend - Patient Problems (1) COVID-19 Current Visit: Yes Status: Acute (2) CHERYL (acute kidney injury) Current Visit: Yes Status: Acute (3) D-dimer, elevated Current Visit: Yes Status: Acute (4) Hyponatremia Current Visit: Yes Status: Acute (5) Acute hypoxemic respiratory failure Current Visit: Yes Status: Acute (6) Coronary artery disease Current Visit: Yes Status: Chronic Qualifiers: Coronary Disease-Associated Artery/Lesion type: [place] artery [place] vs. transplanted heart: [place] heart Associated angina: with stable angina Qualified Code(s): I25.118 - Atherosclerotic heart disease of [place] coronary artery with other forms of angina pectoris (7) GERD (gastroesophageal reflux disease) Current Visit: No Status: Acute (8) Chronic systolic heart failure Current Visit: No Status: Chronic (9) Essential hypertension Current Visit: Yes Status: Chronic (10) Hyperlipidemia Current Visit: Yes Status: Chronic Qualifiers: Hyperlipidemia type: mixed hyperlipidemia Qualified Code(s): E78.2 - Mixed hyperlipidemia Subjective Date of service: 11/28/20 Principal diagnosis: COVID-19 Interval history: Patient lying in bed. patient sinus 60s on monitor with no events Objective Vital Signs Temp Pulse Resp BP Pulse Ox 11/28/20 10:49 70 128/80 11/28/20 04:38 97.8 F 65 18 116/71 91 11/28/20 02:20 94 11/27/20 22:42 97.9 F 70 20 134/80 93 11/27/20 22:00 94 11/27/20 21:41 94 11/27/20 16:58 89 85 11/27/20 16:57 90 92 11/27/20 14:40 94 - Physical Examination General: No Apparent Distress HEENT: Positive: PERRL Neck: Positive: trachea midline Cardiac: Positive: Reg Rate and Rhythm Lungs: Positive: Decreased Breath Sounds Neuro: Positive: Grossly Intact Abdomen: Positive: Soft Skin: Negative: Rash, Suspicious Lesions, Ulceration Extremities: Present: upper extr. pulses, lower extr. pulses. Absent: edema - Labs and Meds Comprehensive Metabolic Panel 11/28/20 Range/Units 05:47 Sodium 133 L (137-145) mmol/L Potassium 5.4 H (3.6-5.0) mmol/L Chloride 99.7 (98-107) mmol/L Carbon Dioxide 22 (22-30) mmol/L BUN 28 H (9-20) mg/dL Creatinine 1.2 (0.8-1.3) mg/dL Glucose 318 H (75-100) mg/dL Calcium 7.9 L (8.4-10.2) mg/dL - Imaging and Cardiology EKG: report reviewed, image reviewed Echo: report reviewed (11/21/2020 - EF 10-15%, LV severely dilated, mild diastolic dysfxn) Cardiac cath: report reviewed (03/24/2020 patent LAD stent, other coronaries normal without significant plaque, severely depressed LV systolic function (EF<20%)) - Telemetry EKG Rhythm: Sinus Rhythm - EKG Sinus rhythms and dysrhythmias: sinus rhythm AV and intraventricular conduction: left bundle branch block - Allied health notes Allied health notes reviewed: nursing
[2020-11-28] MEDS: INSULIN GLARGINE 100 UNITS/ML SUB-Q SCH ×2 (14:58→22:15)
[2020-11-28] MEDS: RANOLAZINE ER 500 MG TAB 12HR PO SCH ×2 (15:16→22:13)
--- NOTE | 2020-11-28 16:44 | Progress Note ---
Assessment and Plan Impression: * CHERYL * Covid PNA * hyponatremia * metabolic acidosis * acute hypoxic resp failure Plan: * cr is stable today at 1.2->1.1->1.2->1.0->1.2 * cheryl due to hypopperfusion with COVID PNA and volume depletion, high risk for progression to ATN * hold diuresis at this time as able * continue NaHCO3 for acidosis, HCO3 reasonable * stopped KCl given borderline K * volume resuscitation as needed, po intake as able * daily lytes and strict i/os * avoid nephrotoxins * renal diet * covid care per primary team Subjective Date of service: 11/28/20 Principal diagnosis: COVID-19 Interval history: 24 hour events reviewed, labs and chart reviewed. Interdisciplinary and nursing notes reviewed Objective - Exam Narrative Exam: primary team exam noted, exam deferred for preservation of PPE - Vital Signs Vital signs: Vital Signs - 12hr 11/28/20 11/28/20 11/28/20 10:25 10:49 11:23 Temperature 97.5 F L Pulse Rate 70 69 Respiratory 20 Rate Blood Pressure 128/80 133/84 O2 Sat by Pulse 90 93 Oximetry 11/28/20 16:40 Temperature Pulse Rate Respiratory Rate Blood Pressure O2 Sat by Pulse 91 Oximetry - Lab 11/23/20 07:30 11/28/20 05:47 Most recent lab results Calcium 7.9 mg/dL (8.4-10.2) L 11/28/20 05:47 Medications & Allergies - Medications Allergies/Adverse Reactions: Allergies No Known Allergies Allergy (Verified 04/13/15 20:17) Home Medications: Home Medications Medication Instructions Recorded Confirmed Last Taken Type Ibuprofen [Motrin] 800 mg PO Q8HR PRN 04/13/15 11/25/20 Unknown History Loratadine (Nf) [Claritin (Nf)] 10 mg PO DAILY PRN 04/13/15 11/25/20 Unknown History Timolol 0.5% [Timoptic] 1 drops OP DAILY PRN 04/13/15 11/25/20 Unknown History allopurinoL [Zyloprim] 300 mg PO QDAY PRN 04/13/15 11/25/20 Unknown History methylPREDNISolone [Medrol Dose 4 mg PO DAILY PRN 04/13/15 11/25/20 Unknown History Sergio] Famotidine [Pepcid] 20 mg PO BID #60 tablet 04/14/15 11/25/20 Unknown Rx Aspirin [Aspirin BABY CHEW TAB] 81 mg PO QDAY #30 tab.chew 06/16/15 11/25/20 Unknown Rx AtorvaSTATin [Lipitor] 40 mg PO QHS #30 tablet 06/16/15 11/25/20 Unknown Rx Colchicine [Colcrys] 0.6 mg PO DAILY PRN #30 tablet 06/16/15 11/25/20 Unknown Rx Digoxin [Lanoxin] 0.125 mg PO DAILY #30 tablet 06/16/15 11/25/20 Unknown Rx Furosemide [Lasix TAB] 40 mg PO QDAY #30 tablet 06/16/15 11/25/20 Unknown Rx Niacin ER [Niaspan ER] 500 mg PO QHS #30 tablet 06/16/15 11/25/20 Unknown Rx [place]-3 Fatty Acids/Fish Oil [Fish 1,000 mg PO DAILY #30 capsule 06/16/15 11/25/20 Unknown Rx Oil] Potassium Chloride [K-Dur] 10 meq PO DAILY #30 tablet 06/16/15 11/25/20 Unknown Rx Ranolazine ER [Ranexa ER] 1,000 mg PO BID #60 tablet 06/16/15 11/25/20 Unknown Rx Spironolactone [Aldactone] 25 mg PO QDAY #30 tablet 06/16/15 11/25/20 Unknown Rx allopurinoL [Zyloprim] 300 mg PO QDAY PRN #30 tablet 06/16/15 11/25/20 Unknown Rx carvediloL [Coreg] 25 mg PO DAILY #30 tablet 06/16/15 11/25/20 Unknown Rx lisinopriL [Zestril TAB] 40 mg PO QDAY #30 tablet 06/16/15 11/25/20 Unknown Rx oxyCODONE /ACETAMINOPHEN [Percocet 1 tab PO Q6H PRN #30 tablet 06/16/15 11/25/20 Unknown Rx 5/325 mg] predniSONE [Deltasone] 20 mg PO QDAY #30 tablet 06/16/15 11/25/20 Unknown Rx Active Medications: Generic Name Dose Route Start Last Admin Trade Name Freq PRN Reason Stop Dose Admin Acetaminophen 650 mg 11/20/20 17:29 11/28/20 05:21 Acetaminophen 325 Mg Tab PO 650 mg Q4H PRN Administration Pain MILD(1-3)/Fever >100.5/KIDD Allopurinol 300 mg 11/20/20 15:43 Allopurinol 300 Mg Tab PO QDAY PRN Uric Acid [employer] Ascorbic Acid 500 mg 11/20/20 22:00 11/28/20 10:50 Ascorbic Acid 500 Mg Tab PO 500 mg BID CARLY Administration Aspirin 81 mg 11/21/20 10:00 11/28/20 10:50 Aspirin 81 Mg Tab Chew PO 81 mg QDAY CARLY Administration Atorvastatin Calcium 80 mg 11/21/20 22:00 11/27/20 23:08 Atorvastatin 40 Mg Tab PO 80 mg QHS CARLY Administration Carvedilol 25 mg 11/21/20 22:00 11/28/20 10:49 Carvedilol 25 Mg Tab PO 25 mg BID CARLY Administration Cetirizine HCl 10 mg 11/20/20 16:00 11/28/20 10:50 Cetirizine 10 Mg Tab PO 10 mg DAILY CARLY Administration Cholecalciferol 1,000 unit 11/28/20 10:00 11/28/20 10:49 Cholecalciferol (Vit D3) 1000 Unit (25 Mcg) Tab PO 1,000 unit DAILY CARLY Administration Colchicine 0.6 mg 11/20/20 15:43 Colchicine 0.6 Mg Tab PO DAILY PRN Gout Dextrose 50 ml 11/23/20 11:40 Dextrose 50% In Water (25gm) 50 Ml Syringe IV Q30MIN PRN Hypoglycemia Protocol Digoxin 0.125 mg 11/22/20 10:00 11/28/20 10:40 Digoxin 0.125 Mg Tab PO 0.125 mg Q48HR CARLY Administration Famotidine 10 mg 11/21/20 10:00 11/28/20 10:48 Famotidine 10 Mg Tab PO 10 mg BID CARLY Administration Guaifenesin 200 mg 11/23/20 21:57 11/23/20 22:42 Guaifenesin 100 Mg/5 Ml Oral Liqd PO 200 mg Q4H PRN Administration Cough Heparin Sodium (Porcine) 5,000 unit 11/20/20 22:00 11/28/20 10:48 Heparin 5,000 Unit/1 Ml Vial SUB-Q 5,000 unit Q12HR CARLY Administration Hydromorphone HCl 0.5 mg 11/22/20 10:00 Hydromorphone 1 Mg/1 Ml Inj IV Q6H PRN Pain , Severe (7-10) Insulin Glargine 15 units 11/28/20 11:30 11/28/20 14:58 Insulin Glargine 100 Units/Ml SUB-Q 15 units BID CARLY Administration Insulin Human Lispro 0 unit 11/23/20 11:30 11/28/20 14:59 Insulin Lispro 100 Unit/Ml SUB-Q 8 unit ACHS CARLY Administration Protocol Methylprednisolone Sodium Succinate 80 mg 11/21/20 14:30 11/28/20 05:17 Methylprednisolone Sod Succinate 40 Mg/1 Ml Inj IV 80 mg Q8HR CARLY Administration Ondansetron HCl 4 mg 11/20/20 17:29 Ondansetron 4 Mg/2 Ml Inj IV Q8H PRN Nausea And Vomiting Oxycodone/Acetaminophen 1 tab 11/20/20 17:29 11/23/20 06:25 Oxycodone /Acetaminophen 5-325mg Tab PO 1 tab Q12H PRN Administration Pain, Moderate (4-6) Ranolazine 1,000 mg 11/20/20 22:00 11/28/20 15:16 Ranolazine Er 500 Mg Tab 12hr PO 1,000 mg BID CARLY Administration Sodium Bicarbonate 1,300 mg 11/23/20 11:00 11/28/20 10:40 Sodium Bicarbonate 650 Mg Tab PO 1,300 mg BID CARLY Administration Sodium Chloride 10 ml 11/20/20 22:00 11/28/20 11:05 Sodium Chloride 0.9% 10 Ml Flush Syringe IV 10 ml BID CARLY Administration Sodium Chloride 10 ml 11/20/20 17:29 Sodium Chloride 0.9% 10 Ml Flush Syringe IV PRN PRN LINE FLUSH Timolol Maleate 1 drops 11/20/20 15:43 Timolol 0.5% Ophth Soln 5 Ml OD DAILY PRN Migraine Headache Zinc Sulfate 220 mg 11/20/20 22:00 11/28/20 11:00 Zinc Sulfate 220 Mg Cap PO 220 mg BID CARLY Administration
[2020-11-28] MEDS: SACUBITRIL/VALSARTAN 49-51 MG TAB PO SCH ×2 (20:01→22:12)
[2020-11-29] MEDS: methylPREDNISolone Sod Succinate 40 MG/1 ML INJ IV SCH ×3 (06:34→22:22)
[2020-11-29] MEDS: INSULIN LISPRO 100 UNIT/ML SUB-Q SCH ×4 (08:26→22:21)
[2020-11-29] MEDS: ASCORBIC ACID 500 MG TAB PO SCH ×2 (10:01→22:22)
[2020-11-29] MEDS: FAMOTIDINE 10 MG TAB PO SCH ×2 (10:01→22:22)
[2020-11-29] MEDS: ZINC SULFATE 220 MG CAP PO SCH ×2 (10:01→22:22)
[2020-11-29] MEDS: HEPARIN 5,000 UNIT/1 ML VIAL SUB-Q SCH ×2 (10:01→22:22)
[2020-11-29] MEDS: ASPIRIN 81 MG TAB CHEW PO SCH (10:01)
[2020-11-29] MEDS: carvediloL 25 MG TAB PO SCH ×3 (10:01→22:22)
[2020-11-29] MEDS: CHOLECALCIFEROL (VIT D3) 1000 UNIT (25 mcg) TAB PO SCH (10:01)
[2020-11-29] MEDS: CETIRIZINE 10 MG TAB PO SCH (10:01)
[2020-11-29] MEDS: INSULIN GLARGINE 100 UNITS/ML SUB-Q SCH ×2 (10:03→22:24)
[2020-11-29] MEDS: SACUBITRIL/VALSARTAN 49-51 MG TAB PO SCH ×2 (10:03→22:23)
[2020-11-29] MEDS: RANOLAZINE ER 500 MG TAB 12HR PO SCH ×2 (10:07→22:23)
[2020-11-29] MEDS: SODIUM BICARBONATE 650 MG TAB PO SCH ×2 (10:07→22:23)
--- NOTE | 2020-11-29 10:35 | Progress Note ---
Assessment and Plan 60 y/o male with acute respiratory failure secondary to COVID pneumonia. 11/29/20: No new recs for today, please see below. 11/28/20: Continue to wean for sats >88%. PRone. monitor fluid status. Guarded prognosis. 11/27/20: Prone if possible. Continue steroids. 11/26/20: Wean FiO2 For sats >88%. Prone if able and continue steroids. 11/25/20: Wean FiO2 for sats >88%, proning, steroids. Steroids Proning Subjective Date of service: 11/29/20 Principal diagnosis: COVID-19 Interval history: Remains on 8 liters. Good sats. Objective Vital Signs - 12hr 11/28/20 11/29/20 11/29/20 22:56 01:51 02:42 Temperature 97.2 F L Pulse Rate 77 Respiratory 18 Rate Blood Pressure 142/93 O2 Sat by Pulse 92 94 92 Oximetry 11/29/20 11/29/20 04:38 10:05 Temperature 98.1 F Pulse Rate 64 64 Respiratory 18 Rate Blood Pressure 118/76 118/76 O2 Sat by Pulse 94 Oximetry CBC and BMP: 11/23/20 07:30 11/28/20 05:47 ABG, PT/INR, D-dimer: PT/INR, D-dimer D-Dimer 720.02 ng/mlDDU (0-234) H 11/27/20 10:43 Abnormal lab findings: Abnormal Labs 11/20/20 11/20/20 11/20/20 12:39 12:39 12:39 WBC 2.4 L RBC Hgb 16.1 H Hct 48.0 H MCV 99 H MCH 33 H MCHC Plt Count 100 L [place] % (Auto) 8.4 H Lymph # (Auto) 0.6 L Seg Neutrophils % Seg Neutrophils # 1.6 L D-Dimer 836.61 H Sodium 125 L Potassium Chloride 94.3 L Carbon Dioxide 16 L BUN 43 H Creatinine 2.3 H Glucose POC Glucose Calcium Ferritin AST ALT Lactate Dehydrogenase Total Creatine Kinase CK-MB (CK-2) C-Reactive Protein Albumin Digoxin Coronavirus (PCR) 11/21/20 11/21/20 11/21/20 09:35 09:35 10:45 WBC 2.7 L RBC 5.04 H Hgb 17.1 H Hct 49.5 H MCV 98 H MCH 34 H MCHC 35 H Plt Count 93 L [place] % (Auto) Lymph # (Auto) 0.5 L Seg Neutrophils % 75.3 H Seg Neutrophils # D-Dimer 859.78 H Sodium 134 L D Potassium Chloride Carbon Dioxide 16 L BUN 38 H Creatinine 1.4 H Glucose 141 H POC Glucose Calcium 8.2 L Ferritin AST 202 H ALT 189 H Lactate Dehydrogenase Total Creatine Kinase CK-MB (CK-2) C-Reactive Protein Albumin 3.2 L Digoxin Coronavirus (PCR) 11/21/20 11/21/20 11/21/20 10:45 10:45 15:12 WBC RBC Hgb Hct MCV MCH MCHC Plt Count [place] % (Auto) Lymph # (Auto) Seg Neutrophils % Seg Neutrophils # D-Dimer Sodium Potassium Chloride Carbon Dioxide BUN Creatinine Glucose 154 H POC Glucose Calcium Ferritin 9449.0 H AST ALT Lactate Dehydrogenase 682 H Total Creatine Kinase 1372 H CK-MB (CK-2) 16.3 H C-Reactive Protein 4.60 H Albumin Digoxin Coronavirus (PCR) 11/21/20 11/21/20 11/22/20 21:08 21:08 05:33 WBC RBC Hgb Hct MCV MCH MCHC Plt Count [place] % (Auto) Lymph # (Auto) Seg Neutrophils % Seg Neutrophils # D-Dimer Sodium 132 L Potassium Chloride Carbon Dioxide 16 L BUN 38 H Creatinine 1.4 H Glucose 223 H POC Glucose Calcium 7.8 L Ferritin AST ALT Lactate Dehydrogenase Total Creatine Kinase 1198 H CK-MB (CK-2) 13.6 H C-Reactive Protein Albumin Digoxin 0.3 L Coronavirus (PCR) 11/22/20 11/22/20 11/23/20 05:33 Unknown 07:30 WBC RBC Hgb Hct MCV MCH MCHC Plt Count [place] % (Auto) Lymph # (Auto) Seg Neutrophils % Seg Neutrophils # D-Dimer Sodium 134 L Potassium Chloride Carbon Dioxide 21 L BUN 34 H Creatinine Glucose 217 H POC Glucose Calcium 7.7 L Ferritin AST ALT Lactate Dehydrogenase Total Creatine Kinase 847 H CK-MB (CK-2) 9.3 H C-Reactive Protein Albumin Digoxin Coronavirus (PCR) Positive A 11/23/20 11/23/20 11/23/20 07:30 07:30 14:13 WBC 4.3 L RBC Hgb 15.4 H Hct MCV 97 H MCH 34 H MCHC 35 H Plt Count 106 L [place] % (Auto) Lymph # (Auto) Seg Neutrophils % Seg Neutrophils # D-Dimer 435.87 H Sodium Potassium Chloride Carbon Dioxide BUN Creatinine Glucose POC Glucose Calcium Ferritin AST ALT Lactate Dehydrogenase Total Creatine Kinase 848 H CK-MB (CK-2) C-Reactive Protein Albumin Digoxin Coronavirus (PCR) 11/23/20 11/23/20 11/23/20 14:13 16:49 23:00 WBC RBC Hgb Hct MCV MCH MCHC Plt Count [place] % (Auto) Lymph # (Auto) Seg Neutrophils % Seg Neutrophils # D-Dimer Sodium Potassium Chloride Carbon Dioxide BUN Creatinine Glucose POC Glucose 228 H 167 H Calcium Ferritin 6510.0 H AST ALT Lactate Dehydrogenase Total Creatine Kinase CK-MB (CK-2) C-Reactive Protein Albumin Digoxin Coronavirus (PCR) 11/24/20 11/24/20 11/24/20 07:25 07:51 11:29 WBC RBC Hgb Hct MCV MCH MCHC Plt Count [place] % (Auto) Lymph # (Auto) Seg Neutrophils % Seg Neutrophils # D-Dimer Sodium Potassium Chloride Carbon Dioxide 21 L BUN 31 H Creatinine Glucose 178 H POC Glucose 178 H 206 H Calcium 7.7 L Ferritin AST ALT Lactate Dehydrogenase Total Creatine Kinase CK-MB (CK-2) C-Reactive Protein Albumin Digoxin Coronavirus (PCR) 11/24/20 11/25/20 11/25/20 22:45 06:54 07:53 WBC RBC Hgb Hct MCV MCH MCHC Plt Count [place] % (Auto) Lymph # (Auto) Seg Neutrophils % Seg Neutrophils # D-Dimer Sodium 135 L Potassium Chloride Carbon Dioxide BUN 29 H Creatinine Glucose 191 H POC Glucose 209 H 194 H Calcium 7.9 L Ferritin AST ALT Lactate Dehydrogenase Total Creatine Kinase CK-MB (CK-2) C-Reactive Protein Albumin Digoxin Coronavirus (PCR) 11/25/20 11/25/20 11/25/20 11:34 16:08 21:50 WBC RBC Hgb Hct MCV MCH MCHC Plt Count [place] % (Auto) Lymph # (Auto) Seg Neutrophils % Seg Neutrophils # D-Dimer Sodium Potassium Chloride Carbon Dioxide BUN Creatinine Glucose POC Glucose 255 H 275 H 218 H Calcium Ferritin AST ALT Lactate Dehydrogenase Total Creatine Kinase CK-MB (CK-2) C-Reactive Protein Albumin Digoxin Coronavirus (PCR) 11/26/20 11/26/20 11/26/20 05:38 07:20 12:34 WBC RBC Hgb Hct MCV MCH MCHC Plt Count [place] % (Auto) Lymph # (Auto) Seg Neutrophils % Seg Neutrophils # D-Dimer Sodium 136 L Potassium 5.1 H Chloride Carbon Dioxide 19 L BUN 29 H Creatinine Glucose 258 H POC Glucose 255 H 326 H Calcium 8.0 L Ferritin AST ALT Lactate Dehydrogenase Total Creatine Kinase CK-MB (CK-2) C-Reactive Protein Albumin Digoxin Coronavirus (PCR) 11/26/20 11/26/20 11/27/20 16:27 21:22 05:50 WBC RBC Hgb Hct MCV MCH MCHC Plt Count [place] % (Auto) Lymph # (Auto) Seg Neutrophils % Seg Neutrophils # D-Dimer Sodium 134 L Potassium Chloride Carbon Dioxide BUN 24 H Creatinine Glucose 237 H POC Glucose 286 H 278 H Calcium 7.9 L Ferritin AST ALT Lactate Dehydrogenase Total Creatine Kinase CK-MB (CK-2) C-Reactive Protein Albumin Digoxin Coronavirus (PCR) 11/27/20 11/27/20 11/27/20 10:43 10:43 10:43 WBC RBC Hgb Hct MCV MCH MCHC Plt Count [place] % (Auto) Lymph # (Auto) Seg Neutrophils % Seg Neutrophils # D-Dimer 720.02 H Sodium Potassium Chloride Carbon Dioxide BUN Creatinine Glucose POC Glucose Calcium Ferritin 4372.0 H AST ALT Lactate Dehydrogenase 533 H Total Creatine Kinase CK-MB (CK-2) C-Reactive Protein Albumin Digoxin Coronavirus (PCR) 11/27/20 11/27/20 11/27/20 11:27 16:59 21:30 WBC RBC Hgb Hct MCV MCH MCHC Plt Count [place] % (Auto) Lymph # (Auto) Seg Neutrophils % Seg Neutrophils # D-Dimer Sodium Potassium Chloride Carbon Dioxide BUN Creatinine Glucose POC Glucose 409 H 380 H 330 H Calcium Ferritin AST ALT Lactate Dehydrogenase Total Creatine Kinase CK-MB (CK-2) C-Reactive Protein Albumin Digoxin Coronavirus (PCR) 11/28/20 11/28/20 11/28/20 05:47 08:09 11:25 WBC RBC Hgb Hct MCV MCH MCHC Plt Count [place] % (Auto) Lymph # (Auto) Seg Neutrophils % Seg Neutrophils # D-Dimer Sodium 133 L Potassium 5.4 H Chloride Carbon Dioxide BUN 28 H Creatinine Glucose 318 H POC Glucose 287 H 353 H Calcium 7.9 L Ferritin AST ALT Lactate Dehydrogenase Total Creatine Kinase CK-MB (CK-2) C-Reactive Protein Albumin Digoxin Coronavirus (PCR) 11/28/20 11/28/20 11/29/20 18:01 22:01 07:29 WBC RBC Hgb Hct MCV MCH MCHC Plt Count [place] % (Auto) Lymph # (Auto) Seg Neutrophils % Seg Neutrophils # D-Dimer Sodium Potassium Chloride Carbon Dioxide BUN Creatinine Glucose POC Glucose 287 H 252 H 161 H Calcium Ferritin AST ALT Lactate Dehydrogenase Total Creatine Kinase CK-MB (CK-2) C-Reactive Protein Albumin Digoxin Coronavirus (PCR) Allied health notes reviewed: nursing
--- NOTE | 2020-11-29 11:33 | Progress Note ---
Assessment and Plan Assessment and plan: 60 YO Male with CAD S/P Stent Placement, HTN, Systolic CHF(EF 25) S/P AICD Placement, HLD, ND, OA, Coronavirus Infection diagnosed 2 weeks ago presents to ED for evaluation. Patient reports "I am short of breath". Patient states that he has experienced shortness of breath, dry cough, fatigue, malaise, body aches, subjective fever, decreased exercise tolerance over the past 1 week with persistent and worsening symptoms over the past 3 days. EMS was notified and upon arrival the patient was found to be in distress and subsequent transported to [facility] for further care and evaluation of the aforementioned symptoms. The patient was seen and evaluated in the emergency department. All lab and imaging studies reviewed. Patient found to have a pulse oximetry of 86% with exertion which is consistent with acute hypoxemic respiratory failure. The patient is unable to speak in complete sentences due to shortness of breath. Patient placed on submental oxygen with mild improvement in symptoms. Patient admitted to medical floor and initiated on coronavirus protocol due to increased risk of worsening symptoms. VQ scan ordered and is pending at time of admission. Patient denies chest pain, palpitation, unilateral leg swelling, calf pain, prolonged travel/immobility, individual/family history of DVT/PE/bleeding/blood clotting disorders. Prior admission on 06/14/2015 reviewed. All medication l isted at time of admission has been reconciled. Advanced care planning conducted in ED. --Acute hypoxemic respiratory failure Current Visit: Yes Status: Acute On 8 L of nasal cannula oxygen continuous pulse oximetry, nebulizer therapy, VQ scan low probability for PE --Obesity hypoventilation syndrome Current Visit: Yes Status: Acute Weight reduction, diet modification advised increase physical activity when stable outpatient pulmonary follow-up for sleep study. -- COVID-19 virus infection Current Visit: No Status: Acute Coronavirus protocol: Contact precautions, isolation precautions, Steroids for 10 days. Continue Solu-Medrol Not a candidate for remdesivir as symptoms more than 2 weeks ago Not a candidate for Actemra based on CRP and oxygen requirements Follow inflammatory markers Prone positioning, home O2 evaluation prior to discharge ID following --Essential hypertension Current Visit: No Status: Chronic Monitor blood pressure every shift, continue medical management -- Hyperlipidemia Current Visit: No Status: Chronic Statin therapy, low-cholesterol diet, supportive care. --Acute kidney injury with vasomotor nephropathy. Present on admission, now resolved.. -- Hyponatremia Sodium levels, improving trending up. --thrombocytopenia ; viral etiology Closely monitor --DVT prophylaxis Current Visit: Yes Status: Acute SCD to bilateral lower extremities /subcu heparin --HFrEF EF 10 to 15% Current Visit: Yes Status: Acute Continue antifailure medications Low-sodium diet, fluid restriction, --h/o CAD s/p PCI: continue current cardiac medications Cardiology following --Severe ischemic cardiomyopathy -S/p AICD placment/HTN/LHC 03/24/2020 -- Rhabdomyolysis ; trending down Closely monitor, input output monitoring Gentle hydration, monitor renal function -- migraine ; resume home medications --obesity; BMI 31.7 We will closely monitor the patient and adjust management as needed Patient is requiring 11 L of nasal cannula oxygen, wean as tolerated Plan of care reviewed with the patient and his nurse Electric Tool Repairer recommendations noted and appreciated Brief history and hospital course 11/21: Patient seen and examined his on 12 L of oxygen. I have increasing steroids to 80 mg every 8 will defer to ID if he should be changed to Decadron. I have consulted pulmonary and cardiology in the meantime garageman ordered an EKG which showed possible anterior wall infarct with some ST elevations very minimal. I reviewed the EKG from 2016 and it was similar. Patient denies any chest pain at this time. Nephrology has been consulted as patient has an acute kidney injury with a baseline of 1.1 Patient 2016 although I do not have any new baseline. I will defer initiation of IV Lasix to nephrology the patient was started on p.o. Lasix nevertheless on admission. Also hyponatremia is noted I will monitor this closely in addition to thrombocytopenia which will affect the use of anticoagulation. I will encourage the patient to prone as much as tolerated. 102: Patient on Bicarb drip per Remnants Cutter, will continue to monitor renal function and respiratory status considering clinical status of COVID 19. Lasix appears to have been discontinued, continue steroid therapy, monitor closely especially thrombocytopenia. Encourage prone positioning if tolerable. 103: Patient seen and examined, Discussed with garageman, will discontinued Fluids at this time. Hold Isosorbide due to the low BP. Continue to wean oxygen. 104: Continue steroid therapy at this time. Continue to wean oxygen as tolerated. Patient is now off the fluids. We will try some Fioricet considering report of migraine headache. Still severely sick continue hospital stay. Renal function is improving. 11/25; consults and recommendations noted and appreciated Closely monitor the patient and adjust management as needed 11/26: Patient on 8 L of nasal cannula oxygen. I called patient's daughter Ms. Santamaria at [phone] and discussed in detail patient's condition, tests and reports, consultants recommendations and treatment plan, I also informed that he is requiring supplemental oxygen 8 L. She has many questions and I answered all of them. And encouraged her To call back if she has any new concerns. 11/27; today this morning patient is requiring 11 L of nasal cannula oxygen Wean as tolerated, set of inflammatory markers requested follow-up 11/28 today patient is on 7 L of nasal cannula O2 Wean as tolerated 11/29; patient remains on nasal cannula oxygen Discharge History Interval history: I have seen and examined the patient at the bedside Patient's chart and medications reviewed Isolation precautions and PPE protocols followed Patient remains hypoxic requiring 8 L of nasal cannula oxygen Patient is in mild distress and anxious Hospitalist Physical - Constitutional Vitals: Temp Pulse Resp BP Pulse Ox 98.1 F 64 18 118/76 95 11/29/20 04:38 11/29/20 10:05 11/29/20 04:38 11/29/20 10:05 11/29/20 08:00 General appearance: Present: mild distress, well-nourished, obese - EENT Eyes: Present: PERRL, EOM intact - Neck Neck: Present: supple, normal ROM - Respiratory Respiratory effort: normal Respiratory: bilateral: diminished, rhonchi, negative: rales, wheezing - Cardiovascular Rhythm: regular Heart Sounds: Present: S1 & S2 - Extremities Extremities: no ischemia, No edema - Abdominal General gastrointestinal: soft, non-tender, non-distended, normal bowel sounds - Integumentary Integumentary: Present: clear, warm - Psychiatric Psychiatric: appropriate mood/affect, cooperative - Neurologic Neurologic: CNII-XII intact, moves all extremities HEART Score - HEART Score Troponin: Troponin T < 0.010 ng/mL (0.00-0.029) 11/22/20 05:33 Results - Labs CBC & Chem 7: 11/23/20 07:30 11/28/20 05:47 Labs: Laboratory Last Values WBC 4.3 K/mm3 (4.5-11.0) L 11/23/20 07:30 RBC 4.57 M/mm3 (3.65-5.03) 11/23/20 07:30 Hgb 15.4 gm/dl (11.8-15.2) H 11/23/20 07:30 Hct 44.3 % (35.5-45.6) 11/23/20 07:30 MCV 97 fl (84-94) H 11/23/20 07:30 MCH 34 pg (28-32) H 11/23/20 07:30 MCHC 35 % (32-34) H 11/23/20 07:30 RDW 15.0 % (13.2-15.2) 11/23/20 07:30 Plt Count 106 K/mm3 (140-440) L 11/23/20 07:30 Lymph % (Auto) 18.4 % (13.4-35.0) 11/21/20 09:35 [place] % (Auto) 6.1 % (0.0-7.3) 11/21/20 09:35 Eos % (Auto) 0.0 % (0.0-4.3) 11/21/20 09:35 Baso % (Auto) 0.2 % (0.0-1.8) 11/21/20 09:35 Lymph # (Auto) 0.5 K/mm3 (1.2-5.4) L 11/21/20 09:35 [place] # (Auto) 0.2 K/mm3 (0.0-0.8) 11/21/20 09:35 Eos # (Auto) 0.0 K/mm3 (0.0-0.4) 11/21/20 09:35 Baso # (Auto) 0.0 K/mm3 (0.0-0.1) 11/21/20 09:35 Seg Neutrophils % 75.3 % (40.0-70.0) H 11/21/20 09:35 Seg Neutrophils # 2.0 K/mm3 (1.8-7.7) 11/21/20 09:35 D-Dimer 720.02 ng/mlDDU (0-234) H 11/27/20 10:43 Sodium 133 mmol/L (137-145) L 11/28/20 05:47 Potassium 5.4 mmol/L (3.6-5.0) H 11/28/20 05:47 Chloride 99.7 mmol/L (98-107) 11/28/20 05:47 Carbon Dioxide 22 mmol/L (22-30) 11/28/20 05:47 Anion Gap 17 mmol/L 11/28/20 05:47 BUN 28 mg/dL (9-20) H 11/28/20 05:47 Creatinine 1.2 mg/dL (0.8-1.3) 11/28/20 05:47 Estimated GFR > 60 ml/min 11/28/20 05:47 BUN/Creatinine Ratio 23 % 11/28/20 05:47 Glucose 318 mg/dL (75-100) H 11/28/20 05:47 POC Glucose 161 mg/dL (70-105) H 11/29/20 07:29 Lactic Acid 1.10 mmol/L (0.7-2.0) 11/20/20 17:23 Calcium 7.9 mg/dL (8.4-10.2) L 11/28/20 05:47 Ferritin 4372.0 ng/mL (30.0-300.0) H 11/27/20 10:43 Total Bilirubin 0.60 mg/dL (0.1-1.2) 11/21/20 09:35 AST 202 units/L (5-40) H 11/21/20 09:35 ALT 189 units/L (7-56) H 11/21/20 09:35 Alkaline Phosphatase 66 units/L (35-129) 11/21/20 09:35 Lactate Dehydrogenase 533 units/L (91-180) H 11/27/20 10:43 Total Creatine Kinase 848 units/L (55-170) H 11/23/20 07:30 CK-MB (CK-2) 9.3 ng/mL (0.0-4.0) H 11/22/20 05:33 CK-MB (CK-2) Rel Index 1.0 (0-4) 11/22/20 05:33 Troponin T < 0.010 ng/mL (0.00-0.029) 11/22/20 05:33 C-Reactive Protein 0.20 mg/dL (0.00-1.30) 11/27/20 10:43 NT-Pro-B Natriuret Pep 467.3 pg/mL (0-900) 11/20/20 12:39 Total Protein 7.1 g/dL (6.3-8.2) 11/21/20 09:35 Albumin 3.2 g/dL (3.9-5) L 11/21/20 09:35 Albumin/Globulin Ratio 0.8 % 11/21/20 09:35 Procalcitonin 0.86 ng/mL (<0.15) 11/21/20 10:45 Urine Color Straw (Yellow) 11/20/20 18:55 Urine Turbidity Slightly cloudy (Clear) 11/20/20 18:55 Urine pH 5.0 (5.0-7.0) 11/20/20 18:55 Ur Specific [place] 1.015 (1.003-1.030) 11/20/20 18:55 Urine Protein 100 mg/dl mg/dL (Negative) 11/20/20 18:55 Urine Glucose (UA) Negative mg/dL (Negative) 11/20/20 18:55 Urine Ketones Negative mg/dL (Negative) 11/20/20 18:55 Urine Blood 2+ (Negative) 11/20/20 18:55 Urine Nitrite Negative (Negative) 11/20/20 18:55 Urine Bilirubin Negative (Negative) 11/20/20 18:55 Urine Urobilinogen < 2.0 mg/dL (<2.0) 11/20/20 18:55 Ur Leukocyte Esterase Negative (Negative) 11/20/20 18:55 Urine WBC (Auto) 2.0 /HPF (0.0-6.0) 11/20/20 18:55 Urine RBC (Auto) 1.0 /HPF (0.0-6.0) 11/20/20 18:55 Digoxin 0.3 ng/mL (0.9-2.0) L 11/21/20 21:08 Coronavirus (PCR) Positive (Negative) A 11/22/20 Unknown Hall/IV: Voiding Method Urinal Active Medications - Current Medications Current Medications: Generic Name Dose Route Start Last Admin Trade Name Freq PRN Reason Stop Dose Admin Acetaminophen 650 mg 11/20/20 17:29 11/28/20 05:21 Acetaminophen 325 Mg Tab PO 650 mg Q4H PRN Administration Pain MILD(1-3)/Fever >100.5/KIDD Allopurinol 300 mg 11/20/20 15:43 Allopurinol 300 Mg Tab PO QDAY PRN Uric Acid National Sales Consultant Ascorbic Acid 500 mg 11/20/20 22:00 11/29/20 10:01 Ascorbic Acid 500 Mg Tab PO 500 mg BID CARLY Administration Aspirin 81 mg 11/21/20 10:00 11/29/20 10:01 Aspirin 81 Mg Tab Chew PO 81 mg QDAY CARLY Administration Atorvastatin Calcium 80 mg 11/21/20 22:00 11/28/20 22:13 Atorvastatin 40 Mg Tab PO 80 mg QHS CARLY Administration Carvedilol 25 mg 11/21/20 22:00 11/29/20 10:05 Carvedilol 25 Mg Tab PO Not Given BID [facility] Cetirizine HCl 10 mg 11/20/20 16:00 11/29/20 10:01 Cetirizine 10 Mg Tab PO 10 mg DAILY CARLY Administration Cholecalciferol 1,000 unit 11/28/20 10:00 11/29/20 10:01 Cholecalciferol (Vit D3) 1000 Unit (25 Mcg) Tab PO 1,000 unit DAILY CARLY Administration Colchicine 0.6 mg 11/20/20 15:43 Colchicine 0.6 Mg Tab PO DAILY PRN Gout Dextrose 50 ml 11/23/20 11:40 Dextrose 50% In Water (25gm) 50 Ml Syringe IV Q30MIN PRN Hypoglycemia Protocol Digoxin 0.125 mg 11/22/20 10:00 11/28/20 10:40 Digoxin 0.125 Mg Tab PO 0.125 mg Q48HR CARLY Administration Famotidine 10 mg 11/21/20 10:00 11/29/20 10:01 Famotidine 10 Mg Tab PO 10 mg BID CARLY Administration Guaifenesin 200 mg 11/23/20 21:57 11/23/20 22:42 Guaifenesin 100 Mg/5 Ml Oral Liqd PO 200 mg Q4H PRN Administration Cough Heparin Sodium (Porcine) 5,000 unit 11/20/20 22:00 11/29/20 10:01 Heparin 5,000 Unit/1 Ml Vial SUB-Q 5,000 unit Q12HR CARLY Administration Hydromorphone HCl 0.5 mg 11/22/20 10:00 Hydromorphone 1 Mg/1 Ml Inj IV Q6H PRN Pain , Severe (7-10) Insulin Glargine 15 units 11/28/20 11:30 11/29/20 10:03 Insulin Glargine 100 Units/Ml SUB-Q 15 units BID CARLY Administration Insulin Human Lispro 0 unit 11/23/20 11:30 11/29/20 08:26 Insulin Lispro 100 Unit/Ml SUB-Q 2 unit ACHS CARLY Administration Protocol Methylprednisolone Sodium Succinate 80 mg 11/21/20 14:30 11/29/20 06:34 Methylprednisolone Sod Succinate 40 Mg/1 Ml Inj IV 80 mg Q8HR CARLY Administration Ondansetron HCl 4 mg 11/20/20 17:29 Ondansetron 4 Mg/2 Ml Inj IV Q8H PRN Nausea And Vomiting Oxycodone/Acetaminophen 1 tab 11/20/20 17:29 11/23/20 06:25 Oxycodone /Acetaminophen 5-325mg Tab PO 1 tab Q12H PRN Administration Pain, Moderate (4-6) Ranolazine 1,000 mg 11/20/20 22:00 11/29/20 10:07 Ranolazine Er 500 Mg Tab 12hr PO 1,000 mg BID CARLY Administration Sodium Bicarbonate 1,300 mg 11/23/20 11:00 11/29/20 10:07 Sodium Bicarbonate 650 Mg Tab PO 1,300 mg BID CARLY Administration Sodium Chloride 10 ml 11/20/20 22:00 11/29/20 10:01 Sodium Chloride 0.9% 10 Ml Flush Syringe IV 10 ml BID CARLY Administration Sodium Chloride 10 ml 11/20/20 17:29 Sodium Chloride 0.9% 10 Ml Flush Syringe IV PRN PRN LINE FLUSH Timolol Maleate 1 drops 11/20/20 15:43 Timolol 0.5% Ophth Soln 5 Ml OD DAILY PRN Migraine Headache Zinc Sulfate 220 mg 11/20/20 22:00 11/29/20 10:01 Zinc Sulfate 220 Mg Cap PO 220 mg BID CARLY Administration Nutrition/Malnutrition Assess - Dietary Evaluation Nutrition/Malnutrition Findings: Nutrition Notes Start: 11/21/20 10:48 Freq: Status: Active Protocol: Document 11/28/20 16:19 NAVI (Rec: 11/28/20 16:32 NAVI [email or web address]) Nutrition Notes Need for Assessment generated from: MD Order Initial or Follow up Reassessment Other Pertinent Diagnosis Pt admitted with Shortness of Breath, associated with COVID (positive). Current Diet Renal Diet (since B 11/21) Labs/Tests 11/28: Na 133, K 5.4, BUN 28, Glu 318. Pertinent Medications 11/28: Unremarkable, and Zn, Vit C, Vit D3. Height 5 ft 7 in Weight 91.7 kg [place] Body Weight (kg) 67.27 BMI 31.6 Intake Prior to Admission Good Weight Status Obese Subjective/Other Information Pt is independent. Burn Absent Trauma Absent GI Symptoms None Food Allergy No Skin Integrity/Comment Integumentary clear, warm, dry . Current % PO Good (75-100%) Minimum of two criteria No physical signs of malnutrition #1 Nutrition Diagnosis No nutrition diagnosis at this time Comments: Nourse reports on Food Intake, Body Weight changes, Chewing/ Swallowing difficulties at the time, are all positive. Is patient on ventilator? No Is Patient Ambulatory and/or Out of Bed Yes REE-([facility]-ambulatory/OOB) [ 2178.319 [id number]] Kcal/Kg value to use for calculation 25 Approximate Energy Requirements Using 2293 kcal/Kg Calculation Used for Recommendations Kcal/kg Additional Notes Protein: 0.8-1.0 g/Kg/day; 54- 67gr/day; 216-268 Kcal/day ( from IBW) Fluids: 1.0 ml/Kcal, or as per MD. Nutrition Intervention Change Diet Order: Continue Renal Diet. Goal #1 Maintain Body Weight within +/ -3% of actual BWt during LOS. Goal #2 Achieve and maintain acceptable chemistry lab values during LOS. Follow-Up By: 12/04/20 Additional Comments Continue monitoring acceptance of food, % PO intake of meals , hydration, and BM.
[2020-11-30] MEDS: methylPREDNISolone Sod Succinate 40 MG/1 ML INJ IV SCH ×3 (06:19→22:34)
[2020-11-30] MEDS: INSULIN LISPRO 100 UNIT/ML SUB-Q SCH ×4 (08:18→22:37)
[2020-11-30] MEDS: FAMOTIDINE 10 MG TAB PO SCH ×2 (11:03→22:35)
[2020-11-30] MEDS: SODIUM BICARBONATE 650 MG TAB PO SCH ×2 (11:03→22:35)
[2020-11-30] MEDS: ASCORBIC ACID 500 MG TAB PO SCH ×2 (11:04→22:36)
[2020-11-30] MEDS: carvediloL 25 MG TAB PO SCH ×2 (11:04→22:36)
[2020-11-30] MEDS: CHOLECALCIFEROL (VIT D3) 1000 UNIT (25 mcg) TAB PO SCH (11:04)
[2020-11-30] MEDS: CETIRIZINE 10 MG TAB PO SCH (11:04)
[2020-11-30] MEDS: ASPIRIN 81 MG TAB CHEW PO SCH (11:04)
[2020-11-30] MEDS: ZINC SULFATE 220 MG CAP PO SCH ×2 (11:04→22:35)
[2020-11-30] MEDS: RANOLAZINE ER 500 MG TAB 12HR PO SCH ×2 (11:05→22:36)
[2020-11-30] MEDS: SACUBITRIL/VALSARTAN 49-51 MG TAB PO SCH ×2 (11:05→22:37)
[2020-11-30] MEDS: INSULIN GLARGINE 100 UNITS/ML SUB-Q SCH ×2 (11:05→22:53)
[2020-11-30] MEDS: HEPARIN 5,000 UNIT/1 ML VIAL SUB-Q SCH ×2 (12:08→22:37)
[2020-11-30] MEDS: DIGOXIN 0.125 MG TAB PO SCH (12:29)
--- NOTE | 2020-11-30 18:21 | Progress Note ---
Assessment and Plan Assessment and plan: --Acute hypoxemic respiratory failure Current Visit: Yes Status: Acute Today patient is on 4 to 5 L of nasal cannula oxygen continuous pulse oximetry, nebulizer therapy, VQ scan low probability for PE --Obesity hypoventilation syndrome Current Visit: Yes Status: Acute Weight reduction, diet modification advised increase physical activity when stable outpatient pulmonary follow-up for sleep study. -- COVID-19 virus infection Current Visit: No Status: Acute Coronavirus protocol: Contact precautions, isolation precautions, Steroids for 10 days. Continue Solu-Medrol Not a candidate for remdesivir as symptoms more than 2 weeks ago Not a candidate for Actemra based on CRP and oxygen requirements Follow inflammatory markers Prone positioning, home O2 evaluation prior to discharge ID following --Essential hypertension Current Visit: No Status: Chronic Monitor blood pressure every shift, continue medical management -- Hyperlipidemia Current Visit: No Status: Chronic Statin therapy, low-cholesterol diet, supportive care. --Acute kidney injury with vasomotor nephropathy. Present on admission, now resolved.. -- Hyponatremia Sodium levels, improving trending up. --thrombocytopenia ; viral etiology Closely monitor --DVT prophylaxis Current Visit: Yes Status: Acute SCD to bilateral lower extremities /subcu heparin --HFrEF EF 10 to 15% Current Visit: Yes Status: Acute Continue antifailure medications Low-sodium diet, fluid restriction, --h/o CAD s/p PCI: continue current cardiac medications Cardiology following --Severe ischemic cardiomyopathy -S/p AICD placment/HTN/LHC 03/24/2020 -- Rhabdomyolysis ; trending down Closely monitor, input output monitoring Gentle hydration, monitor renal function -- migraine ; resume home medications --obesity; BMI 31.7 We will closely monitor the patient and adjust management as needed Patient is requiring 11 L of nasal cannula oxygen, wean as tolerated Plan of care reviewed with the patient and his nurse Flight Radio Officer recommendations noted and appreciated Brief history and hospital course 60 YO Male with CAD S/P Stent Placement, HTN, Systolic CHF(EF 25) S/P AICD Placement, HLD, VA, OA, Coronavirus Infection diagnosed 2 weeks ago presents to ED for evaluation. Patient reports "I am short of breath". Patient states that he has experienced shortness of breath, dry cough, fatigue, malaise, body aches, subjective fever, decreased exercise tolerance over the past 1 week with persistent and worsening symptoms over the past 3 days. EMS was notified and upon arrival the patient was found to be in distress and subsequent transported to [facility] for further care and evaluation of the aforementioned symptoms. The patient was seen and evaluated in the emergency department. All lab and imaging studies reviewed. Patient found to have a pulse oximetry of 86% with exertion which is consistent with acute hypoxemic respiratory failure. The patient is unable to speak in complete sentences due to shortness of breath. Patient placed on submental oxygen with mild improvement in symptoms. Patient admitted to medical floor and initiated on coronavirus protocol due to increased risk of worsening symptoms. VQ scan ordered and is pending at time of admission. Patient denies chest pain, palpitation, unilateral leg swelling, calf pain, prolonged travel/immobility, individual/family history of DVT/PE/bleeding/blood clotting disorders. Prior admission on 06/14/2015 reviewed. All medication listed at time of admission has been reconciled. Advanced care planning conducted in ED. 11/21: Patient seen and examined his on 12 L of oxygen. I have increasing steroids to 80 mg every 8 will defer to ID if he should be changed to Decadron. I have consulted pulmonary and cardiology in the meantime kaiako kohanga reo ordered an EKG which showed possible anterior wall infarct with some ST elevations very minimal. I reviewed the EKG from 2016 and it was similar. Patient denies any chest pain at this time. Nephrology has been consulted as patient has an acute kidney injury with a baseline of 1.1 Patient 2016 although I do not have any new baseline. I will defer initiation of IV Lasix to nephrology the patient was started on p.o. Lasix nevertheless on admission. Also hyponatremia is noted I will monitor this closely in addition to thrombocytopenia which will affect the use of anticoagulation. I will encourage the patient to prone as much as tolerated. 11/22: Patient on Bicarb drip per [employer] Practitioner, will continue to monitor renal function and respiratory status considering clinical status of COVID 19. Lasix appears to have been discontinued, continue steroid therapy, monitor closely especially thrombocytopenia. Encourage prone positioning if tolerable. 11/23: Patient seen and examined, Discussed with kaiako kohanga reo, will discontinued Fluids at this time. Hold Isosorbide due to the low BP. Continue to wean oxygen. 11/24: Continue steroid therapy at this time. Continue to wean oxygen as tolerated. Patient is now off the fluids. We will try some Fioricet considering report of migraine headache. Still severely sick continue hospital stay. Renal function is improving. 11/25; consults and recommendations noted and appreciated Closely monitor the patient and adjust management as needed 11/26: Patient on 8 L of nasal cannula oxygen. I called patient's daughter Ms. Santamaria at [phone] and discussed in detail patient's condition, tests and reports, consultants recommendations and treatment plan, I also informed that he is requiring supplemental oxygen 8 L. She has many questions and I answered all of them. And encouraged her To call back if she has any new concerns. 11/27; today this morning patient is requiring 11 L of nasal cannula oxygen Wean as tolerated, set of inflammatory markers requested follow-up 11/28 today patient is on 7 L of nasal cannula O2 Wean as tolerated 11/29; patient remains on nasal cannula oxygen Discharge 11/30; patient is on 5 to 6 L of supplemental oxygen Patient says he still wants to go home Home O2 evaluation, and home O2 set up per case management Possible discharge tomorrow if stable History Interval history: I have seen and examined the patient at the bedside Isolation precautions and PPE protocols followed Patient's chart and medications reviewed Patient feels slightly better, requiring 5 to 6 L of nasal cannula oxygen Patient is anxious to go home Vital signs noted Hospitalist Physical - Constitutional Vitals: Temp Pulse Resp BP Pulse Ox 97.7 F 69 18 126/77 90 11/30/20 15:00 11/30/20 15:53 11/30/20 15:00 11/30/20 15:00 11/30/20 15:53 General appearance: Present: mild distress, well-nourished, obese - EENT Eyes: Present: PERRL, EOM intact - Neck Neck: Present: supple, normal ROM - Respiratory Respiratory effort: normal Respiratory: bilateral: diminished, negative: rales, rhonchi, wheezing - Cardiovascular Rhythm: regular Heart Sounds: Present: S1 & S2 - Extremities Extremities: no ischemia, No edema - Abdominal General gastrointestinal: soft, non-tender, non-distended, normal bowel sounds - Integumentary Integumentary: Present: clear, warm - Psychiatric Psychiatric: appropriate mood/affect, cooperative - Neurologic Neurologic: moves all extremities HEART Score - HEART Score Troponin: Troponin T < 0.010 ng/mL (0.00-0.029) 11/22/20 05:33 Results - Labs CBC & Chem 7: 11/23/20 07:30 11/28/20 05:47 Labs: Laboratory Last Values WBC 4.3 K/mm3 (4.5-11.0) L 11/23/20 07:30 RBC 4.57 M/mm3 (3.65-5.03) 11/23/20 07:30 Hgb 15.4 gm/dl (11.8-15.2) H 11/23/20 07:30 Hct 44.3 % (35.5-45.6) 11/23/20 07:30 MCV 97 fl (84-94) H 11/23/20 07:30 MCH 34 pg (28-32) H 11/23/20 07:30 MCHC 35 % (32-34) H 11/23/20 07:30 RDW 15.0 % (13.2-15.2) 11/23/20 07:30 Plt Count 106 K/mm3 (140-440) L 11/23/20 07:30 Lymph % (Auto) 18.4 % (13.4-35.0) 11/21/20 09:35 Atkinson % (Auto) 6.1 % (0.0-7.3) 11/21/20 09:35 Eos % (Auto) 0.0 % (0.0-4.3) 11/21/20 09:35 Baso % (Auto) 0.2 % (0.0-1.8) 11/21/20 09:35 Lymph # (Auto) 0.5 K/mm3 (1.2-5.4) L 11/21/20 09:35 Atkinson # (Auto) 0.2 K/mm3 (0.0-0.8) 11/21/20 09:35 Eos # (Auto) 0.0 K/mm3 (0.0-0.4) 11/21/20 09:35 Baso # (Auto) 0.0 K/mm3 (0.0-0.1) 11/21/20 09:35 Seg Neutrophils % 75.3 % (40.0-70.0) H 11/21/20 09:35 Seg Neutrophils # 2.0 K/mm3 (1.8-7.7) 11/21/20 09:35 D-Dimer 720.02 ng/mlDDU (0-234) H 11/27/20 10:43 Sodium 133 mmol/L (137-145) L 11/28/20 05:47 Potassium 5.4 mmol/L (3.6-5.0) H 11/28/20 05:47 Chloride 99.7 mmol/L (98-107) 11/28/20 05:47 Carbon Dioxide 22 mmol/L (22-30) 11/28/20 05:47 Anion Gap 17 mmol/L 11/28/20 05:47 BUN 28 mg/dL (9-20) H 11/28/20 05:47 Creatinine 1.2 mg/dL (0.8-1.3) 11/28/20 05:47 Estimated GFR > 60 ml/min 11/28/20 05:47 BUN/Creatinine Ratio 23 % 11/28/20 05:47 Glucose 318 mg/dL (75-100) H 11/28/20 05:47 POC Glucose 330 mg/dL (70-105) H 11/30/20 15:53 Lactic Acid 1.10 mmol/L (0.7-2.0) 11/20/20 17:23 Calcium 7.9 mg/dL (8.4-10.2) L 11/28/20 05:47 Ferritin 4372.0 ng/mL (30.0-300.0) H 11/27/20 10:43 Total Bilirubin 0.60 mg/dL (0.1-1.2) 11/21/20 09:35 AST 202 units/L (5-40) H 11/21/20 09:35 ALT 189 units/L (7-56) H 11/21/20 09:35 Alkaline Phosphatase 66 units/L (35-129) 11/21/20 09:35 Lactate Dehydrogenase 533 units/L (91-180) H 11/27/20 10:43 Total Creatine Kinase 848 units/L (55-170) H 11/23/20 07:30 CK-MB (CK-2) 9.3 ng/mL (0.0-4.0) H 11/22/20 05:33 CK-MB (CK-2) Rel Index 1.0 (0-4) 11/22/20 05:33 Troponin T < 0.010 ng/mL (0.00-0.029) 11/22/20 05:33 C-Reactive Protein 0.20 mg/dL (0.00-1.30) 11/27/20 10:43 NT-Pro-B Natriuret Pep 467.3 pg/mL (0-900) 11/20/20 12:39 Total Protein 7.1 g/dL (6.3-8.2) 11/21/20 09:35 Albumin 3.2 g/dL (3.9-5) L 11/21/20 09:35 Albumin/Globulin Ratio 0.8 % 11/21/20 09:35 Procalcitonin 0.86 ng/mL (<0.15) 11/21/20 10:45 Urine Color Straw (Yellow) 11/20/20 18:55 Urine Turbidity Slightly cloudy (Clear) 11/20/20 18:55 Urine pH 5.0 (5.0-7.0) 11/20/20 18:55 Ur Specific Edwards 1.015 (1.003-1.030) 11/20/20 18:55 Urine Protein 100 mg/dl mg/dL (Negative) 11/20/20 18:55 Urine Glucose (UA) Negative mg/dL (Negative) 11/20/20 18:55 Urine Ketones Negative mg/dL (Negative) 11/20/20 18:55 Urine Blood 2+ (Negative) 11/20/20 18:55 Urine Nitrite Negative (Negative) 11/20/20 18:55 Urine Bilirubin Negative (Negative) 11/20/20 18:55 Urine Urobilinogen < 2.0 mg/dL (<2.0) 11/20/20 18:55 Ur Leukocyte Esterase Negative (Negative) 11/20/20 18:55 Urine WBC (Auto) 2.0 /HPF (0.0-6.0) 11/20/20 18:55 Urine RBC (Auto) 1.0 /HPF (0.0-6.0) 11/20/20 18:55 Digoxin 0.3 ng/mL (0.9-2.0) L 11/21/20 21:08 Coronavirus (PCR) Positive (Negative) A 11/22/20 Unknown Hall/IV: Voiding Method Urinal Active Medications - Current Medications Current Medications: Generic Name Dose Route Start Last Admin Trade Name Freq PRN Reason Stop Dose Admin Acetaminophen 650 mg 11/20/20 17:29 11/28/20 05:21 Acetaminophen 325 Mg Tab PO 650 mg Q4H PRN Administration Pain MILD(1-3)/Fever >100.5/KIDD Allopurinol 300 mg 11/20/20 15:43 Allopurinol 300 Mg Tab PO QDAY PRN 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 Ascorbic Acid 500 mg 11/20/20 22:00 11/30/20 11:04 Ascorbic Acid 500 Mg Tab PO 500 mg BID CARLY Administration Aspirin 81 mg 11/21/20 10:00 11/30/20 11:04 Aspirin 81 Mg Tab Chew PO 81 mg QDAY CARLY Administration Atorvastatin Calcium 80 mg 11/21/20 22:00 11/29/20 22:22 Atorvastatin 40 Mg Tab PO 80 mg QHS CARLY Administration Carvedilol 25 mg 11/21/20 22:00 11/30/20 11:04 Carvedilol 25 Mg Tab PO 25 mg BID CARLY Administration Cetirizine HCl 10 mg 11/20/20 16:00 11/30/20 11:04 Cetirizine 10 Mg Tab PO 10 mg DAILY CARLY Administration Cholecalciferol 1,000 unit 11/28/20 10:00 11/30/20 11:04 Cholecalciferol (Vit D3) 1000 Unit (25 Mcg) Tab PO 1,000 unit DAILY CARLY Administration Colchicine 0.6 mg 11/20/20 15:43 Colchicine 0.6 Mg Tab PO DAILY PRN Gout Dextrose 50 ml 11/23/20 11:40 Dextrose 50% In Water (25gm) 50 Ml Syringe IV Q30MIN PRN Hypoglycemia Protocol Digoxin 0.125 mg 11/22/20 10:00 11/30/20 12:29 Digoxin 0.125 Mg Tab PO 0.125 mg Q48HR CARLY Administration Famotidine 10 mg 11/21/20 10:00 11/30/20 11:03 Famotidine 10 Mg Tab PO 10 mg BID CARLY Administration Guaifenesin 200 mg 11/23/20 21:57 11/23/20 22:42 Guaifenesin 100 Mg/5 Ml Oral Liqd PO 200 mg Q4H PRN Administration Cough Heparin Sodium (Porcine) 5,000 unit 11/20/20 22:00 11/30/20 12:08 Heparin 5,000 Unit/1 Ml Vial SUB-Q 5,000 unit Q12HR CARLY Administration Hydromorphone HCl 0.5 mg 11/22/20 10:00 Hydromorphone 1 Mg/1 Ml Inj IV Q6H PRN Pain , Severe (7-10) Insulin Glargine 15 units 11/28/20 11:30 11/30/20 11:05 Insulin Glargine 100 Units/Ml SUB-Q 15 units BID CARLY Administration Insulin Human Lispro 0 unit 11/23/20 11:30 11/30/20 16:21 Insulin Lispro 100 Unit/Ml SUB-Q 6 unit ACHS CARLY Administration Protocol Methylprednisolone Sodium Succinate 80 mg 11/21/20 14:30 11/30/20 15:54 Methylprednisolone Sod Succinate 40 Mg/1 Ml Inj IV 80 mg Q8HR CARLY Administration Ondansetron HCl 4 mg 11/20/20 17:29 Ondansetron 4 Mg/2 Ml Inj IV Q8H PRN Nausea And Vomiting Oxycodone/Acetaminophen 1 tab 11/20/20 17:29 11/23/20 06:25 Oxycodone /Acetaminophen 5-325mg Tab PO 1 tab Q12H PRN Administration Pain, Moderate (4-6) Ranolazine 1,000 mg 11/20/20 22:00 11/30/20 11:05 Ranolazine Er 500 Mg Tab 12hr PO 1,000 mg BID CARLY Administration Sodium Bicarbonate 1,300 mg 11/23/20 11:00 11/30/20 11:03 Sodium Bicarbonate 650 Mg Tab PO 1,300 mg BID CARLY Administration Sodium Chloride 10 ml 11/20/20 22:00 11/30/20 12:09 Sodium Chloride 0.9% 10 Ml Flush Syringe IV 10 ml BID CARLY Administration Sodium Chloride 10 ml 11/20/20 17:29 Sodium Chloride 0.9% 10 Ml Flush Syringe IV PRN PRN LINE FLUSH Timolol Maleate 1 drops 11/20/20 15:43 Timolol 0.5% Ophth Soln 5 Ml OD DAILY PRN Migraine Headache Zinc Sulfate 220 mg 11/20/20 22:00 11/30/20 11:04 Zinc Sulfate 220 Mg Cap PO 220 mg BID CARLY Administration Nutrition/Malnutrition Assess - Dietary Evaluation Nutrition/Malnutrition Findings: Nutrition Notes Start: 11/21/20 10:48 Freq: Status: Active Protocol: Document 11/28/20 16:19 NAVI (Rec: 11/28/20 16:32 NAVI [id number]) Nutrition Notes Need for Assessment generated from: MD Order Initial or Follow up Reassessment Other Pertinent Diagnosis Pt admitted with Shortness of Breath, associated with COVID (positive). Current Diet Renal Diet (since B 11/21) Labs/Tests 11/28: Na 133, K 5.4, BUN 28, Glu 318. Pertinent Medications 11/28: Unremarkable, and Zn, Vit C, Vit D3. Height 5 ft 7 in Weight 91.7 kg [place] Body Weight (kg) 67.27 BMI 31.6 Intake Prior to Admission Good Weight Status Obese Subjective/Other Information Pt is independent. Burn Absent Trauma Absent GI Symptoms None Food Allergy No Skin Integrity/Comment Integumentary clear, warm, dry . Current % PO Good (75-100%) Minimum of two criteria No physical signs of malnutrition #1 Nutrition Diagnosis No nutrition diagnosis at this time Comments: Nourse reports on Food Intake, Body Weight changes, Chewing/ Swallowing difficulties at the time, are all positive. Is patient on ventilator? No Is Patient Ambulatory and/or Out of Bed Yes REE-([place] Jeak-ambulatory/OOB) [ 2178.319 NUTR.MSJOOB] Kcal/Kg value to use for calculation 25 Approximate Energy Requirements Using 2293 kcal/Kg Calculation Used for Recommendations Kcal/kg Additional Notes Protein: 0.8-1.0 g/Kg/day; 54- 67gr/day; 216-268 Kcal/day ( from IBW) Fluids: 1.0 ml/Kcal, or as per MD. Nutrition Intervention Change Diet Order: Continue Renal Diet. Goal #1 Maintain Body Weight within +/ -3% of actual BWt during LOS. Goal #2 Achieve and maintain acceptable chemistry lab values during LOS. Follow-Up By: 12/04/20 Additional Comments Continue monitoring acceptance of food, % PO intake of meals , hydration, and BM.
[2020-12-01 02:09] LABS: BUN/Creatinine Ratio 25; Blood Urea Nitrogen 27 mg/dL (9-20); Calcium 8.5 mg/dL (8.4-10.2); Hemolysis Index 30
[2020-12-01] MEDS: methylPREDNISolone Sod Succinate 40 MG/1 ML INJ IV SCH ×3 (06:18→22:12)
--- NOTE | 2020-12-01 08:20 | Discharge Summary ---
Providers - Providers Date of Admission: 11/20/20 15:42 Date of discharge: 12/01/20 Attending physician: JOHN STEEL 11/21/20 09:29 Consult to Physician [CONS] Routine Comment: Consulting Provider: CHRIS BARBA Physician Instructions: Reason For Exam: chf with exacerbation Consult to Physician [CONS] Routine Comment: Consulting Provider: NATALYA DIOP Physician Instructions: Reason For Exam: covid 19 with hypoxia Consult to Physician [CONS] Routine Comment: Consulting Provider: PAT PHIPPS Physician Instructions: Reason For Exam: jayesh 11/21/20 13:37 Consult to Physician [CONS] Routine Comment: Consulting Provider: KARY RAHMAN Physician Instructions: Reason For Exam: hypoxic respiratory failure Primary care physician: PRACTICE SUPPORT SPECIALIST Hospitalization Condition: Stable Disposition: 06 HOME HEALTH CARE SERVICE Core Measure Documentation - Palliative Care Palliative Care/ Comfort Measures: Not Applicable - Core Measures Any of the following diagnoses?: none Exam - Constitutional Vitals: Temp Pulse Resp BP Pulse Ox 97.7 F 61 18 133/82 95 11/30/20 21:14 11/30/20 21:14 11/30/20 21:14 11/30/20 21:14 11/30/20 22:00 General appearance: Present: no acute distress, well-nourished - EENT Eyes: Present: PERRL, EOM intact - Neck Neck: Present: supple, normal ROM - Respiratory Respiratory effort: normal Respiratory: bilateral: diminished, negative: rales, rhonchi, wheezing - Cardiovascular Rhythm: regular Heart Sounds: Present: S1 & S2 - Extremities Extremities: no ischemia, No edema - Abdominal General gastrointestinal: Present: soft, non-tender, non-distended, normal bowel sounds - Integumentary Integumentary: Present: clear, warm - Musculoskeletal Musculoskeletal: strength equal bilaterally - Psychiatric Psychiatric: appropriate mood/affect, cooperative - Neurologic Neurologic: moves all extremities Plan Activity: advance as tolerated Diet: diabetic Durable Medical Equipment Needed Upon Discharge: Oxygen (Home oxygen 4 L-5L NC) Additional Instructions: Advised to follow all the COVID-19 precautions and protocols as explained to you by the discharge nurse. If you have worsening symptoms contact MD or go to emergency room as needed. You will be discharged with 4 L of nasal cannula oxygen. Advised to follow-up with primary care physician in 3 to 5 days. And pulmonary in 1 week Follow up with: PRIMARY CARE, [Primary Care Provider] - 7 Days
--- NOTE | 2020-12-01 09:54 | Progress Note ---
Assessment and Plan Impression: * CHERYL * Covid PNA * hyponatremia * metabolic acidosis * acute hypoxic resp failure Plan: * cr is stable today at 1.2->1.1->1.2->1.0->1.2> 1.1 * cheryl due to hypopperfusion with COVID PNA and volume depletion, high risk for progression to ATN * hold diuresis at this time as able * continue NaHCO3 for acidosis, HCO3 reasonable * Serum potassium high normal at 5.2 . Agree with 1 dose of Kayexalate * volume resuscitation as needed, po intake as able * daily lytes and strict i/os * avoid nephrotoxins * renal diet * covid care per primary team Subjective Date of service: 12/01/20 Principal diagnosis: COVID-19 Interval history: Patient is comfortable. Denies any shortness of breath. No nausea vomiting or diarrhea. Currently on oxygen via nasal cannula at 5 L/min. Objective - Vital Signs Vital signs: Vital Signs - 12hr 11/30/20 12/01/20 22:00 09:24 O2 Sat by Pulse 95 91 Oximetry - General Appearance General appearance: well-developed EENT: PERRL, mucous membranes moist Neck: no JVD, no thyromegaly, no carotid bruit, supple Respiratory: Present: Clear to Ascultation Cardiology: regular, normal heart rate, S1S2, no murmurs Gastrointestinal: normal, normoactive bowel sounds Integumentary: no rash, other (No edema) - Lab 11/23/20 07:30 12/01/20 00:46 Most recent lab results Calcium 8.5 mg/dL (8.4-10.2) 12/01/20 00:46 Medications & Allergies - Medications Allergies/Adverse Reactions: Allergies No Known Allergies Allergy (Verified 04/13/15 20:17) Home Medications: Home Medications Medication Instructions Recorded Confirmed Last Taken Type Ibuprofen [Motrin] 800 mg PO Q8HR PRN 04/13/15 11/25/20 Unknown History Loratadine (Nf) [Claritin (Nf)] 10 mg PO DAILY PRN 04/13/15 11/25/20 Unknown History Timolol 0.5% [Timoptic] 1 drops OP DAILY PRN 04/13/15 11/25/20 Unknown History allopurinoL [Zyloprim] 300 mg PO QDAY PRN 04/13/15 11/25/20 Unknown History methylPREDNISolone [Medrol Dose 4 mg PO DAILY PRN 04/13/15 11/25/20 Unknown History Sergio] Famotidine [Pepcid] 20 mg PO BID #60 tablet 04/14/15 11/25/20 Unknown Rx Aspirin [Aspirin BABY CHEW TAB] 81 mg PO QDAY #30 tab.chew 06/16/15 11/25/20 Unknown Rx AtorvaSTATin [Lipitor] 40 mg PO QHS #30 tablet 06/16/15 11/25/20 Unknown Rx Colchicine [Colcrys] 0.6 mg PO DAILY PRN #30 tablet 06/16/15 11/25/20 Unknown Rx Digoxin [Lanoxin] 0.125 mg PO DAILY #30 tablet 06/16/15 11/25/20 Unknown Rx Furosemide [Lasix TAB] 40 mg PO QDAY #30 tablet 06/16/15 11/25/20 Unknown Rx Niacin ER [Niaspan ER] 500 mg PO QHS #30 tablet 06/16/15 11/25/20 Unknown Rx [place]-3 Fatty Acids/Fish Oil [Fish 1,000 mg PO DAILY #30 capsule 06/16/15 11/25/20 Unknown Rx Oil] Potassium Chloride [K-Dur] 10 meq PO DAILY #30 tablet 06/16/15 11/25/20 Unknown Rx Ranolazine ER [Ranexa ER] 1,000 mg PO BID #60 tablet 06/16/15 11/25/20 Unknown Rx Spironolactone [Aldactone] 25 mg PO QDAY #30 tablet 06/16/15 11/25/20 Unknown Rx allopurinoL [Zyloprim] 300 mg PO QDAY PRN #30 tablet 06/16/15 11/25/20 Unknown Rx carvediloL [Coreg] 25 mg PO DAILY #30 tablet 06/16/15 11/25/20 Unknown Rx lisinopriL [Zestril TAB] 40 mg PO QDAY #30 tablet 06/16/15 11/25/20 Unknown Rx oxyCODONE /ACETAMINOPHEN [Percocet 1 tab PO Q6H PRN #30 tablet 06/16/15 11/25/20 Unknown Rx 5/325 mg] predniSONE [Deltasone] 20 mg PO QDAY #30 tablet 06/16/15 11/25/20 Unknown Rx Active Medications: Generic Name Dose Route Start Last Admin Trade Name Freq PRN Reason Stop Dose Admin Acetaminophen 650 mg 11/20/20 17:29 11/28/20 05:21 Acetaminophen 325 Mg Tab PO 650 mg Q4H PRN Administration Pain MILD(1-3)/Fever >100.5/KIDD Allopurinol 300 mg 11/20/20 15:43 Allopurinol 300 Mg Tab PO QDAY PRN Uric Acid [employer] Ascorbic Acid 500 mg 11/20/20 22:00 11/30/20 22:36 Ascorbic Acid 500 Mg Tab PO 500 mg BID CARLY Administration Aspirin 81 mg 11/21/20 10:00 11/30/20 11:04 Aspirin 81 Mg Tab Chew PO 81 mg QDAY CARLY Administration Atorvastatin Calcium 80 mg 11/21/20 22:00 11/30/20 22:35 Atorvastatin 40 Mg Tab PO 80 mg QHS CARLY Administration Carvedilol 25 mg 11/21/20 22:00 11/30/20 22:36 Carvedilol 25 Mg Tab PO 25 mg BID CARLY Administration Cetirizine HCl 10 mg 11/20/20 16:00 11/30/20 11:04 Cetirizine 10 Mg Tab PO 10 mg DAILY CARYL Administration Cholecalciferol 1,000 unit 11/28/20 10:00 11/30/20 11:04 Cholecalciferol (Vit D3) 1000 Unit (25 Mcg) Tab PO 1,000 unit DAILY CARLY Administration Colchicine 0.6 mg 11/20/20 15:43 Colchicine 0.6 Mg Tab PO DAILY PRN Gout Dextrose 50 ml 11/23/20 11:40 Dextrose 50% In Water (25gm) 50 Ml Syringe IV Q30MIN PRN Hypoglycemia Protocol Digoxin 0.125 mg 11/22/20 10:00 11/30/20 12:29 Digoxin 0.125 Mg Tab PO 0.125 mg Q48HR CARLY Administration Famotidine 10 mg 11/21/20 10:00 11/30/20 22:35 Famotidine 10 Mg Tab PO 10 mg BID CARLY Administration Guaifenesin 200 mg 11/23/20 21:57 11/23/20 22:42 Guaifenesin 100 Mg/5 Ml Oral Liqd PO 200 mg Q4H PRN Administration Cough Heparin Sodium (Porcine) 5,000 unit 11/20/20 22:00 11/30/20 22:37 Heparin 5,000 Unit/1 Ml Vial SUB-Q 5,000 unit Q12HR CARLY Administration Hydromorphone HCl 0.5 mg 11/22/20 10:00 Hydromorphone 1 Mg/1 Ml Inj IV Q6H PRN Pain , Severe (7-10) Insulin Glargine 20 units 11/30/20 18:23 11/30/20 22:53 Insulin Glargine 100 Units/Ml SUB-Q 20 units BID CARLY Administration Insulin Human Lispro 0 unit 11/23/20 11:30 11/30/20 22:37 Insulin Lispro 100 Unit/Ml SUB-Q 4 unit ACHS CARLY Administration Protocol Methylprednisolone Sodium Succinate 80 mg 11/21/20 14:30 12/01/20 06:18 Methylprednisolone Sod Succinate 40 Mg/1 Ml Inj IV 80 mg Q8HR CARLY Administration Ondansetron HCl 4 mg 11/20/20 17:29 Ondansetron 4 Mg/2 Ml Inj IV Q8H PRN Nausea And Vomiting Oxycodone/Acetaminophen 1 tab 11/20/20 17:29 11/23/20 06:25 Oxycodone /Acetaminophen 5-325mg Tab PO 1 tab Q12H PRN Administration Pain, Moderate (4-6) Ranolazine 1,000 mg 11/20/20 22:00 11/30/20 22:36 Ranolazine Er 500 Mg Tab 12hr PO 1,000 mg BID CARLY Administration Sodium Bicarbonate 1,300 mg 11/23/20 11:00 11/30/20 22:35 Sodium Bicarbonate 650 Mg Tab PO 1,300 mg BID CARLY Administration Sodium Chloride 10 ml 11/20/20 22:00 11/30/20 22:38 Sodium Chloride 0.9% 10 Ml Flush Syringe IV 10 ml BID CARLY Administration Sodium Chloride 10 ml 11/20/20 17:29 Sodium Chloride 0.9% 10 Ml Flush Syringe IV PRN PRN LINE FLUSH Sodium Polystyrene Sulfonate 15 gm 12/01/20 10:00 Sodium Polystyrene 15 Gm/60 Ml Oral Liqd PO 12/01/20 14:00 ONCE@1000 NR Timolol Maleate 1 drops 11/20/20 15:43 Timolol 0.5% Ophth Soln 5 Ml OD DAILY PRN Migraine Headache Zinc Sulfate 220 mg 11/20/20 22:00 11/30/20 22:35 Zinc Sulfate 220 Mg Cap PO 220 mg BID CARLY Administration
[2020-12-01] MEDS ORDERED: SODIUM POLYSTYRENE 15 GM/60 ML ORAL LIQD PO NR (10:00)
--- NOTE | 2020-12-01 10:41 | Progress Note ---
Assessment and Plan 60 y/o male with acute respiratory failure secondary to COVID pneumonia. 12/01/20: Suggest walk test to assess oxygen need if patient able to ambulate. Would not discharge if He requires 5 liters of oxygen at rest as he would have no buffer (most concentrators only go to 5 liters unless he has one that goes to 7 or 10). he has completed 10 days of steroids, however if his oxygen requirement increases would restart. Guarded prognosis. 11/29/20: No new recs for today, please see below. 11/28/20: Continue to wean for sats >88%. PRone. monitor fluid status. Guarded prognosis. 11/27/20: Prone if possible. Continue steroids. 11/26/20: Wean FiO2 For sats >88%. Prone if able and continue steroids. 11/25/20: Wean FiO2 for sats >88%, proning, steroids. Steroids Proning Subjective Date of service: 12/01/20 Principal diagnosis: COVID-19 Interval history: No acute events. On 5 liters now with marginal sats. Discharge summary has been started by [facility] Objective Vital Signs - 12hr 12/01/20 09:24 O2 Sat by Pulse 91 Oximetry CBC and BMP: 11/23/20 07:30 12/01/20 00:46 ABG, PT/INR, D-dimer: PT/INR, D-dimer D-Dimer 720.02 ng/mlDDU (0-234) H 11/27/20 10:43 Abnormal lab findings: Abnormal Labs 11/20/20 11/20/20 11/20/20 12:39 12:39 12:39 WBC 2.4 L RBC Hgb 16.1 H Hct 48.0 H MCV 99 H MCH 33 H MCHC Plt Count 100 L [place] % (Auto) 8.4 H Lymph # (Auto) 0.6 L Seg Neutrophils % Seg Neutrophils # 1.6 L D-Dimer 836.61 H Sodium 125 L Potassium Chloride 94.3 L Carbon Dioxide 16 L BUN 43 H Creatinine 2.3 H Glucose POC Glucose Hemoglobin A1c Calcium Ferritin AST ALT Lactate Dehydrogenase Total Creatine Kinase CK-MB (CK-2) C-Reactive Protein Albumin Digoxin Coronavirus (PCR) 11/21/20 11/21/20 11/21/20 09:35 09:35 10:45 WBC 2.7 L RBC 5.04 H Hgb 17.1 H Hct 49.5 H MCV 98 H MCH 34 H MCHC 35 H Plt Count 93 L [place] % (Auto) Lymph # (Auto) 0.5 L Seg Neutrophils % 75.3 H Seg Neutrophils # D-Dimer 859.78 H Sodium 134 L D Potassium Chloride Carbon Dioxide 16 L BUN 38 H Creatinine 1.4 H Glucose 141 H POC Glucose Hemoglobin A1c Calcium 8.2 L Ferritin AST 202 H ALT 189 H Lactate Dehydrogenase Total Creatine Kinase CK-MB (CK-2) C-Reactive Protein Albumin 3.2 L Digoxin Coronavirus (PCR) 11/21/20 11/21/20 11/21/20 10:45 10:45 15:12 WBC RBC Hgb Hct MCV MCH MCHC Plt Count [place] % (Auto) Lymph # (Auto) Seg Neutrophils % Seg Neutrophils # D-Dimer Sodium Potassium Chloride Carbon Dioxide BUN Creatinine Glucose 154 H POC Glucose Hemoglobin A1c Calcium Ferritin 9449.0 H AST ALT Lactate Dehydrogenase 682 H Total Creatine Kinase 1372 H CK-MB (CK-2) 16.3 H C-Reactive Protein 4.60 H Albumin Digoxin Coronavirus (PCR) 11/21/20 11/21/20 11/22/20 21:08 21:08 05:33 WBC RBC Hgb Hct MCV MCH MCHC Plt Count [place] % (Auto) Lymph # (Auto) Seg Neutrophils % Seg Neutrophils # D-Dimer Sodium 132 L Potassium Chloride Carbon Dioxide 16 L BUN 38 H Creatinine 1.4 H Glucose 223 H POC Glucose Hemoglobin A1c Calcium 7.8 L Ferritin AST ALT Lactate Dehydrogenase Total Creatine Kinase 1198 H CK-MB (CK-2) 13.6 H C-Reactive Protein Albumin Digoxin 0.3 L Coronavirus (PCR) 11/22/20 11/22/20 11/23/20 05:33 Unknown 07:30 WBC RBC Hgb Hct MCV MCH MCHC Plt Count [place] % (Auto) Lymph # (Auto) Seg Neutrophils % Seg Neutrophils # D-Dimer Sodium 134 L Potassium Chloride Carbon Dioxide 21 L BUN 34 H Creatinine Glucose 217 H POC Glucose Hemoglobin A1c Calcium 7.7 L Ferritin AST ALT Lactate Dehydrogenase Total Creatine Kinase 847 H CK-MB (CK-2) 9.3 H C-Reactive Protein Albumin Digoxin Coronavirus (PCR) Positive A 11/23/20 11/23/20 11/23/20 07:30 07:30 14:13 WBC 4.3 L RBC Hgb 15.4 H Hct MCV 97 H MCH 34 H MCHC 35 H Plt Count 106 L [place] % (Auto) Lymph # (Auto) Seg Neutrophils % Seg Neutrophils # D-Dimer 435.87 H Sodium Potassium Chloride Carbon Dioxide BUN Creatinine Glucose POC Glucose Hemoglobin A1c Calcium Ferritin AST ALT Lactate Dehydrogenase Total Creatine Kinase 848 H CK-MB (CK-2) C-Reactive Protein Albumin Digoxin Coronavirus (PCR) 11/23/20 11/23/20 11/23/20 14:13 16:49 23:00 WBC RBC Hgb Hct MCV MCH MCHC Plt Count [place] % (Auto) Lymph # (Auto) Seg Neutrophils % Seg Neutrophils # D-Dimer Sodium Potassium Chloride Carbon Dioxide BUN Creatinine Glucose POC Glucose 228 H 167 H Hemoglobin A1c Calcium Ferritin 6510.0 H AST ALT Lactate Dehydrogenase Total Creatine Kinase CK-MB (CK-2) C-Reactive Protein Albumin Digoxin Coronavirus (PCR) 11/24/20 11/24/20 11/24/20 07:25 07:51 11:29 WBC RBC Hgb Hct MCV MCH MCHC Plt Count [place] % (Auto) Lymph # (Auto) Seg Neutrophils % Seg Neutrophils # D-Dimer Sodium Potassium Chloride Carbon Dioxide 21 L BUN 31 H Creatinine Glucose 178 H POC Glucose 178 H 206 H Hemoglobin A1c Calcium 7.7 L Ferritin AST ALT Lactate Dehydrogenase Total Creatine Kinase CK-MB (CK-2) C-Reactive Protein Albumin Digoxin Coronavirus (PCR) 11/24/20 11/25/20 11/25/20 22:45 06:54 07:53 WBC RBC Hgb Hct MCV MCH MCHC Plt Count [place] % (Auto) Lymph # (Auto) Seg Neutrophils % Seg Neutrophils # D-Dimer Sodium 135 L Potassium Chloride Carbon Dioxide BUN 29 H Creatinine Glucose 191 H POC Glucose 209 H 194 H Hemoglobin A1c Calcium 7.9 L Ferritin AST ALT Lactate Dehydrogenase Total Creatine Kinase CK-MB (CK-2) C-Reactive Protein Albumin Digoxin Coronavirus (PCR) 11/25/20 11/25/20 11/25/20 11:34 16:08 21:50 WBC RBC Hgb Hct MCV MCH MCHC Plt Count [place] % (Auto) Lymph # (Auto) Seg Neutrophils % Seg Neutrophils # D-Dimer Sodium Potassium Chloride Carbon Dioxide BUN Creatinine Glucose POC Glucose 255 H 275 H 218 H Hemoglobin A1c Calcium Ferritin AST ALT Lactate Dehydrogenase Total Creatine Kinase CK-MB (CK-2) C-Reactive Protein Albumin Digoxin Coronavirus (PCR) 11/26/20 11/26/20 11/26/20 05:38 07:20 12:34 WBC RBC Hgb Hct MCV MCH MCHC Plt Count [place] % (Auto) Lymph # (Auto) Seg Neutrophils % Seg Neutrophils # D-Dimer Sodium 136 L Potassium 5.1 H Chloride Carbon Dioxide 19 L BUN 29 H Creatinine Glucose 258 H POC Glucose 255 H 326 H Hemoglobin A1c Calcium 8.0 L Ferritin AST ALT Lactate Dehydrogenase Total Creatine Kinase CK-MB (CK-2) C-Reactive Protein Albumin Digoxin Coronavirus (PCR) 11/26/20 11/26/20 11/27/20 16:27 21:22 05:50 WBC RBC Hgb Hct MCV MCH MCHC Plt Count [place] % (Auto) Lymph # (Auto) Seg Neutrophils % Seg Neutrophils # D-Dimer Sodium 134 L Potassium Chloride Carbon Dioxide BUN 24 H Creatinine Glucose 237 H POC Glucose 286 H 278 H Hemoglobin A1c Calcium 7.9 L Ferritin AST ALT Lactate Dehydrogenase Total Creatine Kinase CK-MB (CK-2) C-Reactive Protein Albumin Digoxin Coronavirus (PCR) 11/27/20 11/27/20 11/27/20 10:43 10:43 10:43 WBC RBC Hgb Hct MCV MCH MCHC Plt Count [place] % (Auto) Lymph # (Auto) Seg Neutrophils % Seg Neutrophils # D-Dimer 720.02 H Sodium Potassium Chloride Carbon Dioxide BUN Creatinine Glucose POC Glucose Hemoglobin A1c Calcium Ferritin 4372.0 H AST ALT Lactate Dehydrogenase 533 H Total Creatine Kinase CK-MB (CK-2) C-Reactive Protein Albumin Digoxin Coronavirus (PCR) 11/27/20 11/27/20 11/27/20 11:27 16:59 21:30 WBC RBC Hgb Hct MCV MCH MCHC Plt Count [place] % (Auto) Lymph # (Auto) Seg Neutrophils % Seg Neutrophils # D-Dimer Sodium Potassium Chloride Carbon Dioxide BUN Creatinine Glucose POC Glucose 409 H 380 H 330 H Hemoglobin A1c Calcium Ferritin AST ALT Lactate Dehydrogenase Total Creatine Kinase CK-MB (CK-2) C-Reactive Protein Albumin Digoxin Coronavirus (PCR) 11/28/20 11/28/20 11/28/20 05:47 08:09 11:25 WBC RBC Hgb Hct MCV MCH MCHC Plt Count [place] % (Auto) Lymph # (Auto) Seg Neutrophils % Seg Neutrophils # D-Dimer Sodium 133 L Potassium 5.4 H Chloride Carbon Dioxide BUN 28 H Creatinine Glucose 318 H POC Glucose 287 H 353 H Hemoglobin A1c Calcium 7.9 L Ferritin AST ALT Lactate Dehydrogenase Total Creatine Kinase CK-MB (CK-2) C-Reactive Protein Albumin Digoxin Coronavirus (PCR) 11/28/20 11/28/20 11/29/20 18:01 22:01 07:29 WBC RBC Hgb Hct MCV MCH MCHC Plt Count [place] % (Auto) Lymph # (Auto) Seg Neutrophils % Seg Neutrophils # D-Dimer Sodium Potassium Chloride Carbon Dioxide BUN Creatinine Glucose POC Glucose 287 H 252 H 161 H Hemoglobin A1c Calcium Ferritin AST ALT Lactate Dehydrogenase Total Creatine Kinase CK-MB (CK-2) C-Reactive Protein Albumin Digoxin Coronavirus (PCR) 11/29/20 11/29/20 11/29/20 11:48 16:34 21:06 WBC RBC Hgb Hct MCV MCH MCHC Plt Count [place] % (Auto) Lymph # (Auto) Seg Neutrophils % Seg Neutrophils # D-Dimer Sodium Potassium Chloride Carbon Dioxide BUN Creatinine Glucose POC Glucose 204 H 279 H 297 H Hemoglobin A1c Calcium Ferritin AST ALT Lactate Dehydrogenase Total Creatine Kinase CK-MB (CK-2) C-Reactive Protein Albumin Digoxin Coronavirus (PCR) 11/30/20 11/30/20 11/30/20 08:03 11:33 15:53 WBC RBC Hgb Hct MCV MCH MCHC Plt Count [place] % (Auto) Lymph # (Auto) Seg Neutrophils % Seg Neutrophils # D-Dimer Sodium Potassium Chloride Carbon Dioxide BUN Creatinine Glucose POC Glucose 154 H 318 H 330 H Hemoglobin A1c Calcium Ferritin AST ALT Lactate Dehydrogenase Total Creatine Kinase CK-MB (CK-2) C-Reactive Protein Albumin Digoxin Coronavirus (PCR) 11/30/20 12/01/20 12/01/20 21:15 00:46 07:00 WBC RBC Hgb Hct MCV MCH MCHC Plt Count [place] % (Auto) Lymph # (Auto) Seg Neutrophils % Seg Neutrophils # D-Dimer Sodium 132 L Potassium 5.2 H Chloride Carbon Dioxide 20 L BUN 27 H Creatinine Glucose 259 H POC Glucose 298 H Hemoglobin A1c 8.5 H Calcium Ferritin AST ALT Lactate Dehydrogenase Total Creatine Kinase CK-MB (CK-2) C-Reactive Protein Albumin Digoxin Coronavirus (PCR) 12/01/20 07:32 WBC RBC Hgb Hct MCV MCH MCHC Plt Count [place] % (Auto) Lymph # (Auto) Seg Neutrophils % Seg Neutrophils # D-Dimer Sodium Potassium Chloride Carbon Dioxide BUN Creatinine Glucose POC Glucose 176 H Hemoglobin A1c Calcium Ferritin AST ALT Lactate Dehydrogenase Total Creatine Kinase CK-MB (CK-2) C-Reactive Protein Albumin Digoxin Coronavirus (PCR) Allied health notes reviewed: nursing
--- NOTE | 2020-12-01 10:44 | Progress Note ---
Assessment and Plan Patient is 60 YO Male with a PMHx of CAD S/P PCI, HTN, HFrEF( EF <15%) S/P AICD Placement, and Coronavirus Infection diagnosed HFrEF CAD s/p PCI S/p AICD placment HTN * Echo-11/21/2020-EF 10 to 15%, LV is severely dilated, global hypokinesis of left ventricle, mild diastolic dysfunction is present impaired relaxation pattern, right ventricle is normal size, pacemaker lead present in right ventricle * LHC 03/24/2020- Patent LAD stent, other coronaries normal without significant plaque. Severely depressed LV systolic function. EF<20% * Nuclear MPI 08/07/2019- Abnormal pharmacologic stress nuclear study but negative for ischemia. The left ventricle is moderately dilated. There are mild to moderately reduced perfusion defects of medium size in the inferior wall. The defect in the inferior segment is fixed. No significant ischemia detected. Stress EKG Test Results Normal. Systolic function is severely reduced. The calculated rest EF is at 24%. Normal myocardial perfusion in anterior, apical, septal and lateral leads and fixed inferior defect * Currently on: Coreg 25mg PO BID, Renaxa 1000mg PO BID, digoxin .125mg PO Q48hrs, atorvastatin 80mg PO QHS, Entresto. Acute Hypoxic respiratory failure COVID-19 * Patient on NC * ID signed off * Pulmonology following CHERYL * Nephrology following Plan: Continue Covid-19 management per primary team. Cardiac status stable. Patient has a follow up appointment with , [facility], on 12/29/2020 at 3:15pm at our [place] location. Patient seen in conjunction with Dr. Bolton who agrees with this plan of care. Will sign off - Patient Problems (1) COVID-19 Current Visit: Yes Status: Acute (2) CHERYL (acute kidney injury) Current Visit: Yes Status: Acute (3) D-dimer, elevated Current Visit: Yes Status: Acute (4) Hyponatremia Current Visit: Yes Status: Acute (5) Acute hypoxemic respiratory failure Current Visit: Yes Status: Acute (6) Coronary artery disease Current Visit: Yes Status: Chronic Qualifiers: Coronary Disease-Associated Artery/Lesion type: [place] artery [place] vs. transplanted heart: [place] heart Associated angina: with stable angina Qualified Code(s): I25.118 - Atherosclerotic heart disease of [place] coronary artery with other forms of angina pectoris (7) GERD (gastroesophageal reflux disease) Current Visit: No Status: Acute (8) Chronic systolic heart failure Current Visit: No Status: Chronic (9) Essential hypertension Current Visit: Yes Status: Chronic (10) Hyperlipidemia Current Visit: Yes Status: Chronic Qualifiers: Hyperlipidemia type: mixed hyperlipidemia Qualified Code(s): E78.2 - Mixed hyperlipidemia Subjective Date of service: 12/01/20 Principal diagnosis: COVID-19 Interval history: Patient lying in bed. Reports feeling well today patient sinus 60s on monitor with no events Objective Vital Signs Temp Pulse Resp BP BP Pulse Ox 12/01/20 09:24 91 11/30/20 22:00 95 11/30/20 21:14 97.7 F 61 18 133/82 94 11/30/20 21:08 97 11/30/20 15:53 69 90 11/30/20 15:00 97.7 F 60 18 126/77 11/30/20 14:00 92 11/30/20 12:29 89 126/77 11/30/20 11:31 89 91 11/30/20 11:04 60 126/77 11/30/20 11:00 97.8 F 90 18 141/105 - Physical Examination General: No Apparent Distress HEENT: Positive: PERRL Neck: Positive: trachea midline Cardiac: Positive: Reg Rate and Rhythm Lungs: Positive: Decreased Breath Sounds Neuro: Positive: Grossly Intact Abdomen: Positive: Soft Skin: Negative: Rash, Suspicious Lesions, Ulceration Extremities: Present: upper extr. pulses, lower extr. pulses. Absent: edema - Labs and Meds Comprehensive Metabolic Panel 12/01/20 Range/Units 00:46 Sodium 132 L (137-145) mmol/L Potassium 5.2 H (3.6-5.0) mmol/L Chloride 100.4 (98-107) mmol/L Carbon Dioxide 20 L (22-30) mmol/L BUN 27 H (9-20) mg/dL Creatinine 1.1 (0.8-1.3) mg/dL Glucose 259 H (75-100) mg/dL Calcium 8.5 (8.4-10.2) mg/dL - Imaging and Cardiology EKG: report reviewed, image reviewed Echo: report reviewed (11/21/2020 - EF 10-15%, LV severely dilated, mild diastolic dysfxn) Cardiac cath: report reviewed (03/24/2020 patent LAD stent, other coronaries normal without significant plaque, severely depressed LV systolic function (EF<20%)) - Telemetry EKG Rhythm: Sinus Rhythm - EKG Sinus rhythms and dysrhythmias: sinus rhythm AV and intraventricular conduction: left bundle branch block - Allied health notes Allied health notes reviewed: nursing
[2020-12-01] MEDS: INSULIN LISPRO 100 UNIT/ML SUB-Q SCH ×4 (10:59→22:28)
[2020-12-01] MEDS: ASCORBIC ACID 500 MG TAB PO SCH ×2 (10:59→22:10)
[2020-12-01] MEDS: carvediloL 25 MG TAB PO SCH (10:59)
[2020-12-01] MEDS: ASPIRIN 81 MG TAB CHEW PO SCH (11:00)
[2020-12-01] MEDS: SACUBITRIL/VALSARTAN 49-51 MG TAB PO SCH ×2 (11:00→22:30)
[2020-12-01] MEDS: RANOLAZINE ER 500 MG TAB 12HR PO SCH ×2 (11:00→22:10)
[2020-12-01] MEDS: ZINC SULFATE 220 MG CAP PO SCH ×2 (11:00→22:10)
[2020-12-01] MEDS: SODIUM BICARBONATE 650 MG TAB PO SCH ×2 (11:00→22:09)
[2020-12-01] MEDS: HEPARIN 5,000 UNIT/1 ML VIAL SUB-Q SCH ×2 (11:00→22:10)
[2020-12-01] MEDS: FAMOTIDINE 10 MG TAB PO SCH ×2 (11:00→22:09)
[2020-12-01] MEDS: CETIRIZINE 10 MG TAB PO SCH (11:02)
[2020-12-01] MEDS: INSULIN GLARGINE 100 UNITS/ML SUB-Q SCH ×2 (11:02→22:49)
[2020-12-01] MEDS: CHOLECALCIFEROL (VIT D3) 1000 UNIT (25 mcg) TAB PO SCH (11:06)
--- NOTE | 2020-12-01 11:50 | Progress Note ---
Assessment and Plan Assessment and plan: Initially planned to discharge the patient on 4 L [place] O2 as he was saturating well on 4 L with O2 sats of 97% However this morning patient required 5 L nasal cannula oxygen And discharge is held, try to wean as tolerated, continue current management --Acute hypoxemic respiratory failure Current Visit: Yes Status: Acute Today patient is requiring 5 L of nasal cannula oxygen Wean as tolerated continuous pulse oximetry, nebulizer therapy, VQ scan low probability for PE --Obesity hypoventilation syndrome Current Visit: Yes Status: Acute Weight reduction, diet modification advised increase physical activity when stable outpatient pulmonary follow-up for sleep study. -- COVID-19 virus infection Current Visit: No Status: Acute Coronavirus protocol: Contact precautions, isolation precautions, Completed steroids for 10 days. We will continue steroids as patient is still hypoxic Not a candidate for remdesivir as symptoms more than 2 weeks ago Not a candidate for Actemra based on CRP and oxygen requirements Follow inflammatory markers ,ID following Prone positioning, home O2 evaluation prior to discharge --Essential hypertension Current Visit: No Status: Chronic Monitor blood pressure every shift, continue medical management -- Hyperlipidemia Current Visit: No Status: Chronic Statin therapy, low-cholesterol diet, supportive care. --Acute kidney injury with vasomotor nephropathy. Present on admission, now resolved.. -- Hyponatremia Sodium levels, improving trending up. --thrombocytopenia ; viral etiology Closely monitor --DVT prophylaxis Current Visit: Yes Status: Acute SCD to bilateral lower extremities /subcu heparin --HFrEF EF 10 to 15% Current Visit: Yes Status: Acute Continue antifailure medications Low-sodium diet, fluid restriction, --h/o CAD s/p PCI: continue current cardiac medications Cardiology following --Severe ischemic cardiomyopathy -S/p AICD placment/HTN/LHC 03/24/2020 -- Rhabdomyolysis ; trending down Closely monitor, input output monitoring Gentle hydration, monitor renal function -- migraine ; resume home medications --obesity; BMI 31.7 We will closely monitor the patient and adjust management as needed Patient is requiring 11 L of nasal cannula oxygen, wean as tolerated Plan of care reviewed with the patient and his nurse Solar Energy Sales Specialist recommendations noted and appreciated Brief history and hospital course 60 YO Male with CAD S/P Stent Placement, HTN, Systolic CHF(EF 25) S/P AICD Placement, HLD, SD, OA, Coronavirus Infection diagnosed 2 weeks ago presents to ED for evaluation. Patient reports "I am short of breath". Patient states that he has experienced shortness of breath, dry cough, fatigue, malaise, body aches, subjective fever, decreased exercise tolerance over the past 1 week with persistent and worsening symptoms over the past 3 days. EMS was notified and upon arrival the patient was found to be in distress and subsequent transported to [facility] for further care and evaluation of the aforementioned symptoms. The patient was seen and evaluated in the emergency department. All lab and imaging studies reviewed. Patient found to have a pulse oximetry of 86% with exertion which is consistent with acute hypoxemic respiratory failure. The patient is unable to speak in complete sentences due to shortness of breath. Patient placed on submental oxygen with mild improvement in symptoms. Patient admitted to medical floor and initiated on coronavirus protocol due to increased risk of worsening symptoms. VQ scan ordered and is pending at time of admission. José Miguel bass denies chest pain, palpitation, unilateral leg swelling, calf pain, prolonged travel/immobility, individual/family history of DVT/PE/bleeding/blood clotting disorders. Prior admission on 06/14/2015 reviewed. All medication listed at time of admission has been reconciled. Advanced care planning conducted in ED. 11/21: Patient seen and examined his on 12 L of oxygen. I have increasing ster oids to 80 mg every 8 will defer to ID if he should be changed to Decadron. I have consulted pulmonary and cardiology in the meantime web site administrator ordered an EKG which showed possible anterior wall infarct with some ST elevations very minimal. I reviewed the EKG from 2016 and it was similar. Patient denies any chest pain at this time. Nephrology has been consulted as patient has an acute kidney injury with a baseline of 1.1 Patient 2016 although I do not have any new baseline. I will defer initiation of IV Lasix to nephrology the patient was started on p.o. Lasix nevertheless on admission. Also hyponatremia is noted I will monitor this closely in addition to thrombocytopenia which will affect the use of anticoagulation. I will encourage the patient to prone as much as tolerated. 11/22: Patient on Bicarb drip per Clothing Worker, will continue to monitor renal function and respiratory status considering clinical status of COVID 19. Lasix appears to have been discontinued, continue steroid therapy, monitor closely especially thrombocytopenia. Encourage prone positioning if tolerable. 11/23: Patient seen and examined, Discussed with web site administrator, will discontinued Fluids at this time. Hold Isosorbide due to the low BP. Continue to wean oxygen. 11/24: Continue steroid therapy at this time. Continue to wean oxygen as tolerated. Patient is now off the fluids. We will try some Fioricet considering report of migraine headache. Still severely sick continue hospital stay. Renal f unction is improving. 11/25; consults and recommendations noted and appreciated Closely monitor the patient and adjust management as needed 11/26: Patient on 8 L of nasal cannula oxygen. I called patient's daughter Ms. Santamaria at [phone] and discussed in detail patient's condition, tests and reports, consultants recommendations and treatment plan, I also informed that he is requiring supplemental oxygen 8 L. She has many questions and I answered all of them. And encouraged her To call back if she has any new concerns. 11/27; today this morning patient is requiring 11 L of nasal cannula oxygen Wean as tolerated, set of inflammatory markers requested follow-up 11/28 today patient is on 7 L of nasal cannula O2 Wean as tolerated 11/29; patient remains on nasal cannula oxygen Discharge 11/30; patient is on 5 to 6 L of supplemental oxygen Patient says he still wants to go home, Home O2 evaluation, and home O2 set up per case management Possible discharge tomorrow if stable 12/01; initially plan to discharge today, however this morning patient is requiring 5 L nasal cannula oxygen saturating 91% Closely monitor, encouraged prone positioning, wean oxygen as tolerated Disposition; DC on home oxygen and oxygen requirement is less than 5 L. History Interval history: I have seen and examined the patient at the bedside this morning Patient's chart and medications reviewed Patient is saturating well on 4 L of nasal oxygen with O2 sats of 96% as recorded by respiratory However this morning patient is requiring 5 L of nasal cannula oxygen, hence not stable for discharge. Patient is anxious to go home Has no new complaints Hospitalist Physical - Constitutional Vitals: Temp Pulse Resp BP Pulse Ox 97.7 F 61 18 133/82 91 11/30/20 21:14 11/30/20 21:14 11/30/20 21:14 11/30/20 21:14 12/01/20 09:24 General appearance: Present: mild distress, well-nourished, obese - EENT Eyes: Present: PERRL, EOM intact - Neck Neck: Present: supple, normal ROM - Respiratory Respiratory effort: normal Respiratory: bilateral: diminished, negative: rales, rhonchi, wheezing - Cardiovascular Rhythm: regular Heart Sounds: Present: S1 & S2 - Extremities Extremities: no ischemia, No edema - Abdominal General gastrointestinal: soft, non-tender, non-distended, normal bowel sounds - Integumentary Integumentary: Present: clear, warm - Psychiatric Psychiatric: appropriate mood/affect, cooperative - Neurologic Neurologic: moves all extremities HEART Score - HEART Score Troponin: Troponin T < 0.010 ng/mL (0.00-0.029) 11/22/20 05:33 Results - Labs CBC & Chem 7: 11/23/20 07:30 12/01/20 00:46 Labs: Laboratory Last Values WBC 4.3 K/mm3 (4.5-11.0) L 11/23/20 07:30 RBC 4.57 M/mm3 (3.65-5.03) 11/23/20 07:30 Hgb 15.4 gm/dl (11.8-15.2) H 11/23/20 07:30 Hct 44.3 % (35.5-45.6) 11/23/20 07:30 MCV 97 fl (84-94) H 11/23/20 07:30 MCH 34 pg (28-32) H 11/23/20 07:30 MCHC 35 % (32-34) H 11/23/20 07:30 RDW 15.0 % (13.2-15.2) 11/23/20 07:30 Plt Count 106 K/mm3 (140-440) L 11/23/20 07:30 Lymph % (Auto) 18.4 % (13.4-35.0) 11/21/20 09:35 [place] % (Auto) 6.1 % (0.0-7.3) 11/21/20 09:35 Eos % (Auto) 0.0 % (0.0-4.3) 11/21/20 09:35 Baso % (Auto) 0.2 % (0.0-1.8) 11/21/20 09:35 Lymph # (Auto) 0.5 K/mm3 (1.2-5.4) L 11/21/20 09:35 [place] # (Auto) 0.2 K/mm3 (0.0-0.8) 11/21/20 09:35 Eos # (Auto) 0.0 K/mm3 (0.0-0.4) 11/21/20 09:35 Baso # (Auto) 0.0 K/mm3 (0.0-0.1) 11/21/20 09:35 Seg Neutrophils % 75.3 % (40.0-70.0) H 11/21/20 09:35 Seg Neutrophils # 2.0 K/mm3 (1.8-7.7) 11/21/20 09:35 D-Dimer 720.02 ng/mlDDU (0-234) H 11/27/20 10:43 Sodium 132 mmol/L (137-145) L 12/01/20 00:46 Potassium 5.2 mmol/L (3.6-5.0) H 12/01/20 00:46 Chloride 100.4 mmol/L (98-107) 12/01/20 00:46 Carbon Dioxide 20 mmol/L (22-30) L 12/01/20 00:46 Anion Gap 17 mmol/L 12/01/20 00:46 BUN 27 mg/dL (9-20) H 12/01/20 00:46 Creatinine 1.1 mg/dL (0.8-1.3) 12/01/20 00:46 Estimated GFR > 60 ml/min 12/01/20 00:46 BUN/Creatinine Ratio 25 % 12/01/20 00:46 Glucose 259 mg/dL (75-100) H 12/01/20 00:46 POC Glucose 176 mg/dL (70-105) H 12/01/20 07:32 Hemoglobin A1c 8.5 % (4-6) H 12/01/20 07:00 Lactic Acid 1.10 mmol/L (0.7-2.0) 11/20/20 17:23 Calcium 8.5 mg/dL (8.4-10.2) 12/01/20 00:46 Ferritin 4372.0 ng/mL (30.0-300.0) H 11/27/20 10:43 Total Bilirubin 0.60 mg/dL (0.1-1.2) 11/21/20 09:35 AST 202 units/L (5-40) H 11/21/20 09:35 ALT 189 units/L (7-56) H 11/21/20 09:35 Alkaline Phosphatase 66 units/L (35-129) 11/21/20 09:35 Lactate Dehydrogenase 533 units/L (91-180) H 11/27/20 10:43 Total Creatine Kinase 848 units/L (55-170) H 11/23/20 07:30 CK-MB (CK-2) 9.3 ng/mL (0.0-4.0) H 11/22/20 05:33 CK-MB (CK-2) Rel Index 1.0 (0-4) 11/22/20 05:33 Troponin T < 0.010 ng/mL (0.00-0.029) 11/22/20 05:33 C-Reactive Protein 0.20 mg/dL (0.00-1.30) 11/27/20 10:43 NT-Pro-B Natriuret Pep 467.3 pg/mL (0-900) 11/20/20 12:39 Total Protein 7.1 g/dL (6.3-8.2) 11/21/20 09:35 Albumin 3.2 g/dL (3.9-5) L 11/21/20 09:35 Albumin/Globulin Ratio 0.8 % 11/21/20 09:35 Procalcitonin 0.86 ng/mL (<0.15) 11/21/20 10:45 Urine Color Straw (Yellow) 11/20/20 18:55 Urine Turbidity Slightly cloudy (Clear) 11/20/20 18:55 Urine pH 5.0 (5.0-7.0) 11/20/20 18:55 Ur Specific [place] 1.015 (1.003-1.030) 11/20/20 18:55 Urine Protein 100 mg/dl mg/dL (Negative) 11/20/20 18:55 Urine Glucose (UA) Negative mg/dL (Negative) 11/20/20 18:55 Urine Ketones Negative mg/dL (Negative) 11/20/20 18:55 Urine Blood 2+ (Negative) 11/20/20 18:55 Urine Nitrite Negative (Negative) 11/20/20 18:55 Urine Bilirubin Negative (Negative) 11/20/20 18:55 Urine Urobilinogen < 2.0 mg/dL (<2.0) 11/20/20 18:55 Ur Leukocyte Esterase Negative (Negative) 11/20/20 18:55 Urine WBC (Auto) 2.0 /HPF (0.0-6.0) 11/20/20 18:55 Urine RBC (Auto) 1.0 /HPF (0.0-6.0) 11/20/20 18:55 Digoxin 0.3 ng/mL (0.9-2.0) L 11/21/20 21:08 Coronavirus (PCR) Positive (Negative) A 11/22/20 Unknown Hall/IV: Voiding Method Urinal Active Medications - Current Medications Current Medications: Generic Name Dose Route Start Last Admin Trade Name Freq PRN Reason Stop Dose Admin Acetaminophen 650 mg 11/20/20 17:29 11/28/20 05:21 Acetaminophen 325 Mg Tab PO 650 mg Q4H PRN Administration Pain MILD(1-3)/Fever >100.5/KIDD Allopurinol 300 mg 11/20/20 15:43 Allopurinol 300 Mg Tab PO QDAY PRN Uric Acid Powerhouse Electrician Apprentice Ascorbic Acid 500 mg 11/20/20 22:00 12/01/20 10:59 Ascorbic Acid 500 Mg Tab PO 500 mg BID CARLY Administration Aspirin 81 mg 11/21/20 10:00 12/01/20 11:00 Aspirin 81 Mg Tab Chew PO 81 mg QDAY CARLY Administration Atorvastatin Calcium 80 mg 11/21/20 22:00 11/30/20 22:35 Atorvastatin 40 Mg Tab PO 80 mg QHS CARLY Administration Carvedilol 25 mg 11/21/20 22:00 12/01/20 10:59 Carvedilol 25 Mg Tab PO 25 mg BID CARLY Administration Cetirizine HCl 10 mg 11/20/20 16:00 12/01/20 11:02 Cetirizine 10 Mg Tab PO 10 mg DAILY CARLY Administration Cholecalciferol 1,000 unit 11/28/20 10:00 12/01/20 11:06 Cholecalciferol (Vit D3) 1000 Unit (25 Mcg) Tab PO 1,000 unit DAILY CARLY Administration Colchicine 0.6 mg 11/20/20 15:43 Colchicine 0.6 Mg Tab PO DAILY PRN Gout Dextrose 50 ml 11/23/20 11:40 Dextrose 50% In Water (25gm) 50 Ml Syringe IV Q30MIN PRN Hypoglycemia Protocol Digoxin 0.125 mg 11/22/20 10:00 11/30/20 12:29 Digoxin 0.125 Mg Tab PO 0.125 mg Q48HR CARLY Administration Famotidine 10 mg 11/21/20 10:00 12/01/20 11:00 Famotidine 10 Mg Tab PO 10 mg BID CARLY Administration Guaifenesin 200 mg 11/23/20 21:57 11/23/20 22:42 Guaifenesin 100 Mg/5 Ml Oral Liqd PO 200 mg Q4H PRN Administration Cough Heparin Sodium (Porcine) 5,000 unit 11/20/20 22:00 12/01/20 11:00 Heparin 5,000 Unit/1 Ml Vial SUB-Q 5,000 unit Q12HR CARLY Administration Hydromorphone HCl 0.5 mg 11/22/20 10:00 Hydromorphone 1 Mg/1 Ml Inj IV Q6H PRN Pain , Severe (7-10) Insulin Glargine 20 units 11/30/20 18:23 12/01/20 11:02 Insulin Glargine 100 Units/Ml SUB-Q Not Given BID [facility] Insulin Human Lispro 0 unit 11/23/20 11:30 12/01/20 10:59 Insulin Lispro 100 Unit/Ml SUB-Q 2 unit ACHS CARLY Administration Protocol Methylprednisolone Sodium Succinate 80 mg 11/21/20 14:30 12/01/20 06:18 Methylprednisolone Sod Succinate 40 Mg/1 Ml Inj IV 80 mg Q8HR CARLY Administration Ondansetron HCl 4 mg 11/20/20 17:29 Ondansetron 4 Mg/2 Ml Inj IV Q8H PRN Nausea And Vomiting Oxycodone/Acetaminophen 1 tab 11/20/20 17:29 11/23/20 06:25 Oxycodone /Acetaminophen 5-325mg Tab PO 1 tab Q12H PRN Administration Pain, Moderate (4-6) Ranolazine 1,000 mg 11/20/20 22:00 12/01/20 11:00 Ranolazine Er 500 Mg Tab 12hr PO 1,000 mg BID CARLY Administration Sodium Bicarbonate 1,300 mg 11/23/20 11:00 12/01/20 11:00 Sodium Bicarbonate 650 Mg Tab PO 1,300 mg BID CARLY Administration Sodium Chloride 10 ml 11/20/20 22:00 12/01/20 11:03 Sodium Chloride 0.9% 10 Ml Flush Syringe IV 10 ml BID CARLY Administration Sodium Chloride 10 ml 11/20/20 17:29 Sodium Chloride 0.9% 10 Ml Flush Syringe IV PRN PRN LINE FLUSH Sodium Polystyrene Sulfonate 15 gm 12/01/20 10:00 12/01/20 11:01 Sodium Polystyrene 15 Gm/60 Ml Oral Liqd PO 12/01/20 14:00 15 gm ONCE@1000 NR Administration Timolol Maleate 1 drops 11/20/20 15:43 Timolol 0.5% Ophth Soln 5 Ml OD DAILY PRN Migraine Headache Zinc Sulfate 220 mg 11/20/20 22:00 12/01/20 11:00 Zinc Sulfate 220 Mg Cap PO 220 mg BID CARLY Administration Nutrition/Malnutrition Assess - Dietary Evaluation Nutrition/Malnutrition Findings: Nutrition Notes Start: 11/21/20 10:48 Freq: Status: Active Protocol: Document 11/28/20 16:19 NAVI (Rec: 11/28/20 16:32 NAVI [id number]) Nutrition Notes Need for Assessment generated from: MD Order Initial or Follow up Reassessment Other Pertinent Diagnosis Pt admitted with Shortness of Breath, associated with COVID (positive). Current Diet Renal Diet (since B 11/21) Labs/Tests 11/28: Na 133, K 5.4, BUN 28, Glu 318. Pertinent Medications 11/28: Unremarkable, and Zn, Vit C, Vit D3. Height 5 ft 7 in Weight 91.7 kg [place] Body Weight (kg) 67.27 BMI 31.6 Intake Prior to Admission Good Weight Status Obese Subjective/Other Information Pt is independent. Burn Absent Trauma Absent GI Symptoms None Food Allergy No Skin Integrity/Comment Integumentary clear, warm, dry . Current % PO Good (75-100%) Minimum of two criteria No physical signs of malnutrition #1 Nutrition Diagnosis No nutrition diagnosis at this time Comments: Nourse reports on Food Intake, Body Weight changes, Chewing/ Swallowing difficulties at the time, are all positive. Is patient on ventilator? No Is Patient Ambulatory and/or Out of Bed Yes REE-(Thayer-St. Jeor-ambulatory/OOB) [ 2178.319 NUTR.MSJOOB] Kcal/Kg value to use for calculation 25 Approximate Energy Requirements Using 2293 kcal/Kg Calculation Used for Recommendations Kcal/kg Additional Notes Protein: 0.8-1.0 g/Kg/day; 54- 67gr/day; 216-268 Kcal/day ( from IBW) Fluids: 1.0 ml/Kcal, or as per MD. Nutrition Intervention Change Diet Order: Continue Renal Diet. Goal #1 Maintain Body Weight within +/ -3% of actual BWt during LOS. Goal #2 Achieve and maintain acceptable chemistry lab values during LOS. Follow-Up By: 12/04/20 Additional Comments Continue monitoring acceptance of food, % PO intake of meals , hydration, and BM.
[2020-12-02] MEDS: carvediloL 25 MG TAB PO SCH ×3 (00:04→23:22)
[2020-12-02] MEDS: methylPREDNISolone Sod Succinate 40 MG/1 ML INJ IV SCH ×3 (05:42→23:23)
[2020-12-02] MEDS: INSULIN LISPRO 100 UNIT/ML SUB-Q SCH ×4 (07:30→23:17)
[2020-12-02 08:08] LABS: Hematocrit 41.8 % (35.5-45.6)
[2020-12-02 08:43] LABS: BUN/Creatinine Ratio 22; Blood Urea Nitrogen 26 mg/dL (9-20); Hemolysis Index 17
--- NOTE | 2020-12-02 09:47 | Progress Note ---
Assessment and Plan Impression: * CHERYL * Covid PNA * hyponatremia * metabolic acidosis * acute hypoxic resp failure Plan: * cr is stable today at 1.2->1.1->1.2->1.0->1.2> 1.1> 1.2 * cheryl due to hypopperfusion with COVID PNA and volume depletion, high risk for progression to ATN * hold diuresis at this time as able * continue NaHCO3 for acidosis, HCO3 reasonable * Serum potassium is better at 5.0. Recommend low potassium diet * volume resuscitation as needed, po intake as able * daily lytes and strict i/os * avoid nephrotoxins * renal diet * covid care per primary team * Patient renal function seems to have stabilized. Shall follow patient peripherally Subjective Date of service: 12/02/20 Principal diagnosis: COVID-19 Interval history: Patient is comfortable today Objective - Exam Narrative Exam: Physical exam deferred due to patient's Covid positive status - Vital Signs Vital signs: Vital Signs - 12hr 12/01/20 12/01/20 12/02/20 23:02 23:20 00:04 Temperature 98.2 F Pulse Rate 65 65 Respiratory 20 Rate Blood Pressure 121/82 121/82 O2 Sat by Pulse 97 96 Oximetry 12/02/20 12/02/20 12/02/20 00:23 04:31 05:06 Temperature 97.5 F L Pulse Rate 57 L Respiratory 18 Rate Blood Pressure 117/72 O2 Sat by Pulse 96 91 94 Oximetry 12/02/20 09:01 Temperature Pulse Rate Respiratory Rate Blood Pressure O2 Sat by Pulse 96 Oximetry - Lab 12/02/20 07:35 12/02/20 06:55 Most recent lab results Calcium 8.0 mg/dL (8.4-10.2) L 12/02/20 06:55 Medications & Allergies - Medications Allergies/Adverse Reactions: Allergies No Known Allergies Allergy (Verified 04/13/15 20:17) Home Medications: Home Medications Medication Instructions Recorded Confirmed Last Taken Type Ibuprofen [Motrin] 800 mg PO Q8HR PRN 04/13/15 11/25/20 Unknown History Loratadine (Nf) [Claritin (Nf)] 10 mg PO DAILY PRN 04/13/15 11/25/20 Unknown History Timolol 0.5% [Timoptic] 1 drops OP DAILY PRN 04/13/15 11/25/20 Unknown History allopurinoL [Zyloprim] 300 mg PO QDAY PRN 04/13/15 11/25/20 Unknown History methylPREDNISolone [Medrol Dose 4 mg PO DAILY PRN 04/13/15 11/25/20 Unknown History Sergio] Famotidine [Pepcid] 20 mg PO BID #60 tablet 04/14/15 11/25/20 Unknown Rx Aspirin [Aspirin BABY CHEW TAB] 81 mg PO QDAY #30 tab.chew 06/16/15 11/25/20 Unknown Rx AtorvaSTATin [Lipitor] 40 mg PO QHS #30 tablet 06/16/15 11/25/20 Unknown Rx Colchicine [Colcrys] 0.6 mg PO DAILY PRN #30 tablet 06/16/15 11/25/20 Unknown Rx Digoxin [Lanoxin] 0.125 mg PO DAILY #30 tablet 06/16/15 11/25/20 Unknown Rx Furosemide [Lasix TAB] 40 mg PO QDAY #30 tablet 06/16/15 11/25/20 Unknown Rx Niacin ER [Niaspan ER] 500 mg PO QHS #30 tablet 06/16/15 11/25/20 Unknown Rx [place]-3 Fatty Acids/Fish Oil [Fish 1,000 mg PO DAILY #30 capsule 06/16/15 Unknown Rx Oil] Potassium Chloride [K-Dur] 10 meq PO DAILY #30 tablet 06/16/15 11/25/20 Unknown Rx Ranolazine ER [Ranexa ER] 1,000 mg PO BID #60 tablet 06/16/15 11/25/20 Unknown Rx Spironolactone [Aldactone] 25 mg PO QDAY #30 tablet 06/16/15 11/25/20 Unknown Rx allopurinoL [Zyloprim] 300 mg PO QDAY PRN #30 tablet 06/16/15 11/25/20 Unknown Rx carvediloL [Coreg] 25 mg PO DAILY #30 tablet 06/16/15 11/25/20 Unknown Rx lisinopriL [Zestril TAB] 40 mg PO QDAY #30 tablet 06/16/15 11/25/20 Unknown Rx oxyCODONE /ACETAMINOPHEN [Percocet 1 tab PO Q6H PRN #30 tablet 06/16/15 11/25/20 Unknown Rx 5/325 mg] predniSONE [Deltasone] 20 mg PO QDAY #30 tablet 06/16/15 11/25/20 Unknown Rx Active Medications: Generic Name Dose Route Start Last Admin Trade Name Freq PRN Reason Stop Dose Admin Acetaminophen 650 mg 11/20/20 17:29 11/28/20 05:21 Acetaminophen 325 Mg Tab PO 650 mg Q4H PRN Administration Pain MILD(1-3)/Fever >100.5/KIDD Allopurinol 300 mg 11/20/20 15:43 Allopurinol 300 Mg Tab PO QDAY PRN Uric Acid Abstract Writer Ascorbic Acid 500 mg 11/20/20 22:00 12/01/20 22:10 Ascorbic Acid 500 Mg Tab PO 500 mg BID CARLY Administration Aspirin 81 mg 11/21/20 10:00 12/01/20 11:00 Aspirin 81 Mg Tab Chew PO 81 mg QDAY CARLY Administration Atorvastatin Calcium 80 mg 11/21/20 22:00 12/01/20 22:09 Atorvastatin 40 Mg Tab PO 80 mg QHS CARLY Administration Carvedilol 25 mg 11/21/20 22:00 12/02/20 00:04 Carvedilol 25 Mg Tab PO 25 mg BID CARLY Administration Cetirizine HCl 10 mg 11/20/20 16:00 12/01/20 11:02 Cetirizine 10 Mg Tab PO 10 mg DAILY CARLY Administration Cholecalciferol 1,000 unit 11/28/20 10:00 12/01/20 11:06 Cholecalciferol (Vit D3) 1000 Unit (25 Mcg) Tab PO 1,000 unit DAILY CARLY Administration Colchicine 0.6 mg 11/20/20 15:43 Colchicine 0.6 Mg Tab PO DAILY PRN Gout Dextrose 50 ml 11/23/20 11:40 Dextrose 50% In Water (25gm) 50 Ml Syringe IV Q30MIN PRN Hypoglycemia Protocol Digoxin 0.125 mg 11/22/20 10:00 11/30/20 12:29 Digoxin 0.125 Mg Tab PO 0.125 mg Q48HR CARLY Administration Famotidine 10 mg 11/21/20 10:00 12/01/20 22:09 Famotidine 10 Mg Tab PO 10 mg BID CARLY Administration Guaifenesin 200 mg 11/23/20 21:57 11/23/20 22:42 Guaifenesin 100 Mg/5 Ml Oral Liqd PO 200 mg Q4H PRN Administration Cough Heparin Sodium (Porcine) 5,000 unit 11/20/20 22:00 12/01/20 22:10 Heparin 5,000 Unit/1 Ml Vial SUB-Q 5,000 unit Q12HR CARLY Administration Hydromorphone HCl 0.5 mg 11/22/20 10:00 Hydromorphone 1 Mg/1 Ml Inj IV Q6H PRN Pain , Severe (7-10) Insulin Glargine 20 units 11/30/20 18:23 12/01/20 22:49 Insulin Glargine 100 Units/Ml SUB-Q 20 units BID CARLY Administration Insulin Human Lispro 0 unit 11/23/20 11:30 12/01/20 22:28 Insulin Lispro 100 Unit/Ml SUB-Q 6 unit ACHS CARLY Administration Protocol Methylprednisolone Sodium Succinate 80 mg 11/21/20 14:30 12/02/20 05:42 Methylprednisolone Sod Succinate 40 Mg/1 Ml Inj IV 80 mg Q8HR CARLY Administration Ondansetron HCl 4 mg 11/20/20 17:29 Ondansetron 4 Mg/2 Ml Inj IV Q8H PRN Nausea And Vomiting Oxycodone/Acetaminophen 1 tab 11/20/20 17:29 11/23/20 06:25 Oxycodone /Acetaminophen 5-325mg Tab PO 1 tab Q12H PRN Administration Pain, Moderate (4-6) Ranolazine 1,000 mg 11/20/20 22:00 12/01/20 22:10 Ranolazine Er 500 Mg Tab 12hr PO 1,000 mg BID CARLY Administration Sodium Bicarbonate 1,300 mg 11/23/20 11:00 12/01/20 22:09 Sodium Bicarbonate 650 Mg Tab PO 1,300 mg BID CARLY Administration Sodium Chloride 10 ml 11/20/20 22:00 12/01/20 22:11 Sodium Chloride 0.9% 10 Ml Flush Syringe IV 10 ml BID CARLY Administration Sodium Chloride 10 ml 11/20/20 17:29 Sodium Chloride 0.9% 10 Ml Flush Syringe IV PRN PRN LINE FLUSH Sodium Polystyrene Sulfonate 30 gm 12/02/20 09:38 Sodium Polystyrene 15 Gm/60 Ml Oral Liqd PO 12/02/20 09:39 ONCE ONE Timolol Maleate 1 drops 11/20/20 15:43 Timolol 0.5% Ophth Soln 5 Ml OD DAILY PRN Migraine Headache Zinc Sulfate 220 mg 11/20/20 22:00 12/01/20 22:10 Zinc Sulfate 220 Mg Cap PO 220 mg BID CARLY Administration
[2020-12-02] MEDS ORDERED: SODIUM POLYSTYRENE 15 GM/60 ML ORAL LIQD PO NR (10:30)
[2020-12-02] MEDS: SODIUM BICARBONATE 650 MG TAB PO SCH ×2 (11:32→23:22)
[2020-12-02] MEDS: ASPIRIN 81 MG TAB CHEW PO SCH (11:32)
[2020-12-02] MEDS: ASCORBIC ACID 500 MG TAB PO SCH ×2 (11:32→23:21)
[2020-12-02] MEDS: ZINC SULFATE 220 MG CAP PO SCH ×2 (11:32→23:22)
[2020-12-02] MEDS: CHOLECALCIFEROL (VIT D3) 1000 UNIT (25 mcg) TAB PO SCH (11:33)
[2020-12-02] MEDS: CETIRIZINE 10 MG TAB PO SCH (11:33)
[2020-12-02] MEDS: SACUBITRIL/VALSARTAN 49-51 MG TAB PO SCH ×2 (11:33→23:24)
[2020-12-02] MEDS: HEPARIN 5,000 UNIT/1 ML VIAL SUB-Q SCH ×2 (11:34→23:17)
[2020-12-02] MEDS: DIGOXIN 0.125 MG TAB PO SCH (11:34)
[2020-12-02] MEDS: RANOLAZINE ER 500 MG TAB 12HR PO SCH ×2 (11:34→23:21)
[2020-12-02] MEDS: INSULIN GLARGINE 100 UNITS/ML SUB-Q SCH ×2 (11:35→23:24)
[2020-12-02] MEDS: FAMOTIDINE 10 MG TAB PO SCH ×2 (11:39→23:21)
--- NOTE | 2020-12-02 12:09 | Progress Note ---
Assessment and Plan 60 YO Male with CAD S/P Stent Placement, HTN, Systolic CHF(EF 25) S/P AICD Placement, HLD, [place], OA, Coronavirus Infection diagnosed 2 weeks ago before admission presents to ED for shortness of breath, dry cough, fatigue, malaise, body aches, subjective fever, decreased exercise tolerance over the past 1 week. Patient found to have a pulse oximetry of 86% with exertion and admitted to medical floor and initiated on coronavirus protocol due to increased risk of worsening symptoms. Assessment and plan: --Acute hypoxemic respiratory failure Current Visit: Yes Status: Acute Today patient is requiring 4 L of nasal cannula oxygen continuous pulse oximetry, nebulizer therapy, VQ scan low probability for PE assess for home O2, wean off steroid -- COVID-19 virus infection Current Visit: No Status: Acute Coronavirus protocol: Contact precautions, isolation precautions, Completed steroids for 10 days. We will continue steroids as patient is still hypoxic Not a candidate for remdesivir as symptoms more than 2 weeks ago Not a candidate for Actemra based on CRP and oxygen requirements Follow inflammatory markers ,ID following Prone positioning, home O2 evaluation prior to discharge --Obesity Current Visit: Yes Status: chronic Weight reduction, diet modification advised increase physical activity when stable --Essential hypertension Current Visit: No Status: Chronic Monitor blood pressure every shift, continue medical management -- Hyperlipidemia Current Visit: No Status: Chronic Statin therapy, low-cholesterol diet, supportive care. --Acute kidney injury with vasomotor nephropathy. Present on admission, now resolved.. -- Hyponatremia Sodium levels, improving trending up. --thrombocytopenia ; viral etiology Closely monitor --DVT prophylaxis Current Visit: Yes Status: Acute SCD to bilateral lower extremities /subcu heparin --HFrEF EF 10 to 15% Current Visit: Yes Status: Acute Continue antifailure medications Low-sodium diet, fluid restriction, --h/o CAD s/p PCI: continue current cardiac medications Cardiology following --Severe ischemic cardiomyopathy -S/p AICD placment/HTN/LHC 03/24/2020 -- Rhabdomyolysis ; trending down Closely monitor, input output monitoring Gentle hydration, monitor renal function -- migraine ; resume home medications --obesity; BMI 31.7 We will closely monitor the patient and adjust management as needed Patient is requiring 11 L of nasal cannula oxygen, wean as tolerated Plan of care reviewed with the patient and his nurse Paralegal Secretary recommendations noted and appreciated --DVT prophylaxis, per protocol Daily hospital course 11/21: Patient seen and examined his on 12 L of oxygen. I have increasing steroids to 80 mg every 8 will defer to ID if he should be changed to Decadron. I have consulted pulmonary and cardiology in the meantime research program manager ordered an EKG which showed possible anterior wall infarct with some ST elevations very minimal. I reviewed the EKG from 2016 and it was similar. Patient denies any chest pain at this time. Nephrology has been consulted as patient has an acute kidney injury with a baseline of 1.1 Patient 2016 although I do not have any new baseline. I will defer initiation of IV Lasix to nephrology the patient was started on p.o. Lasix nevertheless on admission. Also hyponatremia is noted I will monitor this closely in addition to thrombocytopenia which will affect the use of anticoagulation. I will e ncourage the patient to prone as much as tolerated. 11/22: Patient on Bicarb drip per Restrike Hammer Operator, will continue to monitor renal function and respiratory status considering clinical status of COVID 19. Lasix appears to have been discontinued, continue steroid therapy, monitor closely especially thrombocytopenia. Encourage prone positioning if tolerable. 11/23: Patient seen and examined, Discussed with research program manager, will discontinued Fluids at this time. Hold Isosorbide due to the low BP. Continue to wean oxygen. 11/24: Continue steroid therapy at this time. Continue to wean oxygen as kamron ated. Patient is now off the fluids. We will try some Fioricet considering report of migraine headache. Still severely sick continue hospital stay. Renal function is improving. 11/25; consults and recommendations noted and appreciated Closely monitor the patient and adjust management as needed 11/26: Patient on 8 L of nasal cannula oxygen. I called patient's daughter Ms. Santamaria at [phone] and discussed in detail patient's condition, tests and reports, consultants recommendations and treatme nt plan, I also informed that he is requiring supplemental oxygen 8 L. She has many questions and I answered all of them. And encouraged her To call back if she has any new concerns. 11/27; today this morning patient is requiring 11 L of nasal cannula oxygen Wean as tolerated, set of inflammatory markers requested follow-up 11/28 today patient is on 7 L of nasal cannula O2 Wean as tolerated 11/29; patient remains on nasal cannula oxygen Discharge 11/30; patient is on 5 to 6 L of supplemental oxygen Patient says he still wants to go home, Home O2 evaluation, and home O2 set up per case management Possible discharge tomorrow if stable 12/01; initially plan to discharge today, however this morning patient is requiring 5 L nasal cannula oxygen saturating 91% Closely monitor, encouraged prone positioning, wean oxygen as tolerated Disposition; DC on home oxygen and oxygen requirement is less than 5 L. 12/02: Wait for home O2 arrangement, taper steroid. plan to discharge tomorrow Subjective Date of service: 12/02/20 Principal diagnosis: COVID-19 Interval history: Patient seen and examined. Medical records and medication list reviewed. No acute event overnight noted by the RN. Patient on 4L n/c o2. Patient is tolerating diet. Discussed plan of care at bedside with patient. Objective - Exam Narrative Exam: General appearance: Present: mild distress, well-nourished, obese - EENT Eyes: Present: PERRL, EOM intact - Neck Neck: Present: supple, normal ROM - Respiratory Respiratory effort: normal Respiratory: bilateral: diminished, negative: rales, rhonchi, wheezing - Cardiovascular Rhythm: regular Heart Sounds: Present: S1 & S2 - Extremities Extremities: no ischemia, No edema - Abdominal General gastrointestinal: soft, non-tender, non-distended, normal bowel sounds - Integumentary Integumentary: Present: clear, warm - Psychiatric Psychiatric: appropriate mood/affect, cooperative - Neurologic Neurologic: moves all extremities - Constitutional Vitals: Vital Signs - 12hr 12/02/20 12/02/20 12/02/20 00:04 00:23 04:31 Temperature 97.5 F L Pulse Rate 65 57 L Respiratory 18 Rate Blood Pressure 121/82 117/72 O2 Sat by Pulse 96 91 Oximetry 12/02/20 12/02/20 12/02/20 05:06 09:01 11:34 Temperature Pulse Rate 70 Respiratory Rate Blood Pressure O2 Sat by Pulse 94 96 Oximetry - Labs CBC & Chem 7: 12/02/20 07:35 12/02/20 06:55 Labs: Abnormal lab results 12/01/20 12/01/20 12/01/20 Range/Units 12:02 17:03 21:00 Sodium (137-145) mmol/L BUN (9-20) mg/dL Glucose (75-100) mg/dL POC Glucose 328 H 244 H 328 H (70-105) mg/dL Calcium (8.4-10.2) mg/dL 12/02/20 12/02/20 Range/Units 06:55 07:35 Sodium 135 L (137-145) mmol/L BUN 26 H (9-20) mg/dL Glucose 129 H (75-100) mg/dL POC Glucose 119 H (70-105) mg/dL Calcium 8.0 L (8.4-10.2) mg/dL HEART Score - HEART Score Troponin: Troponin T < 0.010 ng/mL (0.00-0.029) 11/22/20 05:33
--- NOTE | 2020-12-02 12:15 | Progress Note ---
Assessment and Plan 60 y/o male with acute respiratory failure secondary to COVID pneumonia. 12/02/20: Walk test to assess oxygen needs. Please see below in regards to therapy if needed. 12/01/20: Suggest walk test to assess oxygen need if patient able to ambulate. Would not discharge if He requires 5 liters of oxygen at rest as he would have no buffer (most concentrators only go to 5 liters unless he has one that goes to 7 or 10). he has completed 10 days of steroids, however if his oxygen requirement increases would restart. Guarded prognosis. 11/29/20: No new recs for today, please see below. 11/28/20: Continue to wean for sats >88%. PRone. monitor fluid status. Guarded prognosis. 11/27/20: Prone if possible. Continue steroids. 11/26/20: Wean FiO2 For sats >88%. Prone if able and continue steroids. 11/25/20: Wean FiO2 for sats >88%, proning, steroids. Steroids Proning Subjective Date of service: 12/02/20 Principal diagnosis: COVID-19 Interval history: No acute events. Objective Vital Signs - 12hr 12/02/20 12/02/20 12/02/20 00:23 04:31 05:06 Temperature 97.5 F L Pulse Rate 57 L Respiratory 18 Rate Blood Pressure 117/72 O2 Sat by Pulse 96 91 94 Oximetry 12/02/20 12/02/20 09:01 11:34 Temperature Pulse Rate 70 Respiratory Rate Blood Pressure O2 Sat by Pulse 96 Oximetry CBC and BMP: 12/02/20 07:35 12/02/20 06:55 ABG, PT/INR, D-dimer: PT/INR, D-dimer D-Dimer 720.02 ng/mlDDU (0-234) H 11/27/20 10:43 Abnormal lab findings: Abnormal Labs 11/20/20 11/20/20 11/20/20 12:39 12:39 12:39 WBC 2.4 L RBC Hgb 16.1 H Hct 48.0 H MCV 99 H MCH 33 H MCHC Plt Count 100 L Johnson % (Auto) 8.4 H Lymph # (Auto) 0.6 L Seg Neutrophils % Seg Neutrophils # 1.6 L D-Dimer 836.61 H Sodium 125 L Potassium Chloride 94.3 L Carbon Dioxide 16 L BUN 43 H Creatinine 2.3 H Glucose POC Glucose Hemoglobin A1c Calcium Ferritin AST ALT Lactate Dehydrogenase Total Creatine Kinase CK-MB (CK-2) C-Reactive Protein Albumin Digoxin Coronavirus (PCR) 11/21/20 11/21/20 11/21/20 09:35 09:35 10:45 WBC 2.7 L RBC 5.04 H Hgb 17.1 H Hct 49.5 H MCV 98 H MCH 34 H MCHC 35 H Plt Count 93 L Johnson % (Auto) Lymph # (Auto) 0.5 L Seg Neutrophils % 75.3 H Seg Neutrophils # D-Dimer 859.78 H Sodium 134 L D Potassium Chloride Carbon Dioxide 16 L BUN 38 H Creatinine 1.4 H Glucose 141 H POC Glucose Hemoglobin A1c Calcium 8.2 L Ferritin AST 202 H ALT 189 H Lactate Dehydrogenase Total Creatine Kinase CK-MB (CK-2) C-Reactive Protein Albumin 3.2 L Digoxin Coronavirus (PCR) 11/21/20 11/21/20 11/21/20 10:45 10:45 15:12 WBC RBC Hgb Hct MCV MCH MCHC Plt Count Johnson % (Auto) Lymph # (Auto) Seg Neutrophils % Seg Neutrophils # D-Dimer Sodium Potassium Chloride Carbon Dioxide BUN Creatinine Glucose 154 H POC Glucose Hemoglobin A1c Calcium Ferritin 9449.0 H AST ALT Lactate Dehydrogenase 682 H Total Creatine Kinase 1372 H CK-MB (CK-2) 16.3 H C-Reactive Protein 4.60 H Albumin Digoxin Coronavirus (PCR) 11/21/20 11/21/20 11/22/20 21:08 21:08 05:33 WBC RBC Hgb Hct MCV MCH MCHC Plt Count Johnson % (Auto) Lymph # (Auto) Seg Neutrophils % Seg Neutrophils # D-Dimer Sodium 132 L Potassium Chloride Carbon Dioxide 16 L BUN 38 H Creatinine 1.4 H Glucose 223 H POC Glucose Hemoglobin A1c Calcium 7.8 L Ferritin AST ALT Lactate Dehydrogenase Total Creatine Kinase 1198 H CK-MB (CK-2) 13.6 H C-Reactive Protein Albumin Digoxin 0.3 L Coronavirus (PCR) 11/22/20 11/22/20 11/23/20 05:33 Unknown 07:30 WBC RBC Hgb Hct MCV MCH MCHC Plt Count Johnson % (Auto) Lymph # (Auto) Seg Neutrophils % Seg Neutrophils # D-Dimer Sodium 134 L Potassium Chloride Carbon Dioxide 21 L BUN 34 H Creatinine Glucose 217 H POC Glucose Hemoglobin A1c Calcium 7.7 L Ferritin AST ALT Lactate Dehydrogenase Total Creatine Kinase 847 H CK-MB (CK-2) 9.3 H C-Reactive Protein Albumin Digoxin Coronavirus (PCR) Positive A 11/23/20 11/23/20 11/23/20 07:30 07:30 14:13 WBC 4.3 L RBC Hgb 15.4 H Hct MCV 97 H MCH 34 H MCHC 35 H Plt Count 106 L Johnson % (Auto) Lymph # (Auto) Seg Neutrophils % Seg Neutrophils # D-Dimer 435.87 H Sodium Potassium Chloride Carbon Dioxide BUN Creatinine Glucose POC Glucose Hemoglobin A1c Calcium Ferritin AST ALT Lactate Dehydrogenase Total Creatine Kinase 848 H CK-MB (CK-2) C-Reactive Protein Albumin Digoxin Coronavirus (PCR) 11/23/20 11/23/20 11/23/20 14:13 16:49 23:00 WBC RBC Hgb Hct MCV MCH MCHC Plt Count Johnson % (Auto) Lymph # (Auto) Seg Neutrophils % Seg Neutrophils # D-Dimer Sodium Potassium Chloride Carbon Dioxide BUN Creatinine Glucose POC Glucose 228 H 167 H Hemoglobin A1c Calcium Ferritin 6510.0 H AST ALT Lactate Dehydrogenase Total Creatine Kinase CK-MB (CK-2) C-Reactive Protein Albumin Digoxin Coronavirus (PCR) 11/24/20 11/24/20 11/24/20 07:25 07:51 11:29 WBC RBC Hgb Hct MCV MCH MCHC Plt Count Johnson % (Auto) Lymph # (Auto) Seg Neutrophils % Seg Neutrophils # D-Dimer Sodium Potassium Chloride Carbon Dioxide 21 L BUN 31 H Creatinine Glucose 178 H POC Glucose 178 H 206 H Hemoglobin A1c Calcium 7.7 L Ferritin AST ALT Lactate Dehydrogenase Total Creatine Kinase CK-MB (CK-2) C-Reactive Protein Albumin Digoxin Coronavirus (PCR) 11/24/20 11/25/20 11/25/20 22:45 06:54 07:53 WBC RBC Hgb Hct MCV MCH MCHC Plt Count Johnson % (Auto) Lymph # (Auto) Seg Neutrophils % Seg Neutrophils # D-Dimer Sodium 135 L Potassium Chloride Carbon Dioxide BUN 29 H Creatinine Glucose 191 H POC Glucose 209 H 194 H Hemoglobin A1c Calcium 7.9 L Ferritin AST ALT Lactate Dehydrogenase Total Creatine Kinase CK-MB (CK-2) C-Reactive Protein Albumin Digoxin Coronavirus (PCR) 11/25/20 11/25/20 11/25/20 11:34 16:08 21:50 WBC RBC Hgb Hct MCV MCH MCHC Plt Count Johnson % (Auto) Lymph # (Auto) Seg Neutrophils % Seg Neutrophils # D-Dimer Sodium Potassium Chloride Carbon Dioxide BUN Creatinine Glucose POC Glucose 255 H 275 H 218 H Hemoglobin A1c Calcium Ferritin AST ALT Lactate Dehydrogenase Total Creatine Kinase CK-MB (CK-2) C-Reactive Protein Albumin Digoxin Coronavirus (PCR) 11/26/20 11/26/20 11/26/20 05:38 07:20 12:34 WBC RBC Hgb Hct MCV MCH MCHC Plt Count Johnson % (Auto) Lymph # (Auto) Seg Neutrophils % Seg Neutrophils # D-Dimer Sodium 136 L Potassium 5.1 H Chloride Carbon Dioxide 19 L BUN 29 H Creatinine Glucose 258 H POC Glucose 255 H 326 H Hemoglobin A1c Calcium 8.0 L Ferritin AST ALT Lactate Dehydrogenase Total Creatine Kinase CK-MB (CK-2) C-Reactive Protein Albumin Digoxin Coronavirus (PCR) 11/26/20 11/26/20 11/27/20 16:27 21:22 05:50 WBC RBC Hgb Hct MCV MCH MCHC Plt Count Johnson % (Auto) Lymph # (Auto) Seg Neutrophils % Seg Neutrophils # D-Dimer Sodium 134 L Potassium Chloride Carbon Dioxide BUN 24 H Creatinine Glucose 237 H POC Glucose 286 H 278 H Hemoglobin A1c Calcium 7.9 L Ferritin AST ALT Lactate Dehydrogenase Total Creatine Kinase CK-MB (CK-2) C-Reactive Protein Albumin Digoxin Coronavirus (PCR) 11/27/20 11/27/20 11/27/20 10:43 10:43 10:43 WBC RBC Hgb Hct MCV MCH MCHC Plt Count Johnson % (Auto) Lymph # (Auto) Seg Neutrophils % Seg Neutrophils # D-Dimer 720.02 H Sodium Potassium Chloride Carbon Dioxide BUN Creatinine Glucose POC Glucose Hemoglobin A1c Calcium Ferritin 4372.0 H AST ALT Lactate Dehydrogenase 533 H Total Creatine Kinase CK-MB (CK-2) C-Reactive Protein Albumin Digoxin Coronavirus (PCR) 11/27/20 11/27/20 11/27/20 11:27 16:59 21:30 WBC RBC Hgb Hct MCV MCH MCHC Plt Count Johnson % (Auto) Lymph # (Auto) Seg Neutrophils % Seg Neutrophils # D-Dimer Sodium Potassium Chloride Carbon Dioxide BUN Creatinine Glucose POC Glucose 409 H 380 H 330 H Hemoglobin A1c Calcium Ferritin AST ALT Lactate Dehydrogenase Total Creatine Kinase CK-MB (CK-2) C-Reactive Protein Albumin Digoxin Coronavirus (PCR) 11/28/20 11/28/20 11/28/20 05:47 08:09 11:25 WBC RBC Hgb Hct MCV MCH MCHC Plt Count Johnson % (Auto) Lymph # (Auto) Seg Neutrophils % Seg Neutrophils # D-Dimer Sodium 133 L Potassium 5.4 H Chloride Carbon Dioxide BUN 28 H Creatinine Glucose 318 H POC Glucose 287 H 353 H Hemoglobin A1c Calcium 7.9 L Ferritin AST ALT Lactate Dehydrogenase Total Creatine Kinase CK-MB (CK-2) C-Reactive Protein Albumin Digoxin Coronavirus (PCR) 11/28/20 11/28/20 11/29/20 18:01 22:01 07:29 WBC RBC Hgb Hct MCV MCH MCHC Plt Count Johnson % (Auto) Lymph # (Auto) Seg Neutrophils % Seg Neutrophils # D-Dimer Sodium Potassium Chloride Carbon Dioxide BUN Creatinine Glucose POC Glucose 287 H 252 H 161 H Hemoglobin A1c Calcium Ferritin AST ALT Lactate Dehydrogenase Total Creatine Kinase CK-MB (CK-2) C-Reactive Protein Albumin Digoxin Coronavirus (PCR) 11/29/20 11/29/20 11/29/20 11:48 16:34 21:06 WBC RBC Hgb Hct MCV MCH MCHC Plt Count Johnson % (Auto) Lymph # (Auto) Seg Neutrophils % Seg Neutrophils # D-Dimer Sodium Potassium Chloride Carbon Dioxide BUN Creatinine Glucose POC Glucose 204 H 279 H 297 H Hemoglobin A1c Calcium Ferritin AST ALT Lactate Dehydrogenase Total Creatine Kinase CK-MB (CK-2) C-Reactive Protein Albumin Digoxin Coronavirus (PCR) 11/30/20 11/30/20 11/30/20 08:03 11:33 15:53 WBC RBC Hgb Hct MCV MCH MCHC Plt Count Johnson % (Auto) Lymph # (Auto) Seg Neutrophils % Seg Neutrophils # D-Dimer Sodium Potassium Chloride Carbon Dioxide BUN Creatinine Glucose POC Glucose 154 H 318 H 330 H Hemoglobin A1c Calcium Ferritin AST ALT Lactate Dehydrogenase Total Creatine Kinase CK-MB (CK-2) C-Reactive Protein Albumin Digoxin Coronavirus (PCR) 11/30/20 12/01/20 12/01/20 21:15 00:46 07:00 WBC RBC Hgb Hct MCV MCH MCHC Plt Count Johnson % (Auto) Lymph # (Auto) Seg Neutrophils % Seg Neutrophils # D-Dimer Sodium 132 L Potassium 5.2 H Chloride Carbon Dioxide 20 L BUN 27 H Creatinine Glucose 259 H POC Glucose 298 H Hemoglobin A1c 8.5 H Calcium Ferritin AST ALT Lactate Dehydrogenase Total Creatine Kinase CK-MB (CK-2) C-Reactive Protein Albumin Digoxin Coronavirus (PCR) 12/01/20 12/01/20 12/01/20 07:32 12:02 17:03 WBC RBC Hgb Hct MCV MCH MCHC Plt Count Johnson % (Auto) Lymph # (Auto) Seg Neutrophils % Seg Neutrophils # D-Dimer Sodium Potassium Chloride Carbon Dioxide BUN Creatinine Glucose POC Glucose 176 H 328 H 244 H Hemoglobin A1c Calcium Ferritin AST ALT Lactate Dehydrogenase Total Creatine Kinase CK-MB (CK-2) C-Reactive Protein Albumin Digoxin Coronavirus (PCR) 12/01/20 12/02/20 12/02/20 21:00 06:55 07:35 WBC RBC Hgb Hct MCV MCH MCHC Plt Count Johnson % (Auto) Lymph # (Auto) Seg Neutrophils % Seg Neutrophils # D-Dimer Sodium 135 L Potassium Chloride Carbon Dioxide BUN 26 H Creatinine Glucose 129 H POC Glucose 328 H 119 H Hemoglobin A1c Calcium 8.0 L Ferritin AST ALT Lactate Dehydrogenase Total Creatine Kinase CK-MB (CK-2) C-Reactive Protein Albumin Digoxin Coronavirus (PCR) Allied health notes reviewed: nursing
[2020-12-03] MEDS: methylPREDNISolone Sod Succinate 40 MG/1 ML INJ IV SCH (06:09)
[2020-12-03] MEDS: INSULIN LISPRO 100 UNIT/ML SUB-Q SCH ×3 (09:05→12:20)
--- NOTE | 2020-12-03 09:38 | Discharge Summary ---
Providers - Providers Date of Admission: 11/20/20 15:42 Date of discharge: 12/03/20 Attending physician: YASSINE MARIA 11/21/20 09:29 Consult to Physician [CONS] Routine Comment: Consulting Provider: CHRIS BARBA Physician Instructions: Reason For Exam: chf with exacerbation Consult to Physician [CONS] Routine Comment: Consulting Provider: NATALYA DIOP Physician Instructions: Reason For Exam: covid 19 with hypoxia Consult to Physician [CONS] Routine Comment: Consulting Provider: PAT PHIPPS Physician Instructions: Reason For Exam: jayesh 11/21/20 13:37 Consult to Physician [CONS] Routine Comment: Consulting Provider: KARY RAHMAN Physician Instructions: Reason For Exam: hypoxic respiratory failure 12/02/20 11:34 Physical Therapy Evaluation and Treat [CONS] Routine Comment: Reason For Exam: Debility Primary care physician: DIGITAL AD TRAFFICKER Hospitalization Condition: Stable Hospital course: 60 YO Male with CAD S/P Stent Placement, HTN, Systolic CHF(EF 25) S/P AICD Placement, HLD, PA, OA, Coronavirus Infection diagnosed 2 weeks ago before admission presents to ED for shortness of breath, dry cough, fatigue, malaise, body aches, subjective fever, decreased exercise tolerance over the past 1 week. Patient found to have a pulse oximetry of 86% with exertion and admitted to medical floor and initiated on coronavirus protocol due to increased risk of worsening symptoms. Daily hospital course 11/21: Patient seen and examined his on 12 L of oxygen. I have increasing steroids to 80 mg every 8 will defer to ID if he should be changed to Decadron. I have consulted pulmonary and cardiology in the meantime identity management developer ordered an EKG which showed possible anterior wall infarct with some ST elevations very minimal. I reviewed the EKG from 2016 and it was similar. Patient denies any chest pain at this time. Nephrology has been consulted as patient has an acute kidney injury with a baseline of 1.1 Patient 2016 although I do not have any new baseline. I will defer initiation of IV Lasix to nephrology the patient was started on p.o. Lasix nevertheless on admission. Also hyponatremia is noted I will monitor this closely in addition to thrombocytopenia which will affect the use of anticoagulation. I will encourage the patient to prone as much as tolerated. 11/22: Patient on Bicarb drip per Shearing Machine Feeder, will continue to monitor renal function and respiratory status considering clinical status of COVID 19. Lasix appears to have been discontinued, continue steroid therapy, monitor closely especially thrombocytopenia. Encourage prone positioning if tolerable. 11/23: Patient seen and examined, Discussed with identity management developer, will discontinued Fluids at this time. Hold Isosorbide due to the low BP. Continue to wean oxygen. 11/24: Continue steroid therapy at this time. Continue to wean oxygen as tolerated. Patient is now off the fluids. We will try some Fioricet considering report of migraine headache. Still severely sick continue hospital stay. Renal function is improving. 11/25; consults and recommendations noted and appreciated Closely monitor the patient and adjust management as needed 11/26: Patient on 8 L of nasal cannula oxygen. I called patient's daughter Ms. Santamaria at [phone] and discussed in detail patient's condition, tests and reports, consultants recommendations and treatment plan, I also informed that he is requiring supplemental oxygen 8 L. She has many questions and I answered all of them. And encouraged her To call back if she has any new concerns. 11/27; today this morning patient is requiring 11 L of nasal cannula oxygen Wean as tolerated, set of inflammatory markers requested follow-up 11/28 today patient is on 7 L of nasal cannula O2 Wean as tolerated 11/29; patient remains on nasal cannula oxygen Discharge 11/30; patient is on 5 to 6 L of supplemental oxygen Patient says he still wants to go home, Home O2 evaluation, and home O2 set up per case management Possible discharge tomorrow if stable 12/01; initially plan to discharge today, however this morning patient is requiring 5 L nasal cannula oxygen saturating 91% Closely monitor, encouraged prone positioning, wean oxygen as tolerated Disposition; DC on home oxygen and oxygen requirement is less than 5 L. 12/02: Wait for home O2 arrangement, taper steroid. plan to discharge tomorrow 12/03: home O2 arranged, patient clinically stable and down to 3L, discharge home with home health with outpt f/u. Disposition: HOME HEALTH CARE SERVICE Final Discharge Diagnosis (Prints w/discharge instructions): --Acute hypoxic respiratory failure. --COVID-19 virus infection. --Obesity, BMI 31.7. --Ess ential hypertension. --Hyperlipidemia. --Acute kidney injury with vasomotor nephropathy. --Hyponatremia. --Thrombocytopenia. --Acute on chronic CHF with EF 10 to 15%. --History of coronary disease status post PCI. --Rhabdomyolysis. --Migraine headache Time spent for discharge: 34 minutes Core Measure Documentation - Palliative Care Palliative Care/ Comfort Measures: Not Applicable - Core Measures Any of the following diagnoses?: none Exam - Physical Exam Narrative exam: General appearance: Present: mild distress, well-nourished, obese - EENT Eyes: Present: PERRL, EOM intact - Neck Neck: Present: supple, normal ROM - Respiratory Respiratory effort: normal Respiratory: bilateral: diminished, negative: rales, rhonchi, wheezing - Cardiovascular Rhythm: regular Heart Sounds: Present: S1 & S2 - Extremities Extremities: no ischemia, No edema - Abdominal General gastrointestinal: soft, non-tender, non-distended, normal bowel sounds - Integumentary Integumentary: Present: clear, warm - Psychiatric Psychiatric: appropriate mood/affect, cooperative - Neurologic Neurologic: moves all extremities - Constitutional Vitals: Temp Pulse Resp BP Pulse Ox 97.8 F 68 20 105/73 94 12/03/20 05:22 12/03/20 05:22 12/03/20 05:22 12/03/20 05:22 12/03/20 09:05 Plan Activity: advance as tolerated Weight Bearing Status: Weight Bear as Tolerated Diet: low fat, low salt Additional Instructions: f/u with lead refinery supervisor in 1-2 weeks Follow up with: PRIMARY CARE, [Primary Care Provider] - 7 Days Prescriptions: predniSONE [Deltasone] 40 mg PO QDAY #5 tablet
[2020-12-03] MEDS ORDERED: predniSONE 20 MG TAB PO SCH (10:00)
--- NOTE | 2020-12-03 11:16 | Progress Note ---
Assessment and Plan Patient is 60 YO Male with a PMHx of CAD S/P PCI, HTN, HFrEF( EF <15%) S/P AICD Placement, and Coronavirus Infection diagnosed HFrEF CAD s/p PCI S/p AICD placment HTN * Echo-11/21/2020-EF 10 to 15%, LV is severely dilated, global hypokinesis of left ventricle, mild diastolic dysfunction is present impaired relaxation pattern, right ventricle is normal size, pacemaker lead present in right ventricle * LHC 03/24/2020- Patent LAD stent, other coronaries normal without significant plaque. Severely depressed LV systolic function. EF<20% * Nuclear MPI 08/07/2019- Abnormal pharmacologic stress nuclear study but negative for ischemia. The left ventricle is moderately dilated. There are mild to moderately reduced perfusion defects of medium size in the inferior wall. The defect in the inferior segment is fixed. No significant ischemia detected. Stress EKG Test Results Normal. Systolic function is severely reduced. The calculated rest EF is at 24%. Normal myocardial perfusion in anterior, apical, septal and lateral leads and fixed inferior defect * Currently on: Coreg 25mg PO BID, Renaxa 1000mg PO BID, digoxin .125mg PO Q48hrs, atorvastatin 80mg PO QHS, Entresto. Acute Hypoxic respiratory failure COVID-19 * Patient on NC * ID signed off * Pulmonology following CHERYL * Nephrology following Plan: Cardiac status stable. Patient has a follow up appointment with , [facility], on 12/29/2020 at 3:15pm at our [place] location. Patient seen in conjunction with Dr. Bolton who agrees with this plan of care. - Patient Problems (1) COVID-19 Current Visit: Yes Status: Acute (2) CHERYL (acute kidney injury) Current Visit: Yes Status: Acute (3) D-dimer, elevated Current Visit: Yes Status: Acute (4) Hyponatremia Current Visit: Yes Status: Acute (5) Acute hypoxemic respiratory failure Current Visit: Yes Status: Acute (6) Coronary artery disease Current Visit: Yes Status: Chronic Qualifiers: Coronary Disease-Associated Artery/Lesion type: [place] artery [place] vs. transplanted heart: [place] heart Associated angina: with stable angina Qualified Code(s): I25.118 - Atherosclerotic heart disease of [place] coronary artery with other forms of angina pectoris (7) GERD (gastroesophageal reflux disease) Current Visit: No Status: Acute (8) Chronic systolic heart failure Current Visit: No Status: Chronic (9) Essential hypertension Current Visit: Yes Status: Chronic (10) Hyperlipidemia Current Visit: Yes Status: Chronic Qualifiers: Hyperlipidemia type: mixed hyperlipidemia Qualified Code(s): E78.2 - Mixed hyperlipidemia Subjective Date of service: 12/03/20 Principal diagnosis: COVID-19 Interval history: Patient lying in bed. Reports feeling well today and is says ready to go home patient sinus 70s on monitor with no events Objective Vital Signs Temp Pulse Resp BP BP Pulse Ox 12/03/20 09:05 94 12/03/20 05:22 97.8 F 68 20 105/73 90 12/02/20 23:36 97.6 F 62 20 141/83 95 12/02/20 23:30 62 18 111/73 93 12/02/20 22:00 93 12/02/20 11:34 70 12/02/20 11:25 97.7 F 20 107/76 89 - Physical Examination General: No Apparent Distress HEENT: Positive: PERRL Neck: Positive: trachea midline Cardiac: Positive: Reg Rate and Rhythm Lungs: Positive: Normal Breath Sounds Neuro: Positive: Grossly Intact Abdomen: Positive: Soft Skin: Negative: Rash, Suspicious Lesions, Ulceration Extremities: Present: upper extr. pulses, lower extr. pulses. Absent: edema - Imaging and Cardiology EKG: report reviewed, image reviewed Echo: report reviewed (11/21/2020 - EF 10-15%, LV severely dilated, mild diastolic dysfxn) Cardiac cath: report reviewed (03/24/2020 patent LAD stent, other coronaries normal without significant plaque, severely depressed LV systolic function (EF<20%)) - Telemetry EKG Rhythm: Sinus Rhythm - EKG Sinus rhythms and dysrhythmias: sinus rhythm AV and intraventricular conduction: left bundle branch block - Allied health notes Allied health notes reviewed: nursing
[2020-12-03] MEDS: INSULIN GLARGINE 100 UNITS/ML SUB-Q SCH (11:39)
[2020-12-03] MEDS: ASPIRIN 81 MG TAB CHEW PO SCH (11:40)
[2020-12-03] MEDS: HEPARIN 5,000 UNIT/1 ML VIAL SUB-Q SCH (11:40)
[2020-12-03] MEDS: SODIUM BICARBONATE 650 MG TAB PO SCH (11:40)
[2020-12-03] MEDS: ASCORBIC ACID 500 MG TAB PO SCH (11:41)
[2020-12-03] MEDS: RANOLAZINE ER 500 MG TAB 12HR PO SCH (11:42)
[2020-12-03] MEDS: CETIRIZINE 10 MG TAB PO SCH (11:42)
[2020-12-03] MEDS: CHOLECALCIFEROL (VIT D3) 1000 UNIT (25 mcg) TAB PO SCH (11:42)
[2020-12-03 12:10] VITALS: BP 128/78
[2020-12-03] MEDS: SACUBITRIL/VALSARTAN 49-51 MG TAB PO SCH (12:22)
[2020-12-03] MEDS: carvediloL 25 MG TAB PO SCH (12:23)
[2020-12-03] MEDS: FAMOTIDINE 10 MG TAB PO SCH (12:24)
[2020-12-03] MEDS: ZINC SULFATE 220 MG CAP PO SCH (12:25)
--- NOTE | 2020-12-03 15:36 | Progress Note ---
Assessment and Plan 60 y/o male with acute respiratory failure secondary to COVID pneumonia. 12/03/20: Down to 3 liters. Walked on room air and sat was 87. Home with oxygen therapy. Follow up 10-14 days post discharge. 12/01/20: Suggest walk test to assess oxygen need if patient able to ambulate. Would not discharge if He requires 5 liters of oxygen at rest as he would have no buffer (most concentrators only go to 5 liters unless he has one that goes to 7 or 10). he has completed 10 days of steroids, however if his oxygen requirement increases would restart. Guarded prognosis. 11/29/20: No new recs for today, please see below. 11/28/20: Continue to wean for sats >88%. PRone. monitor fluid status. Guarded prognosis. 11/27/20: Prone if possible. Continue steroids. 11/26/20: Wean FiO2 For sats >88%. Prone if able and continue steroids. 11/25/20: Wean FiO2 for sats >88%, proning, steroids. Steroids Proning Subjective Date of service: 12/03/20 Principal diagnosis: COVID-19 Interval history: No acute events. Stable on nasal cannula. Qualifies for oxygen Objective Vital Signs - 12hr 12/03/20 12/03/20 12/03/20 05:22 09:05 12:01 Temperature 97.8 F 97.4 F L Pulse Rate 68 79 Respiratory 20 22 Rate Blood Pressure 105/73 128/78 O2 Sat by Pulse 90 94 95 Oximetry CBC and BMP: 12/02/20 07:35 12/02/20 06:55 ABG, PT/INR, D-dimer: PT/INR, D-dimer D-Dimer 720.02 ng/mlDDU (0-234) H 11/27/20 10:43 Abnormal lab findings: Abnormal Labs 11/20/20 11/20/20 11/20/20 12:39 12:39 12:39 WBC 2.4 L RBC Hgb 16.1 H Hct 48.0 H MCV 99 H MCH 33 H MCHC Plt Count 100 L Kay % (Auto) 8.4 H Lymph # (Auto) 0.6 L Seg Neutrophils % Seg Neutrophils # 1.6 L D-Dimer 836.61 H Sodium 125 L Potassium Chloride 94.3 L Carbon Dioxide 16 L BUN 43 H Creatinine 2.3 H Glucose POC Glucose Hemoglobin A1c Calcium Ferritin AST ALT Lactate Dehydrogenase Total Creatine Kinase CK-MB (CK-2) C-Reactive Protein Albumin Digoxin Coronavirus (PCR) 11/21/20 11/21/20 11/21/20 09:35 09:35 10:45 WBC 2.7 L RBC 5.04 H Hgb 17.1 H Hct 49.5 H MCV 98 H MCH 34 H MCHC 35 H Plt Count 93 L Kay % (Auto) Lymph # (Auto) 0.5 L Seg Neutrophils % 75.3 H Seg Neutrophils # D-Dimer 859.78 H Sodium 134 L D Potassium Chloride Carbon Dioxide 16 L BUN 38 H Creatinine 1.4 H Glucose 141 H POC Glucose Hemoglobin A1c Calcium 8.2 L Ferritin AST 202 H ALT 189 H Lactate Dehydrogenase Total Creatine Kinase CK-MB (CK-2) C-Reactive Protein Albumin 3.2 L Digoxin Coronavirus (PCR) 11/21/20 11/21/20 11/21/20 10:45 10:45 15:12 WBC RBC Hgb Hct MCV MCH MCHC Plt Count Kay % (Auto) Lymph # (Auto) Seg Neutrophils % Seg Neutrophils # D-Dimer Sodium Potassium Chloride Carbon Dioxide BUN Creatinine Glucose 154 H POC Glucose Hemoglobin A1c Calcium Ferritin 9449.0 H AST ALT Lactate Dehydrogenase 682 H Total Creatine Kinase 1372 H CK-MB (CK-2) 16.3 H C-Reactive Protein 4.60 H Albumin Digoxin Coronavirus (PCR) 11/21/20 11/21/20 11/22/20 21:08 21:08 05:33 WBC RBC Hgb Hct MCV MCH MCHC Plt Count Kay % (Auto) Lymph # (Auto) Seg Neutrophils % Seg Neutrophils # D-Dimer Sodium 132 L Potassium Chloride Carbon Dioxide 16 L BUN 38 H Creatinine 1.4 H Glucose 223 H POC Glucose Hemoglobin A1c Calcium 7.8 L Ferritin AST ALT Lactate Dehydrogenase Total Creatine Kinase 1198 H CK-MB (CK-2) 13.6 H C-Reactive Protein Albumin Digoxin 0.3 L Coronavirus (PCR) 11/22/20 11/22/20 11/23/20 05:33 Unknown 07:30 WBC RBC Hgb Hct MCV MCH MCHC Plt Count Kay % (Auto) Lymph # (Auto) Seg Neutrophils % Seg Neutrophils # D-Dimer Sodium 134 L Potassium Chloride Carbon Dioxide 21 L BUN 34 H Creatinine Glucose 217 H POC Glucose Hemoglobin A1c Calcium 7.7 L Ferritin AST ALT Lactate Dehydrogenase Total Creatine Kinase 847 H CK-MB (CK-2) 9.3 H C-Reactive Protein Albumin Digoxin Coronavirus (PCR) Positive A 11/23/20 11/23/20 11/23/20 07:30 07:30 14:13 WBC 4.3 L RBC Hgb 15.4 H Hct MCV 97 H MCH 34 H MCHC 35 H Plt Count 106 L Kay % (Auto) Lymph # (Auto) Seg Neutrophils % Seg Neutrophils # D-Dimer 435.87 H Sodium Potassium Chloride Carbon Dioxide BUN Creatinine Glucose POC Glucose Hemoglobin A1c Calcium Ferritin AST ALT Lactate Dehydrogenase Total Creatine Kinase 848 H CK-MB (CK-2) C-Reactive Protein Albumin Digoxin Coronavirus (PCR) 11/23/20 11/23/20 11/23/20 14:13 16:49 23:00 WBC RBC Hgb Hct MCV MCH MCHC Plt Count Kay % (Auto) Lymph # (Auto) Seg Neutrophils % Seg Neutrophils # D-Dimer Sodium Potassium Chloride Carbon Dioxide BUN Creatinine Glucose POC Glucose 228 H 167 H Hemoglobin A1c Calcium Ferritin 6510.0 H AST ALT Lactate Dehydrogenase Total Creatine Kinase CK-MB (CK-2) C-Reactive Protein Albumin Digoxin Coronavirus (PCR) 11/24/20 11/24/20 11/24/20 07:25 07:51 11:29 WBC RBC Hgb Hct MCV MCH MCHC Plt Count Kay % (Auto) Lymph # (Auto) Seg Neutrophils % Seg Neutrophils # D-Dimer Sodium Potassium Chloride Carbon Dioxide 21 L BUN 31 H Creatinine Glucose 178 H POC Glucose 178 H 206 H Hemoglobin A1c Calcium 7.7 L Ferritin AST ALT Lactate Dehydrogenase Total Creatine Kinase CK-MB (CK-2) C-Reactive Protein Albumin Digoxin Coronavirus (PCR) 11/24/20 11/25/20 11/25/20 22:45 06:54 07:53 WBC RBC Hgb Hct MCV MCH MCHC Plt Count Kay % (Auto) Lymph # (Auto) Seg Neutrophils % Seg Neutrophils # D-Dimer Sodium 135 L Potassium Chloride Carbon Dioxide BUN 29 H Creatinine Glucose 191 H POC Glucose 209 H 194 H Hemoglobin A1c Calcium 7.9 L Ferritin AST ALT Lactate Dehydrogenase Total Creatine Kinase CK-MB (CK-2) C-Reactive Protein Albumin Digoxin Coronavirus (PCR) 11/25/20 11/25/20 11/25/20 11:34 16:08 21:50 WBC RBC Hgb Hct MCV MCH MCHC Plt Count Kay % (Auto) Lymph # (Auto) Seg Neutrophils % Seg Neutrophils # D-Dimer Sodium Potassium Chloride Carbon Dioxide BUN Creatinine Glucose POC Glucose 255 H 275 H 218 H Hemoglobin A1c Calcium Ferritin AST ALT Lactate Dehydrogenase Total Creatine Kinase CK-MB (CK-2) C-Reactive Protein Albumin Digoxin Coronavirus (PCR) 11/26/20 11/26/20 11/26/20 05:38 07:20 12:34 WBC RBC Hgb Hct MCV MCH MCHC Plt Count Kay % (Auto) Lymph # (Auto) Seg Neutrophils % Seg Neutrophils # D-Dimer Sodium 136 L Potassium 5.1 H Chloride Carbon Dioxide 19 L BUN 29 H Creatinine Glucose 258 H POC Glucose 255 H 326 H Hemoglobin A1c Calcium 8.0 L Ferritin AST ALT Lactate Dehydrogenase Total Creatine Kinase CK-MB (CK-2) C-Reactive Protein Albumin Digoxin Coronavirus (PCR) 11/26/20 11/26/20 11/27/20 16:27 21:22 05:50 WBC RBC Hgb Hct MCV MCH MCHC Plt Count Kay % (Auto) Lymph # (Auto) Seg Neutrophils % Seg Neutrophils # D-Dimer Sodium 134 L Potassium Chloride Carbon Dioxide BUN 24 H Creatinine Glucose 237 H POC Glucose 286 H 278 H Hemoglobin A1c Calcium 7.9 L Ferritin AST ALT Lactate Dehydrogenase Total Creatine Kinase CK-MB (CK-2) C-Reactive Protein Albumin Digoxin Coronavirus (PCR) 11/27/20 11/27/20 11/27/20 10:43 10:43 10:43 WBC RBC Hgb Hct MCV MCH MCHC Plt Count Kay % (Auto) Lymph # (Auto) Seg Neutrophils % Seg Neutrophils # D-Dimer 720.02 H Sodium Potassium Chloride Carbon Dioxide BUN Creatinine Glucose POC Glucose Hemoglobin A1c Calcium Ferritin 4372.0 H AST ALT Lactate Dehydrogenase 533 H Total Creatine Kinase CK-MB (CK-2) C-Reactive Protein Albumin Digoxin Coronavirus (PCR) 11/27/20 11/27/20 11/27/20 11:27 16:59 21:30 WBC RBC Hgb Hct MCV MCH MCHC Plt Count Kay % (Auto) Lymph # (Auto) Seg Neutrophils % Seg Neutrophils # D-Dimer Sodium Potassium Chloride Carbon Dioxide BUN Creatinine Glucose POC Glucose 409 H 380 H 330 H Hemoglobin A1c Calcium Ferritin AST ALT Lactate Dehydrogenase Total Creatine Kinase CK-MB (CK-2) C-Reactive Protein Albumin Digoxin Coronavirus (PCR) 11/28/20 11/28/20 11/28/20 05:47 08:09 11:25 WBC RBC Hgb Hct MCV MCH MCHC Plt Count Kay % (Auto) Lymph # (Auto) Seg Neutrophils % Seg Neutrophils # D-Dimer Sodium 133 L Potassium 5.4 H Chloride Carbon Dioxide BUN 28 H Creatinine Glucose 318 H POC Glucose 287 H 353 H Hemoglobin A1c Calcium 7.9 L Ferritin AST ALT Lactate Dehydrogenase Total Creatine Kinase CK-MB (CK-2) C-Reactive Protein Albumin Digoxin Coronavirus (PCR) 11/28/20 11/28/20 11/29/20 18:01 22:01 07:29 WBC RBC Hgb Hct MCV MCH MCHC Plt Count Kay % (Auto) Lymph # (Auto) Seg Neutrophils % Seg Neutrophils # D-Dimer Sodium Potassium Chloride Carbon Dioxide BUN Creatinine Glucose POC Glucose 287 H 252 H 161 H Hemoglobin A1c Calcium Ferritin AST ALT Lactate Dehydrogenase Total Creatine Kinase CK-MB (CK-2) C-Reactive Protein Albumin Digoxin Coronavirus (PCR) 11/29/20 11/29/20 11/29/20 11:48 16:34 21:06 WBC RBC Hgb Hct MCV MCH MCHC Plt Count Kay % (Auto) Lymph # (Auto) Seg Neutrophils % Seg Neutrophils # D-Dimer Sodium Potassium Chloride Carbon Dioxide BUN Creatinine Glucose POC Glucose 204 H 279 H 297 H Hemoglobin A1c Calcium Ferritin AST ALT Lactate Dehydrogenase Total Creatine Kinase CK-MB (CK-2) C-Reactive Protein Albumin Digoxin Coronavirus (PCR) 11/30/20 11/30/20 11/30/20 08:03 11:33 15:53 WBC RBC Hgb Hct MCV MCH MCHC Plt Count Kay % (Auto) Lymph # (Auto) Seg Neutrophils % Seg Neutrophils # D-Dimer Sodium Potassium Chloride Carbon Dioxide BUN Creatinine Glucose POC Glucose 154 H 318 H 330 H Hemoglobin A1c Calcium Ferritin AST ALT Lactate Dehydrogenase Total Creatine Kinase CK-MB (CK-2) C-Reactive Protein Albumin Digoxin Coronavirus (PCR) 11/30/20 12/01/20 12/01/20 21:15 00:46 07:00 WBC RBC Hgb Hct MCV MCH MCHC Plt Count Kay % (Auto) Lymph # (Auto) Seg Neutrophils % Seg Neutrophils # D-Dimer Sodium 132 L Potassium 5.2 H Chloride Carbon Dioxide 20 L BUN 27 H Creatinine Glucose 259 H POC Glucose 298 H Hemoglobin A1c 8.5 H Calcium Ferritin AST ALT Lactate Dehydrogenase Total Creatine Kinase CK-MB (CK-2) C-Reactive Protein Albumin Digoxin Coronavirus (PCR) 12/01/20 12/01/20 12/01/20 07:32 12:02 17:03 WBC RBC Hgb Hct MCV MCH MCHC Plt Count Kay % (Auto) Lymph # (Auto) Seg Neutrophils % Seg Neutrophils # D-Dimer Sodium Potassium Chloride Carbon Dioxide BUN Creatinine Glucose POC Glucose 176 H 328 H 244 H Hemoglobin A1c Calcium Ferritin AST ALT Lactate Dehydrogenase Total Creatine Kinase CK-MB (CK-2) C-Reactive Protein Albumin Digoxin Coronavirus (PCR) 12/01/20 12/02/20 12/02/20 21:00 06:55 07:35 WBC RBC Hgb Hct MCV MCH MCHC Plt Count Kay % (Auto) Lymph # (Auto) Seg Neutrophils % Seg Neutrophils # D-Dimer Sodium 135 L Potassium Chloride Carbon Dioxide BUN 26 H Creatinine Glucose 129 H POC Glucose 328 H 119 H Hemoglobin A1c Calcium 8.0 L Ferritin AST ALT Lactate Dehydrogenase Total Creatine Kinase CK-MB (CK-2) C-Reactive Protein Albumin Digoxin Coronavirus (PCR) 12/02/20 12/02/20 12/03/20 16:43 22:05 08:11 WBC RBC Hgb Hct MCV MCH MCHC Plt Count Kay % (Auto) Lymph # (Auto) Seg Neutrophils % Seg Neutrophils # D-Dimer Sodium Potassium Chloride Carbon Dioxide BUN Creatinine Glucose POC Glucose 247 H 294 H 296 H Hemoglobin A1c Calcium Ferritin AST ALT Lactate Dehydrogenase Total Creatine Kinase CK-MB (CK-2) C-Reactive Protein Albumin Digoxin Coronavirus (PCR) 12/03/20 12:02 WBC RBC Hgb Hct MCV MCH MCHC Plt Count Kay % (Auto) Lymph # (Auto) Seg Neutrophils % Seg Neutrophils # D-Dimer Sodium Potassium Chloride Carbon Dioxide BUN Creatinine Glucose POC Glucose 289 H Hemoglobin A1c Calcium Ferritin AST ALT Lactate Dehydrogenase Total Creatine Kinase CK-MB (CK-2) C-Reactive Protein Albumin Digoxin Coronavirus (PCR) Allied health notes reviewed: nursing
== END 2020-12-03 14:30 | disposition home health service (06) | DRG 177 ==
LOC: ED 12:23 → 3A 15:42
PROVIDERS: ADMIT Internal Medicine; ATTEND Internal Medicine
DX: U07.1 COVID-19 (principal); J96.01 Acute respiratory failure with hypoxia; N17.0 Acute kidney failure with tubular necrosis; J12.82 Pneumonia due to coronavirus disease 2019; I50.23 Acute on chronic systolic (congestive) heart failure; E66.2 Morbid (severe) obesity with alveolar hypoventilation; E87.1 Hypo-osmolality and hyponatremia; M62.82 Rhabdomyolysis; G43.909 Migraine, unspecified, not intractable, without status migrainosus; I25.10 Atherosclerotic heart disease of native coronary artery without angina pectoris; E66.9 Obesity, unspecified; I25.5 Ischemic cardiomyopathy; Z86.79 Personal history of other diseases of the circulatory system; Z68.31 Body mass index [BMI] 31.0-31.9, adult; I25.2 Old myocardial infarction; E78.5 Hyperlipidemia, unspecified; D69.6 Thrombocytopenia, unspecified; K21.9 Gastro-esophageal reflux disease without esophagitis; Z95.810 Presence of automatic (implantable) cardiac defibrillator
CPT/HCPCS: 36415; 71045; 78580; 80048; 80053; 80162; 81001; 82140; 82550; 82553; 82728; 82947; 82962; 83036; 83615; 83880; 84145; 84484; 85014; 85018; 85025; 85027; 85379; 86140; 87040; 93005; 93306; 94760; G0378; A9540; J1100; J1644; J1815; J2920; J7030; J7070; J7512; U0003

== ENCOUNTER 2021-03-17 08:50 | Day surgery (SDC) | payer MEDICARE ==
[2021-03-17] MEDS ORDERED: SODIUM CHLORIDE IRRI 1000 ML 1,000 ML, .VANCOMYCIN VIAL 1,000 MG IR NR (10:30)
--- NOTE | 2021-03-17 10:43 | Anesthesia Consultation ---
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
--- NOTE | 2021-03-17 10:43 | Anesthesia Day of Surgery ---
Anesthesia Day of Surgery - Day of Surgery Patient Examined: Yes Patient H&P Reviewed: Yes Patient is NPO: Yes Beta Blockers: Yes
[2021-03-17] MEDS: SODIUM CHLORIDE 0.9% 1000 ML 1,000 ML IV SCH ×2 (11:14→13:00)
[2021-03-17 11:22] LABS: INR 0.92 (0.87-1.13)
[2021-03-17 11:24] LABS: BUN/Creatinine Ratio 12; Blood Urea Nitrogen 17 mg/dL (9-20); Calcium 9.7 mg/dL (8.4-10.2); Hemolysis Index 13
[2021-03-17 11:39] LABS: Basophils % (Auto) 0.6 % (0.0-1.8); Eosinophils # (Auto) 0.1 K/mm3 (0.0-0.4); Hematocrit 49.4 % (35.5-45.6); Hemoglobin 15.9 gm/dl (11.8-15.2); Lymphocytes # (Auto) 1.6 K/mm3 (1.2-5.4); Lymphocytes % (Auto) 34.9 % (13.4-35.0); Mean Corpuscular HGB Conc 32 % (32-34); Mean Corpuscular Volume 99 fl (84-94); Monocytes # (Auto) 0.7 K/mm3 (0.0-0.8); Monocytes % (Auto) 15.9 % (0.0-7.3); Platelet Count 147 K/mm3 (140-440); Red Blood Count 4.99 M/mm3 (3.65-5.03); Red Cell Distribution Width 14.3 % (13.2-15.2)
[2021-03-17] MEDS ORDERED: HYDROmorphone 1 MG/1 ML INJ ONE (12:08)
[2021-03-17] MEDS ORDERED: propofoL 200 MG/20 ML VIAL IV ONE ×2 (12:08→12:09)
[2021-03-17] MEDS ORDERED: MIDAZOLAM 2 MG/2 ML INJ ONE (12:08)
[2021-03-17] MEDS ORDERED: KETAMINE/STERILE WATER 50 MG/ML SYRINGE ONE (12:09)
[2021-03-17] MEDS ORDERED: LIDOCAINE MPF (2%) 20 MG/1 ML VIAL 5 ML ONE (12:09)
[2021-03-17] MEDS ORDERED: LIDOCAINE (1%) 10 MG/1 ML VIAL 20 ML MDV ONE (12:35)
[2021-03-17] MEDS ORDERED: SODIUM CHLORIDE IRRI 500 ML 1,000 ML IR ONE (12:35)
[2021-03-17] MEDS ORDERED: BUPIVACAINE/PF (0.5%) 5 MG/1 ML 10 ML VIAL INFILTRATI ONE (12:36)
[2021-03-17] MEDS ORDERED: ceFAZolin/Water 2 GM/20 ML 2 GM/20 ML SYRINGE IV ONE (12:38)
[2021-03-17] MEDS ORDERED: HEPARIN/NS 5000 UNIT/500ML 0 ML IR ONE (12:43)
--- NOTE | 2021-03-17 15:22 | Short Stay Summary ---
Short Stay Documentation Date of service: 03/17/21 - History H&P: obtained from office - Allergies and Medications Current Medications: Allergies No Known Allergies Allergy (Verified 04/13/15 20:17) Home Medications Medication Instructions Recorded Confirmed Last Taken Type Loratadine (Nf) [Claritin (Nf)] 10 mg PO DAILY PRN 04/13/15 11/25/20 Unknown History Timolol 0.5% [Timoptic] 1 drops OP DAILY PRN 04/13/15 11/25/20 Unknown History allopurinoL [Zyloprim] 300 mg PO QDAY PRN 04/13/15 11/25/20 Unknown History Famotidine [Pepcid] 20 mg PO BID #60 tablet 04/14/15 11/25/20 Unknown Rx Aspirin [Aspirin BABY CHEW TAB] 81 mg PO QDAY #30 tab.chew 06/16/15 11/25/20 Unknown Rx AtorvaSTATin [Lipitor] 40 mg PO QHS #30 tablet 06/16/15 11/25/20 Unknown Rx Colchicine [Colcrys] 0.6 mg PO DAILY PRN #30 tablet 06/16/15 11/25/20 Unknown Rx Furosemide [Lasix TAB] 40 mg PO QDAY #30 tablet 06/16/15 11/25/20 Unknown Rx [place]-3 Fatty Acids/Fish Oil [Fish 1,000 mg PO DAILY #30 capsule 06/16/15 11/25/20 Unknown Rx Oil] Potassium Chloride [K-Dur] 10 meq PO DAILY #30 tablet 06/16/15 11/25/20 Unknown Rx Ranolazine ER [Ranexa ER] 1,000 mg PO BID #60 tablet 06/16/15 11/25/20 Unknown Rx lisinopriL [Zestril TAB] 40 mg PO QDAY #30 tablet 06/16/15 11/25/20 Unknown Rx Digoxin [Lanoxin] 0.125 mg PO Q48HR tablet 12/03/20 Unknown Rx carvediloL [Coreg] 25 mg PO BID tablet 12/03/20 Unknown Rx predniSONE [Deltasone] 40 mg PO QDAY #5 tablet 12/03/20 Unknown Rx Active Medications Sodium Chloride (Nacl 0.9% 1000 Ml) 1,000 mls @ 50 mls/hr IV DIRECT CARLY Last Admin: 03/17/21 13:00 Dose: 50 mls/hr - Brief post op/procedure progress note Date of procedure: 03/17/21 Pre-op diagnosis: BiV upgrade Post-op diagnosis: other Anesthesia: local Estimated blood loss: minimal (Generator exchange) - Hospital course Hospital course: Patient wants presented for today for BiV upgrade. However patient generator was exchanged As per forensic identification specialist patient to be discharged after 1 hour of bedrest and to go home with Keflex 500 mg p.o. twice daily x5 days - Disposition Condition at discharge: Good Disposition: 01 HOME / SELF CARE / HOMELESS - Discharge Diagnoses (1) Chronic HFrEF (heart failure with reduced ejection fraction) Status: Chronic (2) Coronary artery disease Status: Chronic Qualifiers: Coronary Disease-Associated Artery/Lesion type: redding artery Three Affiliated vs. transplanted heart: redding heart Associated angina: with stable angina Qualified Code(s): I25.118 - Atherosclerotic heart disease of redding coronary artery with other forms of angina pectoris (3) Essential hypertension Status: Chronic (4) Ischemic cardiomyopathy Status: Chronic (5) Stented coronary artery Status: Chronic Short Stay Discharge Plan Activity: advance as tolerated Diet: low fat, low cholesterol, low salt Wound: keep clean and dry, per your surgeon's advice Additional Instructions: Patient has a follow-up appointment with the device clinic on 03/27/2019 7:40 AM at our [place] location. Phone #[phone] Follow up with: TRINIDDA OLIVEROS MD [Primary Care Provider] - 7 Days
--- NOTE | 2021-03-17 16:57 | Post Anesthesia Evaluation ---
- Post Anesthesia Evaluation Patient Participated: Yes Airway Patent: Yes Stable Respiratory Function: Yes Nausea/Vomiting: No Temp > 96.8F: Yes Pain Manageable: Yes Adequeate Hydration: Yes Anesthesia Complications: No Block Receding Appropriately: Not Applicable Patient on Ventilator: No
[2021-03-17 17:10] VITALS: BP 132/82
[2021-03-17] MEDS ORDERED: ACETAMINOPHEN 325 MG TAB PO ONE (17:14)
[2021-03-17] MEDS ORDERED: ACETAMINOPHEN 325 MG TAB ONE (17:15)
--- NOTE | 2021-03-18 08:48 | Electrocardiograph Report ---
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
--- NOTE | 2021-03-18 08:50 | Electrocardiograph Report ---
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
--- NOTE | 2021-03-19 03:12 | Procedure Note ---
DATE OF PROCEDURE: 03/17/2021 TYPE OF PROCEDURE: Dual chamber ICD generator replacement. DESCRIPTION OF PROCEDURE: The patient was brought to the cardiac cath lab technologist. The patient was prepped and draped in the usual sterile fashion. 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 At this point, upgrading the device to a biventricular defibrillator was aborted. Local anesthesia was obtained with lidocaine. Antibiotics were given prior to the procedure for surgical prophylaxis. A 3 cm incision was made over the old device. The fibrous capsule was incised and the old device was removed from the pocket. The leads were inspected and had intact insulation and conductors. Pacing thresholds and electrograms were satisfactory. The pocket was irrigated with antibiotic-containing solution. Adequate electrode parameters were confirmed prior to the attachment of the device to the leads. The leads and generator were inserted into the pocket. Closure was obtained using 2-0 Vicryl, 3-0 Vicryl, and 4-0 Vicryl for subcuticular closure. The incision was then protected with Steri-Strips, gauze, and clear adhesive dressing was applied. COMPLICATIONS: None. ASSESSMENT: 1. Occlusion of the left subclavian vein. 2. The device was not upgraded to a biventricular device given the occlusion of the left subclavian vein. 3. Dual chamber cardiac defibrillator replacement. PLAN: 1. The patient was transferred to cardiac recovery in a stable condition. 2. The patient should follow up in 8-10 days for incision check. TID: [id number] RECEIPT: [id number] /APR
== END 2021-03-17 18:35 | disposition home or self-care (01) ==
LOC: CATHLABREC 08:50
PROVIDERS: ATTEND Internal Medicine Cardiovascular Disease
DX: Z45.02 Encounter for adjustment and management of automatic implantable cardiac defibrillator (principal); I82.B12 Acute embolism and thrombosis of left subclavian vein; I25.110 Atherosclerotic heart disease of native coronary artery with unstable angina pectoris; I11.0 Hypertensive heart disease with heart failure; E11.39 Type 2 diabetes mellitus with other diabetic ophthalmic complication; I50.22 Chronic systolic (congestive) heart failure; I25.5 Ischemic cardiomyopathy; K21.9 Gastro-esophageal reflux disease without esophagitis; E78.5 Hyperlipidemia, unspecified; U07.1 COVID-19; Z20.822 Contact with and (suspected) exposure to COVID-19; E66.2 Morbid (severe) obesity with alveolar hypoventilation; Z79.899 Other long term (current) drug therapy; Z79.82 Long term (current) use of aspirin; Z87.891 Personal history of nicotine dependence; Z91.81 History of falling; Z68.32 Body mass index [BMI] 32.0-32.9, adult; Z98.890 Other specified postprocedural states; Z80.8 Family history of malignant neoplasm of other organs or systems; Z82.49 Family history of ischemic heart disease and other diseases of the circulatory system
CPT/HCPCS: 33263; 36415; 80048; 85025; 85610; 93005; 93010; C1721; J0690; J1170; J2250; J2704; J3370; J3490; J7030; U0003; J7120; Q0162; J1644